=== PATIENT | female | born 1940 | race Caucasian/White ===

== ENCOUNTER 2017-05-02 14:44 | Emergency (ER) | payer MEDICARE | END 2017-05-02 17:58 | disposition left against medical advice (07) | LOC: UCEAST 14:44 | DX: S01.91XA Laceration without foreign body of unspecified part of head, initial encounter (principal); X58.XXXA Exposure to other specified factors, initial encounter; Y93.9 Activity, unspecified; Y92.9 Unspecified place or not applicable; Z53.21 Procedure and treatment not carried out due to patient leaving prior to being seen by health care provider ==

== ENCOUNTER 2017-05-03 16:15 | Emergency (ER) | payer MEDICARE ==
--- NOTE | 2017-05-03 17:37 | UC ---
Head Injury HPI - HPI Summary HPI Summary: 2 DAYS AGO PT TURNED HER HEAD TO LOOK AT SOMETHING, GOT DIZZY AND FELL BACKWARDS. STRUCK HEAD ON A GLASS JAR AND LANDED ON HER [place] FLOOR. DENIES LOC. HAS LACERATIONS TO POSTERIOR SCALP AND UPPER BACK. DENIES CP, SOB, NAUSEA. HAS H/O MENINGIOMA. NEUROLOGIST DR. SIDDIQI. - History Of Current Complaint Stated Complaint: FALL Time Seen by Provider: 05/03/17 16:22 Hx Obtained From: Patient Onset/Duration: Sudden Onset, Lasting Days, Still Present Severity Currently: Moderate Severity Initially: Moderate Pain Intensity: 4 Pain Scale Used: 0-10 Numeric Character: Dull Aggravating Factor(s): Nothing Alleviating Factor(s): Nothing Associated Signs And Symptoms: Negative: LOC (Time In Secs./Mins/Hrs), Confusion , Memory Loss, Neck Pain, Nausea, Vomiting - Allergies/Home Medications Allergies/Adverse Reactions: Allergies Allergy/AdvReac Type Severity Reaction Status Date / Time MS Clonazepam [From Clonopin] Allergy Severe Anaphylatic Verified 05/03/17 16:24 Shock MS Clonidine [Clonidine] Allergy Hallucinati Verified 05/03/17 16:24 ons MS Lisinopril [Lisinopril] Allergy Difficulty Verified 05/03/17 16:24 Breathing ENVIRONMENTAL Allergy STUFFY, Uncoded 05/03/17 16:24 EYES RED, ITCHY PMH/Surg Hx/FS Hx/Imm Hx Endocrine History: Hypothyroidism Cardiovascular History: Hypertension Other Neurological History: MENINGIOMA S/P CRANIOTOMY 2006 Other History Of: Negative For: Anticoagulant Therapy - Surgical History Surgical History: Yes Surgery Procedure, Year, and Place: HYSTERECTOMY- [place] SURGERY- CRANIOTOMY 2005, ANEURYSM COIL PLACED 2004- [facility] KNEE ARTHROSCOPY- [facility] REDUCTION FX NASAL CMCR CATARACT 03/06 [facility] [place] - Family History Known Family History: Positive: Hypertension - Social History Alcohol Use: None Substance Use Type: None Substance Use Comment - Amount & Last Used: narcotics Smoking Status (MU): Never Smoked Tobacco Have You Smoked in the Last Year: No Review of Systems Constitutional: Other - DIZZY Skin: Other - LACERATION ENT: Negative Respiratory: Negative Cardiovascular: Negative Gastrointestinal: Negative Neurological: Headache All Other Systems Reviewed And Are Negative: Yes Physical Exam Triage Information Reviewed: Yes Appearance: Well-Appearing - DISHEVELED, No Pain Distress, Well-Nourished Vital Signs: Initial Vital Signs Temp 96.1 F 05/03/17 16:25 Pulse 88 05/03/17 16:25 Resp 16 05/03/17 16:25 BP 137/75 05/03/17 16:25 Pulse Ox 100 05/03/17 16:25 Vital Signs Reviewed: Yes Eyes: Positive: Conjunctiva Clear ENT: Positive: Hearing grossly normal Neck: Positive: Supple Respiratory Exam: Normal Cardiovascular: Positive: Other: - IRREGULARLY IRREGULAR Abdomen Description: Positive: Soft Musculoskeletal: Positive: No Edema Neurological: Positive: Alert Psychological: Positive: Age Appropriate Behavior Skin: Positive: Other - 1.2 CM LINEAR LACERATION POSTERIOR SCALP. 2CM STELLATE LACERATION UPPER BACK. Negative: rashes Diagnostics - EKG Cardiac Rate: NL - 93BPM Cardiac Rhythm: AFib: New ST Segment: Normal Head Injury Course/Dx - Course Course Of Treatment: PT WITH DIZZINESS, RECENT FALL, HEAD INJURY AND AFIB ON EKG. TO [facility] BY AMBULANCE - Differential Dx/Diagnosis Provider Diagnoses: 1. DIZZINESS/FALL. 2. LACERATIONS - SCALP, UPPER BACK. 3. AFIB - Physician Notification/Consults Discussed Patient Care With: Huey Pagan - TO [facility] BY AMBULANCE Time Discussed With Above Provider: 17:35 Discharge - Discharge Plan Condition: Stable Disposition: [facility] Referrals: Noe Wright MD [Primary Care Provider] -
[2017-05-03 17:49] VITALS: BP 138/76
== END 2017-05-03 18:00 | disposition short-term general hospital (02) ==
LOC: UCEAST 16:15
DX: S01.01XA Laceration without foreign body of scalp, initial encounter (principal); S21.219A Laceration without foreign body of unspecified back wall of thorax without penetration into thoracic cavity, initial encounter; W18.00XA Striking against unspecified object with subsequent fall, initial encounter; Y93.9 Activity, unspecified; Y92.9 Unspecified place or not applicable; Y99.9 Unspecified external cause status; R42 Dizziness and giddiness; R51 Headache; I48.91 Unspecified atrial fibrillation; Z88.8 Allergy status to other drugs, medicaments and biological substances; E03.9 Hypothyroidism, unspecified; I10 Essential (primary) hypertension; Z90.710 Acquired absence of both cervix and uterus
CPT/HCPCS: 93005; 99213; G0463

== ENCOUNTER 2017-05-03 18:31 | Emergency (ER) | payer MEDICARE ==
--- NOTE | 2017-05-03 20:21 | RAD ---
Indication: Fall 2 days ago hitting back of head. History of brain cancer. Frequent falls at home. Comparison: September 08, 2013 CT Technique: Noncontrast CT vertex of skull through foramen magnum. Report: Significant artifact from metallic coils at the level of the [place] degrading image quality. Small foci of encephalomalacia at the frontal poles of the RIGHT greater than LEFT frontal lobes without change. No new region of baeza matter white matter obscuration or mass effect evident. Mild prominence of the cerebral sulci. Negative for ventriculomegaly. Patent basal cisterns. Negative for intra or extra-axial hemorrhage. Unremarkable visualized orbital contents. Negative for suspicious calvarial or skull base lesions. Postsurgical change of frontal to RIGHT frontal craniotomy. Clear visualized paranasal sinuses and RIGHT mastoid air spaces. Partial opacification of the LEFT mastoid air spaces new compared with the prior exam. Negative for scalp hematoma. IMPRESSION: 1. No traumatic brain injury or acute intracranial process evident. 2. Previous craniotomy. Subjacent small foci of encephalomalacia at the RIGHT greater than LEFT frontal lobes without change. 3. Partial LEFT mastoid effusions new compared with the prior exam.
[2017-05-03 20:59] VITALS: BP 130/63
--- NOTE | 2017-05-10 19:52 | ED ---
Grisel Velasco Rebecca, scribed for Guzman Carvalho MD on 05/03/17 at 1843 . Head Injury - HPI Summary HPI Summary: Pt is a 76 y/o F BIBA from [facility] who presents to ED c/o scalp lacerations s/p fall. Pt reports that she fell 2 days ago due to losing her balance, striking her head on a glass jar and landing on hardwood [place]. Denies LOC. Additionally c/o TAVERA with moderate pain ranked 6/10. PMHx brain CA with frequent falls at home. Is not on blood thinners. - History Of Current Complaint Chief Complaint: EDHeadInjury Stated Complaint: GENERAL ILLNESS Hx Obtained From: Patient Mechanism Of Injury: Fall From A Standing Position Onset/Duration: Started Days Ago - 2 days, Still Present Severity Currently: Moderate Pain Intensity: 6 Pain Scale Used: 0-10 Numeric Location of Head Injury: Occipital Aggravating Factor(s): Other: - Nothing Alleviating Factor(s): Other: - Nothing Associated Signs And Symptoms: Headache - Allergies/Home Medications Allergies/Adverse Reactions: Allergies Allergy/AdvReac Type Severity Reaction Status Date / Time MS Clonazepam [From Clonopin] Allergy Severe Anaphylatic Verified 05/03/17 18:39 Shock MS Clonidine [Clonidine] Allergy Hallucinati Verified 05/03/17 18:39 ons MS Lisinopril [Lisinopril] Allergy Difficulty Verified 05/03/17 18:39 Breathing ENVIRONMENTAL Allergy STUFFY, Uncoded 05/03/17 18:39 EYES RED, ITCHY PMH/Surg Hx/FS Hx/Imm Hx Endocrine/Hematology History: Reports: Hx Thyroid Disease Denies: Hx Anticoagulant Therapy, Hx Diabetes Cardiovascular History: Reports: Other Cardiovascular Problems/Disorders - BRAIN SURG FOR MENINGIOMA, ANEURYSM (COILED) Denies: Hx Hypertension, Hx Pacemaker/ICD Respiratory History: Reports: Hx Seasonal Allergies Denies: Hx Asthma, Hx Chronic Obstructive Pulmonary Disease (COPD) GI History: Reports: Hx Gastroesophageal Reflux Disease - TAKES LANSOPRAZOLE Denies: Hx Ulcer History: Denies: Hx Renal Disease Musculoskeletal History: Reports: Hx Back Problems Sensory History: Reports: Hx Contacts or Glasses - GLASSES Denies: Hx Cataracts, Hx Glaucoma, Hx Hearing Aid Opthamlomology History: Reports: Hx Contacts or Glasses - GLASSES Denies: Hx Cataracts, Hx Glaucoma Neurological History: Reports: Hx Headaches, Hx Migraine, Hx Seizures - WELL CONTROLLED, Other Neuro Impairments/Disorders - BRAIN TUMOR, HX OF BRAIN SURGERY Psychiatric History: Reports: Hx Anxiety, Hx Depression Denies: Hx Panic Disorder - Cancer History Cancer Type, Location and Year: 2004- CRANIOTMY Hx Chemotherapy: No Hx Radiation Therapy: No - Surgical History Surgery Procedure, Year, and Place: HYSTERECTOMY- AUBURNBRAIN SURGERY- CRANIOTOMY 2005, ANEURYSM COIL PLACED 2004- [place] [facility] ARTHROS[facility]- [place] , [facility] REDUCTION FX NASAL CMCR CATARACT 03/06 [facility]LASTY [place] Hx Anesthesia Reactions: No Infectious Disease History: No Infectious Disease History: Denies: Hx Hepatitis, Hx Human Immunodeficiency Virus (HIV), Traveled Outside the [place] in Last 30 Days - Family History Known Family History: Positive: Hypertension - Social History Alcohol Use: None Substance Use Type: Reports: Prescribed Substance Use Comment - Amount & Last Used: narcotics Smoking Status (MU): Never Smoked Tobacco Have You Smoked in the Last Year: No Review of Systems Positive: Other - Scalp lacerations Positive: Headache All Other Systems Reviewed And Are Negative: Yes Physical Exam - Summary Physical Exam Summary: Appearance: Well-appearing, Well-nourished Skin: Warm, Dry, No rash Eyes: Normal, PERRL, EOMI, sclera anicteric ENT: Normal Neck: Supple, nontender Respiratory: Clear to auscultation Cardiovascular: S1, S2, no murmur, no rub, no gallop Abdomen: Soft, nontender, no organomegaly Bowel sounds: Present Musculoskeletal: Normal, Strength/ROM Intact, no edema, pulses symmetrical Neurological: Slightly aphasic and has trouble findings words, A&Ox3, cranial nerves II-XII WNL, follows commands, gait not tested, sensation intact to pin and light touch Psychiatric: affect normal, behavior appropriate, dressed appropriately, judgment intact GCS: 14 Triage Information Reviewed: Yes Vital Signs On Initial Exam: Initial Vitals Temp Pulse Resp BP Pulse Ox 97.7 F 76 18 119/63 99 05/03/17 18:33 05/03/17 18:33 05/03/17 18:33 05/03/17 18:33 05/03/17 18:33 Vital Signs Reviewed: Yes - Emiliano Coma Scale Glascow Coma Scale Comments: 14 Diagnostics - Vital Signs Vital Signs Temp Pulse Resp BP Pulse Ox 05/03/17 18:33 97.7 F 76 18 119/63 99 - Laboratory Lab Statement: Any lab studies that have been ordered have been reviewed, and results considered in the medical decision making process. - CT Brain CT CT Interpretation: No Acute Changes - 1. No traumatic brain injury or acute intracranial process evident. 2. Previous craniotomy. Subjacent small foci of encephalomalacia at the RIGHT greater than LEFT frontal lobes without change. 3. Partial LEFT mastoid effusions new compared with the prior exam. Dr. Carvalho reviewed this radiology report. CT Interpretation Completed By: Radiologist Re-Evaluation - Re-Evaluation First Eval Re-Evaluation Time: 20:30 Comment: Discussed CT results and D/C plan with the pt. Head Injury Course/Dx Assessment/Plan: Pt is a 76 y/o F BIBA from [facility] who presents to ED c/o scalp lacerations s/p fall 2 days ago due to losing her balance, striking her head on a glass jar and landing on hardwood [place]. Denies LOC. Additionally c/o TAVERA with moderate pain ranked 6/10. PMHx brain CA with frequent falls at home. Is not on blood thinners. Brain CT reveals no acute findings. Pt will be D/C to home with Dx of head trauma and minor concussion. She understands and agrees. Allergies noted. - Diagnoses Provider Diagnoses: Head trauma, Concussion Discharge - Discharge Plan Condition: Good Disposition: HOME Discharge Disposition Comment: home Patient Education Materials: Concussion (ED) Referrals: Noe Wright MD [Primary Care Provider] - The documentation as recorded by the Grisel friedman Rebecca accurately reflects the service I personally performed and the decisions made by me, Guzman Carvalho MD.
== END 2017-05-03 20:58 | disposition home or self-care (01) ==
LOC: ED 18:31
DX: S09.90XA Unspecified injury of head, initial encounter (principal); S06.0X9A Concussion with loss of consciousness of unspecified duration, initial encounter; R51 Headache; Z86.011 Personal history of benign neoplasm of the brain; W19.XXXA Unspecified fall, initial encounter; Y92.9 Unspecified place or not applicable; S01.01XA Laceration without foreign body of scalp, initial encounter
CPT/HCPCS: 70450; 99283

== ENCOUNTER 2017-05-20 20:47 | Inpatient (IN) | payer MEDICARE ==
[2017-05-20 22:09] LABS: ABS Basophils 0 10^3/ul (0-0.2); ABS Eosinophils 0 10^3/ul (0-0.6); ABS Lymphocytes 1.6 10^3/ul (1.0-4.8); ABS Monocytes 0.5 10^3/ul (0-0.8); ABS Neutrophils 4.8 10^3/ul (1.5-7.7); ABS Nucleated RBC 0 10^3/ul; Eosinophil % 0.6 % (0-6); Hematocrit 37 % (35-47); Lymphocyte % 23.2 % (25-47); Mean Corpuscular HGB Conc 35 g/dl (31-36); Mean Corpuscular Hemoglobin 31 pg (27-31); Mean Corpuscular Volume 90 fL (80-97); Mean Platelet Volume 8 um3 (7.4-10.4); Nucleated Red Blood Cells % 0.1; Platelet Count 261 10^3/ul (150-450); Red Blood Count 4.15 10^6/ul (4.0-5.4); Red Cell Distribution Width 14 % (10.5-15)
[2017-05-20 22:27] LABS: EGFR Non-African American 25.8 (>60)
[2017-05-20] MEDS ORDERED: Potassium Chlor TAB* 20 MEQ TAB.ER PO ONE (22:37)
[2017-05-21] MEDS ORDERED: NS 0.9% w/ 20 Meq KCL 1000 ML* 1,000 ML IV SCH
--- NOTE | 2017-05-21 00:09 | ED ---
Gerson Velasco Angela, scribed for iGlma Douglas MD on 05/20/17 at 2123 . Complex/Multi-Sys Presentation - HPI Summary HPI Summary: This pt is a 76 y/o female presenting to [facility] via EMS for palpitations earlier today. Per EMS, pt called them for palpitations. EMS reports the pt has had palpitations for 3 weeks now. She denies any chest pain. When asked why she called the ambulance, the pt goes into tangents explaining and does not answer the question. Pt lives at home alone. Per pt, she had a brain tumor, and states some of it was resected approximately 7 years ago. HPI is limited due to level 5 caveat - the pt is a poor historian. - History Of Current Complaint Time Seen by Provider: 05/20/17 20:52 Hx Obtained From: Patient Hx From Patient Unobtainable Due To: Other - pt is a poor historian Onset/Duration: Lasting Hours, Still Present Timing: Hours Severity Currently: Moderate Aggravating Factor(s): nothing Alleviating Factor(s): nothing Associated Signs And Symptoms: Positive: Confusion, Palpitations. Negative: Chest Pain - Allergies/Home Medications Allergies/Adverse Reactions: Allergies Allergy/AdvReac Type Severity Reaction Status Date / Time MS Clonazepam [From Clonopin] Allergy Severe Anaphylatic Verified 05/03/17 18:39 Shock MS Clonidine [Clonidine] Allergy Hallucinati Verified 05/03/17 18:39 ons MS Lisinopril [Lisinopril] Allergy Difficulty Verified 05/03/17 18:39 Breathing ENVIRONMENTAL Allergy STUFFY, Uncoded 05/03/17 18:39 EYES RED, ITCHY PMH/Surg Hx/FS Hx/Imm Hx Endocrine/Hematology History: Reports: Hx Thyroid Disease Denies: Hx Anticoagulant Therapy, Hx Diabetes Cardiovascular History: Reports: Other Cardiovascular Problems/Disorders - BRAIN SURG FOR MENINGIOMA, ANEURYSM (COILED) Denies: Hx Hypertension, Hx Pacemaker/ICD Respiratory History: Reports: Hx Seasonal Allergies Denies: Hx Asthma, Hx Chronic Obstructive Pulmonary Disease (COPD) GI History: Reports: Hx Gastroesophageal Reflux Disease - TAKES LANSOPRAZOLE Denies: Hx Ulcer History: Denies: Hx Renal Disease Musculoskeletal History: Reports: Hx Back Problems Sensory History: Reports: Hx Contacts or Glasses - GLASSES Denies: Hx Cataracts, Hx Glaucoma, Hx Hearing Aid Opthamlomology History: Reports: Hx Contacts or Glasses - GLASSES Denies: Hx Cataracts, Hx Glaucoma Neurological History: Reports: Hx Headaches, Hx Migraine, Hx Seizures - WELL CONTROLLED, Other Neuro Impairments/Disorders - BRAIN TUMOR, HX OF BRAIN SURGERY Psychiatric History: Reports: Hx Anxiety, Hx Depression Denies: Hx Panic Disorder - Cancer History Cancer Type, Location and Year: 2004- CRANIOTMY Hx Chemotherapy: No Hx Radiation Therapy: No - Surgical History Surgery Procedure, Year, and Place: HYSTERECTOMY- AUBURNBRAIN SURGERY- CRANIOTOMY 2005, ANEURYSM COIL PLACED 2004- [place] , [facility] REDUCTION FX NASAL CMCR CATARACT 03/06 [facility]LEPH[facility]LASTY [place] Hx Anesthesia Reactions: No Infectious Disease History: Denies: Hx Hepatitis, Hx Human Immunodeficiency Virus (HIV) - Family History Known Family History: Positive: Hypertension - Social History Alcohol Use: None Substance Use Type: Reports: Prescribed Substance Use Comment - Amount & Last Used: narcotics Smoking Status (MU): Never Smoked Tobacco Have You Smoked in the Last Year: No Review of Systems - ROS Summary Review of Systems Summary: ROS is limited due to level 5 caveat - pt is a poor historian. Negative: Fever, Chills Positive: Palpitations. Negative: Chest Pain All Other Systems Reviewed And Are Negative: No Physical Exam - Summary Physical Exam Summary: VITAL SIGNS: Reviewed. GENERAL: Patient is a well-developed and nourished female who is lying comfortable in the stretcher. Patient is not in any acute respiratory distress. HEAD AND FACE: No signs of trauma. No ecchymosis, hematomas or skull depressions. No sinus tenderness. EYES: PERRLA, EOMI x 2, No injected conjunctiva, no nystagmus. EARS: Hearing grossly intact. Ear canals and tympanic membranes are within normal limits. MOUTH: Oropharynx within normal limits. NECK: Supple, trachea is midline, no adenopathy, no JVD, no carotid bruit, no c- spine tenderness, neck with full ROM. CHEST: Symmetric, no tenderness at palpation LUNGS: Clear to auscultation bilaterally. No wheezing or crackles. CVS: Regular rate and rhythm, S1 and S2 present, no murmurs or gallops appreciated. ABDOMEN: Soft, non-tender. No signs of distention. No rebound no guarding, and no masses palpated. Bowel sounds are normal. EXTREMITIES: FROM in all major joints, no edema, no cyanosis or clubbing. NEURO: Alert and oriented x 3. Speech is normal and follows commands. Pt has confusion. SKIN: Dry and warm Triage Information Reviewed: Yes Vital Signs Reviewed: Yes Completion Of Physical Exam Limited Due To: Level 5 - pt is a poor historian - Emiliano Coma Scale Best Eye Response: 4 - Spontaneous Best Motor Response: 6 - Obeys Commands Best Verbal Response: 5 - Oriented Coma Scale Total: 15 Diagnostics - Laboratory Result Diagrams: 05/20/17 22:00 05/20/17 22:00 Lab Statement: Any lab studies that have been ordered have been reviewed, and results considered in the medical decision making process. - Radiology Chest XR Xray Interpretation: No Acute Changes - negative chest XR Radiology Interpretation Completed By: ED Physician - CT Brain CT CT Interpretation: No Acute Changes - IMPRESSION: again noted metallic in the suprasellar region compatible with aneurysm clips and/or coils. Extensive streak artifact limits evaluation. There is no clear evidence of intracranial hemorrhage within the limitations of the study. No midlie shift. There is stable mild cortical atrophy. Ventricular size corresponds to the degree of atrophy. Frontal craniotomy defect is again noted. The calvarium is otherwise intact. Multiple opacified left mastoid air cells are again noted compatible with chronic and/or acute mastoiditis. The visualized paranasal sinuses and right mastoid air cells are clear. Dr. Douglas has reviewed this radiology report. CT Interpretation Completed By: Radiologist - EKG 21:02 Cardiac Rate: NL EKG Rhythm: Sinus Rhythm - at [address] Segment: Non-Specific - ST changes Complex Multi-Symp Course/Dx Course Of Treatment: Pt is a 76 y/o female who presents with palpitations earlier today. History is limited as pt is not a good historian. Labs show potassium 2.4, creatinine of 1.90. Chest XR is negative. Brain CT is negative. I discussed pt care with Dr. Rajput, hospitalist, who has agreed to admit the pt. - Diagnoses Provider Diagnoses: Hypokalemia, Renal insufficiency, Palpitations - Physician Notifications Discussed Care Of Patient With: Siddharth Rajput Time Discussed With Above Provider: 00:00 Instructed by Provider To: Other - I discussed pt care with Dr. Rajput, hospitalist, who has agreed to admit the pt. Discharge - Discharge Plan Condition: Stable Disposition: ADMITTED TO [facility] Referrals: Noe Wright MD [Primary Care Provider] - The documentation as recorded by the Gerson friedman Angela accurately reflects the service I personally performed and the decisions made by me, Gilma Douglas MD.
--- NOTE | 2017-05-21 00:42 | HP ---
H&P (Free Text) History and Physical: PCP: HAROLDO Wright MD Date/Time: 05/21/2017 0040 CC: confusion HPI: Mrs Coreas is a 76YO female [place] [facility] [place] calling complaining of palpitations which she informed them had been present for the last 3 weeks. However, upon my evaluation she is very perseverant regarding the pharmacy information she received on her topiramate which she feels is killing her. During the interview, she becomes uncomfortable with the 3 glove boxes on the ED wall thinking they are "little men". She denies recent medication changes , but is likely not reliable on this. Likewise it is conceivable she could be under/over dosing her routine medications. She has numerous complaints such as anesthesia of the feet and fingers, difficulty initiating gait, and dizziness all of which she attributes to topiramate. She states that in the deterioration topiramate causes "the last symptom you get before you is you go blind" and that she would like to avoid that. She denies fall or recent head trauma. Much of the remainder of this history was obtained from old records. PMedHx meningioma s/p partial resection [place] aneurysm s/p coiling HTN HLD hypothyroidism seizure disorder GERD R sciatica anxiety Ambulatory Orders Topiramate TAB(*) [Topamax 100 mg tab] 100 mg PO BID 04/02/12 Triamterene/HCTZ 37.5-25 MG* [Dyazide CAP*] 1 tab PO QAM 04/03/12 ALPRAZolam TAB* [Xanax TAB*] 1 mg PO Q4HR PRN 07/30/13 Acyclovir* [Zovirax 400 MG TAB*] 400 mg PO TID PRN 07/30/13 Aspirin TAB* [Aspirin 325 MG TAB*] 325 mg PO QPM 07/30/13 Dextroamphetamine/Amphetamine [Amphetamine/Dextroampheta 10 mg-] 10 tab PO QAM 07/30/13 Fluticasone NASAL SPRAY 50MCG* [Flonase NASAL SPRAY 50MCG*] 2 spray BOTH NARES DAILY PRN 07/30/13 Meclizine TAB* [Antivert 12.5 TAB*] 50 mg PO BID 07/30/13 Morphine TAB (NF) 30 mg PO Q4HR 07/30/13 Potassium Chloride [Klor-Con 10] 20 meq PO BID 07/30/13 lamoTRIgine TAB(*) [Lamictal TAB(*)] 250 mg PO BID 07/30/13 Levothyroxine TAB* 75 mcg PO QAM 03/28/14 Cholecalciferol (Vitamin D3) [Vitamin D3] 2,000 unit PO QAM 04/20/14 Lansoprazole 30 mg PO BID 04/20/14 Cyanocobalamin INJ * [Vitamin B12 INJ *] 1,000 mcg IM MONTHLY 06/30/15 hydrOXYzine HCL TAB* [Atarax TAB 50 MG *] 50 mg PO Q6H PRN 06/30/15 Cyclobenzaprine TAB* [Flexeril 10 MG TAB*] 10 mg PO TID 05/21/17 Loratadine/Pseudoephedrine [Claritin-D 24 Hour 10-240 mg] 1 tab PO DAILY Allergies clonazepam Allergy (Verified 05/21/17 02:11) Anaphylatic Shock clonidine Allergy (Verified 05/21/17 02:11) Hallucinations lisinopril Allergy (Verified 05/21/17 02:11) Difficulty Breathing ENVIRONMENTAL Allergy (Uncoded 05/21/17 01:33) STUFFY, EYES RED, ITCHY PSurgHx meningioma partial resection [place] aneurysm coiling partial hysterectomy B blepharoplasty nasal fracture repair OU cataract extractions knee surgery SocHx: no tobacco, former light drinker, no recreational drugs; lives alone; uses cane to ambulate; full FamHx: Mother: CHF; Father: lung CA; Sister: fibromyalgia, DM2; Brother: DM2 ROS: as above, otherwise reviewed and all were negative vitals: Vital Signs Temp 36.8 C 05/21/17 07:35 Pulse 72 05/21/17 07:35 Resp 16 05/21/17 07:35 BP 125/66 05/21/17 07:35 Pulse Ox 100 05/21/17 07:35 Intake & Output 05/20/17 05/20/17 05/21/17 11:59 23:59 11:59 Intake Total 411 Balance 411 Weight 74.843 kg 74.843 kg Intake: IV Fluids 211 NS (0.9%) 211 Oral 200 Constitutional: NAD, normally developed, well-nourished elderly white female HEENM: atraumatic; sclera/conjunctiva: anicteric/clear; hearing: clinically intact; oropharynx: clear, mucosa moist Neck: soft tissue: non-tender, no nuchal rigidity; thyroid: normal Pulmonary: clear to auscultation bilaterally, good aeration, no accessory muscle use CV: RR/RR, normal S1S2, no carotid bruit, no jugular venous distention, 2+ B DP/ PT, no edema Abdominal: soft, non-distended, non-tender, no rebound/guarding/rigidity, normoactive bowel sounds, no hepatosplenomegaly or masses, no costovertebral angle tenderness Musculoskeletal: general: grossly intact, no tenderness w/ palpation Integumental: normal appearance and texture of exposed skin Psychiatric orientation: AA&O to PP, not ST affect: calm mood: cooperative eye contact: fair content: unreliable responses: timely, tangential, perseverant regarding dangers of topiramate insight: poor Testing: Lab Results 05/20/17 05/20/17 05/21/17 Range/Units 22:00 22:00 05:49 WBC 7.0 (3.5-10.8) 10^3/ul RBC 4.15 (4.0-5.4) 10^6/ul Hgb 13.0 (12.0-16.0) g/dl Hct 37 (35-47) % MCV 90 (80-97) fL MCH 31 (27-31) pg MCHC 35 (31-36) g/dl RDW 14 (10.5-15) % Plt Count 261 (150-450) 10^3/ul MPV 8 (7.4-10.4) um3 Neut % (Auto) 69.1 (38-83) % Lymph % (Auto) 23.2 L (25-47) % [place] % (Auto) 6.6 (0-7) % Eos % (Auto) 0.6 (0-6) % Baso % (Auto) 0.5 (0-2) % Absolute Neuts (auto) 4.8 (1.5-7.7) 10^3/ul Absolute Lymphs (auto) 1.6 (1.0-4.8) 10^3/ul Absolute Monos (auto) 0.5 (0-0.8) 10^3/ul Absolute Eos (auto) 0 (0-0.6) 10^3/ul Absolute Basos (auto) 0 (0-0.2) 10^3/ul Absolute Nucleated RBC 0 10^3/ul Nucleated RBC % 0.1 Sodium 132 L 134 (133-145) mmol/L Potassium 2.4 L* 2.4 L* (3.5-5.0) mmol/L Chloride 89 L 95 L (101-111) mmol/L Carbon Dioxide 27 28 (22-32) mmol/L Anion Gap 16 H 11 (2-11) mmol/L BUN 24 24 (6-24) mg/dL Creatinine 1.90 H 1.72 H (0.51-0.95) mg/dL Est GFR ( Amer) 33.2 37.3 (>60) Est GFR (Non-Af Amer) 25.8 29.0 (>60) BUN/Creatinine Ratio 12.6 14.0 (8-20) Glucose 86 98 (70-100) mg/dL Calcium 10.8 H 9.7 (8.6-10.3) mg/dL Total Bilirubin 0.80 (0.2-1.0) mg/dL AST 16 (13-39) U/L ALT 12 (7-52) U/L Alkaline Phosphatase 53 (34-104) U/L Troponin I 0.03 (<0.04) ng/mL Total Protein 7.5 (6.4-8.9) g/dL Albumin 4.4 (3.2-5.2) g/dL Globulin 3.1 (2-4) g/dL Albumin/Globulin Ratio 1.4 (1-3) TSH 0.97 (0.34-5.60) mcIU/mL Salicylates < 2.50 (<30) mg/dL Acetaminophen < 15 mcg/mL Serum Alcohol < 10 (<10) mg/dL ECG, personally reviewed: NSR rate 90, diffuse non-specific ST-T changes, poor R -wave progression CXR, personally reviewed: IMPRESSION: NO ACTIVE CARDIOPULMONARY DISEASE. CT brain WO, personally reviewed: IMPRESSION: 1. NO ACUTE INTRACRANIAL PATHOLOGY. 2. STABLE RIGHT FRONTAL ENCEPHALOMALACIA. 3. STATUS POST ENDOVASCULAR COIL EMBOLIZATION Impression: 76M presenting with acute delirium on suspected chronic undiagnosed dementia, ? palpitations w/ hypoKalemia DIAGNOSIS & PLAN Primary confusion w/ hallucinations : hold all likely culprit medications : suspect acute delirium on previously undiagnosed dementia vs medication over/ under dosing : trend labs & vitals : supportive care hypoKalemia : replace & recheck Secondary meningioma s/p partial resection : stable [place] aneurysm s/p coiling : no acute issues HTN : continue triamterene/HCTZ hypothyroidism : continue levothyroxine seizure disorder : continue lamotrigine GERD : continue lansoprazole R sciatica anxiety : hold alprazolam as above Admission Rational: inpatient for AMS & hallucinations not expected to be adequately resolve w/i 48h to allow for discharge DVTp: SCDs Code Status: full HCP: unable to determine
[2017-05-21] MEDS ORDERED: Ondansetron INJ* 2 MG/ML VIAL IV PRN (02:41)
[2017-05-21] MEDS ORDERED: CMCS: Melatonin (NF) 3 MG TAB PO PRN (02:41)
[2017-05-21] MEDS: NS 0.9% 1000 ML* 1,000 ML IV SCH ×3 (05:46→23:51)
[2017-05-21] MEDS: Acetaminophen TAB* 325 MG PO PRN (05:52)
--- NOTE | 2017-05-21 08:01 | RAD ---
HISTORY: Confusion COMPARISONS: May 03, 2012 TECHNIQUE: Multiple contiguous axial CT scans were obtained of the head without intravenous contrast. FINDINGS: Evaluation limited by metallic streak artifact from previous coil embolization. HEMORRHAGE/INFARCT: There is no hemorrhage or acute infarct. MASSES/SHIFT: There is no mass or shift. EXTRA-AXIAL SPACES: There are no extra-axial fluid collections. SULCI AND VENTRICLES: The sulci and ventricles are normal in size and position for the patient's stated age. CEREBRUM: There is stable right frontal encephalomalacia. BRAINSTEM: There are no focal parenchymal abnormalities. CEREBELLUM: There are no focal parenchymal abnormalities. VESSELS: The patient appears to be status post endovascular coil embolization of a cerebral aneurysm. PARANASAL SINUSES: The paranasal sinuses are clear. There is a small left mastoid effusion. ORBITS: The orbits are unremarkable. BONES AND SOFT TISSUE: There is postsurgical change to the skull. OTHER: None IMPRESSION: 1. NO ACUTE INTRACRANIAL PATHOLOGY. 2. STABLE RIGHT FRONTAL ENCEPHALOMALACIA. 3. STATUS POST ENDOVASCULAR COIL EMBOLIZATION
--- NOTE | 2017-05-21 08:03 | RAD ---
HISTORY: Palpitation COMPARISONS: August 11, 2014 VIEWS: 1: frontal portable view of the chest at 10:54 PM FINDINGS: LINES AND TUBES: None. CARDIOMEDIASTINAL SILHOUETTE: The cardiomediastinal silhouette is normal for portable technique. PLEURA: The costophrenic angles are sharp. No pleural abnormalities are noted. LUNG PARENCHYMA: The lungs are clear. ABDOMEN: The upper abdomen is clear. There is no subphrenic gas. BONES AND SOFT TISSUES: No bone or soft tissue abnormalities are noted. IMPRESSION: NO ACTIVE CARDIOPULMONARY DISEASE.
[2017-05-21] MEDS ORDERED: Potassium Chlor TAB* 20 MEQ TAB.ER PO ONE (09:45)
[2017-05-21] MEDS ORDERED: KCL 20 MEQ/100 ML IVPREMIX* 20 MEQ/100 ML BAG IV SCH (10:00)
[2017-05-21] MEDS: Potassium Chloride IV* 20 MEQ in NS 0.9% 100 ML* 100 ML IVPB SCH ×3 (11:06→15:50)
--- NOTE | 2017-05-21 17:48 | PN ---
Subjective Date of Service: 05/21/17 Interval History: Patient seen, difficult to obtain ROS, difficult to redirect. Wants to talk about other things and has difficulty remaining on point to answer questions. From what I can gather, she is complaining of frequent falls (including fractured nasal bone 2/2 fall), severe gait dysfunction. She also has chronically low potassium which is being repleted. No longer having palpitations. Denies pain. Per RN, bladder scan = >600ml. Objective Active Medications: Acetaminophen (Tylenol Tab*) 650 mg PO Q6H PRN PRN Reason: FEVER/PAIN Last Admin: 05/21/17 05:52 Dose: 650 mg Aspirin (Aspirin Tab*) 325 mg PO QPM [facility] Sodium Chloride (Ns 0.9% 1000 Ml*) 1,000 mls @ 125 mls/hr IV PER RATE [facility] Last Admin: 05/21/17 15:50 Dose: 125 mls/hr Lamotrigine (Lamictal Tab(*)) 250 mg PO BID [facility] Levothyroxine Sodium (Synthroid Tab*) 75 mcg PO 0600 [facility] Melatonin (Melatonin (Nf)) 3 mg PO BEDTIME PRN; Protocol PRN Reason: Sleep Omeprazole (Prilosec Cap*) 20 mg PO BID [facility] Ondansetron HCl (Zofran Inj*) 4 mg IV Q6H PRN PRN Reason: NAUSEA Quetiapine Fumarate (Seroquel Tab*) 25 mg PO BEDTIME [facility] Topiramate (Topamax(*)) 100 mg PO BID [facility] Vital Signs - 8 hr 05/21/17 05/21/17 11:15 16:51 Temperature 97.6 F 98.2 F Pulse Rate 73 83 Respiratory 14 18 Rate Blood Pressure 103/79 120/64 (mmHg) O2 Sat by Pulse 99 100 Oximetry Oxygen Devices in Use Now: None Appearance: Alert, somewhat distressed, appears angry at times Eyes: No Scleral Icterus, PERRLA Ears/Nose/Mouth/Throat: NL Teeth, Lips, Gums Neck: NL Appearance and Movements; NL JVP, Trachea Midline Respiratory: Symmetrical Chest Expansion and Respiratory Effort, Clear to Auscultation Cardiovascular: NL Sounds; No Murmurs; No JVD, RRR, No Edema Extremities: No Edema Skin: No Rash or Ulcers Neurological: NL Sensation, NL Muscle Strength and Tone, - - a&ox2 Nutrition: Taking PO's Result Diagrams: 05/20/17 22:00 05/21/17 05:49 Diagnostic Imaging: Patient Name: IRVIN VARGAS Medical Record#: [id number] Ordering Physician: Gilma Douglas MD Acct.#: [id number] : 1940 Age: 76 Sex: F Location: [address] [place] [address] MEDICAL/TELEMETRY Exam Date: 05/20/172129 ADM Status: ADM IN Order Information: CT BRAIN WO Accession Number: [id number] CPT: 92946 HISTORY: Confusion COMPARISONS: May 03, 2012 TECHNIQUE: Multiple contiguous axial CT scans were obtained of the head without intravenous contrast. FINDINGS: Evaluation limited by metallic streak artifact from previous coil embolization. HEMORRHAGE/INFARCT: There is no hemorrhage or acute infarct. MASSES/SHIFT: There is no mass or shift. EXTRA-AXIAL SPACES: There are no extra-axial fluid collections. SULCI AND VENTRICLES: The sulci and ventricles are normal in size and position for the patient's stated age. CEREBRUM: There is stable right frontal encephalomalacia. BRAINSTEM: There are no focal parenchymal abnormalities. CEREBELLUM: There are no focal parenchymal abnormalities. VESSELS: The patient appears to be status post endovascular coil embolization of a cerebral aneurysm. PARANASAL SINUSES: The paranasal sinuses are clear. There is a small left mastoid effusion. ORBITS: The orbits are unremarkable. BONES AND SOFT TISSUE: There is postsurgical change to the skull. OTHER: None IMPRESSION: 1. NO ACUTE INTRACRANIAL PATHOLOGY. 2. STABLE RIGHT FRONTAL ENCEPHALOMALACIA. 3. STATUS POST ENDOVASCULAR COIL EMBOLIZATION <Electronically signed by Gen Castro MD in OV> 05/21/17757 Dictated By: Gen Castro MD Dictated Date/Time: 05/21/17757 Transcribed Date/Time: 05/21/17755 Copy to: CC:Gilma Douglas MD; Annalise Garcia DO; Siddharth Rajput MD; Noe Wright MD Imaging - [facility] Imaging - [facility] Imaging - [facility] [address] [place] [address] 1 of 2 Assess/Plan/Problems-Billing Assessment: This is a 76 year old female with history of anuerysm with coiling, seizures, resection of meningioma that presented to ER with c/o palpitations and falls, found to have low potassium and poor insight likely r/t underlying behavioral disorder. - Patient Problems (1) Altered mental status Code(s): R41.82 - ALTERED MENTAL STATUS, UNSPECIFIED SNOMED Code(s): 590774889 Comment: - CT negative for acute infarct - Consult by Dr. Harrington, psychiatry, appreciate recomendations re: capacity (2) Hypokalemia Code(s): E87.6 - HYPOKALEMIA SNOMED Code(s): 48948495 Comment: - hold HCTZ/triameterene - Replete k and mag - follow lytes in AM (3) History of resection of meningioma Code(s): Z98.890 - OTHER SPECIFIED POSTPROCEDURAL STATES SNOMED Code(s): 325899395 Comment: - Will obtain MRI and MRA brain (4) Brain aneurysm Comment: - Unable to determine last imaging, will obtain MRI/MRA (5) Hypertension Code(s): I10 - ESSENTIAL (PRIMARY) HYPERTENSION SNOMED Code(s): 88299854 Comment: - BP stable, monitor (6) Retention of urine Code(s): R33.9 - RETENTION OF URINE, UNSPECIFIED SNOMED Code(s): 470583722 Comment: - Straight cath and send for C&S Status and Disposition: Remain inpatient. Counseling and/or Coordination of Care Minutes: coordinated with and staff
[2017-05-21 17:58] LABS: Urine Appearance Clear; Urine Blood Negative (Negative); Urine Color Yellow; Urine Ketones Negative (Negative); Urine Protein Negative (Negative); Urine Specific Gravity 1.013 (1.010-1.030); Urine Urobilinogen Negative (Negative)
[2017-05-21] MEDS: Aspirin TAB* 325 MG PO SCH (18:11)
[2017-05-21] MEDS: Topiramate TAB(*) 100 MG PO SCH (20:06)
[2017-05-21] MEDS: Omeprazole CAP* 20 MG PO SCH (20:06)
[2017-05-21] MEDS: lamoTRIgine TAB(*) 100 MG PO SCH (20:06)
[2017-05-21] MEDS ORDERED: QUEtiapine TAB* 25 MG PO SCH (21:00)
--- NOTE | 2017-05-22 00:21 | CONS ---
CONSULTATION REPORT: DATE OF CONSULTATION: 05/21/17 ATTENDING CLINICIAN: Mariela Ray NP CONSULTING PHYSICIAN: Albaro Harrington MD REASON FOR CONSULT: Confusion and hallucinations. SUBJECTIVE HISTORY: Psychiatry is asked to see this 76-year-old white female with a history of neurological dysfunction, brain surgery and seizure disorder, who is currently hospitalized on the [facility] inpatient service secondary to complaints of palpitations for which she called EMS. Subsequently in the ED, she appeared to be confused, bizarre, stating that the gloveboxes in the ED were concealing "little men." The primary team contacted the patient's outpatient provider, Dr. Noe Wright's office, and they indicated that they have not seen the patient in several months and were concerned because of odd delusional behavior. They had tried to get her initiated into mental health treatment in the community, but the patient had resisted this. Since hospitalization, she has been hyperverbal and describing visual hallucinations. She seemed to have bizarre, uncorrelated complaints such as anesthesia in her feet, fingers, difficulty with her gait and dizziness. The primary team was also concerned about placement issues given the fact that the patient was saying that she had difficulty driving a car and getting herself food to eat. When I meet with her, she is cooperative albeit hyperverbal and somewhat disheveled. She states, "what can I tell you, I am getting older, everything is falling apart." Apparently, she disagrees with having been hospitalized and she was unaware that she would need to be seen by a psychiatrist, although she does give me history. She states that she is closest with neurologist, Dr. Karla Monroy, and most recently saw him 2 months ago in his outpatient neurology clinic. She indicates that she has been on Topamax and Lamictal for years and states that she is compliant with these. When asked about her home safety or her safety in the home setting, she admits to falling frequently and that she has limited home support. She speaks often with her brother who resides in [place], but they do not see each other often because the 3-hour drive is too long. When I asked for her physician Jd's phone number, she is reluctant to give it to me. She also shows paranoia and anger towards Dr. Wright blaming him for canceling several appointments. She openly wonders what his motivations may have been for doing so. The patient is not in any current outpatient mental health treatment, although historically, she used to see psychiatrist, Dr. Ji, for several years. She denies mood instability, suicidal or homicidal ideations, and when offered voluntary psychiatric hospitalization, she denies it stating that she is capable of returning home. When asked about placement in a subacute rehab, she states "I could never do that. My house has a reverse mortgage and I will lose my home if I live anywhere else. The patient is oriented to her place and situation; however, she is disoriented to time. She denies neurovegetative symptoms of depression or anxiety. PSYCHIATRIC HISTORY: The patient states that she saw local psychiatrist, Dr. Ji, for years until his long term 2 to 3 years ago. At that time, he tried to refer her to a private psychiatrist in the community, but she could not afford the palmer payments. [facility] later [facility], but stated that she never went through the intake process. More recently, the outpatient primary care office has been trying to get her to go to [facility]; however, she declines this. She states that Dr. Ji had her on numerous psychiatric medications in the past, but she cannot recall the names of any of them. She has never been psychiatrically hospitalized. She has no history of suicidality, no history of homicidality. When I asked her about abuse or neglect developmentally, she refused to answer that question. She does indicate that she has had multiple concussions from falls in the past. SUBSTANCE ABUSE HISTORY: Negative for alcohol, illicit drugs or tobacco. PAST MEDICAL HISTORY: Significant for meningioma, status post partial resection; [place] of [place] aneurysm, status post coiling; hypokalemia; hypertension; chronic kidney disease; hypothyroidism; seizure disorder; gastroesophageal reflux disorder; sciatica; partial hysterectomy; bilateral blepharoplasty; bilateral cataract removal; history of knee surgery. MEDICATIONS: Her current meds include aspirin 325 mg daily, Lamictal 250 mg b.i.d., Synthroid 75 mcg daily, melatonin 3 mg p.o. q.h.s., omeprazole 20 mg p.o. b.i.d., potassium chloride 20 mEq IV daily, Topamax 100 mg b.i.d. ALLERGIES: She is allergic to CLONAZEPAM, CLONIDINE, and LISINOPRIL. FAMILY HISTORY: Noncontributory. SOCIAL HISTORY: The patient was born in [place], [place], but raised mostly in [place] to an intact family. She is the first out of 3 total children. Her younger sister is and she has a younger brother who resides in [place] with whom she often talks on the phone. She has been twice and twice. She has no children. She has never been in the . Currently, she owns her own home in [place], [place] and receives additional money from a reverse mortgage. She was very close to earning a Ph.D. at [employer] , in molecular biology, but never did complete her thesis because ran out of money for school. 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 She is currently single, self- identifies as Church and often goes to local [employer]. She has no formal legal history. MENTAL STATUS EXAM: The patient is an aging, slightly overweight, white female who is dressed in a patient gown. She makes limited attempts to cover herself, appears to be slightly disheveled, has good eye contact, is hyperverbal with somewhat pressured speech. Mood would appear to be slightly hypomanic with an expansive affect. Thought process is tangential. Thought content does reveal some paranoia, particularly towards her outpatient provider Dr. Wright. She denied suicidal or homicidal ideation. She denies auditory or visual hallucinations, although I was told that she was experiencing visual hallucinations and tactile hallucinations in the emergency room. Insight and judgment appear to be limited given the fact that she cannot identify the risks of going home. Cognitively, she is awake and alert. She is oriented to place and situation, but not oriented to time. Her immediate recall is intact. Attention is intact and delayed recall is intact. DIAGNOSES: [place] I: Delirium secondary to hypokalemia and possible dehydration. 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 [place] II: Deferred. ASSESSMENT: The patient is a 76-year-old white female with a history of significant neurological dysfunction, brain surgery and seizure disorder who arrived via EMS, complaining of heart palpitations, but who was subsequently discovered to be confused, paranoid, and with hallucinations. Currently, she seems to be cognitively and psychiatrically slightly improved, although I do see evidence of pressured speech and paranoia. I have offered the patient antipsychotic medication in the form of quetiapine; however, she is denying it insisting that she speak with neurologist, Dr. Karla Monroy first. I did speak with on-call neurologist Dr. Candie Mendoza who indicates that Dr. Monroy is now retired and unavailable to the patient, although Dr. Mendoza did indicate that she would try to gain further information from clinic notes and would get back in touch with me tomorrow. RECOMMENDATIONS TO PRIMARY TEAM: Psychiatry recommends that the patient receive ongoing treatment for her electrolyte disturbance. She currently lacks capacity to make informed medical decisions based on the fact that she does not understand the risks of going home. Her capacity could of course change and so Psychiatry will be evaluating this on an ongoing basis. Right now it is unclear whether she warrants involuntary psychiatric treatment. I did offer her a voluntary bed on the [facility]; however, she declined this. What I am recommending currently is that we start her on quetiapine 25 mg p.o. q.h.s. and reassess her tomorrow. At that point, I should be getting further collateral information from Neurology in terms of what her baseline might be. Psychiatry will continue to follow. Thank you for the interesting consult. [id number]/ANT #: [id number] ANA M
[2017-05-22] MEDS ORDERED: Haloperidol INJ IV/IM* 5 MG/ML AMP IV ONE ×2 (02:03→23:29)
[2017-05-22] MEDS: Levothyroxine TAB* 75 MCG TAB PO SCH (05:10)
[2017-05-22 06:17] LABS: ABS Basophils 0 10^3/ul (0-0.2); ABS Eosinophils 0.1 10^3/ul (0-0.6); ABS Lymphocytes 2.1 10^3/ul (1.0-4.8); ABS Monocytes 0.4 10^3/ul (0-0.8); ABS Neutrophils 3.7 10^3/ul (1.5-7.7); ABS Nucleated RBC 0 10^3/ul; Eosinophil % 1.4 % (0-6); Hematocrit 36 % (35-47); Hemoglobin 12.3 g/dl (12.0-16.0); Mean Corpuscular HGB Conc 34 g/dl (31-36); Mean Corpuscular Hemoglobin 32 pg (27-31); Mean Corpuscular Volume 93 fL (80-97); Mean Platelet Volume 9 um3 (7.4-10.4); Nucleated Red Blood Cells % 0.1; Platelet Count 228 10^3/ul (150-450); Red Blood Count 3.87 10^6/ul (4.0-5.4); Red Cell Distribution Width 14 % (10.5-15); White Blood Count 6.3 10^3/ul (3.5-10.8)
[2017-05-22 06:32] LABS: EGFR Non-African American 51.2 (>60)
[2017-05-22] MEDS: NS 0.9% 1000 ML* 1,000 ML IV SCH (08:11)
[2017-05-22] MEDS: Acetaminophen TAB* 325 MG PO PRN ×3 (08:18→20:36)
[2017-05-22] MEDS: Omeprazole CAP* 20 MG PO SCH ×2 (08:19→20:36)
[2017-05-22] MEDS: lamoTRIgine TAB(*) 100 MG PO SCH ×2 (08:19→20:36)
[2017-05-22] MEDS: Topiramate TAB(*) 100 MG PO SCH ×2 (08:19→20:36)
[2017-05-22] MEDS ORDERED: Triamterene/HCTZ 37.5-25 MG* CAP PO SCH (09:00)
--- NOTE | 2017-05-22 10:18 | PN ---
Subjective Date of Service: 05/22/17 Interval History: Patient seen and examined. C/O "pain all over". Per staff, needed PRN Haldol last night for agitation. Was not able to have MRI because she cannot be cleared 2/2 mentation/behavioral issues (would need full body xrays first). No further complaints. Objective Active Medications: Acetaminophen (Tylenol Tab*) 650 mg PO Q6H PRN PRN Reason: FEVER/PAIN Last Admin: 05/22/17 08:18 Dose: 650 mg Aspirin (Aspirin Tab*) 325 mg PO QPM [facility] Last Admin: 05/21/17 18:11 Dose: 325 mg Haloperidol (Haldol Tab*) 5 mg PO Q6H PRN PRN Reason: AGITATION Sodium Chloride (Ns 0.9% 1000 Ml*) 1,000 mls @ 125 mls/hr IV PER RATE [facility] Last Admin: 05/22/17 08:11 Dose: 125 mls/hr Lamotrigine (Lamictal Tab(*)) 250 mg PO BID [facility] Last Admin: 05/22/17 08:19 Dose: 250 mg Levothyroxine Sodium (Synthroid Tab*) 75 mcg PO 0600 [facility] Last Admin: 05/22/17 05:10 Dose: 75 mcg Melatonin (Melatonin (Nf)) 3 mg PO BEDTIME PRN; Protocol PRN Reason: Sleep Omeprazole (Prilosec Cap*) 20 mg PO BID [facility] Last Admin: 05/22/17 08:19 Dose: 20 mg Quetiapine Fumarate (Seroquel Tab*) 25 mg PO BEDTIME [facility] Last Admin: 05/21/17 20:06 Dose: 25 mg Topiramate (Topamax(*)) 100 mg PO BID [facility] Last Admin: 05/22/17 08:19 Dose: 100 mg Tramadol HCl (Ultram*) 50 mg PO Q6H PRN PRN Reason: PAIN Vital Signs - 8 hr 05/22/17 05/22/17 05/22/17 06:16 07:32 08:15 Temperature 98.3 F 97.8 F Pulse Rate 66 68 Respiratory 18 15 16 Rate Blood Pressure 122/63 108/48 (mmHg) O2 Sat by Pulse 100 Oximetry Oxygen Devices in Use Now: None Appearance: Alert, anxious and agitate at times Eyes: No Scleral Icterus Ears/Nose/Mouth/Throat: Mucous Membranes Moist Neck: Trachea Midline Respiratory: Symmetrical Chest Expansion and Respiratory Effort, Clear to Auscultation Cardiovascular: NL Sounds; No Murmurs; No JVD, No Edema Extremities: No Edema Neurological: - - alert, oriented X2 Nutrition: Taking PO's Result Diagrams: 05/22/17 05:25 05/22/17 05:25 Diagnostic Imaging: Patient Name: IRVIN VARGAS Medical Record#: [id number] Ordering Physician: Gilma Douglas MD Acct.#: [id number] : 1940 Age: 76 Sex: F Location: [address] [place] [address]/TELEMETRY Exam Date: 05/20/172129 ADM Status: ADM IN Order Information: CT BRAIN WO Accession Number: [id number] CPT: 60160 HISTORY: Confusion COMPARISONS: May 03, 2012 TECHNIQUE: Multiple contiguous axial CT scans were obtained of the head without intravenous contrast. FINDINGS: Evaluation limited by metallic streak artifact from previous coil embolization. HEMORRHAGE/INFARCT: There is no hemorrhage or acute infarct. MASSES/SHIFT: There is no mass or shift. EXTRA-AXIAL SPACES: There are no extra-axial fluid collections. SULCI AND VENTRICLES: The sulci and ventricles are normal in size and position for the patient's stated age. CEREBRUM: There is stable right frontal encephalomalacia. BRAINSTEM: There are no focal parenchymal abnormalities. CEREBELLUM: There are no focal parenchymal abnormalities. VESSELS: The patient appears to be status post endovascular coil embolization of a cerebral aneurysm. PARANASAL SINUSES: The paranasal sinuses are clear. There is a small left mastoid effusion. ORBITS: The orbits are unremarkable. BONES AND SOFT TISSUE: There is postsurgical change to the skull. OTHER: None IMPRESSION: 1. NO ACUTE INTRACRANIAL PATHOLOGY. 2. STABLE RIGHT FRONTAL ENCEPHALOMALACIA. 3. STATUS POST ENDOVASCULAR COIL EMBOLIZATION <Electronically signed by Gen Castro MD in OV> 05/21/17 0758 Dictated By: Gen Castro MD Dictated Date/Time: 05/21/17 0758 Transcribed Date/Time: 05/21/17 3179 Copy to: CC:Gilma Douglas MD; Annalise Garcia DO; Siddharth Rajput MD; Noe Wright MD Imaging - [facility] Imaging - [facility] Imaging - [facility] [address] 10 [facility] [address] [place] [address] 1 of 2 Assess/Plan/Problems-Billing Assessment: This is a 76 year old female with history of anuerysm with coiling, seizures, resection of meningioma that presented to ER with c/o palpitations and falls, found to have low potassium and poor insight likely r/t underlying behavioral disorder. - Patient Problems (1) Altered mental status Code(s): R41.82 - ALTERED MENTAL STATUS, UNSPECIFIED SNOMED Code(s): 096862336 Comment: - CT negative for acute infarct - Consult by Dr. Harrington appreciated, patient does not have capacity at this time - Cannot clear for MRI - Trial seroquel and haldol and monitor for effect (2) Hypokalemia Code(s): E87.6 - HYPOKALEMIA SNOMED Code(s): 45740940 Comment: - hold HCTZ/triameterene - Replete k and mag - follow lytes in AM (3) History of resection of meningioma Code(s): Z98.890 - OTHER SPECIFIED POSTPROCEDURAL STATES SNOMED Code(s): 516538074 Comment: - Cannot clear for MRI/MRA - Checked with PCP, patient has no emergency contact to help with clearance - Will discuss further with neurology (4) Brain aneurysm Comment: - Unable to determine last imaging, but unable to do MRI today (5) Hypertension Code(s): I10 - ESSENTIAL (PRIMARY) HYPERTENSION SNOMED Code(s): 04833124 Comment: - BP stable, monitor (6) Retention of urine Code(s): R33.9 - RETENTION OF URINE, UNSPECIFIED SNOMED Code(s): 572342709 Comment: - Straight cath 05/21, and send for C&S, patient refused straight cath today and has >500ml in her bladder per RN and she's refusing to go on the toilet. Will try again after haldol administration - Follow C&S Status and Disposition: Remain inpatient for further behavioral and medical management. Counseling and/or Coordination of Care Minutes: coordinated with staff
[2017-05-22] MEDS: traMADol TAB* 50 MG PO PRN ×3 (11:03→22:53)
[2017-05-22] MEDS: Haloperidol TAB* 5 MG PO PRN ×2 (11:03→21:10)
[2017-05-22] MEDS ORDERED: Potassium Chlor TAB* 20 MEQ TAB.ER PO ONE (13:44)
--- NOTE | 2017-05-22 14:59 | CONSULT ---
Identification - Patient Identification Reason for Psychiatric Consultation: Incapacitating Symptoms -: Patient is a 76 year old, F admitted on 05/21/17. - MHU Identification Employment Status: Disabled Hx Psychiatric Hospitalization: No History - Objective HPI: Fay is seen for follow up today on . I understand she remains quite demanding and required prn haloperidol over the evening shift due to agitation. On my exam she is not agitated but quite displeased with me. In front of her she has hospital patient advocate Rosibel French's information and is scribbling a letter, voicing multiple complaints about her unjust treatment here in the hospital. "You're part of it" she says as I enter. "You're all trying to keep me here. I keep telling you I have things to do." She reports that tomorrow is the deadline for a discount program for the patient's utilities , available through the [employer]. "This means $1000 for me. Do you understand that that's one-tenth of my yearly budget?" I spoke with Neurologist Candie Mendoza who looked through the now-retired Karla Reyeselroy's clinic notes for Ms. Coreas, leading up to February of 2017. The documents indicate that the patient's baseline appears to be irritable and pressured. Fay denies AH or VH and she denies thoughts of harming herself or others. Interestingly, she did adhere with the Seroquel and prn haldol when offered. She states that her goals for the day are to take a shower and go home. Lab Results: Laboratory Tests 05/21/17 05/21/17 05/21/17 05:49 17:40 17:40 WBC RBC Hgb Hct MCV MCH MCHC RDW Plt Count MPV Neut % (Auto) Lymph % (Auto) [place] % (Auto) Eos % (Auto) Baso % (Auto) Absolute Neuts (auto) Absolute Lymphs (auto) Absolute Monos (auto) Absolute Eos (auto) Absolute Basos (auto) Absolute Nucleated RBC Nucleated RBC % Sodium 134 Potassium 2.4 L* Chloride 95 L Carbon Dioxide 28 Anion Gap 11 BUN 24 Creatinine 1.72 H Est GFR ( Amer) 37.3 Est GFR (Non-Af Amer) 29.0 BUN/Creatinine Ratio 14.0 Glucose 98 Calcium 9.7 Magnesium 2.1 Total Bilirubin AST ALT Alkaline Phosphatase Total Protein Albumin Globulin Albumin/Globulin Ratio Urine Color Yellow Urine Appearance Clear Urine pH 5.0 Ur Specific [place] 1.013 Urine Protein Negative Urine Ketones Negative Urine Blood Negative Urine Nitrate Negative Urine Bilirubin Negative Urine Urobilinogen Negative Ur Leukocyte Esterase Negative Urine Glucose Negative Urine Opiates Screen Presumptive positive A Ur Barbiturates Screen None detected Ur Phencyclidine Scrn None detected Ur Amphetamines Screen None detected U Benzodiazepines Scrn Presumptive positive A Urine Cocaine Screen None detected U Cannabinoids Screen None detected 05/22/17 05/22/17 05/22/17 05:25 05:25 10:57 WBC 6.3 RBC 3.87 L Hgb 12.3 Hct 36 MCV 93 MCH 32 H MCHC 34 RDW 14 Plt Count 228 MPV 9 Neut % (Auto) 59.1 Lymph % (Auto) 33.0 [place] % (Auto) 5.8 Eos % (Auto) 1.4 Baso % (Auto) 0.7 Absolute Neuts (auto) 3.7 Absolute Lymphs (auto) 2.1 Absolute Monos (auto) 0.4 Absolute Eos (auto) 0.1 Absolute Basos (auto) 0 Absolute Nucleated RBC 0 Nucleated RBC % 0.1 Sodium 134 Potassium TNP 3.2 L Chloride 104 Carbon Dioxide 24 Anion Gap 6 BUN 18 Creatinine 1.05 H Est GFR ( Amer) 65.9 Est GFR (Non-Af Amer) 51.2 BUN/Creatinine Ratio 17.1 Glucose 86 Calcium 9.0 Magnesium Total Bilirubin 0.70 AST TNP ALT 10 Alkaline Phosphatase 32 L Total Protein 5.9 L Albumin 3.5 Globulin 2.4 Albumin/Globulin Ratio 1.5 Urine Color Urine Appearance Urine pH Ur Specific [place] Urine Protein Urine Ketones Urine Blood Urine Nitrate Urine Bilirubin Urine Urobilinogen Ur Leukocyte Esterase Urine Glucose Urine Opiates Screen Ur Barbiturates Screen Ur Phencyclidine Scrn Ur Amphetamines Screen U Benzodiazepines Scrn Urine Cocaine Screen U Cannabinoids Screen Exam Appearance: Obese Hygiene: Dirty Grooming: Disheveled Psychomotor Activities: Normal Exhibits Abnormal Movement: No Attitude and Relatedness: Hostile Eye Contact: Fair - Speech Quality: Pressured Latencies: Normal Quantity: Appropriate Patient's Decription of Mood: "Angry" Observed Affect: Tense Affect Consistent with: Dysphoria Patient's Thought Process: Coherent Thought Content: Yes Paranoid Ideation, No Passive Wish, No Suicidal Planning, No Homicidal Ideation Experiencing Hallucinations: No, Sensorium is Clear Type of Hallucinations: Visual: No, Auditory: No, Command: No Level of Consciousness: Alert Orientation: Yes Intact, Yes Orientated to Time, Yes Orientated to Place, Yes Orientated to Person Impulse Control: Tenuous Insight and Judgement: Fair Impression - Impression Clinical Impression: 76 y.o. , white female with an extensive neurological history of meningioma resection, aneurism and seizure disorder presents to the ED voluntarily via EMS after complaints of heart palpitations but presents also with confusion, hallucinations and paranoid ideation. Merits Inpatient Hospitalization: No Problem List - MHU Problems Type of Problem: Attitude and Relatedness Status of Problem: Active Plan - Treatment Plan Treatment Plan: The patient tolerated the first dose of quetiapine 25mg PO qhs. She is no longer hallucinating but remains pressured and paranoid. Collateral information from the outpatient neurology clinic indicates that this is the patient's apparent baseline. Psychiatry recommends continued fluid and potassium repletion. Suggest SW consult to increase outpatient supports such as Adult Protective Services, case management and Visiting Nurse Services. We will increase quetiapine to 50mg PO qhs and re-evaluate tomorrow. Patient will likely be discharged back to home as her capacity is improving and she appears to be taking care of ADLs. Continued Medication Management: Start Medication Medications: Current Medications Acetaminophen (Tylenol Tab*) 650 mg PO Q6H PRN PRN Reason: FEVER/PAIN Last Admin: 05/22/17 08:18 Dose: 650 mg Aspirin (Aspirin Tab*) 325 mg PO QPM [facility] Last Admin: 05/21/17 18:11 Dose: 325 mg Haloperidol (Haldol Tab*) 5 mg PO Q6H PRN PRN Reason: AGITATION Last Admin: 05/22/17 11:03 Dose: 5 mg Sodium Chloride (Ns 0.9% 1000 Ml*) 1,000 mls @ 125 mls/hr IV PER RATE [facility] Last Admin: 05/22/17 08:11 Dose: 125 mls/hr Lamotrigine (Lamictal Tab(*)) 250 mg PO BID [facility] Last Admin: 05/22/17 08:19 Dose: 250 mg Levothyroxine Sodium (Synthroid Tab*) 75 mcg PO 0600 [facility] Last Admin: 05/22/17 05:10 Dose: 75 mcg Melatonin (Melatonin (Nf)) 3 mg PO BEDTIME PRN; Protocol PRN Reason: Sleep Omeprazole (Prilosec Cap*) 20 mg PO BID [facility] Last Admin: 05/22/17 08:19 Dose: 20 mg Quetiapine Fumarate (Seroquel Tab*) 50 mg PO BEDTIME [facility] Topiramate (Topamax(*)) 100 mg PO BID [facility] Last Admin: 05/22/17 08:19 Dose: 100 mg Tramadol HCl (Ultram*) 50 mg PO Q6H PRN PRN Reason: PAIN Last Admin: 05/22/17 11:03 Dose: 50 mg - Discharge Plan Discharge Plan: Outpatient Follow Up
[2017-05-22] MEDS: Aspirin TAB* 325 MG PO SCH (18:40)
[2017-05-22] MEDS ORDERED: Loperamide CAP* 2 MG PO ONE (20:19)
[2017-05-22] MEDS: QUEtiapine TAB* 25 MG PO SCH (20:36)
[2017-05-23] MEDS: Acetaminophen TAB* 325 MG PO PRN (02:30)
[2017-05-23] MEDS: Haloperidol TAB* 5 MG PO PRN ×2 (03:27→10:34)
[2017-05-23] MEDS: Levothyroxine TAB* 75 MCG TAB PO SCH (05:09)
[2017-05-23] MEDS: traMADol TAB* 50 MG PO PRN (05:09)
[2017-05-23] MEDS: lamoTRIgine TAB(*) 100 MG PO SCH ×2 (09:49→21:49)
[2017-05-23] MEDS: Omeprazole CAP* 20 MG PO SCH ×2 (09:49→21:50)
[2017-05-23] MEDS: Topiramate TAB(*) 100 MG PO SCH ×2 (09:50→21:51)
[2017-05-23] MEDS ORDERED: traMADol TAB* 50 MG PO PRN (10:56)
--- NOTE | 2017-05-23 12:23 | CONSULT ---
Identification - Patient Identification Reason for Psychiatric Consultation: Incapacitating Symptoms -: Patient is a 76 year old, F admitted on 05/21/17. - MHU Identification Employment Status: Disabled Hx Psychiatric Hospitalization: No History - Objective HPI: Fay is seen for follow up today on . She is less paranoid and argumentative today, but noticeably somatic and complains bitterly to me that the hospital has discontinued her morphine therapy. I ask about what Fay wishes to do, now that she is nearing the end of her inpatient hospital stay and she states "I want to go home, of course." Speaking with staff on the floor they indicate that the patient appears to have mcfp needs, such as two-person assist to the commode. Fay denies having anyone at home to help her with activities of daily living. I spoke with attending hospitalist Mariela Ray who has similar concerns about the patient's abilities to meet her own needs if allowed to return home. She believes subacute rehab would be indicated. The patient is not able to identify that this treatment was offered and is similarly unable to convey the risks to her should she refuse and go home. "Nothing would happen. I would take care of my cat and things would be the same as they've always been." She continues to deny SI, HI , AH or VH. There is no evidence of hallucinations, and, although loud and demanding, no behaviors consistent with harm to self or others. She is tolerating the initiation of quetiapine 50mg PO qhs well. Lab Results: Laboratory Tests 05/21/17 05/21/17 05/21/17 05:49 17:40 17:40 WBC RBC Hgb Hct MCV MCH MCHC RDW Plt Count MPV Neut % (Auto) Lymph % (Auto) [place] % (Auto) Eos % (Auto) Baso % (Auto) Absolute Neuts (auto) Absolute Lymphs (auto) Absolute Monos (auto) Absolute Eos (auto) Absolute Basos (auto) Absolute Nucleated RBC Nucleated RBC % Sodium 134 Potassium 2.4 L* Chloride 95 L Carbon Dioxide 28 Anion Gap 11 BUN 24 Creatinine 1.72 H Est GFR ( Amer) 37.3 Est GFR (Non-Af Amer) 29.0 BUN/Creatinine Ratio 14.0 Glucose 98 Calcium 9.7 Magnesium 2.1 Total Bilirubin AST ALT Alkaline Phosphatase Total Protein Albumin Globulin Albumin/Globulin Ratio Urine Color Yellow Urine Appearance Clear Urine pH 5.0 Ur Specific [place] 1.013 Urine Protein Negative Urine Ketones Negative Urine Blood Negative Urine Nitrate Negative Urine Bilirubin Negative Urine Urobilinogen Negative Ur Leukocyte Esterase Negative Urine Glucose Negative Urine Opiates Screen Presumptive positive A Ur Barbiturates Screen None detected Ur Phencyclidine Scrn None detected Ur Amphetamines Screen None detected U Benzodiazepines Scrn Presumptive positive A Urine Cocaine Screen None detected U Cannabinoids Screen None detected 05/22/17 05/22/17 05/22/17 05:25 05:25 10:57 WBC 6.3 RBC 3.87 L Hgb 12.3 Hct 36 MCV 93 MCH 32 H MCHC 34 RDW 14 Plt Count 228 MPV 9 Neut % (Auto) 59.1 Lymph % (Auto) 33.0 [place] % (Auto) 5.8 Eos % (Auto) 1.4 Baso % (Auto) 0.7 Absolute Neuts (auto) 3.7 Absolute Lymphs (auto) 2.1 Absolute Monos (auto) 0.4 Absolute Eos (auto) 0.1 Absolute Basos (auto) 0 Absolute Nucleated RBC 0 Nucleated RBC % 0.1 Sodium 134 Potassium TNP 3.2 L Chloride 104 Carbon Dioxide 24 Anion Gap 6 BUN 18 Creatinine 1.05 H Est GFR ( Amer) 65.9 Est GFR (Non-Af Amer) 51.2 BUN/Creatinine Ratio 17.1 Glucose 86 Calcium 9.0 Magnesium Total Bilirubin 0.70 AST TNP ALT 10 Alkaline Phosphatase 32 L Total Protein 5.9 L Albumin 3.5 Globulin 2.4 Albumin/Globulin Ratio 1.5 Urine Color Urine Appearance Urine pH Ur Specific [place] Urine Protein Urine Ketones Urine Blood Urine Nitrate Urine Bilirubin Urine Urobilinogen Ur Leukocyte Esterase Urine Glucose Urine Opiates Screen Ur Barbiturates Screen Ur Phencyclidine Scrn Ur Amphetamines Screen U Benzodiazepines Scrn Urine Cocaine Screen U Cannabinoids Screen Exam Appearance: Obese Hygiene: Dirty Grooming: Disheveled Psychomotor Activities: Normal Exhibits Abnormal Movement: No Attitude and Relatedness: Somatic Eye Contact: Fair - Speech Quality: Unpressured Latencies: Normal Quantity: Appropriate Patient's Decription of Mood: "Terrible" Observed Affect: Constricted Affect Consistent with: Dysphoria Patient's Thought Process: Coherent Thought Content: No Passive Wish, No Suicidal Planning, No Homicidal Ideation, No Paranoid Ideation Experiencing Hallucinations: No, Sensorium is Clear Type of Hallucinations: Visual: No, Auditory: No, Command: No Level of Consciousness: Alert Orientation: Yes Intact, Yes Orientated to Time, Yes Orientated to Place, Yes Orientated to Person Impulse Control: Tenuous Insight and Judgement: Fair Impression - Impression Clinical Impression: 76 y.o. , white female with an extensive neurological history of meningioma resection, aneurism and seizure disorder presents to the ED voluntarily via EMS after complaints of heart palpitations but presents also with confusion, hallucinations and paranoid ideation. Merits Inpatient Hospitalization: No Plan - Treatment Plan Treatment Plan: The patient is tolerating initiation of quetiapine 50mg PO qhs. She is no longer hallucinating, pressured or paranoid and appears mostly somatic today. The primary team has resumed morphine therapy, which she takes on an outpatient basis. As per hospitalist Mariela Ray, transfer to a Subacute Rehab is medically indicated, however, the patient is insisting on going home. Ms. Coreas is not able to describe the treatment being recommended, nor the risks to refusing it. By virtue of this she lacks capacity to make informed medical decisions and cannot refuse placement efforts. Recommend SW involvement for dispositional planning. Collateral information from the outpatient neurology clinic indicates that the patient's baseline is moderately pressured and paranoid. She does not meet criteria for involuntary 9.39 legal status for admission to the [facility], as she is neither homicidal, suicidal nor grossly disorganized. Psychiatry will continue to follow the patient with you pending [facility] placement. Continued Medication Management: Start Medication Medications: Current Medications Acetaminophen (Tylenol Tab*) 650 mg PO Q6H PRN PRN Reason: FEVER/PAIN Last Admin: 05/23/17 02:30 Dose: 650 mg Aspirin (Aspirin Tab*) 325 mg PO QPM [facility] Last Admin: 05/22/17 18:40 Dose: 325 mg Haloperidol (Haldol Tab*) 5 mg PO Q6H PRN PRN Reason: AGITATION Last Admin: 05/23/17 10:34 Dose: 5 mg Lamotrigine (Lamictal Tab(*)) 250 mg PO BID [facility] Last Admin: 05/23/17 09:49 Dose: 250 mg Levothyroxine Sodium (Synthroid Tab*) 75 mcg PO 0600 [facility] Last Admin: 05/23/17 05:09 Dose: 75 mcg Melatonin (Melatonin (Nf)) 3 mg PO BEDTIME PRN; Protocol PRN Reason: Sleep Last Admin: 05/23/17 01:03 Dose: 3 mg Morphine Sulfate (Ms Contin(*)) 15 mg PO BID [facility] Omeprazole (Prilosec Cap*) 20 mg PO BID [facility] Last Admin: 05/23/17 09:49 Dose: 20 mg Quetiapine Fumarate (Seroquel Tab*) 50 mg PO BEDTIME [facility] Last Admin: 05/22/17 20:36 Dose: 50 mg Topiramate (Topamax(*)) 100 mg PO BID [facility] Last Admin: 05/23/17 09:50 Dose: 100 mg - Discharge Plan Discharge Plan: Outpatient Follow Up
--- NOTE | 2017-05-23 13:03 | PN ---
Subjective Date of Service: 05/23/17 Interval History: Patient seen and examined. Seems much more reasonable this afternoon. Still with paranoid statements (questions if anything is being put in her food?) but marked improvement. States pain in abdomen, no headache. Explained this is likely 2/2 to her urinary retention. Summers draining without issue. Discussed morphine with her, will re-order at lower dose, as her mentation is improving, she is agreeable. Denies fever or chills, no headache, no n/v. States she is worried about her cat at home, a neighbor is helping. Discussed urinary retention and falls, patient is agreeable to STR with voiding trial at rehab. Objective Active Medications: Acetaminophen (Tylenol Tab*) 650 mg PO Q6H PRN PRN Reason: FEVER/PAIN Last Admin: 05/23/17 02:30 Dose: 650 mg Aspirin (Aspirin Tab*) 325 mg PO QPM [facility] Last Admin: 05/22/17 18:40 Dose: 325 mg Haloperidol (Haldol Tab*) 5 mg PO Q6H PRN PRN Reason: AGITATION Last Admin: 05/23/17 10:34 Dose: 5 mg Lamotrigine (Lamictal Tab(*)) 250 mg PO BID [facility] Last Admin: 05/23/17 09:49 Dose: 250 mg Levothyroxine Sodium (Synthroid Tab*) 75 mcg PO 0600 [facility] Last Admin: 05/23/17 05:09 Dose: 75 mcg Melatonin (Melatonin (Nf)) 3 mg PO BEDTIME PRN; Protocol PRN Reason: Sleep Last Admin: 05/23/17 01:03 Dose: 3 mg Morphine Sulfate (Ms Contin(*)) 15 mg PO BID [facility] Omeprazole (Prilosec Cap*) 20 mg PO BID [facility] Last Admin: 05/23/17 09:49 Dose: 20 mg Quetiapine Fumarate (Seroquel Tab*) 50 mg PO BEDTIME [facility] Last Admin: 05/22/17 20:36 Dose: 50 mg Topiramate (Topamax(*)) 100 mg PO BID [facility] Last Admin: 05/23/17 09:50 Dose: 100 mg Vital Signs - 8 hr 05/23/17 05/23/17 05/23/17 05:09 07:39 07:42 Temperature 97.3 F Pulse Rate 77 Respiratory 18 15 18 Rate Blood Pressure 128/59 (mmHg) O2 Sat by Pulse 99 Oximetry 05/23/17 05/23/17 08:00 11:20 Temperature 97.6 F Pulse Rate 69 Respiratory 20 16 Rate Blood Pressure 132/67 (mmHg) O2 Sat by Pulse 100 Oximetry Oxygen Devices in Use Now: None Appearance: Alert, NAD Ears/Nose/Mouth/Throat: Mucous Membranes Moist Neck: Trachea Midline Respiratory: Symmetrical Chest Expansion and Respiratory Effort, Clear to Auscultation Cardiovascular: NL Sounds; No Murmurs; No JVD, RRR Abdominal: - - suprapubic tenderness Extremities: No Edema, No Clubbing, Cyanosis Skin: No Rash or Ulcers Neurological: Alert and Oriented x 3, - - some general weakness Nutrition: Taking PO's, - - must be encouraged to eat Result Diagrams: 05/22/17 05:25 05/22/17 10:57 Diagnostic Imaging: Patient Name: IRVIN VARGAS Medical Record#: [id number] Ordering Physician: Gilma Douglas MD Acct.#: [id number] : 1940 Age: 76 Sex: F Location: [address] [place] [address] MEDICAL/TELEMETRY Exam Date: 05/20/172129 ADM Status: ADM IN Order Information: CT BRAIN WO Accession Number: [id number] CPT: 55267 HISTORY: Confusion COMPARISONS: May 03, 2012 TECHNIQUE: Multiple contiguous axial CT scans were obtained of the head without intravenous contrast. FINDINGS: Evaluation limited by metallic streak artifact from previous coil embolization. HEMORRHAGE/INFARCT: There is no hemorrhage or acute infarct. MASSES/SHIFT: There is no mass or shift. EXTRA-AXIAL SPACES: There are no extra-axial fluid collections. SULCI AND VENTRICLES: The sulci and ventricles are normal in size and position for the patient's stated age. CEREBRUM: There is stable right frontal encephalomalacia. BRAINSTEM: There are no focal parenchymal abnormalities. CEREBELLUM: There are no focal parenchymal abnormalities. VESSELS: The patient appears to be status post endovascular coil embolization of a cerebral aneurysm. PARANASAL SINUSES: The paranasal sinuses are clear. There is a small left mastoid effusion. ORBITS: The orbits are unremarkable. BONES AND SOFT TISSUE: There is postsurgical change to the skull. OTHER: None IMPRESSION: 1. NO ACUTE INTRACRANIAL PATHOLOGY. 2. STABLE RIGHT FRONTAL ENCEPHALOMALACIA. 3. STATUS POST ENDOVASCULAR COIL EMBOLIZATION <Electronically signed by Gen Castro MD in [place]> 05/21/17757 Dictated By: Gen Castro MD Dictated Date/Time: 05/21/17757 Transcribed Date/Time: 05/21/17755 Copy to: CC:Gilma Douglas MD; Annalise Garcia DO; Siddharth Rajput MD; Noe Wright MD Imaging - [facility] Imaging - [facility] Imaging - [facility] [address] Assess/Plan/Problems-Billing Assessment: This is a 76 year old female with history of anuerysm with coiling, seizures, resection of meningioma that presented to ER with c/o palpitations and falls, found to have low potassium and poor insight likely r/t underlying behavioral disorder; may be confounded by urinary retention and electrolyte disturbances. - Patient Problems (1) Altered mental status Code(s): R41.82 - ALTERED MENTAL STATUS, UNSPECIFIED SNOMED Code(s): 736627001 Comment: - CT negative for acute infarct - Dr. Harrington following, patient has poor insight into medical condition/risks, please see his note for recommendations - Cannot clear for MRI 2/2 "poor historian" as per MRI - Seems to be improving with Seroquel and haldol (2) Hypokalemia Code(s): E87.6 - HYPOKALEMIA SNOMED Code(s): 38695421 Comment: - continue to hold HCTZ/triameterene - K = 3.2 - Recheck level today and replete as needed (3) Seizure disorder Code(s): G40.909 - EPILEPSY, UNSP, NOT INTRACTABLE, WITHOUT STATUS EPILEPTICUS SNOMED Code(s): 804332096 Comment: - On lamicatal and topiramate - EEG with slow progression in right frontal region (same area of encephalomalacia), but no acute epileptiform changes, please see Dr. Mendoza's note/interpretation (4) History of resection of meningioma Code(s): Z98.890 - OTHER SPECIFIED POSTPROCEDURAL STATES SNOMED Code(s): 473858997 Comment: - Cannot clear for MRI/MRA, however she is clinically improving and CT head is negative for new pathology. Will DC order for MRI/MRA (5) Brain aneurysm Comment: - Unable to determine last imaging, but unable to do MRI today (6) Hypertension Code(s): I10 - ESSENTIAL (PRIMARY) HYPERTENSION SNOMED Code(s): 28223744 Comment: - BP stable, monitor (7) Retention of urine Code(s): R33.9 - RETENTION OF URINE, UNSPECIFIED SNOMED Code(s): 906382093 Comment: - Persistent retention overnight - Summers inserted, PVR was >1300ml - Recommend trial to void in 3 days (8) Chronic pain Code(s): G89.29 - OTHER CHRONIC PAIN SNOMED Code(s): 93636648 Comment: - Restarted morphine at lower dose (15mg BID) PRN, concern for acute withdrawal , as she is stabilized on morphine for some years - Does not currently have a headache which is what she usually takes this for, but is having abdominal pain, likely associated with acute urinary retention. - Discussed at length with patient's PCP and Dr. Harrington Status and Disposition: Clear for DC to subacute rehab when bed available. Counseling and/or Coordination of Care Minutes: coordinated with patient, RN, Dr. Harrington and Dr. Wright
[2017-05-23] MEDS: Morphine TAB Extended Release (*) 15 MG TAB.ER PO SCH ×2 (13:13→21:50)
[2017-05-23] MEDS: Aspirin TAB* 325 MG PO SCH (17:53)
[2017-05-23] MEDS: QUEtiapine TAB* 25 MG PO SCH (21:49)
[2017-05-24] MEDS: Levothyroxine TAB* 75 MCG TAB PO SCH (05:29)
[2017-05-24] MEDS: lamoTRIgine TAB(*) 100 MG PO SCH ×2 (09:11→21:22)
[2017-05-24] MEDS: Morphine TAB Extended Release (*) 15 MG TAB.ER PO SCH ×2 (09:12→21:21)
[2017-05-24] MEDS: Omeprazole CAP* 20 MG PO SCH ×2 (09:12→21:22)
[2017-05-24] MEDS: Topiramate TAB(*) 100 MG PO SCH ×2 (09:13→21:22)
[2017-05-24 09:38] LABS: ABS Basophils 0.1 10^3/ul (0-0.2); ABS Eosinophils 0.2 10^3/ul (0-0.6); ABS Lymphocytes 1.9 10^3/ul (1.0-4.8); ABS Monocytes 0.4 10^3/ul (0-0.8); ABS Neutrophils 4.7 10^3/ul (1.5-7.7); ABS Nucleated RBC 0 10^3/ul; Eosinophil % 2.7 % (0-6); Hematocrit 36 % (35-47); Hemoglobin 12.4 g/dl (12.0-16.0); Lymphocyte % 25.9 % (25-47); Mean Corpuscular HGB Conc 34 g/dl (31-36); Mean Corpuscular Hemoglobin 32 pg (27-31); Mean Corpuscular Volume 93 fL (80-97); Mean Platelet Volume 8 um3 (7.4-10.4); Nucleated Red Blood Cells % 0; Platelet Count 246 10^3/ul (150-450); Red Blood Count 3.92 10^6/ul (4.0-5.4); Red Cell Distribution Width 15 % (10.5-15); White Blood Count 7.2 10^3/ul (3.5-10.8)
[2017-05-24 09:54] LABS: EGFR Non-African American 50.7 (>60)
[2017-05-24] MEDS ORDERED: Magnesium Sulfate IV* 3 GM in NS 0.9% 100 ML* 100 ML IVPB ONE (12:19)
[2017-05-24] MEDS ORDERED: Magnesium Sulfate 2 GM IV IVPB ONE (13:00)
[2017-05-24] MEDS: Potassium Chlor TAB* 20 MEQ TAB.ER PO SCH ×2 (13:02→21:22)
--- NOTE | 2017-05-24 13:03 | PN ---
Subjective Date of Service: 05/24/17 Interval History: Patient reports she is looking forward to being discharge, currently awaiting bed placement and patient agrees to go to subacute rehab prior to returning home. she denies any complaints today, reports she feels better today. She denies any fever/chills. No N/V/D or constipation. Denies TAVERA, vision changes , numbness or tingling Objective Active Medications: Acetaminophen (Tylenol Tab*) 650 mg PO Q6H PRN PRN Reason: FEVER/PAIN Last Admin: 05/23/17 02:30 Dose: 650 mg Aspirin (Aspirin Tab*) 325 mg PO QPM [facility] Last Admin: 05/23/17 17:53 Dose: 325 mg Haloperidol (Haldol Tab*) 5 mg PO Q6H PRN PRN Reason: AGITATION Last Admin: 05/23/17 10:34 Dose: 5 mg Magnesium Sulfate (Magnesium Sulfate 2 Gm Iv*) 2 gm in 50 mls @ 50 mls/hr IVPB ONCE ONE Stop: 05/24/17 13:59 Magnesium Sulfate/Dextrose (Magnesium Sulfate 1 Gm Iv*) 1 gm in 100 mls @ 200 mls/hr IV ONCE ONE Stop: 05/24/17 14:29 Lamotrigine (Lamictal Tab(*)) 250 mg PO BID [facility] Last Admin: 05/24/17 09:11 Dose: 250 mg Levothyroxine Sodium (Synthroid Tab*) 75 mcg PO 0600 [facility] Last Admin: 05/24/17 05:29 Dose: 75 mcg Melatonin (Melatonin (Nf)) 3 mg PO BEDTIME PRN; Protocol PRN Reason: Sleep Last Admin: 05/23/17 01:03 Dose: 3 mg Morphine Sulfate (Ms Contin(*)) 15 mg PO BID [facility] Last Admin: 05/24/17 09:12 Dose: 15 mg Omeprazole (Prilosec Cap*) 20 mg PO BID [facility] Last Admin: 05/24/17 09:12 Dose: 20 mg Potassium Chloride (Klor Con Er Tab*) 20 meq PO TID [facility] Quetiapine Fumarate (Seroquel Tab*) 50 mg PO BEDTIME [facility] Last Admin: 05/23/17 21:49 Dose: 50 mg Topiramate (Topamax(*)) 100 mg PO BID [facility] Last Admin: 05/24/17 09:13 Dose: 100 mg Vital Signs - 8 hr 05/24/17 05/24/17 05/24/17 07:54 08:00 09:12 Temperature 98.4 F Pulse Rate 74 Respiratory 24 24 20 Rate Blood Pressure 108/48 (mmHg) O2 Sat by Pulse 97 Oximetry Oxygen Devices in Use Now: None Appearance: 76 yo female alert and oriented sitting up on the side of the bed in NAD Eyes: No Scleral Icterus, PERRLA Ears/Nose/Mouth/Throat: Mucous Membranes Moist Respiratory: Clear to Auscultation Cardiovascular: NL Sounds; No Murmurs; No JVD, RRR, No Edema Abdominal: NL Sounds; No Tenderness; No Distention Extremities: No Edema, No Clubbing, Cyanosis Skin: No Rash or Ulcers, No Nodules or Sclerosis Neurological: NL Sensation, NL Muscle Strength and Tone, - - alert and oriented Lines/Tubes/Other Access: Clean, Dry and Intact Peripheral IV Nutrition: Taking PO's Result Diagrams: 05/24/17 09:10 05/24/17 09:10 Diagnostic Imaging: Patient Name: IRVIN VARGAS Medical Record#: [id number] Ordering Physician: Gilma Douglas MD Acct.#: [id number] : 1940 Age: 76 Sex: F Location: [address] [place] [address] MEDICAL/TELEMETRY Exam Date: 05/20/172129 ADM Status: ADM IN Order Information: CT BRAIN WO Accession Number: [id number] CPT: 07278 HISTORY: Confusion COMPARISONS: May 03, 2012 TECHNIQUE: Multiple contiguous axial CT scans were obtained of the head without intravenous contrast. FINDINGS: Evaluation limited by metallic streak artifact from previous coil embolization. HEMORRHAGE/INFARCT: There is no hemorrhage or acute infarct. MASSES/SHIFT: There is no mass or shift. EXTRA-AXIAL SPACES: There are no extra-axial fluid collections. SULCI AND VENTRICLES: The sulci and ventricles are normal in size and position for the patient's stated age. CEREBRUM: There is stable right frontal encephalomalacia. BRAINSTEM: There are no focal parenchymal abnormalities. CEREBELLUM: There are no focal parenchymal abnormalities. VESSELS: The patient appears to be status post endovascular coil embolization of a cerebral aneurysm. PARANASAL SINUSES: The paranasal sinuses are clear. There is a small left mastoid effusion. ORBITS: The orbits are unremarkable. BONES AND SOFT TISSUE: There is postsurgical change to the skull. OTHER: None IMPRESSION: 1. NO ACUTE INTRACRANIAL PATHOLOGY. 2. STABLE RIGHT FRONTAL ENCEPHALOMALACIA. 3. STATUS POST ENDOVASCULAR COIL EMBOLIZATION <Electronically signed by Gen Castro MD in [place]> 05/21/17757 Dictated By: Gen Castro MD Dictated Date/Time: 05/21/17757 Transcribed Date/Time: 05/21/17755 Copy to: CC:Gilma Douglas MD; Annalise Garcia DO; Siddharth Rajput MD; Noe Wright MD Imaging - [facility] Imaging - [facility] Imaging - [facility] [address] [place] [address] Assess/Plan/Problems-Billing Assessment: This is a 76 year old female with history of aneurysm with coiling, seizures, resection of meningioma that presented to ER with c/o palpitations and falls, found to have low potassium and poor insight likely r/t underlying behavioral disorder; may be confounded by urinary retention, electrolyte disturbances and dehydration . - Patient Problems (1) Altered mental status Comment: - CT negative for acute infarct. No obvious infection. Possibly electrolyte abnormalities, dehydration. - Check B12 and Vitamin D level - Dr. Harrington following, patient has poor insight into medical condition/risks, please see his note for recommendations - Cannot clear for MRI 2/2 "poor historian" as per MRI. MRI was canceled as she is improving. - Seems to be improving with Seroquel, DC haldol (2) Electrolyte abnormality Comment: - potassium and magnesium replacement - Na+ improved with IVF (3) Acute renal failure Comment: - suspect dehydration. Resolving with IVFs. Also in the setting of electrolyte abnormalities and in the setting of HCTZ. (4) Brain aneurysm Comment: - Unable to determine last imaging (5) Chronic pain Comment: - morphine at lower dose (15mg BID) PRN, concern for acute withdrawal, as she is stabilized on morphine for some years - Does not currently have a headache which is what she usually takes this for, but is having abdominal pain, likely associated with acute urinary retention. - Discussed at length with patient's PCP and Dr. Harrington (6) History of resection of meningioma Comment: - Cannot clear for MRI/MRA, however she is clinically improving and CT head is negative for new pathology. Will DC order for MRI/MRA (7) Hypertension Comment: - BP stable off HCTZ/triameterene, continue to hold (8) Retention of urine Comment: - Persistent retention - u/a negative. - Summers inserted /, PVR was >1300ml - Recommend trial to void in 3 days, if doesnt resolve will require urology eval as outpt (9) Seizure disorder Comment: - No seizure activity - On lamicatal and topiramate - EEG with slow progression in right frontal region (same area of encephalomalacia), but no acute epileptiform changes, please see Dr. Mendoza's note/interpretation Status and Disposition: Clear for DC to subacute rehab when bed available.
[2017-05-24] MEDS ORDERED: Magnesium Sulfate 1 GM IV* 1 GM/100 ML BAG IV ONE (14:00)
--- NOTE | 2017-05-24 14:07 | EEG ---
ELECTROENCEPHALOGRAPHY: DATE OF STUDY: 05/22/17 LOCATION: Patient is an inpatient. ORDERING PROVIDER: Virgie Ray. CLINICAL PROBLEM: This is a 76-year-old woman with a history of right frontal meningoma resection, M CA aneurysm clipping, epilepsy and headaches, who was admitted on 05/21/17 for confusion. She appare ntly had stopped taking all of her medications at home. She has been mildly uncooperative, paranoid, hallucinating and refusing medications while admitted. EEG is requested to evaluate for epileptifor m abnormalities. MEDICATIONS: 1. Melatonin. 2. Haldol. 3. Levothyroxine. 4. Topiramate. 5. Quetiapine. 6. Omeprazole. 7. Lamotrigine. 8. Aspirin 325 mg. 9. Acetaminophen. 10. Potassium. 11. Tramadol. REPORT: The most notable feature of the EEG is the presence of occasional polymorphic slowing in the right frontal region, which is of higher amplitude than the rest of the background. Otherwise, the background showed appropriate organization with clearly defined anterior to posterior voltage and rafita quency gradients. There was a well-defined posterior dominant rhythm of 9 Hz, which was symmetrical and showed normal reactivity. Anteriorly, there was an expected pattern of lower voltage, irregular, mixed faster frequencies. Attenuation of the occipital rhythm accompanied drowsiness, but there were no well- developed sleep s pindles to indicate the transition to stage 2 sleep. Throughout the recording, there were no epileptiform discharges. CLINICAL IMPRESSION: This is an abnormal waking and drowsy EEG due to the presence of occasional kristina ymorphic slowing in the right frontal region. These findings are suggestive of underlying neuronal d ysfunction in this region and consistent with her known history of a meningioma resection. The highe r amplitude activity in this region is secondary to breach effect and expected in the setting of prio r craniotomy. There are no epileptiform abnormalities. [id number]/[facility] #: [id number]
[2017-05-24] MEDS: Aspirin TAB* 325 MG PO SCH (17:23)
[2017-05-24] MEDS: QUEtiapine TAB* 25 MG PO SCH (21:23)
[2017-05-25 05:35] LABS: ABS Basophils 0.1 10^3/ul (0-0.2); ABS Eosinophils 0.1 10^3/ul (0-0.6); ABS Lymphocytes 1.7 10^3/ul (1.0-4.8); ABS Monocytes 0.4 10^3/ul (0-0.8); ABS Neutrophils 3.1 10^3/ul (1.5-7.7); ABS Nucleated RBC 0 10^3/ul; Eosinophil % 2.8 % (0-6); Hematocrit 34 % (35-47); Hemoglobin 11.6 g/dl (12.0-16.0); Lymphocyte % 30.8 % (25-47); Mean Corpuscular HGB Conc 34 g/dl (31-36); Mean Corpuscular Hemoglobin 32 pg (27-31); Mean Corpuscular Volume 94 fL (80-97); Mean Platelet Volume 8 um3 (7.4-10.4); Nucleated Red Blood Cells % 0; Platelet Count 223 10^3/ul (150-450); Red Blood Count 3.64 10^6/ul (4.0-5.4); Red Cell Distribution Width 15 % (10.5-15); White Blood Count 5.4 10^3/ul (3.5-10.8)
[2017-05-25 05:46] LABS: EGFR Non-African American 50.1 (>60)
[2017-05-25] MEDS: Levothyroxine TAB* 75 MCG TAB PO SCH (06:16)
[2017-05-25] MEDS: Topiramate TAB(*) 100 MG PO SCH ×2 (08:49→20:33)
[2017-05-25] MEDS: Morphine TAB Extended Release (*) 15 MG TAB.ER PO SCH ×2 (08:49→20:33)
[2017-05-25] MEDS: lamoTRIgine TAB(*) 100 MG PO SCH ×2 (08:49→20:31)
[2017-05-25] MEDS: Omeprazole CAP* 20 MG PO SCH ×2 (08:49→20:31)
[2017-05-25] MEDS: Potassium Chlor TAB* 20 MEQ TAB.ER PO SCH ×2 (08:49→20:33)
--- NOTE | 2017-05-25 10:26 | PN ---
Subjective Date of Service: 05/25/17 Interval History: Patient offers no complaints today. She reports she saw "one of the [facility]" in the past but "walked out of their office d/t Medicare fraud". She does not remember why she she was seen there and reports she has never had urinary retention in the past. She denies any urinary symptoms. No back/flank pain. No fevers/chills. Reports she "feels great". At this point she agrees to go to subacute rehab. Objective Active Medications: Acetaminophen (Tylenol Tab*) 650 mg PO Q6H PRN PRN Reason: FEVER/PAIN Last Admin: 05/23/17 02:30 Dose: 650 mg Aspirin (Aspirin Tab*) 325 mg PO QPM [facility] Last Admin: 05/24/17 17:23 Dose: 325 mg Lamotrigine (Lamictal Tab(*)) 250 mg PO BID [facility] Last Admin: 05/25/17 08:49 Dose: 250 mg Levothyroxine Sodium (Synthroid Tab*) 75 mcg PO 0600 [facility] Last Admin: 05/25/17 06:16 Dose: 75 mcg Melatonin (Melatonin (Nf)) 3 mg PO BEDTIME PRN; Protocol PRN Reason: Sleep Last Admin: 05/23/17 01:03 Dose: 3 mg Morphine Sulfate (Ms Contin(*)) 15 mg PO BID [facility] Last Admin: 05/25/17 08:49 Dose: 15 mg Omeprazole (Prilosec Cap*) 20 mg PO BID [facility] Last Admin: 05/25/17 08:49 Dose: 20 mg Potassium Chloride (Klor Con Er Tab*) 20 meq PO TID [facility] Last Admin: 05/25/17 08:49 Dose: 20 meq Quetiapine Fumarate (Seroquel Tab*) 50 mg PO BEDTIME [facility] Last Admin: 05/24/17 21:23 Dose: 50 mg Topiramate (Topamax(*)) 100 mg PO BID [facility] Last Admin: 05/25/17 08:49 Dose: 100 mg Vital Signs - 8 hr 05/25/17 05/25/17 05/25/17 07:55 08:00 08:49 Temperature 98.4 F Pulse Rate 76 Respiratory 16 22 22 Rate Blood Pressure 118/51 (mmHg) O2 Sat by Pulse 97 Oximetry Oxygen Devices in Use Now: None Appearance: alert and oriented to self and place but not to date. NAD Eyes: No Scleral Icterus, PERRLA Ears/Nose/Mouth/Throat: NL Teeth, Lips, Gums, Mucous Membranes Moist Neck: NL Appearance and Movements; NL JVP Respiratory: Symmetrical Chest Expansion and Respiratory Effort, Clear to Auscultation Cardiovascular: NL Sounds; No Murmurs; No JVD, RRR, No Edema Abdominal: NL Sounds; No Tenderness; No Distention Extremities: No Edema, No Clubbing, Cyanosis Skin: No Rash or Ulcers, No Nodules or Sclerosis Neurological: NL Sensation, NL Gait, NL Muscle Strength and Tone, - - alert & oriented Lines/Tubes/Other Access: Clean, Dry and Intact Summers - draining clear yellow urine, Clean, Dry and Intact Peripheral IV Nutrition: Taking PO's Result Diagrams: 05/25/17 05:00 05/25/17 05:00 Diagnostic Imaging: Patient Name: IRVIN VARGAS Medical Record#: [id number] Ordering Physician: Gilma Douglas MD Acct.#: [id number] : 1940 Age: 76 Sex: F Location: [address] [place] [address]/TELEMETRY Exam Date: 05/20/172129 ADM Status: ADM IN Order Information: CT BRAIN WO Accession Number: [id number] CPT: 69487 HISTORY: Confusion COMPARISONS: May 03, 2012 TECHNIQUE: Multiple contiguous axial CT scans were obtained of the head without intravenous contrast. FINDINGS: Evaluation limited by metallic streak artifact from previous coil embolization. HEMORRHAGE/INFARCT: There is no hemorrhage or acute infarct. MASSES/SHIFT: There is no mass or shift. EXTRA-AXIAL SPACES: There are no extra-axial fluid collections. SULCI AND VENTRICLES: The sulci and ventricles are normal in size and position for the patient's stated age. CEREBRUM: There is stable right frontal encephalomalacia. BRAINSTEM: There are no focal parenchymal abnormalities. CEREBELLUM: There are no focal parenchymal abnormalities. VESSELS: The patient appears to be status post endovascular coil embolization of a cerebral aneurysm. PARANASAL SINUSES: The paranasal sinuses are clear. There is a small left mastoid effusion. ORBITS: The orbits are unremarkable. BONES AND SOFT TISSUE: There is postsurgical change to the skull. OTHER: None IMPRESSION: 1. NO ACUTE INTRACRANIAL PATHOLOGY. 2. STABLE RIGHT FRONTAL ENCEPHALOMALACIA. 3. STATUS POST ENDOVASCULAR COIL EMBOLIZATION <Electronically signed by Gen Castro MD in [place]> 05/21/17757 Dictated By: Gen Castro MD Dictated Date/Time: 05/21/17757 Transcribed Date/Time: 05/21/17755 Copy to: CC:Gilma Douglas MD; Annalise Garcia DO; Siddharth Rajput MD; Noe Wright MD Imaging - [facility] Imaging - [facility] Imaging - [facility] [address] Assess/Plan/Problems-Billing Assessment: This is a 76 year old female with history of aneurysm with coiling, seizures, resection of meningioma that presented to ER with c/o palpitations and falls, found to have low potassium and poor insight likely r/t underlying behavioral disorder; may be confounded by urinary retention, electrolyte disturbances and dehydration . - Patient Problems (1) Altered mental status Comment: - CT negative for acute infarct. No obvious infection. Possibly electrolyte abnormalities, dehydration. - B12 and Vitamin D level wnls - Dr. Harrington following, patient has poor insight into medical condition/risks, please see his note for recommendations - he states she lacks capacity to make er own medical decisions. - Cannot clear for MRI 2/2 "poor historian" as per MRI. MRI was canceled as she is improving. - Seems to be improving with Seroquel, DC haldol (2) Electrolyte abnormality Comment: - potassium and magnesium abnormalities resolved with repacement. Continue Potassium chloried 20 meq BID - Na+ improved with IVF (3) Acute renal failure Comment: - suspect dehydration. Resolving with IVFs. Also in the setting of electrolyte abnormalities and in the setting of HCTZ. (4) Brain aneurysm Comment: - Unable to determine last imaging (5) Chronic pain Comment: - morphine at lower dose (15mg BID) PRN, concern for acute withdrawal, as she is stabilized on morphine for some years - Does not currently have a headache which is what she usually takes this for. - Prior [employer] MA[employer] discussed at length with patient's PCP and Dr. Harrington (6) History of resection of meningioma Comment: - Cannot clear for MRI/MRA, however she is clinically improving and CT head is negative for new pathology. MRI/MRA DC'd (7) Hypertension Comment: - BP stable off HCTZ/triameterene, continue to hold (8) Retention of urine Comment: - Persistent retention - u/a negative. - Summers inserted /, PVR was >1300ml - Will attempt trial to void today (9) Seizure disorder Comment: - No seizure activity - On lamicatal and topiramate - EEG with slow progression in right frontal region (same area of encephalomalacia), but no acute epileptiform changes, please see Dr. Mendoza's note/interpretation Status and Disposition: Clear for DC to subacute rehab when bed available.
[2017-05-25] MEDS: Aspirin TAB* 325 MG PO SCH (16:55)
[2017-05-25] MEDS: QUEtiapine TAB* 25 MG PO SCH (20:34)
[2017-05-26 06:01] LABS: EGFR Non-African American 47.6 (>60)
[2017-05-26] MEDS: Levothyroxine TAB* 75 MCG TAB PO SCH (06:40)
[2017-05-26] MEDS ORDERED: Levothyroxine TAB* 75 MCG TAB PO SCH (07:30)
[2017-05-26] MEDS: lamoTRIgine TAB(*) 100 MG PO SCH (09:14)
[2017-05-26] MEDS: Morphine TAB Extended Release (*) 15 MG TAB.ER PO SCH (09:15)
[2017-05-26] MEDS: Potassium Chlor TAB* 20 MEQ TAB.ER PO SCH (09:16)
[2017-05-26] MEDS: Omeprazole CAP* 20 MG PO SCH (09:16)
[2017-05-26] MEDS: Topiramate TAB(*) 100 MG PO SCH (09:16)
--- NOTE | 2017-05-26 10:21 | PN ---
Subjective Date of Service: 05/26/17 Interval History: Ms. Coreas reports feeling very well today and is eager for discharge to home as she is concerned about taking care of her cat. She is reported to have walked around the unit independently with physical therapy. She denies chest pain, SOB, nausea, or abdominal pain. She is appropriate in conversation though tangential and verbose. She is safe for discharge now that her mobility has improved and she is agreeable with this plan. Objective Active Medications: Acetaminophen (Tylenol Tab*) 650 mg PO Q6H PRN Aspirin (Aspirin Tab*) 325 mg PO QPM DESEAN Lamotrigine (Lamictal Tab(*)) 250 mg PO BID DESEAN Levothyroxine Sodium (Synthroid Tab*) 75 mcg PO 0730 DESEAN Melatonin (Melatonin (Nf)) 3 mg PO BEDTIME PRN; Protocol Morphine Sulfate (Ms Contin(*)) 15 mg PO BID DESEAN Omeprazole (Prilosec Cap*) 20 mg PO BID DESEAN Potassium Chloride (Klor Con Er Tab*) 20 meq PO BID DESEAN Quetiapine Fumarate (Seroquel Tab*) 50 mg PO BEDTIME DESEAN Topiramate (Topamax(*)) 100 mg PO BID DESEAN Vital Signs - 8 hr Vital Signs: Temp Pulse Resp BP Pulse Ox 97.6 F 73 15 115/53 99 05/26/17 07:54 05/26/17 07:54 05/26/17 09:15 05/26/17 07:54 05/26/17 07:54 Oxygen Devices in Use Now: None Appearance: Female sitting up in chair in NAD Eyes: No Scleral Icterus Ears/Nose/Mouth/Throat: NL Teeth, Lips, Gums Neck: NL Appearance and Movements; NL JVP, Trachea Midline Respiratory: Symmetrical Chest Expansion and Respiratory Effort, Clear to Auscultation Cardiovascular: NL Sounds; No Murmurs; No JVD, No Edema Abdominal: NL Sounds; No Tenderness; No Distention Lymphatic: No Cervical Adenopathy Extremities: No Edema Skin: No Rash or Ulcers Neurological: Alert and Oriented x 3, NL Muscle Strength and Tone Nutrition: Taking PO's Result Diagrams: 05/25/17 05:00 05/26/17 05:11 Diagnostic Imaging: . Assess/Plan/Problems-Billing Assessment: Ms. Coreas is a 76 year old female with history of aneurysm with coiling, seizures, resection of meningioma that presented to ER with c/o palpitations and falls, found to have low potassium and confusion likely r/t underlying behavioral disorder, which may be confounded by urinary retention, electrolyte disturbances and dehydration . - Patient Problems (1) Altered mental status Comment: - Improved mentation but continues to have poor insight into medical condition. - Seems to be improving with Seroquel. - Appreciate neuro consult. CT negative for acute infarct, cannot clear for MRI 2/2 2nd has hx of coiling. No obvious infection. B12 and Vitamin D level wnls. Could be related to electrolyte abnormalities, dehydration. - Dr. Harrington following, he confirms that she lacks capacity to make own medical decisions. (2) Acute renal failure Comment: - Resolved. - Suspect secondary to dehydration. Resolving with IVFs and holding hctz. (3) Chronic pain Comment: - Continue to wean down morphine, concern for development of acute withdrawal, as she is stabilized on morphine for some years. - Prior CHARTER REPRESENTATIVE discussed at length with patient's PCP and Dr. Harrington (4) Electrolyte abnormality Comment: - Resolved. - Continue Potassium chloried 20 meq BID. (5) Hypertension Comment: - BP well controlled off HCTZ/triameterene, continue to hold (6) Retention of urine Comment: - Resolved, valdez d/c'd. (7) Seizure disorder Comment: - No seizure activity - On lamicatal and topiramate - EEG with slow progression in right frontal region (same area of encephalomalacia), but no acute epileptiform changes, please see Dr. Mendoza's note/interpretation (8) Full code status Comment: Status and Disposition: Clear for DC to subacute rehab when bed available.
[2017-05-26 12:33] VITALS: BP 121/60
--- NOTE | 2017-05-26 16:36 | CONSULT ---
Identification - Patient Identification Reason for Psychiatric Consultation: Incapacitating Symptoms -: Patient is a 76 year old, F admitted on 05/21/17. - MHU Identification Employment Status: Disabled Hx Psychiatric Hospitalization: No History - Objective HPI: Fay is seen for follow up today on [address] [place] [address]. She appears to be in good spirits and states that she's tolerating quetiapine well. She remains paranoid towards her primary care provider, Dr. Wright. "We used to be friends but he got strange and hostile over the years." She is open to seeing a different clinician within the [facility] system. Fay continues to deny SI or HI and shows no evidence of agitation or lack of self-care. "I need to go home and take care of my cat. My neighbor's been looking after her and I hope she's not ." I spoke with hospitalist attending Lucy Cannon, who feels the patient does not meet criteria for ZARINA, as she is ambulating well and has no obvious halfway needs. We concurred on the need for case management services in the outpatient setting, although I understand [facility] has signed off in the past when the patient would not allow them to enter her home in [place], [place]. I also spoke with [address] [place] [address] socially responsible investment adviser, Sunshine Murphy, who agreed to look into the possibility of referrals to either [facility] or [facility] for case management services. Fay is agreeable with continuing quetiapine, as well as anticonvulsant meds. Lab Results: Laboratory Tests 05/21/17 05/21/17 05/21/17 05:49 17:40 17:40 WBC RBC Hgb Hct MCV MCH MCHC RDW Plt Count MPV Neut % (Auto) Lymph % (Auto) [place] % (Auto) Eos % (Auto) Baso % (Auto) Absolute Neuts (auto) Absolute Lymphs (auto) Absolute Monos (auto) Absolute Eos (auto) Absolute Basos (auto) Absolute Nucleated RBC Nucleated RBC % Sodium 134 Potassium 2.4 L* Chloride 95 L Carbon Dioxide 28 Anion Gap 11 BUN 24 Creatinine 1.72 H Est GFR ( Amer) 37.3 Est GFR (Non-Af Amer) 29.0 BUN/Creatinine Ratio 14.0 Glucose 98 Calcium 9.7 Magnesium 2.1 Total Bilirubin AST ALT Alkaline Phosphatase Total Protein Albumin Globulin Albumin/Globulin Ratio Vitamin B12 25-OH Vitamin D Total Urine Color Yellow Urine Appearance Clear Urine pH 5.0 Ur Specific Walker 1.013 Urine Protein Negative Urine Ketones Negative Urine Blood Negative Urine Nitrate Negative Urine Bilirubin Negative Urine Urobilinogen Negative Ur Leukocyte Esterase Negative Urine Glucose Negative Urine Opiates Screen Presumptive positive A Ur Barbiturates Screen None detected Ur Phencyclidine Scrn None detected Ur Amphetamines Screen None detected U Benzodiazepines Scrn Presumptive positive A Urine Cocaine Screen None detected U Cannabinoids Screen None detected 05/22/17 05/22/17 05/22/17 05:25 05:25 10:57 WBC 6.3 RBC 3.87 L Hgb 12.3 Hct 36 MCV 93 MCH 32 H MCHC 34 RDW 14 Plt Count 228 MPV 9 Neut % (Auto) 59.1 Lymph % (Auto) 33.0 [place] % (Auto) 5.8 Eos % (Auto) 1.4 Baso % (Auto) 0.7 Absolute Neuts (auto) 3.7 Absolute Lymphs (auto) 2.1 Absolute Monos (auto) 0.4 Absolute Eos (auto) 0.1 Absolute Basos (auto) 0 Absolute Nucleated RBC 0 Nucleated RBC % 0.1 Sodium 134 Potassium TNP 3.2 L Chloride 104 Carbon Dioxide 24 Anion Gap 6 BUN 18 Creatinine 1.05 H Est GFR ( Amer) 65.9 Est GFR (Non-Af Amer) 51.2 BUN/Creatinine Ratio 17.1 Glucose 86 Calcium 9.0 Magnesium Total Bilirubin 0.70 AST TNP ALT 10 Alkaline Phosphatase 32 L Total Protein 5.9 L Albumin 3.5 Globulin 2.4 Albumin/Globulin Ratio 1.5 Vitamin B12 25-OH Vitamin D Total Urine Color Urine Appearance Urine pH Ur Specific Walker Urine Protein Urine Ketones Urine Blood Urine Nitrate Urine Bilirubin Urine Urobilinogen Ur Leukocyte Esterase Urine Glucose Urine Opiates Screen Ur Barbiturates Screen Ur Phencyclidine Scrn Ur Amphetamines Screen U Benzodiazepines Scrn Urine Cocaine Screen U Cannabinoids Screen 05/24/17 05/24/17 05/24/17 09:10 09:10 09:10 WBC 7.2 RBC 3.92 L Hgb 12.4 Hct 36 MCV 93 MCH 32 H MCHC 34 RDW 15 Plt Count 246 MPV 8 Neut % (Auto) 65.1 Lymph % (Auto) 25.9 [place] % (Auto) 5.1 Eos % (Auto) 2.7 Baso % (Auto) 1.2 Absolute Neuts (auto) 4.7 Absolute Lymphs (auto) 1.9 Absolute Monos (auto) 0.4 Absolute Eos (auto) 0.2 Absolute Basos (auto) 0.1 Absolute Nucleated RBC 0 Nucleated RBC % 0 Sodium 135 Potassium 3.1 L Chloride 102 Carbon Dioxide 25 Anion Gap 8 BUN 9 Creatinine 1.06 H Est GFR ( Amer) 65.2 Est GFR (Non-Af Amer) 50.7 BUN/Creatinine Ratio 8.5 Glucose 123 H Calcium 9.8 Magnesium 1.6 L Total Bilirubin AST ALT Alkaline Phosphatase Total Protein Albumin Globulin Albumin/Globulin Ratio Vitamin B12 223 25-OH Vitamin D Total 35.2 Urine Color Urine Appearance Urine pH Ur Specific Walker Urine Protein Urine Ketones Urine Blood Urine Nitrate Urine Bilirubin Urine Urobilinogen Ur Leukocyte Esterase Urine Glucose Urine Opiates Screen Ur Barbiturates Screen Ur Phencyclidine Scrn Ur Amphetamines Screen U Benzodiazepines Scrn Urine Cocaine Screen U Cannabinoids Screen 05/25/17 05/25/17 05/26/17 05:00 05:00 05:11 WBC 5.4 RBC 3.64 L Hgb 11.6 L Hct 34 L MCV 94 MCH 32 H MCHC 34 RDW 15 Plt Count 223 MPV 8 Neut % (Auto) 57.9 Lymph % (Auto) 30.8 [place] % (Auto) 7.6 H Eos % (Auto) 2.8 Baso % (Auto) 0.9 Absolute Neuts (auto) 3.1 Absolute Lymphs (auto) 1.7 Absolute Monos (auto) 0.4 Absolute Eos (auto) 0.1 Absolute Basos (auto) 0.1 Absolute Nucleated RBC 0 Nucleated RBC % 0 Sodium 135 134 Potassium 3.6 3.9 Chloride 103 102 Carbon Dioxide 25 28 Anion Gap 7 4 BUN 13 16 Creatinine 1.07 H 1.12 H Est GFR ( Amer) 64.5 61.2 Est GFR (Non-Af Amer) 50.1 47.6 BUN/Creatinine Ratio 12.1 14.3 Glucose 99 94 Calcium 9.2 9.2 Magnesium 2.1 Total Bilirubin AST ALT Alkaline Phosphatase Total Protein Albumin Globulin Albumin/Globulin Ratio Vitamin B12 25-OH Vitamin D Total Urine Color Urine Appearance Urine pH Ur Specific Walker Urine Protein Urine Ketones Urine Blood Urine Nitrate Urine Bilirubin Urine Urobilinogen Ur Leukocyte Esterase Urine Glucose Urine Opiates Screen Ur Barbiturates Screen Ur Phencyclidine Scrn Ur Amphetamines Screen U Benzodiazepines Scrn Urine Cocaine Screen U Cannabinoids Screen Exam Appearance: Obese Hygiene: Normal Grooming: Fairly Well Kept Psychomotor Activities: Normal Exhibits Abnormal Movement: No Attitude and Relatedness: Cooperative Eye Contact: Fair - Speech Quality: Unpressured Latencies: Normal Quantity: Appropriate Patient's Decription of Mood: "Okay" Observed Affect: Fair Affect Consistent with: Euthymia Patient's Thought Process: Coherent Thought Content: Yes Paranoid Ideation, No Passive Wish, No Suicidal Planning, No Homicidal Ideation Experiencing Hallucinations: No, Sensorium is Clear Type of Hallucinations: Visual: No, Auditory: No, Command: No Level of Consciousness: Alert Orientation: Yes Intact, Yes Orientated to Time, Yes Orientated to Place, Yes Orientated to Person Impulse Control: Tenuous Insight and Judgement: Fair Impression - Impression Clinical Impression: 76 y.o. , white female with an extensive neurological history of meningioma resection, aneurism and seizure disorder presents to the ED voluntarily via EMS after complaints of heart palpitations but presents also with confusion, hallucinations and paranoid ideation. Merits Inpatient Hospitalization: No Plan - Treatment Plan Treatment Plan: The patient is tolerating initiation of quetiapine 50mg PO qhs. She appears improved. Follow up will be in the primary care setting and with Neurology. Continue quetiapine therapy. She continues to decline voluntary transfer to the [facility] and does not meet legal criteria for involuntary care. Psychiatry recommends case management services. If [facility] cannot work with her then [facility] or [facility] are alternatives. Psychiatry is signing off but can reengage if there is a change in her presentation or circumstances. Thank you for the interesting consult. Continued Medication Management: Start Medication Medications: Current Medications Acetaminophen (Tylenol Tab*) 650 mg PO Q6H PRN PRN Reason: FEVER/PAIN Last Admin: 05/23/17 02:30 Dose: 650 mg Aspirin (Aspirin Tab*) 325 mg PO QPM [facility] Last Admin: 05/25/17 16:55 Dose: 325 mg Lamotrigine (Lamictal Tab(*)) 250 mg PO BID [facility] Last Admin: 05/26/17 09:14 Dose: 250 mg Levothyroxine Sodium (Synthroid Tab*) 75 mcg PO 0730 [facility] Last Admin: 05/26/17 08:06 Dose: 75 mcg Melatonin (Melatonin (Nf)) 3 mg PO BEDTIME PRN; Protocol PRN Reason: Sleep Last Admin: 05/23/17 01:03 Dose: 3 mg Morphine Sulfate (Ms Contin(*)) 15 mg PO BID [facility] Omeprazole (Prilosec Cap*) 20 mg PO BID DESEAN Last Admin: 05/26/17 09:16 Dose: 20 mg Potassium Chloride (Klor Con Er Tab*) 20 meq PO BID DESEAN Last Admin: 05/26/17 09:16 Dose: 20 meq Quetiapine Fumarate (Seroquel Tab*) 50 mg PO BEDTIME DESEAN Last Admin: 05/25/17 20:34 Dose: 50 mg Topiramate (Topamax(*)) 100 mg PO BID [facility] Last Admin: 05/26/17 09:16 Dose: 100 mg - Discharge Plan Discharge Plan: Outpatient Follow Up Outpatient Program: Private Clinician(s)
[2017-05-26] MEDS: Aspirin TAB* 325 MG PO SCH (17:28)
[2017-05-26] MEDS ORDERED: Morphine TAB Extended Release (*) 15 MG TAB.ER PO SCH ×2 (21:00)
--- NOTE | 2017-05-27 17:08 | DS ---
CC: Dr. Noe Wright * DISCHARGE SUMMARY: DATE OF ADMISSION: 05/21/17. DATE OF DISCHARGE: 05/26/17. PRIMARY CARE PHYSICIAN: Dr. Noe Wright. ATTENDING PHYSICIAN: Dr. Ken Tolliver * (dictation provided by Lucy Cannon NP) PRIMARY DIAGNOSES: 1. Confusion. 2. Hypokalemia. SECONDARY DIAGNOSES: 1. Meningioma status post partial resection. 2. [place] aneurysm status post coiling. 3. Hypertension. 4. Hyperlipidemia. 5. Hypothyroidism. 6. Seizure disorder. 7. GERD. 8. Right-sided sciatica. 9. Anxiety. MEDICATIONS AT THE TIME OF DISCHARGE: 1. Cyanocobalamin 1000 micrograms IM monthly. 2. Cholecalciferol 2000 units p.o. q.a.m. 3. Lansoprazole 30 mg p.o. b.i.d. 4. Fluticasone nasal spray 2 sprays both nares daily p.r.n. 5. Potassium chloride 20 mEq p.o. b.i.d. 6. Aspirin 325 mg p.o. q.p.m. 7. Loratadine with pseudoephedrine 1 tab p.o. daily. 8. Acyclovir 400 mg p.o. t.i.d. p.r.n. 9. Lamotrigine 250 mg p.o. b.i.d. 10. Topamax 100 mg p.o. b.i.d. 11. Quetiapine 50 mg p.o. at bedtime. 12. Morphine extended release 15 mg p.o. b.i.d., quantity 10. 13. Levothyroxine 75 mcg p.o. daily. HOSPITAL COURSE: Ms. Coreas is a 76-year-old female with a past medical history as outlined above, who presented to the emergency room on 05/21/17 with confusion. Please see the dictated H and P from Dr. Siddharth Rajput for complete details. In brief, at the time of admission, patient was very confused. She was perseverating about her Topamax and concerned that people were trying to kill her. She spoke about there being a little man in the glove box on the wall. She had numerous complaints including anesthesia in her feet and fingers, difficulty initiating gait, and dizziness, all of which she attributed to her topiramate. In the emergency room, her labs were remarkable only for a low potassium at 2.4. Her creatinine was elevated to 1.9, suggestive of some dehydration. Her opiate and benzodiazepine screen was positive, but she is on both of these medications per her record. CT brain showed no acute intracranial pathology. It was unclear what was driving Ms. Coreas's symptoms. We did discuss the case at length with her primary care physician, Dr. Wright, who indicated that she had been having bizarre behavior outpatient for quite some time. She reportedly had been calling the office and fearful that Dr. Wright was trying to kill her. The staff and Dr. Wright were unable to get the patient to come into the office for evaluation. They ultimately called Adult Protective Services to have her evaluated at home and she refused to let them in. Ms. Coreas was seen in consultation by Dr. Harrington from psychiatric services and I refer you to his note for details. He recommended that the patient try Seroquel which she was ultimately agreeable to. At the time of his visits with her, on 05/21/17 through 05/23/17, the patient required 2 assist to get up out of bed and was unable to ambulate safely and independently. He deemed, and we agreed, that she did not have capacity at that time to refuse rehab placement due to her lack of insight into her condition and clear danger with inability to care for herself. In the intervening days, Ms. Coreas has improved dramatically. She is now ambulating with physical therapy independently throughout the hallways. She still continues to have pressured speech and to be tangential in her thinking. She also continues to have some paranoia; however, she is independent with her mobility and shows no acute risks to herself or to anyone else. She has capacity to make decisions as she indicates the desire to return home and continue to live as previous with support. I plan to discuss at length with Ms. Coreas again the importance of following up with, allowing Adult Protective Services and [facility] into the home and to help monitor her safety ongoing. I have spoken at length with Social Work about Ms. Coreas's case, which we are certainly concerned about her ability for ongoing independent living correction and Social Work will be reaching out to Adult Protective Services for further evaluation of her outpatient. DISPOSITION: Home. DIET: Regular. ACTIVITY: As tolerated. FOLLOWUP PLAN: Please follow up with Dr. Wright. The patient will have an appointment made prior to her discharge. She has also been encouraged to follow up with an alternative provider if she has concern about Dr. Wright. TIME SPENT: Approximately 60 minutes was spent in discharge of this patient, more than half that time spent with the patient at bedside reviewing the events leading up to this hospitalization, performing physical examination and reviewing my plan of care. LUCY CANNON NP [id number]/CPS #: [id number] ANA M
== END 2017-05-26 18:10 | disposition home or self-care (01) | DRG 641 ==
LOC: ED 20:47 → MEDTELE 05-21 00:41
PROVIDERS: ADMIT Hospitalist; ATTEND Internal Medicine
PROC: 4A00X4Z Measurement of Central Nervous Electrical Activity, External Approach (ICD-10-PCS; 2017-05-22)
PROC: 0T9B70Z Drainage of Bladder with Drainage Device, Via Natural or Artificial Opening (ICD-10-PCS; principal; 2017-05-23)
DX: E87.6 Hypokalemia (principal); E86.0 Dehydration; N17.9 Acute kidney failure, unspecified; I67.1 Cerebral aneurysm, nonruptured; F05 Delirium due to known physiological condition; G40.909 Epilepsy, unspecified, not intractable, without status epilepticus; E03.9 Hypothyroidism, unspecified; E78.5 Hyperlipidemia, unspecified; I10 Essential (primary) hypertension; K21.9 Gastro-esophageal reflux disease without esophagitis; M54.31 Sciatica, right side; F32.9 Major depressive disorder, single episode, unspecified; G43.909 Migraine, unspecified, not intractable, without status migrainosus; R40.2362 Coma scale, best motor response, obeys commands, at arrival to emergency department; R40.2142 Coma scale, eyes open, spontaneous, at arrival to emergency department; R40.2252 Coma scale, best verbal response, oriented, at arrival to emergency department; R33.9 Retention of urine, unspecified; F22 Delusional disorders; G89.29 Other chronic pain; F41.9 Anxiety disorder, unspecified; R20.0 Anesthesia of skin; F06.30 Mood disorder due to known physiological condition, unspecified; Z79.82 Long term (current) use of aspirin; Z79.891 Long term (current) use of opiate analgesic; Z88.8 Allergy status to other drugs, medicaments and biological substances; Z91.048 Other nonmedicinal substance allergy status; Z90.711 Acquired absence of uterus with remaining cervical stump; Z98.42 Cataract extraction status, left eye; Z98.41 Cataract extraction status, right eye; Z82.49 Family history of ischemic heart disease and other diseases of the circulatory system; Z83.3 Family history of diabetes mellitus; Z80.1 Family history of malignant neoplasm of trachea, bronchus and lung; Z82.69 Family history of other diseases of the musculoskeletal system and connective tissue
CPT/HCPCS: 36415; 70450; 71045; 80048; 80053; 80307; 80320; 80329; 81003; 82306; 82607; 83735; 84443; 84484; 85025; 93005; 95819; 99285; A9270-GY; G0480; J1630; J3475; J3480

== ENCOUNTER 2017-08-16 16:39 | Emergency (ER) | payer MEDICARE ==
[2017-08-16 18:40] VITALS: BP 138/66
[2017-08-16] MEDS ORDERED: Sulfamethox/Trimethoprim DS 800/160* TAB PO ONE ×2 (19:45)
--- NOTE | 2017-08-24 17:39 | UC ---
Ozzie Velasco Julia, scribed for Fabrice Beckford MD on 08/16/17 at 1812 . Complaint Female HPI - HPI Summary HPI Summary: This patient is a 76 year old F [place] [facility] [place] chief complaint of gradually worsening urinary frequency for the past three months more recently worsening with a general malaise, worsened dizziness from baseline, and sensation of warmth . She reports the symptoms originally began with pain and burning with urination, but those symptoms are currently resolved. She states that she has taken between four and five courses of antibiotics including Ciprofloxacin and Bactrim for UTIs. She has seen her PCP for these symptoms and has been referred to a urologist. She reports PMHx of a brain tumor - History Of Current Complaint Stated Complaint: FREQUENT URINATION Time Seen by Provider: 08/16/17 17:58 Hx Obtained From: Patient Onset/Duration: Gradual Onset, Lasting Weeks - months, Still Present Timing: Constant Character: Not Applicable Alleviating Factor(s): Nothing Related Hx: Similar Episode/Dx as: - UTI - Allergies/Home Medications Allergies/Adverse Reactions: Allergies Allergy/AdvReac Type Severity Reaction Status Date / Time clonazepam Allergy Anaphylatic Verified 08/18/17 07:52 Shock clonidine Allergy Hallucinati Verified 08/18/17 07:52 ons lisinopril Allergy Difficulty Verified 08/18/17 07:52 Breathing Sulfa (Sulfonamide Allergy Shortness Verified 08/18/17 07:52 Antibiotics) of Breath ENVIRONMENTAL Allergy STUFFY, Uncoded 08/18/17 07:52 EYES RED, ITCHY Home Medications: Home Medications Morphine Sulfate 15 mg PO Q8H PRN MDD 3 08/16/17 [History Confirmed 08/16/17] PMH/Surg Hx/FS Hx/Imm Hx Neurological History: Other Other Neurological History: brain tumor Other History Of: Negative For: Anticoagulant Therapy - Surgical History Surgical History: Yes Surgery Procedure, Year, and Place: HYSTERECTOMY- AUBURNBRAIN SURGERY- CRANIOTOMY 2005, ANEURYSM COIL PLACED 2004- [place] [facility]ROS[facility]- [place] REDUCTION FX NASAL [facility] CATARACT 03/06 [facility] [place] - Family History Known Family History: Positive: Hypertension - Social History Alcohol Use: None Substance Use Type: Prescribed Substance Use Comment - Amount & Last Used: narcotics Smoking Status (MU): Never Smoked Tobacco Have You Smoked in the Last Year: No - Immunization History Most Recent Influenza Vaccination: unknown Most Recent Pneumonia Vaccination: unknown Review of Systems Constitutional: Fatigue, Other - feeling warm Genitourinary: Negative - no burning, Frequency Neurological: Other - dizziness All Other Systems Reviewed And Are Negative: Yes Physical Exam - Summary Physical Exam Summary: General: well-appearing, no pain distress, slightly unsteady on feet Skin: warm, color reflects adequate perfusion, dry Head: normal Eyes: EOMI, KERWIN ENT: bilateral cerumen of ears Neck: supple, nontender Respiratory: CTA, breath sounds present Cardiovascular: RRR Abdomen: soft, nontender Bowel: present Musculoskeletal: normal, strength/ROM intact Neurological: sensory/motor intact, A&O x3, no focal neurological deficits Psychological: affect/mood appropriate Triage Information Reviewed: Yes Vital Signs: Initial Vital Signs Temp 97.4 F 08/16/17 18:34 Pulse 90 08/16/17 18:34 Resp 16 08/16/17 18:34 BP 138/66 08/16/17 18:34 Pulse Ox 100 08/16/17 18:34 Vital Signs Reviewed: Yes Complaint Female Dx - Differential Dx/Diagnosis Provider Diagnoses: UTI Discharge - Sign-Out/Discharge Documenting (check all that apply): Discharge/Admit/Transfer - Discharge Plan Condition: Stable Disposition: HOME Prescriptions: Sulfamethox/Trimethoprim DS* [Bactrim DS 800/160 TAB*] 1 tab PO BID #18 tab Patient Education Materials: Urinary Tract Infection in Women (ED) Referrals: Noe Wright MD [Primary Care Provider] - Additional Instructions: FOLLOW UP WITH YOUR DOCTOR. GET RECHECKED FOR ANY WORSENING OF YOUR CONDITION OR QUESTIONS OR CONCERNS. - Billing Disposition and Condition Condition: STABLE Disposition: HOME The documentation as recorded by the Ozzie friedman Julia accurately reflects the service I personally performed and the decisions made by me, Fabrice Beckford MD.
== END 2017-08-16 20:45 | disposition home or self-care (01) ==
LOC: UCEAST 16:39
DX: N39.0 Urinary tract infection, site not specified (principal); R53.83 Other fatigue; R42 Dizziness and giddiness; Z88.2 Allergy status to sulfonamides; Z88.8 Allergy status to other drugs, medicaments and biological substances
CPT/HCPCS: 81003; 87077; 87086; 87186; 99213; A9270-GY; G0463

== ENCOUNTER 2017-08-18 07:30 | Emergency (ER) | payer MEDICARE ==
[2017-08-18 07:50] VITALS: BP 133/67
--- NOTE | 2017-08-18 08:56 | UC ---
Basiloi Velasco Gabriel, scribed for Fabrice Beckford MD on 08/18/17 at 0804 . General HPI - HPI Summary HPI Summary: This patient is a 76 year old F [place] [facility] [place] a chief complaint of a negative drug reaction that began last night. Pt was seen here two days ago for a UTI and was given Bactrim. She took her first dose last night at 1999 and began having dizziness, sore throat, and arthralgia. She was given a dose during her visit two days ago and had no reaction but states she developed a reaction to sulfa drugs since. She reports having all the serious side effects , she brought a print out from the pharmacy and listed the side effects she is having. Patient reports SOB, tingling in hands/feet, blurred vision, nausea, and loss of appetite. The patient rates the pain 4/10 in severity. Symptoms alleviated by antihistamines. Patient denies CP, rash, trouble swallowing, ABD pain, v/d, and wheezing. She is very concerned that she was going to pass away during her sleep. She is requesting an antibiotic change but has a large amount of allergies. She doesnt believe cipro will work either. 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 - Allergy/Home Medications Allergies/Adverse Reactions: Allergies Allergy/AdvReac Type Severity Reaction Status Date / Time clonazepam Allergy Anaphylatic Verified 08/18/17 07:52 Shock clonidine Allergy Hallucinati Verified 08/18/17 07:52 ons lisinopril Allergy Difficulty Verified 08/18/17 07:52 Breathing Sulfa (Sulfonamide Allergy Shortness Verified 08/18/17 07:52 Antibiotics) of Breath ENVIRONMENTAL Allergy STUFFY, Uncoded 08/18/17 07:52 EYES RED, ITCHY Home Medications: Home Medications Cyclobenzaprine TAB* [Flexeril 10 MG TAB*] 10 mg PO BID PRN 08/18/17 [History Confirmed 08/18/17] Lansoprazole SOLUTAB* [Prevacid Solutab*] 30 mg PO BID 08/18/17 [History Confirmed 08/18/17] Potassium Chlor TAB* [Klor Con ER TAB*] 20 meq PO BID 08/18/17 [History Confirmed 08/18/17] Triamterene/HCTZ 37.5-25 MG* [Dyazide CAP*] 1 cap PO DAILY 08/18/17 [History Confirmed 08/18/17] PMH/Surg Hx/FS Hx/Imm Hx Neurological History: Other Other Neurological History: brain aneurism Other History Of: Negative For: Anticoagulant Therapy - Surgical History Surgical History: Yes Surgery Procedure, Year, and Place: HYSTERECTOMY- AUBURNBRAIN SURGERY- CRANIOTOMY 2005, ANEURYSM COIL PLACED 2004- BUFFALOLEFT KNEE ARTHROSCOPY- ADRIANA FORBESLOJONATHAN REDUCTION FX NASAL CMCR CATARACT 03/06 [facility]LEPHOPLASTY [place] - Family History Known Family History: Positive: Hypertension Negative: Respiratory Disease, Seizure Disorder - Social History Alcohol Use: None Substance Use Type: None Substance Use Comment - Amount & Last Used: narcotics Smoking Status (MU): Never Smoked Tobacco Have You Smoked in the Last Year: No - Immunization History Most Recent Influenza Vaccination: unknown Most Recent Pneumonia Vaccination: unknown Review of Systems Constitutional: Other - loss of appetite Eyes: Blurred Vision ENT: Sore Throat Respiratory: Shortness Of Breath Gastrointestinal: Nausea Musculoskeletal: Other: - arthralgia Neurological: Paresthesia, Other - dizziness All Other Systems Reviewed And Are Negative: Yes Physical Exam - Summary Physical Exam Summary: General: well-appearing, no pain distress Skin: warm, color reflects adequate perfusion, dry Head: normal Eyes: EOMI, KERWIN ENT: normal Neck: supple, nontender Respiratory: CTA, breath sounds present Cardiovascular: RRR Abdomen: soft, nontender Bowel: present Musculoskeletal: normal, strength/ROM intact Neurological: sensory/motor intact, A&O x3 Psychological: affect/mood appropriate Triage Information Reviewed: Yes Vital Signs: Initial Vital Signs Temp 98.6 F 08/18/17 07:45 Pulse 80 08/18/17 07:45 Resp 16 08/18/17 07:45 BP 133/67 08/18/17 07:45 Pulse Ox 99 08/18/17 07:45 Vital Signs Reviewed: Yes Course/Dx - Course Course Of Treatment: PATIENT WAS ASYMPTOMATIC IN CLINIC. I DISCUSSED THE NEED FOR EVALUATION IN THE EMERGENCY DEPARTMENT FOR DYSPNEA. THE PATIENT REFUSED TO BE SEEN IN THE EMERGENCY DEPARTMENT FOR HER SYMPTOMS. STOP THE BACTRIM, START AUGMENTIN. F/U PMD; RETURN IF WORSE. - Differential Dx - Multi-Symptom Provider Diagnoses: DYSPNEA. DYSURIA Discharge - Sign-Out/Discharge Documenting (check all that apply): Discharge/Admit/Transfer - Discharge Plan Condition: Stable Disposition: HOME Prescriptions: Amoxicillin/Clavulanate TAB* [Augmentin TAB 875*] 875 mg PO BID #20 tab Patient Education Materials: Dysuria (ED), Dyspnea (ED) Referrals: Noe Wright MD [Primary Care Provider] - Additional Instructions: FOLLOW UP WITH YOUR DOCTOR. GET RECHECKED FOR ANY WORSENING OF YOUR CONDITION OR QUESTIONS OR CONCERNS. - Billing Disposition and Condition Condition: STABLE Disposition: HOME The documentation as recorded by the Basilio friedman Gabriel accurately reflects the service I personally performed and the decisions made by me, Fabrice Beckford MD.
--- NOTE | 2017-08-19 18:15 | UC ---
- Progress Note Progress Note: Pt on Augmentin - + sensitive urine no change Ljj 08/19/2017 Discharge - Sign-Out/Discharge Documenting (check all that apply): Post-Discharge Follow Up - Discharge Plan Condition: Stable Disposition: HOME Prescriptions: Amoxicillin/Clavulanate TAB* [Augmentin TAB 875*] 875 mg PO BID #20 tab Patient Education Materials: Dysuria (ED), Dyspnea (ED) Referrals: Noe Wright MD [Primary Care Provider] - Additional Instructions: FOLLOW UP WITH YOUR DOCTOR. GET RECHECKED FOR ANY WORSENING OF YOUR CONDITION OR QUESTIONS OR CONCERNS. - Billing Disposition and Condition Condition: STABLE Disposition: HOME
== END 2017-08-18 08:24 | disposition home or self-care (01) ==
LOC: UCEAST 07:30
DX: R06.00 Dyspnea, unspecified (principal); R30.0 Dysuria; R20.2 Paresthesia of skin; H53.8 Other visual disturbances; R11.0 Nausea; Z88.2 Allergy status to sulfonamides; Z88.8 Allergy status to other drugs, medicaments and biological substances
CPT/HCPCS: 99212; G0463

== ENCOUNTER 2018-03-01 17:56 | Emergency (ER) | payer MEDICARE ==
[2018-03-01 18:12] VITALS: BP 132/77
--- NOTE | 2018-03-01 18:39 | UC ---
Skin Complaint HPI - HPI Summary HPI Summary: 77-year-old woman comes in with a chief complaint of rash. Going on for years. she talks about a rash on her legs and she shows me where some insects or sticking out. Also talks about black insects around her neck that she washes off. Describes the different life stages of the insects as they call around veins and when they meet under the skin it hurts more. Feels well otherwise. 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 Pain Intensity: 0 - Allergy/Home Medications Allergies/Adverse Reactions: Allergies Allergy/AdvReac Type Severity Reaction Status Date / Time cefpodoxime Allergy Severe platelet Verified 03/01/18 18:14 clumping amitriptyline Allergy seizures Verified 03/01/18 18:14 panic clonazepam Allergy Anaphylatic Verified 03/01/18 18:27 Shock clonidine Allergy Hallucinati Verified 03/01/18 18:27 ons lisinopril Allergy Difficulty Verified 03/01/18 18:27 Breathing Sulfa (Sulfonamide Allergy Shortness Verified 03/01/18 18:27 Antibiotics) of Breath ENVIRONMENTAL Allergy STUFFY, Uncoded 03/01/18 18:27 EYES RED, ITCHY Home Medications: Home Medications ALPRAZolam [Alprazolam] 1 mg PO Q4HR PRN 03/01/18 [History Confirmed 03/01/18] Cyanocobalamin TAB* [Vitamin B12 TAB*] 1,000 mcg PO DAILY 03/01/18 [History Confirmed 03/01/18] Topiramate [Topamax] 100 mg PO BID 03/01/18 [History Confirmed 03/01/18] lamoTRIgine TAB(*) [Lamictal TAB(*)] 250 mg PO BID 03/01/18 [History Confirmed 03/01/18] PMH/Surg Hx/FS Hx/Imm Hx Neurological History: Seizures Other History Of: Negative For: Anticoagulant Therapy - Surgical History Surgical History: Yes Surgery Procedure, Year, and Place: HYSTERECTOMY- [place]; BRAIN SURGERY- CRANIOTOMY 2005; ANEURYSM COIL PLACED 2004- [place] LEFT-OK FOR UP TO 3T INFO FAXED IN OTHER FACILITY- [facility] ARTHROSCOPY- [place], [place]; CLOSED REDUCTION FX NASAL [facility] CATARACT 03/06 [facility] [place] - Family History Known Family History: Positive: Hypertension Negative: Respiratory Disease, Seizure Disorder - Social History Alcohol Use: None Substance Use Type: None Substance Use Comment - Amount & Last Used: narcotics Smoking Status (MU): Never Smoked Tobacco Have You Smoked in the Last Year: No - Immunization History Most Recent Influenza Vaccination: unknown Most Recent Pneumonia Vaccination: unknown Review of Systems All Other Systems Reviewed And Are Negative: Yes Constitutional: Positive: Negative Skin: Positive: Rash Eyes: Positive: Negative ENT: Positive: Negative Respiratory: Positive: Negative Cardiovascular: Positive: Negative Gastrointestinal: Positive: Negative Motor: Positive: Negative Neurovascular: Positive: Negative Musculoskeletal: Positive: Negative Neurological: Positive: Negative Psychological: Positive: Negative Is Patient Immunocompromised?: No Physical Exam Triage Information Reviewed: Yes Appearance: Well-Appearing, No Pain Distress, Well-Nourished Vital Signs: Initial Vital Signs Temp 97.0 F 03/01/18 18:05 Pulse 115 03/01/18 18:05 Resp 20 03/01/18 18:05 BP 132/77 03/01/18 18:05 Pulse Ox 96 03/01/18 18:05 Vital Signs Reviewed: Yes Eye Exam: Normal Eyes: Positive: Conjunctiva Clear Neck exam: Normal Neck: Positive: Supple Respiratory: Positive: No respiratory distress Musculoskeletal Exam: Normal Musculoskeletal: Positive: Strength Intact, ROM Intact Neurological Exam: Normal Neurological: Positive: Alert, Muscle Tone Normal Psychological Exam: Normal Psychological: Positive: Age Appropriate Behavior Skin: Positive: Other - Lower legs there is some dried flaking skin. I took a few pieces often showed him to the patient under high magnification. Course/Dx - Course Course Of Treatment: Patient rash on her legs years to be dried skin. Did try some selenium lotion daily. Follow-up with primary care doctor or dermatology. - Diagnoses Provider Diagnosis: Rash Discharge - Sign-Out/Discharge Documenting (check all that apply): Patient Departure All imaging exams completed and their final reports reviewed: No Studies - Discharge Plan Condition: Stable Disposition: HOME Prescriptions: Selenium Sulfide 1 applic TOPICAL DAILY #120 ml Patient Education Materials: Acute Rash (ED) Referrals: Noe Wright MD [Primary Care Provider] - Additional Instructions: FOLLOW UP WITH YOUR DOCTOR IF NOT COMPLETELY IMPROVED. GET RECHECKED FOR ANY WORSENING OF YOUR CONDITION OR QUESTIONS OR CONCERNS. - Billing Disposition and Condition Condition: STABLE Disposition: Home
== END 2018-03-01 18:53 | disposition home or self-care (01) ==
LOC: UCEAST 17:56
DX: R21 Rash and other nonspecific skin eruption (principal); Z88.1 Allergy status to other antibiotic agents; Z88.2 Allergy status to sulfonamides; Z88.8 Allergy status to other drugs, medicaments and biological substances
CPT/HCPCS: 99212; G0463

== ENCOUNTER 2018-05-11 15:33 | Inpatient (IN) | payer MEDICARE ==
[2018-05-11] MEDS ORDERED: NS 0.9% 1000 ML** 1,000 ML IV ONE (16:03)
--- NOTE | 2018-05-11 16:06 | ED ---
Adult Trauma - HPI Summary HPI Summary: Pt is a 77 y/o female who presents to the ED s/p fall. She fell recently, and according to the pt this is due to her brain tumor. Pt was found 3 days ago, and pt is unsure how long she was on the ground for. As per friend who found her , she seemed dehydrated. Pts friend then found a sacral wound 2 days ago. Pt c/ o generalized weakness, TAVERA, and pain with breathing. She rates the pain as a 10/ 10 in severity. She has been bedridden for a while. Pt is not eating well, and is not able to ambulate by herself. PMHx meningioma and shaw aneurysm. 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 Mechanism of Injury: Fall Loss of Consciousness: unsure Onset/Duration: Started Days Ago - Unsure how many, Still Present Current Severity: Severe Pain Intensity: 10 Pain Scale Used: 0-10 Numeric Location: Other - Sacrum Aggravating Factor(s): Deep Breaths Alleviating Factor(s): Nothing Associated Signs & Symptoms: Positive: Numbness/Weakness - Additional Pertinent History Primary Care Physician: [id number] - Allergy/Home Medications Allergies/Adverse Reactions: Allergies Allergy/AdvReac Type Severity Reaction Status Date / Time cefpodoxime Allergy Severe platelet Verified 05/11/18 15:48 clumping amitriptyline Allergy seizures Verified 05/11/18 15:48 panic clonazepam Allergy Anaphylatic Verified 05/11/18 15:48 Shock clonidine Allergy Hallucinati Verified 05/11/18 15:48 ons lisinopril Allergy Difficulty Verified 05/11/18 15:48 Breathing Sulfa (Sulfonamide Allergy Shortness Verified 05/11/18 15:48 Antibiotics) of Breath ENVIRONMENTAL Allergy STUFFY, Uncoded 05/11/18 15:48 EYES RED, ITCHY PMH/Surg Hx/FS Hx/Imm Hx Endocrine/Hematology History: Reports: Hx Thyroid Disease Denies: Hx Anticoagulant Therapy, Hx Diabetes Cardiovascular History: Reports: Other Cardiovascular Problems/Disorders - BRAIN SURG FOR MENINGIOMA, ANEURYSM (COILED) Denies: Hx Hypertension, Hx Pacemaker/ICD Respiratory History: Reports: Hx Seasonal Allergies Denies: Hx Asthma, Hx Chronic Obstructive Pulmonary Disease (COPD) GI History: Reports: Hx Gastroesophageal Reflux Disease - TAKES LANSOPRAZOLE Denies: Hx Ulcer History: Denies: Hx Renal Disease Musculoskeletal History: Reports: Hx Back Problems Sensory History: Reports: Hx Contacts or Glasses Denies: Hx Cataracts, Hx Glaucoma, Hx Hearing Aid Opthamlomology History: Reports: Hx Contacts or Glasses Denies: Hx Cataracts, Hx Glaucoma Neurological History: Reports: Hx Headaches, Hx Migraine, Hx Seizures - WELL CONTROLLED, Other Neuro Impairments/Disorders - BRAIN TUMOR, HX OF BRAIN SURGERY Psychiatric History: Reports: Hx Anxiety, Hx Depression Denies: Hx Panic Disorder - Cancer History Cancer Type, Location and Year: meningioma Hx Chemotherapy: No Hx Radiation Therapy: No - Surgical History Surgery Procedure, Year, and Place: HYSTERECTOMY- [place]; BRAIN SURGERY- CRANIOTOMY 2005; ANEURYSM COIL PLACED 2004- [place] LEFT-OK FOR UP TO 3T INFO FAXED IN OTHER FACILITY- [facility] ARTHROSCOPY- [place], [place]; CLOSED REDUCTION FX NASAL [facility] CATARACT 03/06 [facility] [place] Hx Anesthesia Reactions: No Infectious Disease History: No Infectious Disease History: Denies: Hx Hepatitis, Hx Human Immunodeficiency Virus (HIV), Traveled Outside the [place] in Last 30 Days - Family History Known Family History: Positive: Hypertension Negative: Respiratory Disease, Seizure Disorder - Social History Alcohol Use: None Hx Substance Use: No Substance Use Type: Reports: None Substance Use Comment - Amount & Last Used: narcotics Hx Tobacco Use: No Smoking Status (MU): Never Smoked Tobacco Have You Smoked in the Last Year: No Review of Systems Positive: Other - pain with breathing Positive: Other - sacral wound Positive: Headache, Weakness - generalized All Other Systems Reviewed And Are Negative: Yes Physical Exam - Summary Physical Exam Summary: Appearance: Well appearing, no pain distress Skin: warm, dry, reflects adequate perfusion, unstageable sacral decubitus ulcer 5 cm in diameter, clear yellow drainage from wound with foul odor, no open areas, craniotomy scar on right and central skull Head/face: normal Eyes: EOMI, KERWIN ENT: mucous membranes moist Neck: supple, non-tender Respiratory: CTA, breath sounds present Cardiovascular: RRR, pulses symmetrical Abdomen: non-tender, soft Bowel Sounds: present Musculoskeletal: normal, strength/ROM intact Neuro: sensory motor intact, A&Ox3, no focal neurological deficits, generalized weakness GCS: 14 Triage Information Reviewed: Yes Vital Signs On Initial Exam: Initial Vitals Temp Pulse Resp BP Pulse Ox 97.7 F 97 16 127/84 99 05/11/18 15:44 05/11/18 15:44 05/11/18 15:44 05/11/18 15:44 05/11/18 15:44 Vital Signs Reviewed: Yes Diagnostics - Vital Signs Vital Signs Temp Pulse Resp BP Pulse Ox 05/11/18 15:44 97.7 F 97 16 127/84 99 - Laboratory Result Diagrams: 05/11/18 16:58 05/11/18 16:57 Lab Statement: Any lab studies that have been ordered have been reviewed, and results considered in the medical decision making process. - Radiology CXR Radiology Interpretation Completed By: Radiologist Summary of Radiographic Findings: No evidence for acute intrathroacic disease. ED physician reviewed radiology report. - CT Brain CT CT Interpretation Completed By: Radiologist Summary of CT Findings: No evidence for acute or subacute traumatic brain injury or acute intracranial process. ED physician reviewed radiology report. - EKG 16:15 Cardiac Rate: NL - 76 bpm EKG Rhythm: Sinus Rhythm ST Segment: Non-Specific Summary of EKG Findings: Nl axis, long QT interval Adult Trauma Course/Dx - Course Course Of Treatment: Nurse's notes reviewed. Patient with generalized weakness and fall spending a good amount of time on the floor. Nobody knows exactly how much time this was. She's been home for 2 days after being discovered. She has a large unstageable sacral decubitus wound. There is also questionable urinary tract infection. There is drainage from an unknown site in the wound with followed her. IV Zosyn was given to cover both. Her potassium was low this and her magnesium were replaced. This will likely help her long QT. Discussed with the hospitalist will admit for further. - Diagnoses Differential Diagnosis/HQI/PQRI: Positive: Other - Sepsis, sacral abscess, UTI, rhabdomyolysis Provider Diagnoses: Long QT interval, Generalized weakness, Fall, UTI (urinary tract infection), History of brain cancer, Sacral decubitus ulcer - Physician Notifications Discussed Care Of Patient With: Harry Carbone Time Discussed With Above Provider: 17:45 Instructed by Provider To: Admit As Inpatient Discharge - Sign-Out/Discharge Documenting (check all that apply): Patient Departure - Admit Patient Received Moderate/Deep Sedation with Procedure: No - Discharge Plan Condition: Fair Disposition: ADMITTED TO [facility] Referrals: Noe Wright MD [Medical Doctor] - - Billing Disposition and Condition Condition: FAIR Disposition: Admitted to [facility] - Attestation Statements Document Initiated by Scribe: Yes Documenting Scribe: Deb Choi Provider For Whom Scribe is Documenting (Include Credential): Ravi Burgess MD Scribe Attestation: Deb Velasco, scribed for Ravi Burgess MD on 05/11/18 at 1754. Scribe Documentation Reviewed: Yes Provider Attestation: The documentation as recorded by the Deb friedman accurately reflects the service I personally performed and the decisions made by Ravi fallon MD Status of Scribe Document: Viewed
[2018-05-11 16:34] LABS: Urine Appearance Turbid; Urine Bacteria 1+ (Absent); Urine Bilirubin Negative (Negative); Urine Blood 3+ (Negative); Urine Color Yellow; Urine Glucose Negative (Negative); Urine Ketones Negative (Negative); Urine Nitrite Positive (Negative); Urine Protein Negative (Negative); Urine Red Blood Cell 2+(6-10/hpf) (Absent); Urine Specific Gravity 1.014 (1.010-1.030); Urine Squamous Epithelial Cell Present (Absent); Urine Urobilinogen Negative (Negative); Urine White Blood Cell 3+(>20/hpf) (Absent)
[2018-05-11] MEDS ORDERED: Piperacillin/Tazobac ADVAN(*) 3.375 GM in NS 0.9% 100 ML* 100 ML IVPB ONE (16:53)
[2018-05-11 17:13] LABS: ABS Basophils 0 10^3/ul (0-0.2); ABS Eosinophils 0.1 10^3/ul (0-0.6); ABS Lymphocytes 1.8 10^3/ul (1.0-4.8); ABS Monocytes 0.8 10^3/ul (0-0.8); ABS Neutrophils 7.3 10^3/ul (1.5-7.7); ABS Nucleated RBC 0 10^3/ul; Eosinophil % 1.3 %; Hematocrit 37 % (35-47); Hemoglobin 12.2 g/dl (12.0-16.0); Lymphocyte % 18.4 %; Mean Corpuscular HGB Conc 33 g/dl (31-36); Mean Corpuscular Hemoglobin 32 pg (27-31); Mean Corpuscular Volume 97 fL (80-97); Mean Platelet Volume 9.7 fL (7.4-10.4); Nucleated Red Blood Cells % 0; Platelet Count 202 10^3/ul (150-450); Red Blood Count 3.78 10^6/ul (4.00-5.40); Red Cell Distribution Width 15 % (10.5-15)
[2018-05-11 17:30] LABS: Albumin 3.7 g/dL (3.2-5.2); Albumin/Globulin Ratio 1.3 (1-3); BUN/Creatinine Ratio 28.7 (8-20); Calcium 9.4 mg/dL (8.6-10.3); EGFR African American 64.7 (>60); EGFR Non-African American 53.4 (>60); Globulin 2.9 g/dL (2-4); Magnesium 1.9 mg/dL (1.9-2.7); Total Bilirubin 0.6 mg/dL (0.2-1.0); Total Protein 6.6 g/dL (6.4-8.9)
[2018-05-11 17:31] LABS: Troponin I 0.02 ng/mL (<0.04)
[2018-05-11 17:35] LABS: Potassium 2.7 mmol/L (3.5-5.0)
[2018-05-11] MEDS ORDERED: Potassium Chlor TAB* 20 MEQ TAB.ER PO ONE (17:42)
[2018-05-11] MEDS ORDERED: KCL 20 MEQ/100 ML IVPREMIX* 20 MEQ/100 ML BAG IV ONE (17:42)
[2018-05-11] MEDS ORDERED: Magnesium Sulfate 1 GM IV* 1 GM/100 ML BAG IV ONE (17:42)
[2018-05-11 20:36] LABS: TSH (Thyroid Stimulating Horm) 2.18 mcIU/mL (0.34-5.60)
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
[2018-05-11] MEDS ORDERED: Topiramate TAB(*) 25 MG PO SCH ×2 (21:00)
[2018-05-11] MEDS ORDERED: LAMOTRIGINE 300 MG PO SCH (21:00)
[2018-05-11] MEDS: ALPRAZolam TAB* 0.5 MG PO SCH (23:40)
[2018-05-11] MEDS: Topiramate TAB(*) 25 MG PO SCH (23:41)
[2018-05-11] MEDS: Pantoprazole TAB * 40 MG TAB PO SCH (23:41)
[2018-05-11] MEDS: Amoxicillin/Clavulanate TAB* 875 MG PO SCH (23:42)
[2018-05-11] MEDS: Potassium Chlor TAB* 20 MEQ TAB.ER PO SCH (23:43)
[2018-05-11] MEDS: lamoTRIgine TAB(*) 100 MG PO SCH (23:44)
[2018-05-11] MEDS: KCL 20 MEQ/100 ML IVPREMIX* 20 MEQ/100 ML BAG IV SCH (23:45)
[2018-05-11] MEDS: oxyCODONE TAB* 5 MG TAB PO PRN (23:45)
[2018-05-11] MEDS: Topiramate TAB(*) 100 MG PO SCH (23:45)
[2018-05-11] MEDS: Heparin VIAL(*) 5000 UNITS/ML VIAL (FIVE THOUSAND) SUBCUT SCH (23:45)
[2018-05-12] MEDS: Heparin VIAL(*) 5000 UNITS/ML VIAL (FIVE THOUSAND) SUBCUT SCH ×4 (00:01→20:09)
[2018-05-12] MEDS: KCL 20 MEQ/100 ML IVPREMIX* 20 MEQ/100 ML BAG IV SCH (04:11)
[2018-05-12] MEDS: Levothyroxine TAB* 75 MCG TAB PO SCH (04:12)
[2018-05-12] MEDS: lamoTRIgine TAB(*) 25 MG PO SCH ×2 (07:20→07:32)
[2018-05-12] MEDS: Cyanocobalamin TAB* 500 MCG PO SCH (07:20)
[2018-05-12] MEDS: ALPRAZolam TAB* 0.5 MG PO SCH ×3 (07:20→20:26)
[2018-05-12] MEDS: [UNRECOGNIZED DRUG - OTHER] PO SCH (07:21)
[2018-05-12] MEDS: lamoTRIgine TAB(*) 100 MG PO SCH ×3 (07:21→20:24)
[2018-05-12] MEDS: Potassium Chlor TAB* 20 MEQ TAB.ER PO SCH ×2 (07:21→20:36)
[2018-05-12] MEDS: Pantoprazole TAB * 40 MG TAB PO SCH ×2 (07:21→20:46)
[2018-05-12] MEDS: Topiramate TAB(*) 100 MG PO SCH ×3 (07:21→20:25)
[2018-05-12] MEDS: Amoxicillin/Clavulanate TAB* 875 MG PO SCH ×2 (07:21→20:27)
[2018-05-12] MEDS: oxyCODONE TAB* 5 MG TAB PO PRN ×3 (07:21→20:45)
[2018-05-12] MEDS: HYDROCHLOROTHIAZIDE PO SCH (07:21)
[2018-05-12] MEDS: TRIAMTERENE PO SCH (07:21)
[2018-05-12 08:09] LABS: Hematocrit 33 % (35-47); Hemoglobin 10.9 g/dl (12.0-16.0); Mean Corpuscular HGB Conc 33 g/dl (31-36); Mean Corpuscular Hemoglobin 32 pg (27-31); Mean Corpuscular Volume 97 fL (80-97); Mean Platelet Volume 9.8 fL (7.4-10.4); Platelet Count 199 10^3/ul (150-450); Red Blood Count 3.43 10^6/ul (4.00-5.40); Red Cell Distribution Width 15 % (10.5-15); White Blood Count 10.2 10^3/ul (3.5-10.8)
[2018-05-12 08:20] LABS: BUN/Creatinine Ratio 22.4 (8-20); Calcium 8.7 mg/dL (8.6-10.3); EGFR African American 89.8 (>60); EGFR Non-African American 74.2 (>60); Potassium 3.5 mmol/L (3.5-5.0)
[2018-05-12 08:47] LABS: ABS Basophils 0 10^3/ul (0-0.2); ABS Eosinophils 0.3 10^3/ul (0-0.6); ABS Lymphocytes 2.4 10^3/ul (1.0-4.8); ABS Neutrophils 6.5 10^3/ul (1.5-7.7); ABS Nucleated RBC 0 10^3/ul; Eosinophil % 2.8 %; Lymphocyte % 23.4 %; Nucleated Red Blood Cells % 0
[2018-05-12] MEDS ORDERED: lamoTRIgine TAB(*) 25 MG PO SCH ×2 (09:00)
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
--- NOTE | 2018-05-12 15:02 | CONS ---
CC: [facility]; Dr. Noe Wright * CONSULTATION REPORT: DATE OF CONSULT: 05/12/18 REFERRING PROVIDER: Dr. Noe Wright. REASON FOR CONSULT: Sacral decubitus. HISTORY OF PRESENT ILLNESS: Fay Coreas is a 77-year-old woman who is a very poor historian. She currently lives on her own and she denies having close family and was found on the floor by her neighbor yesterday. There is a concern that she might have been on the floor for several days prior to admission. She was brought to the emergency room by the ambulance after she agreed to come to the emergency room. Per Dr. Wright's notes, she has refused to come to his office and has refused all help at home. She has a wound on her sacrum and she cannot say how long it has been present and surgical consultation was obtained. PAST MEDICAL HISTORY: The patient describes having a seizure disorder. She is a poor historian and I am unable to adequately obtain a better history. SOCIAL HISTORY: She currently lives alone. She states she has no children and no healthcare proxy. She denies use of alcohol or abuse drugs. REVIEW OF SYSTEMS: Otherwise unable to be obtained accurately. PHYSICAL EXAM: Temperature 98.5, pulse 95, blood pressure 120/59. In general, she is a slender, slightly unkempt woman who appears somewhat younger than her stated age. She is eating. It is difficult to speak with her, she rambles with her answers and does not answer questions asked. On placing her in the left lateral decubitus position, there is a 6 cm x 6 cm area of eschar over the lumbosacral spine at the midline. There was some denuded skin surrounding this, but no evidence of erythema or suggestion of cellulitis. There is no crepitance noted. I appreciate no ischial ulcers on either side. At the inferior part of the eschar, it was somewhat spongy, but on palpation there was no evidence of purulence or lifting of the eschar. It is minimally tender. IMPRESSION: Sacral decubitus, unstageable at this point. It is difficult to determine the duration of its presence due to its appearance as well as the patient being a poor historian. PLAN: 1. Psychiatrist to see the patient to assess for ability to make decisions and give consent. 2. At this point, I think debridement needs to be considered and this will be planned for tomorrow morning at the bedside. I want to see what this looks like in 24 hours, as if it is starting to become firmer and the eschar becoming thicker, may well not proceed with any debridement as there is no evidence of sepsis, abscess, or surrounding cellulitis at this point. All of the above was discussed with the patient. We will reevaluate her in the morning and proceed accordingly. [id number]/[facility] #: [id number] ANA M
[2018-05-12] MEDS: Topiramate TAB(*) 25 MG PO SCH (20:25)
[2018-05-12] MEDS: Nitrofurantoin Macrocrystals* 100 MG CAP PO SCH (20:31)
[2018-05-12] MEDS ORDERED: QUEtiapine TAB* 25 MG PO SCH (21:00)
[2018-05-13] MEDS: Heparin VIAL(*) 5000 UNITS/ML VIAL (FIVE THOUSAND) SUBCUT SCH ×3 (04:38→20:41)
[2018-05-13] MEDS: Levothyroxine TAB* 75 MCG TAB PO SCH (05:57)
[2018-05-13] MEDS: oxyCODONE TAB* 5 MG TAB PO PRN ×3 (06:31→20:54)
[2018-05-13 06:48] LABS: Hematocrit 36 % (35-47); Hemoglobin 11.8 g/dl (12.0-16.0); Mean Corpuscular HGB Conc 33 g/dl (31-36); Mean Corpuscular Hemoglobin 32 pg (27-31); Mean Corpuscular Volume 97 fL (80-97); Mean Platelet Volume 9.3 fL (7.4-10.4); Platelet Count 222 10^3/ul (150-450); Red Blood Count 3.66 10^6/ul (4.00-5.40); Red Cell Distribution Width 15 % (10.5-15); White Blood Count 9.3 10^3/ul (3.5-10.8)
[2018-05-13 06:51] LABS: INR 0.86 (0.77-1.02)
[2018-05-13 07:06] LABS: BUN/Creatinine Ratio 14.1 (8-20); Calcium 9.1 mg/dL (8.6-10.3); EGFR African American 87.1 (>60); Potassium 4.1 mmol/L (3.5-5.0)
[2018-05-13 07:31] LABS: ABS Basophils 0.1 10^3/ul (0-0.2); ABS Eosinophils 0.2 10^3/ul (0-0.6); ABS Lymphocytes 2.5 10^3/ul (1.0-4.8); ABS Monocytes 0.8 10^3/ul (0-0.8); ABS Neutrophils 5.6 10^3/ul (1.5-7.7); ABS Nucleated RBC 0 10^3/ul; Eosinophil % 2.5 %; Lymphocyte % 27.5 %; Nucleated Red Blood Cells % 0
[2018-05-13] MEDS ORDERED: Morphine INJ* 2 MG/ML 1 ML SYRINGE (TWO MG - NEW SYRINGE VERSION) IV ONE ×2 (09:16→09:25)
[2018-05-13] MEDS ORDERED: Morphine INJ* 2 MG/ML 1 ML SYRINGE (TWO MG - NEW SYRINGE VERSION) ONE (09:20)
[2018-05-13] MEDS: ALPRAZolam TAB* 0.5 MG PO SCH ×3 (09:57→20:56)
[2018-05-13] MEDS: Amoxicillin/Clavulanate TAB* 875 MG PO SCH ×2 (09:58→20:59)
[2018-05-13] MEDS: Pantoprazole TAB * 40 MG TAB PO SCH ×2 (09:59→20:55)
[2018-05-13] MEDS: Cyanocobalamin TAB* 500 MCG PO SCH (10:00)
[2018-05-13] MEDS: [UNRECOGNIZED DRUG - OTHER] PO SCH (10:02)
[2018-05-13] MEDS: HYDROCHLOROTHIAZIDE PO SCH (10:02)
[2018-05-13] MEDS: TRIAMTERENE PO SCH (10:02)
[2018-05-13] MEDS: lamoTRIgine TAB(*) 100 MG PO SCH ×2 (10:03→20:40)
[2018-05-13] MEDS: Topiramate TAB(*) 100 MG PO SCH ×2 (10:03→20:40)
[2018-05-13] MEDS: lamoTRIgine TAB(*) 25 MG PO SCH (10:03)
[2018-05-13] MEDS: Potassium Chlor TAB* 20 MEQ TAB.ER PO SCH ×2 (10:04→20:59)
[2018-05-13] MEDS: Nitrofurantoin Macrocrystals* 100 MG CAP PO SCH (10:06)
--- NOTE | 2018-05-13 11:45 | PN ---
Subjective Date of Service: 05/13/18 Interval History: Ms. Coreas is feeling poor today. She had a bedside debridement this morning which was uncomfortable for her. She otherwise offers no complaints. She is drowsy on my exam and not as animated as she typically is. Denies CP, SOB, N/V. She is not open to going to an assisted living facility or SNF. She does not want to leave her home. She feels as though she will be able to manage her wound without help at home. Family History: Unchanged from Admission Social History: Unchanged from Admission Past Medical History: Unchanged from Admission Objective Active Medications: Alprazolam (Xanax Tab*) 1 mg PO TID DESEAN Amoxicillin/Clavulanate Potassium (Augmentin Tab*) 875 mg PO BID DESEAN Cyanocobalamin (Vitamin B12 Tab*) 1,000 mcg PO DAILY DESEAN Heparin Sodium (Porcine) (Heparin Vial(*)) 5,000 units SUBCUT Q8HR DESEAN Lamotrigine (Lamictal Tab(*)) 300 mg PO BEDTIME DESEAN Lamotrigine (Lamictal Tab(*)) 200 mg PO QAM DESEAN Lamotrigine (Lamictal Tab(*)) 50 mg PO QAM DESEAN Levothyroxine Sodium (Synthroid Tab*) 75 mcg PO 0600 DESEAN Oxycodone HCl (Roxycodone Tab*) 5 mg PO Q6H PRN PAIN - MODERATE Pantoprazole Sodium (Protonix Tab*) 40 mg PO BID DESEAN Potassium Chloride (Klor Con Er Tab*) 40 meq PO BID DESEAN Quetiapine Fumarate (Seroquel Tab*) 50 mg PO BEDTIME DESEAN Topiramate (Topamax(*)) 100 mg PO QAM DESEAN Topiramate (Topamax(*)) 100 mg PO BEDTIME DESEAN Topiramate (Topamax(*)) 50 mg PO BEDTIME DESEAN Triamterene/HCTZ (Dyazide Cap*) 1 cap PO DAILY [facility] Vital Signs - 8 hr 05/13/18 05/13/18 05/13/18 06:31 07:16 08:00 Temperature 98.8 F Pulse Rate 84 Respiratory 18 16 20 Rate Blood Pressure 119/53 (mmHg) O2 Sat by Pulse 100 Oximetry Oxygen Devices in Use Now: None Appearance: Elderly female laying in bed in NAD Eyes: No Scleral Icterus Ears/Nose/Mouth/Throat: Mucous Membranes Moist Neck: NL Appearance and Movements; NL JVP, Trachea Midline Respiratory: Symmetrical Chest Expansion and Respiratory Effort, Clear to Auscultation Cardiovascular: NL Sounds; No Murmurs; No JVD, RRR Abdominal: NL Sounds; No Tenderness; No Distention Extremities: No Edema Skin: - - Sacral ulcer Neurological: Alert and Oriented x 3 - Drowsy Lines/Tubes/Other Access: Clean, Dry and Intact Peripheral IV Nutrition: Taking PO's Result Diagrams: 05/13/18 06:33 05/13/18 06:33 Assess/Plan/Problems-Billing Assessment: Ms. Coreas is a 77 yo F with PMH of recurrent falls, seizure disorder, hyperaldosteronism, meningioma, HTN, and depression; who was brought to the ED by a neighbor who found her on the floor for an unknown period of time and was found to have a sacral decubitus ulcer. - Patient Problems (1) Decubitus ulcer of sacral region, unstageable Code(s): L89.150 - PRESSURE ULCER OF SACRAL REGION, UNSTAGEABLE Comment: - Appears patient was on floor or in bed for several days w/o moving - Does not appear to be infected, no evidence of sepsis - Appreciate Surgery consult; bedside debridement today - Continue air mattress, frequent turn and position - Will need to establish plan for future wound care (2) UTI (urinary tract infection) Comment: - Urine culture growing >100k colonies of E. coli - Continue Augmentin (3) Delusions of parasitosis Code(s): F22 - DELUSIONAL DISORDERS Comment: - Tangential speech and flight of ideas - Does not have a safe home living situation - Appreciate Psych consult; will reevaluate capacity today - Continue Seroqual (4) Seizure disorder Code(s): G40.909 - EPILEPSY, UNSP, NOT INTRACTABLE, WITHOUT STATUS EPILEPTICUS Comment: - No recent known seizure activity - Continue Lamictal and Topamax (5) Hypertension Code(s): I10 - ESSENTIAL (PRIMARY) HYPERTENSION Comment: - Normotensive, SBP 110-130s - Continue Dyazide (6) Hyperaldosteronism Code(s): E26.9 - HYPERALDOSTERONISM, UNSPECIFIED Comment: - Sodium and potassium have normalized - Continue Dyazide (7) DVT prophylaxis Comment: - Heparin SQ (8) Full code status Code(s): Z78.9 - OTHER SPECIFIED HEALTH STATUS Comment: Status and Disposition: Inpatient. Anticipate d/c home when medically stable. She would benefit from SNF placement, but is not agreeable. Attending: Carley Goode
--- NOTE | 2018-05-13 12:11 | BRIEFOPN ---
Brief Operative Note - Surgery Procedures: Procedures OPERATIVE NOTE Pre-Operative Diagnosis: Sacral decubitus, unstaged Post-Operative Diagnosis: Stage 4 sacral decubitus, 7 cm X 6cm X 3 cm depth Procedure:Debridement of sacral pressure ulcer at bedside Surgeon:MD Kathrine Supervisor Heavy Equipment: None Anesthesia: 4 Mg IV morphine EBL:min IVF:min Urine output:NR Specimen:Gram stain and culture Wound Class:4 Drain: To PACU
--- NOTE | 2018-05-13 12:31 | PN ---
Progress Note - Progress Note Date of Service: 05/13/18 Note: WOUND CONSULT NOTE Date of Service: 05/13/2018 History: Interval History: Ms. Coy is a 77 yo female with PMH significant for migraine TAVERA, hyperaldosteronism, seizure d/o, depression, herpes genitalis, and HTN who presented to the emergency room found lying on the floor at home and brought to the emergency room. She was noted to have a black eschar over the sacrum with some foul odor, but no evidence of sepsis on admission. Denies fever, chills. She reports discomfort to her buttocks. Past Medical/Family/Social History: Family History: Unchanged from Admission Social History: Unchanged from Admission Past Medical History: Unchanged from Admission Objective: Active Medications: Topiramate (Topamax(*)) 100 mg PO QAM DESEAN Oxycodone HCl (Roxycodone Tab*) 5 mg PO Q6H PRN Reason: PAIN - MODERATE Triamterene/HCTZ (Dyazide Cap*) 1 cap PO DAILY DESEAN Alprazolam (Xanax Tab*) 1 mg PO TID DESEAN Amoxicillin/Clavulanate Potassium (Augmentin Tab*) 875 mg PO BID DESEAN Cyanocobalamin (Vitamin B12 Tab*) 1,000 mcg PO DAILY DESEAN Heparin Sodium (Porcine) (Heparin Vial(*)) 5,000 units SUBCUT Q8HR DESEAN Lamotrigine (Lamictal Tab(*)) 300 mg PO BEDTIME DESEAN Lamotrigine (Lamictal Tab(*)) 200 mg PO QAM DESEAN Lamotrigine (Lamictal Tab(*)) 50 mg PO QAM DESEAN Levothyroxine Sodium (Synthroid Tab*) 75 mcg PO 0600 DESEAN Pantoprazole Sodium (Protonix Tab*) 40 mg PO BID DESEAN Potassium Chloride (Klor Con Er Tab*) 40 meq PO BID DESEAN Quetiapine Fumarate (Seroquel Tab*) 50 mg PO BEDTIME DESEAN Topiramate (Topamax(*)) 100 mg PO BEDTIME DESEAN Topiramate (Topamax(*)) 50 mg PO BEDTIME DESEAN Vital Signs: 05/13/18 11:12 Temperature 98.6 F Temperature Oral Source Pulse Rate 87 Respiratory 16 Rate Blood Pressure 142/64 (mmHg) Blood Pressure 85 Mean O2 Sat by Pulse 100 Oximetry Patient on Room Yes Air Exam: General: NAD, laying in bed Neuro: Alert and Oriented Skin: Sacral wound, Unstagable pressure injury - Prior to debridement. 7 cm x 5 cm The surrounding skin with erythema and superficial excoriation. Sacral wound (post debridement), stage 4 pressure injury. 4. 7 cm x 6 cm x 3 cm. There is tunneling at 6 o'clock 5 cm deep and at 12 o'clock 2.5 cm deep. Data: Labs: 05/11/18 05/13/18 05/13/18 16:57 06:33 06:33 WBC 9.3 Hgb 11.8 L Hct 36 Plt Count 222 Sodium 139 Potassium 4.1 Chloride 106 Carbon Dioxide 28 BUN 11 Creatinine 0.78 Glucose 94 Total Protein 6.6 Albumin 3.7 Assessment/Plan: Ms. Coy is a 77 yo female with PMH significant for migraine TAVERA, hyperaldosteronism, seizure d/o, depression, herpes genitalis, and HTN who presented to the emergency room found lying on the floor at home and brought to the emergency room. She was noted to have a black eschar over the sacrum with some foul odor, but no evidence of sepsis on admission. 1. Stage 4 pressure injury to the sacrum. S/P sharp debridement today by Dr. Chisholm. Management per Dr. Chisholm, at this point she has dry packing in place. Management of the wound will be per Dr. Chisholm (or other general surgeon). VTE PPX: SQ heparin Diet: Heart Healthy diet Code Status: Full Code status Disposition: Inpatient. Disposition per primary medicine team Time Spent: Time for this consultation was 60 minutes, and 50 minutes was spent with the patient discussing past medical history, and assessing, measuring and photographing wounds. Attending: Dr. Chayo Angel MD
--- NOTE | 2018-05-13 13:13 | OP ---
CC: [facility]; Dr. Noe Wright OPERATIVE REPORT: DATE OF OPERATION: 05/13/18 DATE OF : 44 SURGEON: Dr. Chisholm. OILFIELD PLANT AND FIELD OPERATOR: None. ANESTHESIA: 4 mg of IV Versed, at the bedside. PRE-OP DIAGNOSIS: Sacral decubiti, unstageable. POST-OP DIAGNOSIS: Sacral decubiti, stage IV. Measurements include 7 x 6 cm in dimension, with 3 cm deep. There was 2.5 cm undermining superiorly and 5 cm undermining at the inferior portion of the u lcer at the 6 o'clock position. OPERATIVE PROCEDURE: Debridement of chronic sacral pressure ulcer. SPECIMENS: Fluid for Gram stain and culture. WOUND CLASSIFICATION: 4. DRAINS: None. BRIEF HISTORY: Ms. Fay Coreas is a 77-year-old woman who was found lying on the floor at home and brought to the emergency room. She was noted to have a black eschar over the sacrum with some f oul odor, but no evidence of sepsis. Surgical consultation was obtained. After seeing the patient in consultation, decision was made to proceed with debridement of what appea rs to be [id number] sacral decubiti with concern of possibility of abscess and/or purulence pre sent. Patient was seen by Psychiatry and felt to have capacity to consent. The procedure was discussed wit h her and the risks, but not limited to bleeding, infection, recurrent, further surgical intervention depending on the clinical course and findings at debridement, chronic wound care, and the risks of a nesthesia and discomfort were all explained. DESCRIPTION OF PROCEDURE: Written informed consent was obtained, the site was marked with indelible ink, and the patient was placed in the right lateral decubitus position. The skin was prepped with B etadine. Time-out verification was completed. Intravenous sedation was administered incrementally. Intravenous morphine was administered. The black eschar was then excised using a 15 blade knife circumferentially to expose underlying purul ence as well as necrotic tissue, which extended down to bone. There was undermining as per above dim ensions and the entire debrided ulcer with the dimensions as described above. The area was debrided to healthy bleeding tissue as well as exposed bone at the midline as best as possible and packed with 4x4 gauze and covered with an ABD pad. Patient tolerated the procedure well. [id number]/[facility] #: [id number]
--- NOTE | 2018-05-13 15:23 | CONSULT ---
Consult Consult: Patient is pending evaluation of her capacity to accept or decline subacute rehabilitation services. This clinician attempted to interview her in the afternoon, however, she remains sedated, recovering from a wound debridement earlier today. Will re-evaluate tomorrow. Primary team aware.
[2018-05-13] MEDS: Topiramate TAB(*) 25 MG PO SCH (20:41)
[2018-05-13] MEDS: QUEtiapine TAB* 25 MG PO SCH (20:58)
[2018-05-14] MEDS: Levothyroxine TAB* 75 MCG TAB PO SCH (05:13)
[2018-05-14] MEDS: Heparin VIAL(*) 5000 UNITS/ML VIAL (FIVE THOUSAND) SUBCUT SCH ×3 (05:13→20:29)
[2018-05-14] MEDS: Acetaminophen TAB* 325 MG PO PRN (07:31)
[2018-05-14] MEDS: Cyanocobalamin TAB* 500 MCG PO SCH (07:32)
[2018-05-14] MEDS: Amoxicillin/Clavulanate TAB* 875 MG PO SCH ×2 (07:32→20:44)
[2018-05-14] MEDS: Potassium Chlor TAB* 20 MEQ TAB.ER PO SCH ×2 (07:32→20:38)
[2018-05-14] MEDS: lamoTRIgine TAB(*) 25 MG PO SCH (07:32)
[2018-05-14] MEDS: ALPRAZolam TAB* 0.5 MG PO SCH ×3 (07:32→20:41)
[2018-05-14] MEDS: [UNRECOGNIZED DRUG - OTHER] PO SCH (07:33)
[2018-05-14] MEDS: TRIAMTERENE PO SCH (07:33)
[2018-05-14] MEDS: HYDROCHLOROTHIAZIDE PO SCH (07:33)
[2018-05-14] MEDS: oxyCODONE TAB* 5 MG TAB PO PRN ×3 (07:34→20:37)
[2018-05-14] MEDS: Pantoprazole TAB * 40 MG TAB PO SCH ×2 (07:34→20:38)
[2018-05-14] MEDS: lamoTRIgine TAB(*) 100 MG PO SCH (07:34)
[2018-05-14] MEDS: Topiramate TAB(*) 100 MG PO SCH ×2 (07:57→20:47)
--- NOTE | 2018-05-14 11:11 | CONSULT ---
Consult Consult: Consult for Medical Decision Making Capacity S: Psychiatry is asked to evaluate capacity in this 77 y.o. single, white female with a history of epilepsy and delusional behavior at baseline, admitted to the Hospitalist service on May 11 due to an unwitnessed fall in her home. The patient was discovered by a concerned neighbor, presumably up to 3 days after having been on the ground and unable to lift herself, and was initially refusing to come to the ED for evaluation. Two days later, friends were able to coax her to the hospital where she presented as dishevelled, hypokalemic, symptomatic from an acute UTI and having a decubitus ulcer that required surgical management by Dr. Chisholm yesterday (05/03). She was evaluated by the crap shooter two days ago and started on nightly quetiapine for somatic hallucinations of parasitic infestation. The primary team feel strongly that [facility] is indicated for reconditioning, with stated risks of refusal including further falls, status epilepticus, infection and . On exam the patient is initially guarded but otherwise calm and cooperative. She talks at great length about problems she perceives in her relationship with her primary care provider, much of which seems vaguely delusional to me. At any rate, she does not show much insight into the issues that brought her to the hospital. "My skin is extremely friable. I wasn't down for that long. It wasn't that I couldn't get up, it was the fact that I was unconscious." She surmises that perhaps she had a seizure prior to this. With respect to her future treatment, she is unaware of what the primary team is recommending, despite the primary team's clear documentation that they are encouraging [facility] placement. "Oh no, I'm not letting anymore social workers run my life." She admits that she has not allowed rifle case repairer through Adult Protective Services enter her home or render services in the community. She does not see any inherent risks of returning to her home without further treatment. O: aging white female with brownish hair; dressed in patient gown which is not covering her right breast; limited grooming; speech has slow rate but fluent; euthymic mood with a full affect; denies SI or HI; demonstrates mild paranoia at medical system and her furniture decals inspector; insight and judgment poor given insistence on going home without rehab; awake and alert; oriented to place time but not fully to situation A/P: Capacity: During our interaction, Ms. Coreas failed to demonstrate a reasonable understanding of her illness and the events leading to hospitalization. She could not articulate what treatment has been recommended by her inpatient providers nor the associated risks of refusing said treatment. In my judgment, she lacks the capacity to make an informed decision about refusing [facility] placement. Capacity is subject to change in these situations and psychiatry will continue to follow and manage her neuroleptic therapy. I have discussed my opinion with the patient and attending hosptialist, Parris Duke.
[2018-05-14] MEDS: Triamterene/HCTZ 37.5-25 MG* CAP PO SCH (11:34)
[2018-05-14 12:13] LABS: Lamotrigine 2.2 mcg/mL (2.5 - 15.0)
--- NOTE | 2018-05-14 12:23 | PN ---
Subjective Date of Service: 05/14/18 Interval History: Ms. Coreas is feeling poor today. She has been trying to sleep and people are frequently waking her up. She reports constant pain and itching to her sacral wound, but is unable to further describe the pain. Offers no other complaints. Denies CP, SOB. Appetite is good. She continues to refuse her antiepileptics as she does not feel as though they are safe and/or effective. She cannot provide any further justification for this. She has a lot of animosity toward Dr. Wright and the care she has received in the past. Concerned that people think she is "crazy." Also adamant that she has had parasites in the past and no one has appropriately diagnosed her. Family History: Unchanged from Admission Social History: Unchanged from Admission Past Medical History: Unchanged from Admission Objective Active Medications: Acetaminophen (Tylenol Tab*) 650 mg PO Q6H PRN PAIN Alprazolam (Xanax Tab*) 1 mg PO TID DESEAN Amoxicillin/Clavulanate Potassium (Augmentin Tab*) 875 mg PO BID DESEAN Cyanocobalamin (Vitamin B12 Tab*) 1,000 mcg PO DAILY DESEAN Heparin Sodium (Porcine) (Heparin Vial(*)) 5,000 units SUBCUT Q8HR DESEAN Lamotrigine (Lamictal Tab(*)) 300 mg PO BEDTIME DESEAN Lamotrigine (Lamictal Tab(*)) 200 mg PO QAM DESEAN Lamotrigine (Lamictal Tab(*)) 50 mg PO QAM DESEAN Levothyroxine Sodium (Synthroid Tab*) 75 mcg PO 0600 DESEAN Oxycodone HCl (Roxycodone Tab*) 5 mg PO Q6H PRN PAIN - MODERATE Pantoprazole Sodium (Protonix Tab*) 40 mg PO BID DESEAN Potassium Chloride (Klor Con Er Tab*) 40 meq PO BID DESEAN Quetiapine Fumarate (Seroquel Tab*) 50 mg PO BEDTIME DESEAN Topiramate (Topamax(*)) 100 mg PO QAM DESEAN Topiramate (Topamax(*)) 100 mg PO BEDTIME DESEAN Topiramate (Topamax(*)) 50 mg PO BEDTIME DESEAN Triamterene/HCTZ (Dyazide Cap*) 1 cap PO DAILY [facility] Vital Signs - 8 hr 05/14/18 05/14/18 05/14/18 07:24 07:32 07:34 Temperature 98.4 F Pulse Rate 95 Respiratory 18 16 16 Rate Blood Pressure 117/58 (mmHg) O2 Sat by Pulse 96 Oximetry Oxygen Devices in Use Now: None Appearance: Elderly female laying in bed in NAD Eyes: No Scleral Icterus Ears/Nose/Mouth/Throat: Mucous Membranes Moist Neck: NL Appearance and Movements; NL JVP, Trachea Midline Respiratory: Symmetrical Chest Expansion and Respiratory Effort, Clear to Auscultation Cardiovascular: NL Sounds; No Murmurs; No JVD, RRR Abdominal: NL Sounds; No Tenderness; No Distention Extremities: No Edema Skin: - - Dressing intact to sacral wound Neurological: Alert and Oriented x 3, - - Flight of ideas; Delusional Lines/Tubes/Other Access: Clean, Dry and Intact Peripheral IV Nutrition: Taking PO's Result Diagrams: 05/13/18 06:33 05/13/18 06:33 Assess/Plan/Problems-Billing Assessment: Ms. Coreas is a 77 yo F with PMH of recurrent falls, seizure disorder, hyperaldosteronism, meningioma, HTN, and depression; who was brought to the ED by a neighbor who found her on the floor for an unknown period of time and was found to have a sacral decubitus ulcer. - Patient Problems (1) Decubitus ulcer of sacral region, unstageable Code(s): L89.150 - PRESSURE ULCER OF SACRAL REGION, UNSTAGEABLE Comment: - Appears patient was on floor or in bed for several days w/o moving - Does not appear to be infected, no evidence of sepsis - Appreciate Surgery consult; bedside debridement today - Continue air mattress, frequent turn and position - Will need SNF placement for continued wound care (2) UTI (urinary tract infection) Comment: - Urine culture growing >100k colonies of E. coli (klebsiella represents colonization) - Continue Augmentin (day 3/7) (3) Delusions of parasitosis Code(s): F22 - DELUSIONAL DISORDERS Comment: - Tangential speech and flight of ideas - Does not have a safe home living situation - Appreciate Psych consult; lacks capacity to make medical decisions - Continue Seroqual (4) Seizure disorder Code(s): G40.909 - EPILEPSY, UNSP, NOT INTRACTABLE, WITHOUT STATUS EPILEPTICUS Comment: - No recent known seizure activity - Has been refusing Lamictal and Topamax as she believes these are not effective medications - Appreciate Neurology consult and suggestions for alternate medications that she may be willing to take (5) Hypertension Code(s): I10 - ESSENTIAL (PRIMARY) HYPERTENSION Comment: - Normotensive, SBP 90-110s - Continue Dyazide (6) Hyperaldosteronism Code(s): E26.9 - HYPERALDOSTERONISM, UNSPECIFIED Comment: - Sodium and potassium have normalized - Continue Dyazide (7) DVT prophylaxis Comment: - Heparin SQ (8) Full code status Code(s): Z78.9 - OTHER SPECIFIED HEALTH STATUS Comment: Status and Disposition: Inpatient. Anticipate d/c to SNF. She lacks capacity to make her own medical decisions. Case management is involved and attempting to determine HCP. Attending: Matt Bah
--- NOTE | 2018-05-14 15:53 | PN ---
Progress Note - Progress Note Date of Service: 05/14/18 Note: POD #1 S/P DEBRIDEMENT OF CHRONIC SACRAL PRESSURE ULCER SACRAL WOUND MEASURES APPROX 7X6CM WITH A DEPTH OF 3CM AND UNDERMINING IN SUPERIOR ASPECT, PURULENCE NOTED ON OLD DRESSINGS;WOUND BED IRRIGATED WITH NS AND THEN SILVER ALGINATE DRESSING APPLIED OVER ENTIRE WOUND,4X4'S AND ABD PAD COMPLETED THE DRESSING. TIME SPENT:15 MIN. SIERRATELESALES CONSULTANT
--- NOTE | 2018-05-14 18:41 | CONS ---
NEUROLOGY CONSULTATION: DATE OF CONSULT: 05/13/18 LOCATION: She is in room 416. REFERRING PROVIDER: Parris Duke NP. CHIEF COMPLAINT: History of epilepsy, refusal to take medication. 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 I reviewed some office records when she was followed by Dr. Monroy for a number of years and was taking topiramate as well as lamotrigine. She had observed convulsions in the emergency room in nearest past and may have had complex partial seizures as well. After Dr. Monroy's care home, Dr. Thomas took over her care. She presented to the emergency room with a large decubitus ulcer and apparently had been on the floor for quite some time. She has a history of delusional disorder and was deemed by Psychiatry to not understand the implications of her decisions and so she has been deemed not to have a capacity to make such decisions. She needs to be transferred to rehab facility for wound care, but has refused to take her anticonvulsants. I spoke with the patient and she has some ideas that lamotrigine is toxic. She has very poor attention and concentration and tends to drift off on other medical issues. She describes her meningioma resection and her recurrent headache disorder. After discussion, she said she agrees to take topiramate. She does not want to take multiple anticonvulsants, particularly seems to think that lamotrigine is harmful. I would recommend that she be put on topiramate 200 mg at bedtime only. Hopefully, she will stick to her current decision and remain on anticonvulsants. I discussed with her that because of her history of meningioma , surgery, and encephalomalacia seen on her neuroimaging, she is at lifelong risk for recurrent convulsions. She seems to understand that aspect at least and hopefully, we will continue to take anticonvulsants. Fay was not examined today and the entire visit was spent in discussion of the risks and benefits of anticonvulsants in her particular situation. [id number]/[facility] #: [id number] ANA M
[2018-05-14] MEDS: QUEtiapine TAB* 25 MG PO SCH (20:43)
[2018-05-15] MEDS: Heparin VIAL(*) 5000 UNITS/ML VIAL (FIVE THOUSAND) SUBCUT SCH ×3 (06:01→21:26)
[2018-05-15] MEDS: Levothyroxine TAB* 75 MCG TAB PO SCH (06:01)
[2018-05-15] MEDS: oxyCODONE TAB* 5 MG TAB PO PRN ×2 (06:07→13:06)
[2018-05-15 06:52] LABS: Topiramate <1.0 mcg/mL
[2018-05-15] MEDS: Triamterene/HCTZ 37.5-25 MG* CAP PO SCH (09:31)
[2018-05-15] MEDS: Cyanocobalamin TAB* 500 MCG PO SCH (09:31)
[2018-05-15] MEDS: ALPRAZolam TAB* 0.5 MG PO SCH ×3 (09:31→21:25)
[2018-05-15] MEDS: Piperacillin/Tazobac ADVAN(*) 3.375 GM in NS 0.9% 100 ML* 100 ML IVPB ONE ×2 (09:31→09:35)
[2018-05-15] MEDS: Pantoprazole TAB * 40 MG TAB PO SCH ×2 (09:32→21:26)
[2018-05-15] MEDS: Potassium Chlor TAB* 20 MEQ TAB.ER PO SCH ×2 (09:32→21:26)
[2018-05-15] MEDS: Amoxicillin/Clavulanate TAB* 875 MG PO SCH (09:36)
[2018-05-15] MEDS ORDERED: Zosyn per Pharmacy* NOTE FOLLOW UP SCH (10:00)
[2018-05-15] MEDS: ZOSYN 3.375 GM Q8H per EXTENDED INFUSION IVPB SCH ×4 (13:07→21:25)
--- NOTE | 2018-05-15 14:46 | CONSULT ---
Identification - Patient Identification Reason for Psychiatric Consultation: Incapacitating Symptoms -: Patient is a 77 year old, F admitted on 05/11/18. - MHU Identification Employment Status: Disabled Hx Psychiatric Hospitalization: No History - Objective HPI: Psychiatry followed up with Ms. Coreas this afternoon. She remains marginally delusional, mostly in reference to her primary care provider, whom she insists promised her that he would organize a meeting with her and her outpatient neurologists, Seth Tamayo and William. She is taking the quetiapine as directed and has not had any behavioral problems. I did reinforce today that my opinion is that she lacks capacity to make informed choices about her hospital aftercare , specifically that she cannot refuse [facility] placement. "I don't care what you say. I'm sick of other people telling me what I need to do with my life." She denies thoughts of harming herself or others. Exam Appearance: Well Developed/Nourished Hygiene: Normal Grooming: Disheveled Psychomotor Activities: Normal Exhibits Abnormal Movement: No Attitude and Relatedness: Dismissive Eye Contact: Fair - Speech Quality: Unpressured Latencies: Normal Quantity: Appropriate Patient's Decription of Mood: "Fine" Observed Affect: Tense Affect Consistent with: Euthymia Patient's Thought Process: Circumstantial Thought Content: Yes Paranoid Ideation, No Passive Wish, No Suicidal Planning, No Homicidal Ideation Experiencing Hallucinations: No, Sensorium is Clear Type of Hallucinations: Visual: No, Auditory: No, Command: No Level of Consciousness: Alert Orientation: Yes Intact, Yes Orientated to Time, Yes Orientated to Place, Yes Orientated to Person Impulse Control: Poor Insight and Judgement: Impaired Impression - Impression Clinical Impression: 77 y.o. single, white female with a history of seizure disorder and delusional behavior admitted to the Hospitalist service due to falls and a resulting decubitus ulcer, evaluated by psychiatry due to delusions and questions of her capacity to make informed decisions. Inpatient DSM-V Dx: F22 Merits Inpatient Hospitalization: No BSU: Problem List - Patient Problems (1) Delusions of parasitosis Current Visit: Yes Status: Acute Priority: Medium Code(s): F22 - DELUSIONAL DISORDERS SNOMED Code(s): 840881805 Comment: - Tangential speech and flight of ideas - Does not have a safe home living situation - Appreciate Psych consult; lacks capacity to make medical decisions - Continue Seroqual Plan - Treatment Plan Treatment Plan: The patient is responding to quetiapine 50mg PO qhs and is no longer having delusions of parasitic infestation. Nonetheless, her insight and judgment remain markedly impaired and she lacks capacity to refuse [facility] placement. Psychiatry is signing off but can be reconsulted in the event of any significant changes in her presentation. Continued Medication Management: Start Medication Medications: Current Medications Acetaminophen (Tylenol Tab*) 650 mg PO Q6H PRN PRN Reason: PAIN Last Admin: 05/14/18 07:31 Dose: 650 mg Alprazolam (Xanax Tab*) 1 mg PO TID [facility] Last Admin: 05/15/18 13:10 Dose: 1 mg Cyanocobalamin (Vitamin B12 Tab*) 1,000 mcg PO DAILY [facility] Last Admin: 05/15/18 09:31 Dose: 1,000 mcg Heparin Sodium (Porcine) (Heparin Vial(*)) 5,000 units SUBCUT Q8HR [facility] Last Admin: 05/15/18 13:11 Dose: 5,000 units Piperacillin Sod/Tazobactam (Sod 3.375 gm/ Sodium Chloride) 100 mls @ 25 mls/ hr IVPB Q8H [facility] Last Admin: 05/15/18 13:07 Dose: 25 mls/hr Levothyroxine Sodium (Synthroid Tab*) 75 mcg PO 0600 [facility] Last Admin: 05/15/18 06:01 Dose: 75 mcg Oxycodone HCl (Roxycodone Tab*) 5 mg PO Q6H PRN PRN Reason: PAIN - MODERATE Last Admin: 05/15/18 13:06 Dose: 5 mg Pantoprazole Sodium (Protonix Tab*) 40 mg PO BID [facility] Last Admin: 05/15/18 09:32 Dose: 40 mg Pharmacy Consult (Zosyn Per Pharmacy*) 1 note FOLLOW UP .ZOSYN PER PHARMACY [facility] Potassium Chloride (Klor Con Er Tab*) 40 meq PO BID [facility] Last Admin: 05/15/18 09:32 Dose: 40 meq Quetiapine Fumarate (Seroquel Tab*) 50 mg PO BEDTIME [facility] Last Admin: 05/14/18 20:43 Dose: 50 mg Sodium Hypochlorite (Dakins Solution Half Stre) 1 applic TOPICAL 0600,1800 [facility] Topiramate (Topamax(*)) 200 mg PO BEDTIME [facility] Last Admin: 05/14/18 20:47 Dose: Not Given Triamterene/HCTZ (Dyazide Cap*) 1 cap PO DAILY [facility] Last Admin: 05/15/18 09:31 Dose: Not Given
--- NOTE | 2018-05-15 15:15 | PN ---
Subjective Date of Service: 05/15/18 Interval History: Ms. Coreas does not want to wake up to talk with me today. She will wake to voice, but falls back asleep. Nursing reports she has been sleeping much of the day. Took alprazolam and oxycodone together this morning. Family History: Unchanged from Admission Social History: Unchanged from Admission Past Medical History: Unchanged from Admission Objective Active Medications: Acetaminophen (Tylenol Tab*) 650 mg PO Q6H PRN PAIN Alprazolam (Xanax Tab*) 1 mg PO TID [facility] Cyanocobalamin (Vitamin B12 Tab*) 1,000 mcg PO DAILY [facility] Heparin Sodium (Porcine) (Heparin Vial(*)) 5,000 units SUBCUT Q8HR [facility] Piperacillin Sod/Tazobactam (Sod 3.375 gm/ Sodium Chloride) 100 mls @ 25 mls/ hr IVPB Q8H [facility] Levothyroxine Sodium (Synthroid Tab*) 75 mcg PO 0600 [facility] Oxycodone HCl (Roxycodone Tab*) 5 mg PO Q6H PRN PAIN - MODERATE Pantoprazole Sodium (Protonix Tab*) 40 mg PO BID [facility] Potassium Chloride (Klor Con Er Tab*) 40 meq PO BID [facility] Quetiapine Fumarate (Seroquel Tab*) 50 mg PO BEDTIME [facility] Sodium Hypochlorite (Dakins Solution Half Stre) 1 applic TOPICAL 0600,1800 [facility] Topiramate (Topamax(*)) 200 mg PO BEDTIME [facility] Triamterene/HCTZ (Dyazide Cap*) 1 cap PO DAILY [facility] Vital Signs - 8 hr 05/15/18 05/15/18 05/15/18 11:05 11:40 13:06 Temperature 97.2 F Pulse Rate 88 Respiratory 16 16 17 Rate Blood Pressure 111/62 (mmHg) O2 Sat by Pulse 99 Oximetry Oxygen Devices in Use Now: None Appearance: Elderly woman laying in bed in NAD Eyes: No Scleral Icterus Ears/Nose/Mouth/Throat: Mucous Membranes Moist Neck: NL Appearance and Movements; NL JVP, Trachea Midline Respiratory: Symmetrical Chest Expansion and Respiratory Effort, Clear to Auscultation Cardiovascular: NL Sounds; No Murmurs; No JVD, RRR Extremities: No Edema Neurological: - - Drowsy Lines/Tubes/Other Access: Clean, Dry and Intact Peripheral IV Nutrition: Taking PO's - Nutrition: Malnutrition Diagnosis/Plan Malnutrition Assessment by Registered Dietitian: Malnutrition Assessment Clinical Characteristics Chronic,Moderate Malnutrition Assessment: - 27% wt loss x past 11 months Criteria - Mild temporal muscle wasting Malnutrition Assessment: Will send Ensure Enlive w/ meals. 350 kcals, 20 Interventions grams protein per serving. Malnutrition Assessment: Goals 1. Adequate PO intake to promote lean body mass repletion, maintain hydration, and prevent additional wt loss 2. Intake will promote wound healing w/o additional pressure related breakdown Result Diagrams: 05/13/18 06:33 05/13/18 06:33 Assess/Plan/Problems-Billing Assessment: Ms. Coreas is a 77 yo F with PMH of recurrent falls, seizure disorder, hyperaldosteronism, meningioma, HTN, and depression; who was brought to the ED by a neighbor who found her on the floor for an unknown period of time and was found to have a sacral decubitus ulcer. - Patient Problems (1) Decubitus ulcer of sacral region, unstageable Code(s): L89.150 - PRESSURE ULCER OF SACRAL REGION, UNSTAGEABLE Comment: - Appears patient was on floor or in bed for several days w/o moving - Appreciate Surgery consult; bedside debridement today - Continue air mattress, frequent turn and position - Will need SNF placement for continued wound care - Start Zosyn d/t wound culture results (2) UTI (urinary tract infection) Comment: - Urine culture growing >100k colonies of E. coli (klebsiella represents colonization) - Stop Augmentin; Zosyn will cover (3) Delusions of parasitosis Code(s): F22 - DELUSIONAL DISORDERS Comment: - Tangential speech and flight of ideas - Does not have a safe home living situation - Appreciate Psych consult; lacks capacity to make medical decisions - Continue Seroqual (4) Seizure disorder Code(s): G40.909 - EPILEPSY, UNSP, NOT INTRACTABLE, WITHOUT STATUS EPILEPTICUS Comment: - No recent known seizure activity - Has been refusing Lamictal and Topamax as she believes these are not effective medications - Appreciate Neurology consult and suggestions for alternate medications that she may be willing to take - Continue Topamax (5) Malnutrition Code(s): E46 - UNSPECIFIED PROTEIN-CALORIE MALNUTRITION Comment: - Moderate, chronic - See assessment and recommendations by Top Stitcher (6) Hypertension Code(s): I10 - ESSENTIAL (PRIMARY) HYPERTENSION Comment: - Normotensive, SBP 110s - Continue Dyazide (7) Hyperaldosteronism Code(s): E26.9 - HYPERALDOSTERONISM, UNSPECIFIED Comment: - Sodium and potassium have normalized - Continue Dyazide (8) DVT prophylaxis Comment: - Heparin SQ (9) Full code status Code(s): Z78.9 - OTHER SPECIFIED HEALTH STATUS Comment: Status and Disposition: Inpatient. Anticipate d/c to SNF. She lacks capacity to make her own medical decisions. Case management is involved and attempting to determine HCP. Attending: Harry Carbone
[2018-05-15] MEDS ORDERED: Magnesium Hydroxide LIQ* 30 ML UDC PO PRN (16:45)
[2018-05-15] MEDS: Acetaminophen TAB* 325 MG PO PRN (17:00)
--- NOTE | 2018-05-15 17:45 | PN ---
Progress Note - Progress Note Date of Service: 05/15/18 SOAP: Subjective: Less lower back pain She is eating well Objective: Temp Pulse Resp BP Pulse Ox 97.2 F 88 17 111/62 99 05/15/18 11:40 05/15/18 11:40 05/15/18 15:00 05/15/18 11:40 05/15/18 11:40 PEX: Sacral decubitus much shoe cleaner, some necrotic fat debrided but edges and base now becoming pink. No odor, slight seropurulent drainage. No surrounding erythema Cultures noted Assessment: Sacral decubitus, s/p debridement Plan: Wound care-packing changes BID Offloading IV abx
[2018-05-15] MEDS: Docusate CAP* 100 MG PO SCH (21:26)
[2018-05-15] MEDS: Topiramate TAB(*) 100 MG PO SCH (21:26)
[2018-05-15] MEDS: QUEtiapine TAB* 25 MG PO SCH (21:26)
[2018-05-15] MEDS: Dakins Solution 0.25% (1/2 STR.)* 473 ML BTL TOPICAL SCH (21:34)
[2018-05-16] MEDS: ZOSYN 3.375 GM Q8H per EXTENDED INFUSION IVPB SCH ×6 (05:18→20:56)
[2018-05-16] MEDS: Heparin VIAL(*) 5000 UNITS/ML VIAL (FIVE THOUSAND) SUBCUT SCH ×3 (05:18→22:05)
[2018-05-16] MEDS: Levothyroxine TAB* 75 MCG TAB PO SCH (05:19)
[2018-05-16] MEDS: Pantoprazole TAB * 40 MG TAB PO SCH ×2 (10:10→20:57)
[2018-05-16] MEDS: Docusate CAP* 100 MG PO SCH ×2 (10:10→20:56)
[2018-05-16] MEDS: Cyanocobalamin TAB* 500 MCG PO SCH (10:10)
[2018-05-16] MEDS: ALPRAZolam TAB* 0.5 MG PO SCH ×3 (10:10→20:56)
[2018-05-16] MEDS: Potassium Chlor TAB* 20 MEQ TAB.ER PO SCH ×3 (10:10→20:57)
[2018-05-16] MEDS: Cetirizine* 10 MG TAB PO SCH (10:11)
[2018-05-16] MEDS: Triamterene/HCTZ 37.5-25 MG* CAP PO SCH (10:11)
[2018-05-16] MEDS: Dakins Solution 0.25% (1/2 STR.)* 473 ML BTL TOPICAL SCH ×2 (10:14→22:05)
--- NOTE | 2018-05-16 10:56 | PN ---
Subjective Date of Service: 05/16/18 Interval History: Ms. Coreas states she does not want to wake up and speak with me today, but she does wake to voice and kept her eyes open during my exam. She will not offer any information, but when asked if anything was bothering her she replied "everything." Nursing reports that she was asking for Flexeril this morning. Family History: Unchanged from Admission Social History: Unchanged from Admission Past Medical History: Unchanged from Admission Objective Active Medications: Acetaminophen (Tylenol Tab*) 650 mg PO Q6H PRN PAIN Alprazolam (Xanax Tab*) 0.5 mg PO TID [facility] Cetirizine HCl (Zyrtec*) 10 mg PO DAILY [facility]; Protocol Cyanocobalamin (Vitamin B12 Tab*) 1,000 mcg PO DAILY [facility] Docusate Sodium (Colace Cap*) 100 mg PO BID [facility] Heparin Sodium (Porcine) (Heparin Vial(*)) 5,000 units SUBCUT Q8HR [facility] Piperacillin Sod/Tazobactam (Sod 3.375 gm/ Sodium Chloride) 100 mls @ 25 mls/ hr IVPB Q8H [facility] Levothyroxine Sodium (Synthroid Tab*) 75 mcg PO 0600 [facility] Magnesium Hydroxide (Milk Of Magnesia Liq*) 30 ml PO Q6H PRN CONSTIPATION Ondansetron HCl (Zofran Inj*) 4 mg IV Q6H PRN NAUSEA Oxycodone HCl (Roxycodone Tab*) 2.5 mg PO Q6H PRN PAIN - MODERATE Pantoprazole Sodium (Protonix Tab*) 40 mg PO BID [facility] Potassium Chloride (Klor Con Er Tab*) 40 meq PO BID [facility] Quetiapine Fumarate (Seroquel Tab*) 50 mg PO BEDTIME [facility] Sodium Hypochlorite (Dakins Solution Half Stre) 1 applic TOPICAL 1000,2200 [facility] Topiramate (Topamax(*)) 200 mg PO BEDTIME [facility] Triamterene/HCTZ (Dyazide Cap*) 1 cap PO DAILY [facility] Vital Signs - 8 hr 05/16/18 05/16/18 05/16/18 03:28 08:06 10:10 Temperature 97.4 F 97.8 F Pulse Rate 87 88 Respiratory 18 18 17 Rate Blood Pressure 113/47 128/60 (mmHg) O2 Sat by Pulse 100 100 Oximetry Oxygen Devices in Use Now: None Appearance: Elderly disheveled female laying in bed in NAD Eyes: No Scleral Icterus Ears/Nose/Mouth/Throat: Mucous Membranes Moist Neck: NL Appearance and Movements; NL JVP, Trachea Midline Respiratory: Symmetrical Chest Expansion and Respiratory Effort, Clear to Auscultation Cardiovascular: NL Sounds; No Murmurs; No JVD, RRR Abdominal: NL Sounds; No Tenderness; No Distention Extremities: No Edema Skin: - - Sacral wound with dressing in place Neurological: Alert and Oriented x 3, - - Drowsy Lines/Tubes/Other Access: Clean, Dry and Intact Peripheral IV Nutrition: Taking PO's - Nutrition: Malnutrition Diagnosis/Plan Malnutrition Assessment by Registered Dietitian: Malnutrition Assessment Clinical Characteristics Chronic,Moderate Malnutrition Assessment: - 27% wt loss x past 11 months Criteria - Mild temporal muscle wasting Malnutrition Assessment: Will send Ensure Enlive w/ meals. 350 kcals, 20 Interventions grams protein per serving. Malnutrition Assessment: Goals 1. Adequate PO intake to promote lean body mass repletion, maintain hydration, and prevent additional wt loss 2. Intake will promote wound healing w/o additional pressure related breakdown Result Diagrams: 05/13/18 06:33 05/13/18 06:33 Assess/Plan/Problems-Billing Assessment: Ms. Coreas is a 77 yo F with PMH of recurrent falls, seizure disorder, hyperaldosteronism, meningioma, HTN, and depression; who was brought to the ED by a neighbor who found her on the floor for an unknown period of time and was found to have a sacral decubitus ulcer. - Patient Problems (1) Decubitus ulcer of sacral region, unstageable Code(s): L89.150 - PRESSURE ULCER OF SACRAL REGION, UNSTAGEABLE Comment: - Appears patient was on floor or in bed for several days w/o moving - Appreciate Surgery consult; bedside debridement earlier this week - Continue air mattress, frequent turn and position - Will need SNF placement for continued wound care; lacks capacity - Continue Zosyn (2) UTI (urinary tract infection) Comment: - Urine culture growing >100k colonies of E. coli; klebsiella representing colonization - Continue Zosyn (3) Delusions of parasitosis Code(s): F22 - DELUSIONAL DISORDERS Comment: - Tangential speech and flight of ideas - Does not have a safe home living situation - Appreciate Psych consult; lacks capacity to make medical decisions - Continue Seroqual (4) Seizure disorder Code(s): G40.909 - EPILEPSY, UNSP, NOT INTRACTABLE, WITHOUT STATUS EPILEPTICUS Comment: - No recent known seizure activity - Has been refusing Lamictal and Topamax as she believes these are not effective medications - Appreciate Neurology consult and suggestions for alternate medications that she may be willing to take - Continue Topamax (5) Malnutrition Code(s): E46 - UNSPECIFIED PROTEIN-CALORIE MALNUTRITION Comment: - Moderate, chronic - See assessment and recommendations by Instructor Hairspring (6) Hypertension Code(s): I10 - ESSENTIAL (PRIMARY) HYPERTENSION Comment: - Normotensive, SBP 100-120s - Continue Dyazide (7) Hyperaldosteronism Code(s): E26.9 - HYPERALDOSTERONISM, UNSPECIFIED Comment: - Sodium and potassium have normalized - Continue Dyazide (8) DVT prophylaxis Comment: - Heparin SQ (9) Full code status Code(s): Z78.9 - OTHER SPECIFIED HEALTH STATUS Comment: Status and Disposition: Inpatient. Anticipate d/c to SNF. She lacks capacity to make her own medical decisions. Case management is involved. Attending: Harry Carbone
[2018-05-16] MEDS: oxyCODONE TAB* 5 MG TAB PO PRN ×2 (11:40→18:16)
[2018-05-16] MEDS: QUEtiapine TAB* 25 MG PO SCH (20:56)
[2018-05-16] MEDS: Topiramate TAB(*) 100 MG PO SCH (21:05)
[2018-05-17] MEDS: oxyCODONE TAB* 5 MG TAB PO PRN ×4 (00:14→22:05)
[2018-05-17] MEDS: Acetaminophen TAB* 325 MG PO PRN ×2 (03:26→20:13)
[2018-05-17] MEDS: Levothyroxine TAB* 75 MCG TAB PO SCH (05:08)
[2018-05-17] MEDS: Heparin VIAL(*) 5000 UNITS/ML VIAL (FIVE THOUSAND) SUBCUT SCH ×3 (05:08→22:12)
[2018-05-17] MEDS: ZOSYN 3.375 GM Q8H per EXTENDED INFUSION IVPB SCH ×6 (05:08→22:08)
[2018-05-17 07:41] LABS: BUN/Creatinine Ratio 18.3 (8-20); EGFR African American 97.1 (>60); EGFR Non-African American 80.3 (>60); Potassium 3.2 mmol/L (3.5-5.0)
[2018-05-17] MEDS: Triamterene/HCTZ 37.5-25 MG* CAP PO SCH (08:43)
[2018-05-17] MEDS: Cetirizine* 10 MG TAB PO SCH (08:43)
[2018-05-17] MEDS: ALPRAZolam TAB* 0.5 MG PO SCH ×3 (08:44→22:58)
[2018-05-17] MEDS: Docusate CAP* 100 MG PO SCH ×2 (08:44→22:05)
[2018-05-17] MEDS: Pantoprazole TAB * 40 MG TAB PO SCH ×2 (08:44→22:07)
[2018-05-17] MEDS: Potassium Chlor TAB* 20 MEQ TAB.ER PO SCH ×2 (08:44→22:10)
[2018-05-17] MEDS: Cyanocobalamin TAB* 500 MCG PO SCH (08:44)
--- NOTE | 2018-05-17 09:38 | PN ---
Subjective Date of Service: 05/17/18 Interval History: HOSPITALIST PROGRESS NOTE Patient seen and examined at bedside. Care reviewed and d/w Sil Trejo RN. She offers no complaints today. Asking for more butter for her toast, very pleasant and in good spirits. Family History: Unchanged from Admission Social History: Unchanged from Admission Past Medical History: Unchanged from Admission Objective Active Medications: Acetaminophen (Tylenol Tab*) 650 mg PO Q6H PRN PRN Reason: PAIN Last Admin: 05/17/18 03:26 Dose: 650 mg Alprazolam (Xanax Tab*) 0.5 mg PO TID [facility] Last Admin: 05/17/18 08:44 Dose: 0.5 mg Cetirizine HCl (Zyrtec*) 10 mg PO DAILY [facility]; Protocol Last Admin: 05/17/18 08:43 Dose: 10 mg Cyanocobalamin (Vitamin B12 Tab*) 1,000 mcg PO DAILY [facility] Last Admin: 05/17/18 08:44 Dose: 1,000 mcg Docusate Sodium (Colace Cap*) 100 mg PO BID [facility] Last Admin: 05/17/18 08:44 Dose: 100 mg Heparin Sodium (Porcine) (Heparin Vial(*)) 5,000 units SUBCUT Q8HR [facility] Last Admin: 05/17/18 05:08 Dose: 5,000 units Piperacillin Sod/Tazobactam (Sod 3.375 gm/ Sodium Chloride) 100 mls @ 25 mls/ hr IVPB Q8H [facility] Last Admin: 05/17/18 05:08 Dose: 25 mls/hr Levothyroxine Sodium (Synthroid Tab*) 75 mcg PO 0600 [facility] Last Admin: 05/17/18 05:08 Dose: 75 mcg Magnesium Hydroxide (Milk Of Magnesia Liq*) 30 ml PO Q6H PRN PRN Reason: CONSTIPATION Last Admin: 05/15/18 18:21 Dose: 30 ml Ondansetron HCl (Zofran Inj*) 4 mg IV Q6H PRN PRN Reason: NAUSEA Oxycodone HCl (Roxycodone Tab*) 2.5 mg PO Q6H PRN PRN Reason: PAIN - MODERATE Last Admin: 05/17/18 09:05 Dose: 2.5 mg Pantoprazole Sodium (Protonix Tab*) 40 mg PO BID [facility] Last Admin: 05/17/18 08:44 Dose: 40 mg Pharmacy Consult (Zosyn Per Pharmacy*) 1 note FOLLOW UP .ZOSYN PER PHARMACY [facility] Potassium Chloride (Klor Con Er Tab*) 40 meq PO BID [facility] Last Admin: 05/17/18 08:44 Dose: 40 meq Quetiapine Fumarate (Seroquel Tab*) 50 mg PO BEDTIME [facility] Last Admin: 05/16/18 20:56 Dose: 50 mg Sodium Hypochlorite (Dakins Solution Half Stre) 1 applic TOPICAL 1000,2200 [facility] Last Admin: 05/16/18 22:05 Dose: 1 applic Topiramate (Topamax(*)) 200 mg PO BEDTIME [facility] Last Admin: 05/16/18 21:05 Dose: 200 mg Triamterene/HCTZ (Dyazide Cap*) 1 cap PO DAILY [facility] Last Admin: 05/17/18 08:43 Dose: 1 cap Vital Signs - 8 hr 05/17/18 05/17/18 05/17/18 03:04 03:31 07:25 Temperature 97.9 F 97.3 F Pulse Rate 92 83 Respiratory 14 19 16 Rate Blood Pressure 123/49 110/46 (mmHg) O2 Sat by Pulse 99 99 Oximetry 05/17/18 05/17/18 05/17/18 08:00 08:44 09:05 Temperature Pulse Rate Respiratory 16 16 18 Rate Blood Pressure (mmHg) O2 Sat by Pulse Oximetry Oxygen Devices in Use Now: None Appearance: Pleasant elderly lady sitting up in bed in [facility], eating breakfast. Eyes: No Scleral Icterus Ears/Nose/Mouth/Throat: Mucous Membranes Moist Neck: Trachea Midline Respiratory: Symmetrical Chest Expansion and Respiratory Effort, Clear to Auscultation Cardiovascular: RRR - Normal S1 and S2 Neurological: Alert and Oriented x 3, NL Muscle Strength and Tone - Nutrition: Malnutrition Diagnosis/Plan Malnutrition Assessment by Registered Dietitian: Malnutrition Assessment Clinical Characteristics Chronic,Moderate Malnutrition Assessment: - 27% wt loss x past 11 months Criteria - Mild temporal muscle wasting Malnutrition Assessment: Will send Ensure Enlive w/ meals. 350 kcals, 20 Interventions grams protein per serving. Malnutrition Assessment: Goals 1. Adequate PO intake to promote lean body mass repletion, maintain hydration, and prevent additional wt loss 2. Intake will promote wound healing w/o additional pressure related breakdown Result Diagrams: 05/13/18 06:33 05/17/18 07:14 Assess/Plan/Problems-Billing Assessment: Ms. Coreas is a 77 yo F with PMH of recurrent falls, seizure disorder, hyperaldosteronism, meningioma, HTN, and depression, who was brought to the ED by a neighbor who found her on the floor for an unknown period of time and was found to have E. coli UTI and sacral decubitus ulcer. - Patient Problems (1) UTI (urinary tract infection) Comment: - Present on admission, not Summers catheter related. - Continue Zosyn #3. (2) Decubitus ulcer of sacral region, unstageable Comment: - Present on admission. - Appears patient was on floor or in bed for several days without moving. - Appreciate Surgery follow up. - Continue air mattress, frequent turn and position. - Wound culture grew mutimicrobial deloris - continue Zosyn for now - will d/w ID. - Will need SNF placement for continued wound care. (3) Delusional disorder Comment: - Appreciate Psych consult; lacks capacity to make medical decisions. - Appears to have had progressive decline as documented in H&P. - Continue Seroquel. (4) Seizure disorder Comment: - Neuro input appreciated - continue Topamax. (5) Moderate protein-calorie malnutrition Comment: - Chronic moderate malnutrition as evidenced by 27% wt loss x past 11 months, mild temporal muscle wasting. - Continue supplements as recommended by dietitian. - Will liberalize diet. (6) Hypertension Comment: - Controlled. - Continue Dyazide (7) Hypokalemia Comment: - Replete. (8) Hypothyroidism Comment: - TSH 2.18 - continue Levothyroxine. (9) DVT prophylaxis Comment: - SQ Heparin. (10) Full code status Status and Disposition: Inpatient. Will need SNF. She lacks capacity to make her own medical decisions. Case management is involved.
[2018-05-17] MEDS: Dakins Solution 0.25% (1/2 STR.)* 473 ML BTL TOPICAL SCH ×2 (15:28→22:13)
[2018-05-17] MEDS: Ondansetron INJ* 2 MG/ML VIAL IV PRN ×2 (15:53→22:32)
[2018-05-17] MEDS: PROCHLORPERAZINE INJ 5 MG/ML 2 ML VIAL IV PRN (20:14)
[2018-05-17] MEDS: QUEtiapine TAB* 25 MG PO SCH (22:06)
[2018-05-17] MEDS: Topiramate TAB(*) 100 MG PO SCH (22:07)
[2018-05-18] MEDS: Acetaminophen TAB* 325 MG PO PRN ×2 (02:27→09:17)
[2018-05-18] MEDS: ALPRAZolam TAB* 0.5 MG PO SCH ×4 (02:27→21:42)
[2018-05-18] MEDS: PROCHLORPERAZINE INJ 5 MG/ML 2 ML VIAL IV PRN ×2 (02:32→21:38)
[2018-05-18] MEDS: Ondansetron INJ* 2 MG/ML VIAL IV PRN ×2 (04:23→09:24)
[2018-05-18] MEDS: ZOSYN 3.375 GM Q8H per EXTENDED INFUSION IVPB SCH ×6 (04:24→21:38)
[2018-05-18] MEDS: oxyCODONE TAB* 5 MG TAB PO PRN ×4 (04:24→23:31)
[2018-05-18] MEDS: Heparin VIAL(*) 5000 UNITS/ML VIAL (FIVE THOUSAND) SUBCUT SCH ×3 (05:52→21:48)
[2018-05-18] MEDS: Levothyroxine TAB* 75 MCG TAB PO SCH (05:52)
[2018-05-18 06:57] LABS: ABS Basophils 0 10^3/ul (0-0.2); ABS Eosinophils 0.1 10^3/ul (0-0.6); ABS Lymphocytes 0.6 10^3/ul (1.0-4.8); ABS Monocytes 0.7 10^3/ul (0-0.8); ABS Neutrophils 10.7 10^3/ul (1.5-7.7); ABS Nucleated RBC 0 10^3/ul; Eosinophil % 0.8 %; Hematocrit 32 % (35-47); Hemoglobin 10.9 g/dl (12.0-16.0); Lymphocyte % 4.7 %; Mean Corpuscular HGB Conc 33 g/dl (31-36); Mean Corpuscular Hemoglobin 32 pg (27-31); Mean Corpuscular Volume 96 fL (80-97); Mean Platelet Volume 7.8 fL (7.4-10.4); Nucleated Red Blood Cells % 0.1; Platelet Count 304 10^3/ul (150-450); Red Blood Count 3.38 10^6/ul (4.00-5.40); Red Cell Distribution Width 15 % (10.5-15); White Blood Count 12.1 10^3/ul (3.5-10.8)
[2018-05-18 07:22] LABS: BUN/Creatinine Ratio 24.3 (8-20); Calcium 8.7 mg/dL (8.6-10.3); EGFR African American 98.7 (>60); EGFR Non-African American 81.6 (>60); Magnesium 1.7 mg/dL (1.9-2.7); Potassium 3.4 mmol/L (3.5-5.0)
[2018-05-18] MEDS: Potassium Chlor TAB* 20 MEQ TAB.ER PO SCH ×2 (09:16→21:47)
[2018-05-18] MEDS: Triamterene/HCTZ 37.5-25 MG* CAP PO SCH (09:16)
[2018-05-18] MEDS: Docusate CAP* 100 MG PO SCH ×2 (09:16→21:42)
[2018-05-18] MEDS: Cetirizine* 10 MG TAB PO SCH (09:17)
[2018-05-18] MEDS: Pantoprazole TAB * 40 MG TAB PO SCH ×2 (09:17→21:44)
[2018-05-18] MEDS: Cyanocobalamin TAB* 500 MCG PO SCH (09:17)
[2018-05-18] MEDS: Dakins Solution 0.25% (1/2 STR.)* 473 ML BTL TOPICAL SCH ×2 (11:04→21:27)
[2018-05-18] MEDS: Meclizine TAB* 12.5 MG PO PRN (12:22)
[2018-05-18] MEDS: Sucralfate TAB* 1 GM PO SCH ×2 (12:22→16:40)
--- NOTE | 2018-05-18 12:25 | CONS ---
CONSULTATION REPORT: DATE OF CONSULT: 05/18/18 REQUESTING PROVIDER: Dr. Deshpande. CONSULTING SERVICE: Infectious Disease. REASON FOR CONSULT: Decubitus ulceration and cellulitis. IMPRESSION: 1. Was down for a prolonged amount of time, now with sacral decubitus ulceration and cellulitis, treated with incision, debridement, and removal of eschar. Wound culture grew providencia, klebsiella, enterococcus. She is improving on Zosyn and after debridement. 2. Seizure disorder. 3. CEFPODOXIME allergy, tolerating Zosyn well. RECOMMENDATIONS: We will continue Zosyn and then can switch her to Augmentin to finish another 2 weeks of oral antibiotics. That would be 500 mg by mouth twice daily. HISTORY OF PRESENT ILLNESS: This is a 77-year-old woman who had been down for a prolonged amount of time, unknown reasons, possibly a seizure, found by her friends and brought directly to the hospital on 05/11/18. She was found to have decubitus ulceration with eschar. Dr. Chisholm took her to the OR on and debrided it. Wound cultures were taken with results as above. Blood cultures on admission were negative. The initial urine culture was taken and the urine sample showed blood, nitrites, squamous cells, leukocyte esterase. The urine culture growing E. coli and klebsiella. She has no dysuria or flank pain. PAST MEDICAL HISTORY: Seizure disorder. ALLERGIES: CEFPODOXIME, AMITRIPTYLINE, CLONAZEPAM, CLONIDINE, LISINOPRIL, SULFA. MEDICATIONS: 1. Tylenol. 2. Xanax. 3. Cetirizine. 4. Vitamin B12. 5. Dakin's solution topical. 6. Docusate. 7. Heparin subcutaneous injection. 8. Levothyroxine. 9. Zofran. 10. Oxycodone. 11. Pantoprazole. 12. Zosyn. 13. Topiramate. 14. Seroquel. 15. Triamterene/hydrochlorothiazide. SOCIAL HISTORY: She lives by herself. There is a cat. She has no travel or sick contacts. She is a nonsmoker. FAMILY HISTORY: No recurrent infections. REVIEW OF SYSTEMS: All negative except as noted above to a 14-point review. PHYSICAL EXAM: Vital Signs: Temperature 37, heart rate 95, respiratory rate 16 , blood pressure 107/47, oxygen saturation 98% on room air. In general, she is awake, not in distress. HEENT: There is no conjunctival hemorrhage. Oropharynx without lesions. Neck is supple without mass. Heart is regular rate and rhythm without murmurs, rubs, or gallops. Lungs are clear to auscultation bilaterally. Abdomen: Soft, nontender, nondistended. There are bowel sounds present. Skin: There is no rash or splinter hemorrhage. Musculoskeletal: There is no spine tenderness to palpation or joint synovitis. There is a sacral decubitus ulceration with surrounding mild erythema, serous drainage. LABORATORY DATA: White blood cell count 12, hemoglobin 10, platelets 304. Creatinine is 0.7. Please see impressions and recommendations outlined above. Thanks for asking me to see Ms. Coreas in consultation. [id number]/CPS #: [id number] ANA M
--- NOTE | 2018-05-18 13:09 | PN ---
Subjective Date of Service: 05/18/18 Interval History: HOSPITALIST PROGRESS NOTE Patient seen and examined at bedside. Care reviewed and d/w Audelia Hood RN. She states her stomach "has been upset" since she had some chicken. C/o nausea and reflux. Family History: Unchanged from Admission Social History: Unchanged from Admission Past Medical History: Unchanged from Admission Objective Active Medications: Acetaminophen (Tylenol Tab*) 650 mg PO Q6H PRN PRN Reason: PAIN Last Admin: 05/18/18 09:17 Dose: 650 mg Alprazolam (Xanax Tab*) 0.5 mg PO TID [facility] Last Admin: 05/18/18 09:16 Dose: Not Given Cetirizine HCl (Zyrtec*) 10 mg PO DAILY [facility]; Protocol Last Admin: 05/18/18 09:17 Dose: 10 mg Cyanocobalamin (Vitamin B12 Tab*) 1,000 mcg PO DAILY [facility] Last Admin: 05/18/18 09:17 Dose: 1,000 mcg Docusate Sodium (Colace Cap*) 100 mg PO BID [facility] Last Admin: 05/18/18 09:16 Dose: 100 mg Heparin Sodium (Porcine) (Heparin Vial(*)) 5,000 units SUBCUT Q8HR [facility] Last Admin: 05/18/18 12:22 Dose: 5,000 units Piperacillin Sod/Tazobactam (Sod 3.375 gm/ Sodium Chloride) 100 mls @ 25 mls/ hr IVPB Q8H [facility] Last Admin: 05/18/18 12:22 Dose: 25 mls/hr Levothyroxine Sodium (Synthroid Tab*) 75 mcg PO 0600 [facility] Last Admin: 05/18/18 05:52 Dose: 75 mcg Magnesium Hydroxide (Milk Of Magnesia Liq*) 30 ml PO Q6H PRN PRN Reason: CONSTIPATION Last Admin: 05/15/18 18:21 Dose: 30 ml Meclizine HCl (Antivert Tab*) 25 mg PO Q8HR PRN PRN Reason: DIZZINESS Last Admin: 05/18/18 12:22 Dose: 25 mg Ondansetron HCl (Zofran Inj*) 4 mg IV Q6H PRN PRN Reason: NAUSEA Last Admin: 05/18/18 09:24 Dose: 4 mg Oxycodone HCl (Roxycodone Tab*) 2.5 mg PO Q6H PRN PRN Reason: PAIN - MODERATE Last Admin: 05/18/18 11:03 Dose: 2.5 mg Pantoprazole Sodium (Protonix Tab*) 40 mg PO BID [facility] Last Admin: 05/18/18 09:17 Dose: 40 mg Pharmacy Consult (Zosyn Per Pharmacy*) 1 note FOLLOW UP .ZOSYN PER PHARMACY [facility] Potassium Chloride (Klor Con Er Tab*) 40 meq PO BID [facility] Last Admin: 05/18/18 09:16 Dose: Not Given Prochlorperazine Edisylate (Compazine Inj*) 5 mg IV Q6H PRN PRN Reason: NAUSEA/VOMITING Last Admin: 05/18/18 02:32 Dose: 5 mg Quetiapine Fumarate (Seroquel Tab*) 50 mg PO BEDTIME [facility] Last Admin: 05/17/18 22:06 Dose: 50 mg Sodium Hypochlorite (Dakins Solution Half Stre) 1 applic TOPICAL 1000,2200 [facility] Last Admin: 05/18/18 11:04 Dose: 1 applic Sucralfate (Carafate*) 1 gm PO AC [facility] Last Admin: 05/18/18 12:22 Dose: 1 gm Topiramate (Topamax(*)) 200 mg PO BEDTIME [facility] Last Admin: 05/17/18 22:07 Dose: 200 mg Triamterene/HCTZ (Dyazide Cap*) 1 cap PO DAILY [facility] Last Admin: 05/18/18 09:16 Dose: 1 cap Vital Signs - 8 hr 05/18/18 05/18/18 05/18/18 07:15 08:08 09:16 Temperature 97.8 F Pulse Rate 95 Respiratory 16 16 18 Rate Blood Pressure 107/47 (mmHg) O2 Sat by Pulse 98 Oximetry 05/18/18 11:03 Temperature Pulse Rate Respiratory 18 Rate Blood Pressure (mmHg) O2 Sat by Pulse Oximetry Oxygen Devices in Use Now: None Appearance: Elderly lady lying in bed in NAD. Eyes: No Scleral Icterus Ears/Nose/Mouth/Throat: Mucous Membranes Moist Neck: Trachea Midline Respiratory: Symmetrical Chest Expansion and Respiratory Effort, Clear to Auscultation Cardiovascular: RRR - Normal S1 and S2 Abdominal: NL Sounds; No Tenderness; No Distention Skin: - - Sacral decubitus base is much dry cleaner presser, still has some yellow slough, no purulence Neurological: Alert and Oriented x 3, NL Muscle Strength and Tone - Nutrition: Malnutrition Diagnosis/Plan Malnutrition Assessment by Registered Dietitian: Malnutrition Assessment Clinical Characteristics Chronic,Moderate Malnutrition Assessment: - 27% wt loss x past 11 months Criteria - Mild temporal muscle wasting Malnutrition Assessment: Will send Ensure Enlive w/ meals. 350 kcals, 20 Interventions grams protein per serving. Malnutrition Assessment: Goals 1. Adequate PO intake to promote lean body mass repletion, maintain hydration, and prevent additional wt loss 2. Intake will promote wound healing w/o additional pressure related breakdown Result Diagrams: 05/18/18 06:51 05/18/18 06:51 Assess/Plan/Problems-Billing Assessment: Ms. Coreas is a 77 yo F with PMH of recurrent falls, seizure disorder, hyperaldosteronism, meningioma, HTN, and depression, who was brought to the ED by a neighbor who found her on the floor for an unknown period of time and was found to have E. coli UTI and sacral decubitus ulcer. - Patient Problems (1) UTI (urinary tract infection) Comment: - Present on admission, not Summers catheter related. - Continue Zosyn #4. (2) Decubitus ulcer of sacral region, unstageable Comment: - Present on admission. - Appears patient was on floor or in bed for several days without moving. - Appreciate Surgery follow up. - Continue air mattress, frequent turn and position. - Wound culture grew mutimicrobial deloris - continue Zosyn for now. - ID input appreciated - plan for 2 more weeks of Augmentin on discharge. - Will need SNF placement for continued wound care. (3) Delusional disorder Comment: - Appreciate Psych consult; lacks capacity to make medical decisions. - Appears to have had progressive decline as documented in H&P. - Continue Seroquel. (4) Seizure disorder Comment: - Neuro input appreciated - continue Topamax. (5) Moderate protein-calorie malnutrition Comment: - Chronic moderate malnutrition as evidenced by 27% wt loss x past 11 months, mild temporal muscle wasting. - Continue supplements as recommended by dietitian. - Liberalize diet. (6) Hypertension Comment: - Controlled. - Continue Dyazide (7) Hypokalemia Comment: - Replete. (8) Hypothyroidism Comment: - TSH 2.18 - continue Levothyroxine. (9) DVT prophylaxis Comment: - SQ Heparin. (10) Full code status Status and Disposition: Inpatient. Will need SNF. She lacks capacity to make her own medical decisions. Case management is involved.
[2018-05-18] MEDS ORDERED: Magnesium Sulfate 2 GM IV* 2 GM/50 ML BAG IVPB ONE (13:11)
--- NOTE | 2018-05-18 14:08 | PN ---
Progress Note - Progress Note Date of Service: 05/18/18 SOAP: Subjective: She says ulcer on back feels much better Objective: Temp Pulse Resp BP Pulse Ox 97.8 F 95 17 107/47 98 05/18/18 08:08 05/18/18 08:08 05/18/18 13:38 05/18/18 08:08 05/18/18 08:08 PEX: Sacral ulcer is clean and without odor. Granulating bed. No purulence noted Assessment: Sacral pressure ulcer s/p debridement Plan: Continue present wound care IV and then oral antibiotics per ID May switch to wound vac as improves. Placement
[2018-05-18] MEDS: Famotidine TAB* 20 MG PO SCH (21:44)
[2018-05-18] MEDS: QUEtiapine TAB* 25 MG PO SCH (21:47)
[2018-05-18] MEDS: Topiramate TAB(*) 100 MG PO SCH (21:47)
[2018-05-19] MEDS: ZOSYN 3.375 GM Q8H per EXTENDED INFUSION IVPB SCH ×4 (05:07→12:58)
[2018-05-19] MEDS: Levothyroxine TAB* 75 MCG TAB PO SCH (05:09)
[2018-05-19] MEDS: oxyCODONE TAB* 5 MG TAB PO PRN ×4 (05:09→23:45)
[2018-05-19] MEDS: Heparin VIAL(*) 5000 UNITS/ML VIAL (FIVE THOUSAND) SUBCUT SCH ×4 (05:10→21:48)
[2018-05-19 07:27] LABS: BUN/Creatinine Ratio 21.1 (8-20); Calcium 8.6 mg/dL (8.6-10.3); EGFR African American 97.1 (>60); EGFR Non-African American 80.3 (>60); Magnesium 2.1 mg/dL (1.9-2.7); Potassium 3.4 mmol/L (3.5-5.0)
[2018-05-19] MEDS: Cyanocobalamin TAB* 500 MCG PO SCH (08:10)
[2018-05-19] MEDS: Acetaminophen TAB* 325 MG PO PRN ×2 (08:10→23:45)
[2018-05-19] MEDS: Pantoprazole TAB * 40 MG TAB PO SCH ×2 (08:11→21:46)
[2018-05-19] MEDS: Sucralfate TAB* 1 GM PO SCH ×3 (08:11→16:08)
[2018-05-19] MEDS: Docusate CAP* 100 MG PO SCH ×2 (08:11→21:38)
[2018-05-19] MEDS: Meclizine TAB* 12.5 MG PO PRN (08:11)
[2018-05-19] MEDS: Famotidine TAB* 20 MG PO SCH (08:11)
[2018-05-19] MEDS: Triamterene/HCTZ 37.5-25 MG* CAP PO SCH (08:11)
[2018-05-19] MEDS: ALPRAZolam TAB* 0.5 MG PO SCH ×3 (08:11→21:38)
[2018-05-19] MEDS: Potassium Chlor TAB* 20 MEQ TAB.ER PO SCH ×2 (08:11→21:42)
[2018-05-19] MEDS: Cetirizine* 10 MG TAB PO SCH (08:11)
[2018-05-19] MEDS: Dakins Solution 0.25% (1/2 STR.)* 473 ML BTL TOPICAL SCH ×2 (11:31→21:43)
--- NOTE | 2018-05-19 12:30 | PN ---
Subjective Date of Service: 05/19/18 Interval History: HOSPITALIST PROGRESS NOTE Patient seen and examined at bedside. Care reviewed and d/w Audelia Hood RN. Her nausea is improved today, but states her appetite is still poor. No vomiting , tolerating diet. Family History: Unchanged from Admission Social History: Unchanged from Admission Past Medical History: Unchanged from Admission Objective Active Medications: Acetaminophen (Tylenol Tab*) 650 mg PO Q6H PRN PRN Reason: PAIN Last Admin: 05/19/18 08:10 Dose: 650 mg Alprazolam (Xanax Tab*) 0.5 mg PO TID [facility] Last Admin: 05/19/18 08:11 Dose: 0.5 mg Cetirizine HCl (Zyrtec*) 10 mg PO DAILY [facility]; Protocol Last Admin: 05/19/18 08:11 Dose: 10 mg Cyanocobalamin (Vitamin B12 Tab*) 1,000 mcg PO DAILY [facility] Last Admin: 05/19/18 08:10 Dose: 1,000 mcg Docusate Sodium (Colace Cap*) 100 mg PO BID [facility] Last Admin: 05/19/18 08:11 Dose: 100 mg Famotidine (Pepcid Tab*) 20 mg PO BID [facility] Last Admin: 05/19/18 08:11 Dose: 20 mg Heparin Sodium (Porcine) (Heparin Vial(*)) 5,000 units SUBCUT Q8HR [facility] Last Admin: 05/19/18 05:15 Dose: 5,000 units Piperacillin Sod/Tazobactam (Sod 3.375 gm/ Sodium Chloride) 100 mls @ 25 mls/ hr IVPB Q8H [facility] Last Admin: 05/19/18 05:07 Dose: 25 mls/hr Levothyroxine Sodium (Synthroid Tab*) 75 mcg PO 0600 [facility] Last Admin: 05/19/18 05:09 Dose: 75 mcg Magnesium Hydroxide (Milk Of Magnesia Liq*) 30 ml PO Q6H PRN PRN Reason: CONSTIPATION Last Admin: 05/15/18 18:21 Dose: 30 ml Meclizine HCl (Antivert Tab*) 25 mg PO Q8HR PRN PRN Reason: DIZZINESS Last Admin: 05/19/18 08:11 Dose: 25 mg Ondansetron HCl (Zofran Inj*) 4 mg IV Q6H PRN PRN Reason: NAUSEA Last Admin: 05/18/18 09:24 Dose: 4 mg Oxycodone HCl (Roxycodone Tab*) 2.5 mg PO Q6H PRN PRN Reason: PAIN - MODERATE Last Admin: 05/19/18 11:30 Dose: 2.5 mg Pantoprazole Sodium (Protonix Tab*) 40 mg PO BID [facility] Last Admin: 05/19/18 08:11 Dose: 40 mg Pharmacy Consult (Zosyn Per Pharmacy*) 1 note FOLLOW UP .ZOSYN PER PHARMACY [facility] Potassium Chloride (Klor Con Er Tab*) 40 meq PO BID [facility] Last Admin: 05/19/18 08:11 Dose: 40 meq Prochlorperazine Edisylate (Compazine Inj*) 5 mg IV Q6H PRN PRN Reason: NAUSEA/VOMITING Last Admin: 05/18/18 21:38 Dose: 5 mg Quetiapine Fumarate (Seroquel Tab*) 50 mg PO BEDTIME [facility] Last Admin: 05/18/18 21:47 Dose: 50 mg Sodium Hypochlorite (Dakins Solution Half Stre) 1 applic TOPICAL 1000,2200 [facility] Last Admin: 05/19/18 11:31 Dose: 1 applic Sucralfate (Carafate*) 1 gm PO AC [facility] Last Admin: 05/19/18 11:30 Dose: 1 gm Topiramate (Topamax(*)) 200 mg PO BEDTIME [facility] Last Admin: 05/18/18 21:47 Dose: 200 mg Triamterene/HCTZ (Dyazide Cap*) 1 cap PO DAILY [facility] Last Admin: 05/19/18 08:11 Dose: 1 cap Vital Signs - 8 hr 05/19/18 05/19/18 05/19/18 05:09 07:09 08:00 Temperature Pulse Rate Respiratory 16 16 16 Rate Blood Pressure (mmHg) O2 Sat by Pulse Oximetry 05/19/18 05/19/18 05/19/18 08:01 08:11 10:10 Temperature 97.0 F Pulse Rate 80 Respiratory 18 16 16 Rate Blood Pressure 100/53 (mmHg) O2 Sat by Pulse 99 Oximetry 05/19/18 11:30 Temperature Pulse Rate Respiratory 16 Rate Blood Pressure (mmHg) O2 Sat by Pulse Oximetry Oxygen Devices in Use Now: None Appearance: Elderly lady lying in bed in [facility]. Eyes: No Scleral Icterus Ears/Nose/Mouth/Throat: Mucous Membranes Moist Neck: Trachea Midline Respiratory: Symmetrical Chest Expansion and Respiratory Effort, Clear to Auscultation Cardiovascular: RRR - Normal S1 and S2 Abdominal: NL Sounds; No Tenderness; No Distention Skin: - - CDI to sacral decubitus Neurological: Alert and Oriented x 3, NL Muscle Strength and Tone - Nutrition: Malnutrition Diagnosis/Plan Malnutrition Assessment by Registered Dietitian: Malnutrition Assessment Clinical Characteristics Chronic,Moderate Malnutrition Assessment: - 27% wt loss x past 11 months Criteria - Mild temporal muscle wasting Malnutrition Assessment: Will send Ensure Enlive w/ meals. 350 kcals, 20 Interventions grams protein per serving. Malnutrition Assessment: Goals 1. Adequate PO intake to promote lean body mass repletion, maintain hydration, and prevent additional wt loss 2. Intake will promote wound healing w/o additional pressure related breakdown Result Diagrams: 05/18/18 06:51 05/19/18 06:36 Assess/Plan/Problems-Billing Assessment: Ms. Coreas is a 77 yo F with PMH of recurrent falls, seizure disorder, hyperaldosteronism, meningioma, HTN, and depression, who was brought to the ED by a neighbor who found her on the floor for an unknown period of time and was found to have E. coli UTI and sacral decubitus ulcer. - Patient Problems (1) UTI (urinary tract infection) Comment: - Present on admission, not Summers catheter related. - Continue Zosyn #5. (2) Decubitus ulcer of sacral region, unstageable Comment: - Present on admission. - Appears patient was on floor or in bed for several days without moving. - Appreciate Surgery follow up. - Continue air mattress, frequent turn and position. - Wound culture grew mutimicrobial deloris - continue Zosyn for now. - ID input appreciated - plan for 2 more weeks of Augmentin on discharge. - Will need SNF placement for continued wound care. (3) Delusional disorder Comment: - Appreciate Psych consult; lacks capacity to make medical decisions. - Appears to have had progressive decline as documented in H&P. - Continue Seroquel. (4) Acid reflux Comment: - Suspect her symptoms, including nausea and sour taste in her mouth, are secondary to reflux - continue PPI and Carafate. (5) Seizure disorder Comment: - Neuro input appreciated - continue Topamax. (6) Moderate protein-calorie malnutrition Comment: - Chronic moderate malnutrition as evidenced by 27% wt loss x past 11 months, mild temporal muscle wasting. - Continue supplements as recommended by dietitian. - Liberalize diet. (7) Hypertension Comment: - Controlled. - Continue Dyazide (8) Hypokalemia Comment: - Replete. (9) Hypothyroidism Comment: - TSH 2.18 - continue Levothyroxine. (10) DVT prophylaxis Comment: - SQ Heparin. (11) Full code status Status and Disposition: Inpatient. She lacks capacity to make her own medical decisions. Plan for SNF placement - awaiting bed availability.
[2018-05-19] MEDS: QUEtiapine TAB* 25 MG PO SCH (21:39)
[2018-05-19] MEDS: Topiramate TAB(*) 100 MG PO SCH ×2 (21:41→23:22)
[2018-05-19] MEDS ORDERED: hydrOXYzine HCL TAB* 50 MG ONE (22:52)
[2018-05-19] MEDS: Amoxicillin/Clavulanate TAB* 500 MG PO SCH (23:00)
[2018-05-19] MEDS: PROCHLORPERAZINE INJ 5 MG/ML 2 ML VIAL IV PRN (23:04)
[2018-05-19] MEDS: hydrOXYzine HCL TAB* 50 MG PO PRN (23:04)
[2018-05-20] MEDS: hydrOXYzine HCL TAB* 50 MG PO PRN (05:52)
[2018-05-20] MEDS: Levothyroxine TAB* 75 MCG TAB PO SCH (05:52)
[2018-05-20] MEDS: oxyCODONE TAB* 5 MG TAB PO PRN ×3 (05:52→22:37)
[2018-05-20] MEDS: Heparin VIAL(*) 5000 UNITS/ML VIAL (FIVE THOUSAND) SUBCUT SCH ×3 (05:53→20:36)
[2018-05-20] MEDS: Docusate CAP* 100 MG PO SCH ×2 (07:55→20:35)
[2018-05-20] MEDS: Potassium Chlor TAB* 20 MEQ TAB.ER PO SCH ×2 (07:55→20:36)
[2018-05-20] MEDS: Cetirizine* 10 MG TAB PO SCH (07:55)
[2018-05-20] MEDS: Triamterene/HCTZ 37.5-25 MG* CAP PO SCH (07:55)
[2018-05-20] MEDS: Cyanocobalamin TAB* 500 MCG PO SCH (07:55)
[2018-05-20] MEDS: Sucralfate TAB* 1 GM PO SCH ×3 (07:55→16:41)
[2018-05-20] MEDS: Amoxicillin/Clavulanate TAB* 500 MG PO SCH ×2 (07:55→20:35)
[2018-05-20] MEDS: Pantoprazole TAB * 40 MG TAB PO SCH ×2 (07:55→20:35)
[2018-05-20] MEDS: ALPRAZolam TAB* 0.5 MG PO SCH ×3 (07:56→20:35)
[2018-05-20] MEDS: Dakins Solution 0.25% (1/2 STR.)* 473 ML BTL TOPICAL SCH ×2 (11:31→20:36)
--- NOTE | 2018-05-20 11:43 | PN ---
Subjective Date of Service: 05/20/18 Interval History: Ms. Coy is a 77 yo female with PMH significant for migraine TAVERA, hyperaldosteronism, seizure d/o, depression, herpes genitalis, and HTN who presented to the emergency room after being found lying on the floor at home and brought to the emergency room. She was noted to have a black eschar over the sacrum with some foul odor, but no evidence of sepsis on admission. She underwent a bedside sharp debridement of the sacral wound on 05/13/[address] Chisholm. This revealed a stage 4 pressure injury. The wound has been being packed with gauze soaked in 0.25% Dankins solution. The patient is noted to spend a lot of time in bed, but is getting up to the bedside commode. Denies fever, chills. She reports discomfort to her buttocks. Family History: Unchanged from Admission Social History: Unchanged from Admission Past Medical History: Unchanged from Admission Objective Active Medications: Acetaminophen (Tylenol Tab*) 650 mg PO Q6H PRN Reason: PAIN Alprazolam (Xanax Tab*) 0.5 mg PO TID [facility] Amoxicillin/Clavulanate Potassium (Augmentin Tab*) 500 mg PO BID [facility] Cetirizine HCl (Zyrtec*) 10 mg PO DAILY [facility]; Protocol Cyanocobalamin (Vitamin B12 Tab*) 1,000 mcg PO DAILY [facility] Docusate Sodium (Colace Cap*) 100 mg PO BID [facility] Heparin Sodium (Porcine) (Heparin Vial(*)) 5,000 units SUBCUT Q8HR [facility] Hydroxyzine HCl (Atarax Tab*) 50 mg PO Q4H PRN Reason: ANXIETY Levothyroxine Sodium (Synthroid Tab*) 75 mcg PO 0600 [facility] Magnesium Hydroxide (Milk Of Magnesia Liq*) 30 ml PO Q6H PRN Reason: CONSTIPATION Meclizine HCl (Antivert Tab*) 25 mg PO Q8HR PRN Reason: DIZZINESS Ondansetron HCl (Zofran Inj*) 4 mg IV Q6H PRN Reason: NAUSEA Oxycodone HCl (Roxycodone Tab*) 2.5 mg PO Q6H PRN Reason: PAIN - MODERATE Pantoprazole Sodium (Protonix Tab*) 40 mg PO BID [facility] Pharmacy Consult (Zosyn Per Pharmacy*) 1 note FOLLOW UP .ZOSYN PER PHARMACY [facility] Potassium Chloride (Klor Con Er Tab*) 40 meq PO BID [facility] Prochlorperazine Edisylate (Compazine Inj*) 5 mg IV Q6H PRN Reason: NAUSEA/ VOMITING Quetiapine Fumarate (Seroquel Tab*) 50 mg PO BEDTIME [facility] Sodium Hypochlorite (Dakins Solution Half Stre) 1 applic TOPICAL 1000,2200 [facility] Sucralfate (Carafate*) 1 gm PO AC [facility] Topiramate (Topamax(*)) 200 mg PO BEDTIME [facility] Triamterene/HCTZ (Dyazide Cap*) 1 cap PO DAILY [facility] Vital Signs - 8 hr 05/20/18 05/20/18 05/20/18 05:52 07:52 07:56 Respiratory 16 15 15 Rate Oxygen Devices in Use Now: None Appearance: NAD, laying in bed Ears/Nose/Mouth/Throat: Mucous Membranes Moist Skin: - - See skin documentation below Neurological: Alert and Oriented x 3 Nutrition: Taking PO's - Nutrition: Malnutrition Diagnosis/Plan Malnutrition Assessment by Registered Dietitian: Malnutrition Assessment Clinical Characteristics Chronic,Moderate Malnutrition Assessment: - 27% wt loss x past 11 months Criteria - Mild temporal muscle wasting Malnutrition Assessment: Will send Ensure Enlive w/ meals. 350 kcals, 20 Interventions grams protein per serving. Malnutrition Assessment: Goals 1. Adequate PO intake to promote lean body mass repletion, maintain hydration, and prevent additional wt loss 2. Intake will promote wound healing w/o additional pressure related breakdown Result Diagrams: 05/21/18 07:38 05/21/18 07:38 Microbiology and Other Data: Microbiology 05/11/18 16:17 Urine Culture - Preliminary Urine Escherichia Coli Klebsiella Pneumoniae Diagnostic Imaging: CXR: normal CT brain: normal Skin Deviation Note - Skin Deviation Findings Sacral wound - Total area of wound, including the areas or erythema surrounding the wound is 8.5 cm x 8.5 cm. The open area is 6.5 cm x 5 cm x 2.6 cm. There is tunneling noted between 12 and 1 o'clock measuring 0.7 cm. There is tunneling noted at 6 o'clock measuring 3.5 cm There is undermining noted around 4-5 o' clock that is 2.5 cm. The skin surrounding the wound has erythema. There is yellow slough in the wound bed and some pink tissue. Noted area under the measuring tape in the picture is secondary to tape irritation. Wound Problem/Plan Assessment: Ms. Coreas is a 77 yo F with PMH of recurrent falls, seizure disorder, hyperaldosteronism, meningioma, HTN, and depression, who was brought to the ED by a neighbor who found her on the floor for an unknown period of time and was found to have E. coli UTI and sacral decubitus ulcer. Is Patient a Wound Clinic Patient: No - Patient Problems (1) Pressure injury, stage 4 Code(s): L89.94 - PRESSURE ULCER OF UNSPECIFIED SITE, STAGE 4 SNOMED Code(s): 408521994 Comment: - Sacrum - S/P bedside sharp debridment on 05/13/[address] Chisholm - Currently being treated with Dakin's 0.25% packing and dry dressing - Disscussed the plan of treatment with Dr. Chisholm and he plans to palce a wound vac later today - Management per Dr. Chisholm (or general surgery team) (2) Moderate protein-calorie malnutrition Code(s): E44.0 - MODERATE PROTEIN-CALORIE MALNUTRITION SNOMED Code(s): 096436350 Comment: Chronic moderate protien malnutrition as evidenced by 27% wt loss x past 11 months, mild temporal muscle wasting. Encourage better oral intake. She states she got food poisioning earlier this hospitalization so she is turned off from food, but we discussed the need for good nutrition to heal the wound. (3) DVT prophylaxis Code(s): GRI6245 - SNOMED Code(s): 397905889 Comment: SQ Heparin. (4) Full code status Code(s): Z78.9 - OTHER SPECIFIED HEALTH STATUS SNOMED Code(s): 937714011 Status and Disposition: Inpatient. Disposition per Primary Medicine Team. Points of Discussion: Time for this consultation was 30 minutes, and 20 minutes was spent with the patient discussing the events of the past week, and assessing, measuring and photographing wounds, changing the dressing, and later applying a wound vac. Attending: Chayo Angel
--- NOTE | 2018-05-20 12:09 | PN ---
Subjective Date of Service: 05/20/18 Interval History: Pt is feeling ok. She states she is having a hard time getting comfortable in bed. She has mild discomfort in the sacrum. No other complaints. She did not eat breakfast because she said it was not appealing to her. She is not wanting to go to rehab but at this time is accepting. Family History: Unchanged from Admission Social History: Unchanged from Admission Past Medical History: Unchanged from Admission Objective Active Medications: Acetaminophen (Tylenol Tab*) 650 mg PO Q6H PRN PRN Reason: PAIN Last Admin: 05/19/18 23:45 Dose: 650 mg Alprazolam (Xanax Tab*) 0.5 mg PO TID [facility] Last Admin: 05/20/18 07:56 Dose: 0.5 mg Amoxicillin/Clavulanate Potassium (Augmentin Tab*) 500 mg PO BID [facility] Last Admin: 05/20/18 07:55 Dose: 500 mg Cetirizine HCl (Zyrtec*) 10 mg PO DAILY [facility]; Protocol Last Admin: 05/20/18 07:55 Dose: 10 mg Cyanocobalamin (Vitamin B12 Tab*) 1,000 mcg PO DAILY [facility] Last Admin: 05/20/18 07:55 Dose: 1,000 mcg Docusate Sodium (Colace Cap*) 100 mg PO BID [facility] Last Admin: 05/20/18 07:55 Dose: 100 mg Heparin Sodium (Porcine) (Heparin Vial(*)) 5,000 units SUBCUT Q8HR [facility] Last Admin: 05/20/18 05:53 Dose: 5,000 units Hydroxyzine HCl (Atarax Tab*) 50 mg PO Q4H PRN PRN Reason: ANXIETY Last Admin: 05/20/18 05:52 Dose: 50 mg Levothyroxine Sodium (Synthroid Tab*) 75 mcg PO 0600 [facility] Last Admin: 05/20/18 05:52 Dose: 75 mcg Magnesium Hydroxide (Milk Of Magnesia Liq*) 30 ml PO Q6H PRN PRN Reason: CONSTIPATION Last Admin: 05/15/18 18:21 Dose: 30 ml Meclizine HCl (Antivert Tab*) 25 mg PO Q8HR PRN PRN Reason: DIZZINESS Last Admin: 05/19/18 08:11 Dose: 25 mg Ondansetron HCl (Zofran Inj*) 4 mg IV Q6H PRN PRN Reason: NAUSEA Last Admin: 05/18/18 09:24 Dose: 4 mg Oxycodone HCl (Roxycodone Tab*) 2.5 mg PO Q6H PRN PRN Reason: PAIN - MODERATE Last Admin: 05/20/18 05:52 Dose: 2.5 mg Pantoprazole Sodium (Protonix Tab*) 40 mg PO BID [facility] Last Admin: 05/20/18 07:55 Dose: 40 mg Pharmacy Consult (Zosyn Per Pharmacy*) 1 note FOLLOW UP .ZOSYN PER PHARMACY [facility] Potassium Chloride (Klor Con Er Tab*) 40 meq PO BID [facility] Last Admin: 05/20/18 07:55 Dose: 40 meq Prochlorperazine Edisylate (Compazine Inj*) 5 mg IV Q6H PRN PRN Reason: NAUSEA/VOMITING Last Admin: 05/19/18 23:04 Dose: 5 mg Quetiapine Fumarate (Seroquel Tab*) 50 mg PO BEDTIME [facility] Last Admin: 05/19/18 21:39 Dose: 50 mg Sodium Hypochlorite (Dakins Solution Half Stre) 1 applic TOPICAL 1000,2200 [facility] Last Admin: 05/20/18 11:31 Dose: 1 applic Sucralfate (Carafate*) 1 gm PO AC [facility] Last Admin: 05/20/18 07:55 Dose: 1 gm Topiramate (Topamax(*)) 200 mg PO BEDTIME [facility] Last Admin: 05/19/18 23:22 Dose: Not Given Triamterene/HCTZ (Dyazide Cap*) 1 cap PO DAILY [facility] Last Admin: 05/20/18 07:55 Dose: 1 cap Vital Signs - 8 hr 05/20/18 05/20/18 05/20/18 05:52 07:52 07:56 Respiratory 16 15 15 Rate Oxygen Devices in Use Now: None Appearance: Elderly female sitting up in bed, NAD Eyes: No Scleral Icterus Ears/Nose/Mouth/Throat: Mucous Membranes Moist Respiratory: Symmetrical Chest Expansion and Respiratory Effort, Clear to Auscultation Cardiovascular: NL Sounds; No Murmurs; No JVD, RRR, No Edema Abdominal: NL Sounds; No Tenderness; No Distention Extremities: No Clubbing, Cyanosis Skin: No Nodules or Sclerosis, - - large stage IV pressure ulcer overlying the sacrum, slough noted on the wound base Neurological: - - alert, oriented to situation and place (hospital) - Nutrition: Malnutrition Diagnosis/Plan Malnutrition Assessment by Registered Dietitian: Malnutrition Assessment Clinical Characteristics Chronic,Moderate Malnutrition Assessment: - 27% wt loss x past 11 months Criteria - Mild temporal muscle wasting Malnutrition Assessment: Will send Ensure Enlive w/ meals. 350 kcals, 20 Interventions grams protein per serving. Malnutrition Assessment: Goals 1. Adequate PO intake to promote lean body mass repletion, maintain hydration, and prevent additional wt loss 2. Intake will promote wound healing w/o additional pressure related breakdown Result Diagrams: 05/18/18 06:51 05/19/18 06:36 Additional Lab and Data: Laboratory Tests Laboratory Tests 05/11/18 16:57 Sodium 139 Potassium 2.7 L* Chloride 104 Carbon Dioxide 26 BUN 29 H Creatinine 1.01 H Glucose 106 H 05/11/18 05/11/18 05/11/18 16:17 16:57 17:27 Lactic Acid 1.2 Magnesium 1.9 Total Bilirubin 0.60 AST 19 ALT 29 Total Creatine Kinase 60 Troponin I 0.02 Albumin 3.7 TSH 2.18 Urine Color Yellow Urine Blood 3+ A Ur Leukocyte Esterase 3+ A Urine WBC (Auto) 3+(>20/hpf) A Urine RBC (Auto) 2+(6-10/hpf) A Ur Squamous Epith Cells Present A Urine Bacteria 1+ A Microbiology and Other Data: Microbiology 05/11/18 16:17 Urine Culture - Preliminary Urine Escherichia Coli Klebsiella Pneumoniae Diagnostic Imaging: CXR: normal CT brain: normal EKG Data: NSR, nl axis, diffuse T-wave flattening precordial Assess/Plan/Problems-Billing Ms. Coreas is a 77 yo F with PMHx of recurrent falls, seizure disorder, hyperaldosteronism, meningioma, HTN, and depression, who was brought to the ED by a neighbor who found her on the floor for an unknown period of time and was found to have E. coli UTI and sacral decubitus ulcer. - Patient Problems (1) Stage IV pressure ulcer of sacral region Current Visit: Yes Status: Acute Code(s): L89.154 - PRESSURE ULCER OF SACRAL REGION, STAGE 4 SNOMED Code(s): 820136284 Comment: Pt with a stage IV pressure ulcer. Based on the picture taken this AM there is slough on the wound base but otherwise tissue appears healthy. Plan for wound vac today but if pt going to rehab maybe hold off on vac (will discuss with surgery). (2) UTI (urinary tract infection) Current Visit: Yes Status: Acute Comment: Today is D#6 of zosyn, after tomorrow, will change to augmentin for another 2 weeks per ID to cover for the pressure ulcer. (3) Delusional disorder Current Visit: Yes Status: Acute Code(s): F22 - DELUSIONAL DISORDERS SNOMED Code(s): 14341732 Comment: Pt was appropriate today in conversation, there were periods of confusion but no obvious delusions at this time. She feels sleepy and I wonder if it may be from the seroquel. Will continue the current dose of seroquel for now but if it starts impacting her periods of wakefulness will cut back the dose. (4) Moderate protein-calorie malnutrition Current Visit: Yes Status: Acute Code(s): E44.0 - MODERATE PROTEIN-CALORIE MALNUTRITION SNOMED Code(s): 229558080 Comment: Chronic moderate protien malnutrition as evidenced by 27% wt loss x past 11 months, mild temporal muscle wasting. Encourage better oral intake. She states she got food poisioning earlier this hospitalization so she is turned off from food, but we discussed the need for good nutrition to heal the wound. (5) Hypertension Current Visit: Yes Status: Acute Code(s): I10 - ESSENTIAL (PRIMARY) HYPERTENSION SNOMED Code(s): 42916923 Comment: BP is under good control. Continue dyazide. (6) Hypothyroidism Current Visit: Yes Status: Acute Code(s): E03.9 - HYPOTHYROIDISM, UNSPECIFIED SNOMED Code(s): 97815199 Comment: TSH in good range, continue current dose of synthroid. (7) Hyperaldosteronism Current Visit: Yes Status: Acute Code(s): E26.9 - HYPERALDOSTERONISM, UNSPECIFIED SNOMED Code(s): 62725115 Comment: K slightly low yesterday. Continue potassium supplementation. (8) Seizure disorder Current Visit: Yes Status: Acute Code(s): G40.909 - EPILEPSY, UNSP, NOT INTRACTABLE, WITHOUT STATUS EPILEPTICUS SNOMED Code(s): 932032290 Comment: Continue topamax at beditme. (9) DVT prophylaxis Current Visit: Yes Status: Acute Code(s): RBN1177 - SNOMED Code(s): 868816045 Comment: SQ Heparin. (10) Full code status Current Visit: Yes Status: Acute Code(s): Z78.9 - OTHER SPECIFIED HEALTH STATUS SNOMED Code(s): 579903250 Comment: Status and Disposition: Patient has been determined to lack capacity to make her own medical decisions. Plan for SNF placement - awaiting bed availability.
[2018-05-20] MEDS: Topiramate TAB(*) 100 MG PO SCH (20:36)
[2018-05-20] MEDS: QUEtiapine TAB* 25 MG PO SCH (20:36)
[2018-05-21] MEDS: Acetaminophen TAB* 325 MG PO PRN (00:52)
[2018-05-21] MEDS: hydrOXYzine HCL TAB* 50 MG PO PRN ×4 (00:53→21:25)
[2018-05-21] MEDS: Levothyroxine TAB* 75 MCG TAB PO SCH (05:02)
[2018-05-21] MEDS: Heparin VIAL(*) 5000 UNITS/ML VIAL (FIVE THOUSAND) SUBCUT SCH ×3 (05:02→21:32)
[2018-05-21] MEDS: oxyCODONE TAB* 5 MG TAB PO PRN ×3 (05:02→21:24)
[2018-05-21 08:17] LABS: Hematocrit 33 % (35-47); Hemoglobin 11.1 g/dl (12.0-16.0); Mean Corpuscular HGB Conc 33 g/dl (31-36); Mean Corpuscular Hemoglobin 32 pg (27-31); Mean Corpuscular Volume 97 fL (80-97); Mean Platelet Volume 8.2 fL (7.4-10.4); Platelet Count 332 10^3/ul (150-450); Red Blood Count 3.44 10^6/ul (4.00-5.40); Red Cell Distribution Width 15 % (10.5-15); White Blood Count 9.5 10^3/ul (3.5-10.8)
[2018-05-21] MEDS: Dakins Solution 0.25% (1/2 STR.)* 473 ML BTL TOPICAL SCH ×2 (08:19→21:12)
[2018-05-21 08:22] LABS: Calcium 9.2 mg/dL (8.6-10.3); EGFR African American 109.5 (>60); EGFR Non-African American 90.5 (>60); Potassium 3.8 mmol/L (3.5-5.0)
[2018-05-21] MEDS: ALPRAZolam TAB* 0.5 MG PO SCH ×2 (09:32→14:58)
[2018-05-21] MEDS: Amoxicillin/Clavulanate TAB* 500 MG PO SCH ×2 (09:32→23:42)
[2018-05-21] MEDS: Docusate CAP* 100 MG PO SCH ×2 (09:32→21:27)
[2018-05-21] MEDS: Triamterene/HCTZ 37.5-25 MG* CAP PO SCH (09:32)
[2018-05-21] MEDS: Cetirizine* 10 MG TAB PO SCH (09:32)
[2018-05-21] MEDS: Pantoprazole TAB * 40 MG TAB PO SCH ×2 (09:36→21:28)
[2018-05-21] MEDS: Potassium Chlor TAB* 20 MEQ TAB.ER PO SCH ×2 (09:46→23:42)
[2018-05-21] MEDS: Cyanocobalamin TAB* 500 MCG PO SCH (09:57)
[2018-05-21] MEDS: Sucralfate TAB* 1 GM PO SCH ×3 (09:58→17:43)
--- NOTE | 2018-05-21 18:13 | PN ---
Subjective Date of Service: 05/21/18 Interval History: Pt is feeling wiped out. 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 She c/o moderate pain in her bottom and is uncomfortable in the bed. Family History: Unchanged from Admission Social History: Unchanged from Admission Past Medical History: Unchanged from Admission Objective Active Medications: Acetaminophen (Tylenol Tab*) 650 mg PO Q6H PRN PRN Reason: PAIN Last Admin: 05/21/18 00:52 Dose: 650 mg Alprazolam (Xanax Tab*) 0.5 mg PO TID [facility] Last Admin: 05/21/18 14:58 Dose: Not Given Amoxicillin/Clavulanate Potassium (Augmentin Tab*) 500 mg PO BID [facility] Last Admin: 05/21/18 09:32 Dose: 500 mg Cetirizine HCl (Zyrtec*) 10 mg PO DAILY [facility]; Protocol Last Admin: 05/21/18 09:32 Dose: 10 mg Cyanocobalamin (Vitamin B12 Tab*) 1,000 mcg PO DAILY [facility] Last Admin: 05/21/18 09:57 Dose: 1,000 mcg Docusate Sodium (Colace Cap*) 100 mg PO BID [facility] Last Admin: 05/21/18 09:32 Dose: 100 mg Heparin Sodium (Porcine) (Heparin Vial(*)) 5,000 units SUBCUT Q8HR [facility] Last Admin: 05/21/18 14:58 Dose: Not Given Hydroxyzine HCl (Atarax Tab*) 50 mg PO Q4H PRN PRN Reason: ANXIETY Last Admin: 05/21/18 12:44 Dose: 50 mg Levothyroxine Sodium (Synthroid Tab*) 75 mcg PO 0600 [facility] Last Admin: 05/21/18 05:02 Dose: 75 mcg Magnesium Hydroxide (Milk Of Magnesia Liq*) 30 ml PO Q6H PRN PRN Reason: CONSTIPATION Last Admin: 05/15/18 18:21 Dose: 30 ml Meclizine HCl (Antivert Tab*) 25 mg PO Q8HR PRN PRN Reason: DIZZINESS Last Admin: 05/19/18 08:11 Dose: 25 mg Ondansetron HCl (Zofran Inj*) 4 mg IV Q6H PRN PRN Reason: NAUSEA Last Admin: 05/18/18 09:24 Dose: 4 mg Oxycodone HCl (Roxycodone Tab*) 2.5 mg PO Q6H PRN PRN Reason: PAIN - MODERATE Last Admin: 05/21/18 12:34 Dose: 2.5 mg Pantoprazole Sodium (Protonix Tab*) 40 mg PO BID [facility] Last Admin: 05/21/18 09:36 Dose: 40 mg Pharmacy Consult (Zosyn Per Pharmacy*) 1 note FOLLOW UP .ZOSYN PER PHARMACY [facility] Potassium Chloride (Klor Con Er Tab*) 40 meq PO BID [facility] Last Admin: 05/21/18 09:46 Dose: 40 meq Prochlorperazine Edisylate (Compazine Inj*) 5 mg IV Q6H PRN PRN Reason: NAUSEA/VOMITING Last Admin: 05/19/18 23:04 Dose: 5 mg Quetiapine Fumarate (Seroquel Tab*) 50 mg PO BEDTIME [facility] Last Admin: 05/20/18 20:36 Dose: 50 mg Sodium Hypochlorite (Dakins Solution Half Stre) 1 applic TOPICAL 1000,2200 [facility] Last Admin: 05/21/18 08:19 Dose: Not Given Sucralfate (Carafate*) 1 gm PO AC [facility] Last Admin: 05/21/18 17:43 Dose: Not Given Topiramate (Topamax(*)) 200 mg PO BEDTIME [facility] Last Admin: 05/20/18 20:36 Dose: 200 mg Triamterene/HCTZ (Dyazide Cap*) 1 cap PO DAILY [facility] Last Admin: 05/21/18 09:32 Dose: 1 cap Vital Signs - 8 hr 05/21/18 05/21/18 05/21/18 11:37 11:58 12:34 Temperature 98.1 F Pulse Rate 83 Respiratory 16 16 16 Rate Blood Pressure 97/47 (mmHg) O2 Sat by Pulse 100 Oximetry 05/21/18 05/21/18 05/21/18 13:02 14:57 16:13 Temperature 98.8 F Pulse Rate 87 Respiratory 16 18 20 Rate Blood Pressure 106/53 (mmHg) O2 Sat by Pulse 100 Oximetry Oxygen Devices in Use Now: None Appearance: Elderly female lying in bed, NAD Eyes: No Scleral Icterus Ears/Nose/Mouth/Throat: Mucous Membranes Moist Respiratory: Symmetrical Chest Expansion and Respiratory Effort, Clear to Auscultation - anteriorly Cardiovascular: NL Sounds; No Murmurs; No JVD, RRR, No Edema Abdominal: NL Sounds; No Tenderness; No Distention Extremities: No Clubbing, Cyanosis Skin: No Nodules or Sclerosis, - - sacral pressure ulcer now with wound vac in place Neurological: Alert and Oriented x 3 - Nutrition: Malnutrition Diagnosis/Plan Malnutrition Assessment by Registered Dietitian: Malnutrition Assessment Clinical Characteristics Chronic,Moderate Malnutrition Assessment: - 27% wt loss x past 11 months Criteria - Mild temporal muscle wasting Malnutrition Assessment: Will send Ensure Enlive w/ meals. 350 kcals, 20 Interventions grams protein per serving. Malnutrition Assessment: Goals 1. Adequate PO intake to promote lean body mass repletion, maintain hydration, and prevent additional wt loss 2. Intake will promote wound healing w/o additional pressure related breakdown Result Diagrams: 05/21/18 07:38 05/21/18 07:38 Additional Lab and Data: Laboratory Tests Laboratory Tests 05/11/18 16:57 Sodium 139 Potassium 2.7 L* Chloride 104 Carbon Dioxide 26 BUN 29 H Creatinine 1.01 H Glucose 106 H 05/11/18 05/11/18 05/11/18 16:17 16:57 17:27 Lactic Acid 1.2 Magnesium 1.9 Total Bilirubin 0.60 AST 19 ALT 29 Total Creatine Kinase 60 Troponin I 0.02 Albumin 3.7 TSH 2.18 Urine Color Yellow Urine Blood 3+ A Ur Leukocyte Esterase 3+ A Urine WBC (Auto) 3+(>20/hpf) A Urine RBC (Auto) 2+(6-10/hpf) A Ur Squamous Epith Cells Present A Urine Bacteria 1+ A Microbiology and Other Data: Microbiology 05/11/18 16:17 Urine Culture - Preliminary Urine Escherichia Coli Klebsiella Pneumoniae Diagnostic Imaging: CXR: normal CT brain: normal EKG Data: NSR, nl axis, diffuse T-wave flattening precordial Assess/Plan/Problems-Billing Assessment: Ms. Coreas is a 77 yo F with PMH of recurrent falls, seizure disorder, hyperaldosteronism, meningioma, HTN, and depression, who was brought to the ED by a neighbor who found her on the floor for an unknown period of time and was found to have E. coli UTI and sacral decubitus ulcer. - Patient Problems (1) Stage IV pressure ulcer of sacral region Current Visit: Yes Status: Acute Code(s): L89.154 - PRESSURE ULCER OF SACRAL REGION, STAGE 4 SNOMED Code(s): 968653943 Comment: Pt with a stage IV pressure ulcer. Wound vac placed and will plan on d/c to [facility] rehab tomorrow with wound vac. I have encouraged the patient to improve her oral intake to help heal the wound. (2) UTI (urinary tract infection) Current Visit: Yes Status: Acute Comment: Correction: pt was changed to zosyn on 05/19/18. Will continue x 12 more days. (3) Delusional disorder Current Visit: Yes Status: Acute Code(s): F22 - DELUSIONAL DISORDERS SNOMED Code(s): 11602037 Comment: Pt was appropriate today in conversation. Will decrease seroquel to 25mg qHS as pt seems sleepy which is likely from this medication. (4) Moderate protein-calorie malnutrition Current Visit: Yes Status: Acute Code(s): E44.0 - MODERATE PROTEIN-CALORIE MALNUTRITION SNOMED Code(s): 163685420 Comment: Chronic moderate protien malnutrition as evidenced by 27% wt loss x past 11 months, mild temporal muscle wasting. Encourage better oral intake. Pt states she is drinking ensure. (5) Hypertension Current Visit: Yes Status: Acute Code(s): I10 - ESSENTIAL (PRIMARY) HYPERTENSION SNOMED Code(s): 90786101 Comment: BP is under good control. Continue dyazide. (6) Hypothyroidism Current Visit: Yes Status: Acute Code(s): E03.9 - HYPOTHYROIDISM, UNSPECIFIED SNOMED Code(s): 51012668 Comment: TSH in good range, continue current dose of synthroid. (7) Hyperaldosteronism Current Visit: Yes Status: Acute Code(s): E26.9 - HYPERALDOSTERONISM, UNSPECIFIED SNOMED Code(s): 03792682 Comment: Continue potassium supplementation. (8) Seizure disorder Current Visit: Yes Status: Acute Code(s): G40.909 - EPILEPSY, UNSP, NOT INTRACTABLE, WITHOUT STATUS EPILEPTICUS SNOMED Code(s): 620724138 Comment: Continue topamax at beditme. (9) DVT prophylaxis Current Visit: Yes Status: Acute Code(s): EIR3182 - SNOMED Code(s): 199765401 Comment: SQ Heparin. (10) Full code status Current Visit: Yes Status: Acute Code(s): Z78.9 - OTHER SPECIFIED HEALTH STATUS SNOMED Code(s): 407376495 Comment: Status and Disposition: .
[2018-05-21] MEDS ORDERED: QUEtiapine TAB* 25 MG PO SCH (21:00)
--- NOTE | 2018-05-21 23:28 | DS ---
CC: Dr. Wright * DISCHARGE SUMMARY: DATE OF ADMISSION: 05/11/18 DATE OF DISCHARGE: 05/22/18 (this is being dictated in advance). PRIMARY CARE PROVIDER: Dr. Wright. PRINCIPAL DIAGNOSES: 1. Escherichia coli urinary tract infection. 2. Stage 4 sacral decubitus ulcer. 3. Delusional disorder. 4. Hyperaldosteronism. 5. Seizure disorder. 6. Depression. 7. Hypertension. 8. History of meningioma - resected. 9. Cerebral artery aneurysm - coiled. DISCHARGE MEDICATIONS: 1. Tylenol 650 mg p.o. q.6 hours p.r.n. pain. 2. Xanax 0.5 mg p.o. t.i.d. 3. Cetirizine 10 mg p.o. daily. 4. Vitamin B12 1000 mcg p.o. daily. 5. Colace 100 mg p.o. b.i.d. 6. Hydroxyzine 50 mg p.o. q.4 hours p.r.n. anxiety. 7. Levothyroxine 75 mg p.o. daily. 8. MOM 30 mL p.o. q.6 hours p.r.n. constipation. 9. Oxycodone 2.5 mg p.o. q.6 hours p.r.n. pain. 10. Protonix 40 mg p.o. b.i.d. 11. Potassium chloride 40 mEq p.o. b.i.d. 12. Seroquel 25 mg p.o. q.h.s. 13. Carafate 1 g p.o. a.c. 14. Topamax 200 mg p.o. q.h.s. 15. Dyazide 37.5/25 one cap p.o. daily. HOSPITAL COURSE: Ms. Coreas is a 77-year-old female who was brought to the hospital for evaluation of falls and being on the floor for several days. She was reportedly found on the floor 2 to 3 days prior to admission by her neighbor. The neighbor went to help her up; however, the patient reportedly refused and spent 3 days on the floor. She again was seen now on the day of admission by the neighbor and finally agreed to come to the emergency room. The patient had refused to present to the PCP office and refused all help at home per Dr. Wright, who admitted to the patient and is also the patient's PCP. Adult practice services, meals on wheels, and the sand bobber had been to her house due to concerns about her safety. The patient was found to have a large sacral decubitus ulcer; however, she was unable to state how long it had been there. It is reported that the patient had become increasingly delusional over the course of the recent months. The patient was admitted for evaluation of the decubitus ulcer. Also, it was felt that she was unsafe at home. The patient was ultimately found to have an E. coli urinary tract infection, which has been treated initially with Zosyn and subsequently changed to Augmentin. In terms of the decubitus ulcer, the patient has been seen by General Surgery. A wound VAC has ultimately been placed and it is unclear how long that wound had been there. Augmentin will continue for another 11 days due to concerns that the decubitus was infected initially. The patient was also seen in consultation by Psychiatry. She was deemed to not have capacity to refuse discharge to subacute rehab. The patient has been offered a bed at [facility] for 05/22/18. The patient has been started on Seroquel by Psychiatry for her delusions. The patient has improved over the course of her hospitalization. I have decreased the dose from 50 mg at bedtime to 25 mg at bedtime as the patient is seeming somewhat sedate during the day, which could be due to the Seroquel that she has been receiving at bedtime. The patient will be discharged with the wound VAC in place. This should be changed Mondays, Wednesdays, and Fridays. Wound followup will be important. This can be done at the retirement or at a wound center. FOLLOWUP CONCERNS: The patient is being discharged to [facility] on 05/22/18. ACTIVITY LEVEL: As tolerated. DIET: Regular. CONDITION ON DISCHARGE: Stable. TIME SPENT: Forty minutes were spent in discharging this patient. [id number] #: [id number] ANA M
[2018-05-21] MEDS: Topiramate TAB(*) 100 MG PO SCH (23:42)
[2018-05-22] MEDS: ALPRAZolam TAB* 0.5 MG PO SCH ×3 (00:44→15:25)
[2018-05-22] MEDS: hydrOXYzine HCL TAB* 50 MG PO PRN ×3 (02:08→13:08)
[2018-05-22] MEDS: Heparin VIAL(*) 5000 UNITS/ML VIAL (FIVE THOUSAND) SUBCUT SCH ×2 (05:58→13:08)
[2018-05-22] MEDS: Levothyroxine TAB* 75 MCG TAB PO SCH (05:58)
[2018-05-22] MEDS: oxyCODONE TAB* 5 MG TAB PO PRN ×2 (07:35→13:07)
[2018-05-22] MEDS: Docusate CAP* 100 MG PO SCH (10:20)
[2018-05-22] MEDS: Triamterene/HCTZ 37.5-25 MG* CAP PO SCH (10:21)
[2018-05-22] MEDS: Sucralfate TAB* 1 GM PO SCH ×2 (10:54→12:49)
[2018-05-22] MEDS: Potassium Chlor TAB* 20 MEQ TAB.ER PO SCH (12:47)
[2018-05-22] MEDS: Amoxicillin/Clavulanate TAB* 500 MG PO SCH (12:48)
[2018-05-22] MEDS: Dakins Solution 0.25% (1/2 STR.)* 473 ML BTL TOPICAL SCH (12:50)
[2018-05-22] MEDS: Cyanocobalamin TAB* 500 MCG PO SCH (12:51)
[2018-05-22] MEDS: Cetirizine* 10 MG TAB PO SCH (12:51)
[2018-05-22] MEDS: Pantoprazole TAB * 40 MG TAB PO SCH (12:51)
[2018-05-22 13:34] VITALS: BP 108/52
== END 2018-05-22 15:45 | DRG 571 ==
LOC: ED 15:33 → MED 19:42
PROVIDERS: ADMIT Internal Medicine; ATTEND Student in an Organized Health Care Education/Training Program
PROC: 0JB70ZZ Excision of Back Subcutaneous Tissue and Fascia, Open Approach (ICD-10-PCS; principal; 2018-05-13)
DX: L89.154 Pressure ulcer of sacral region, stage 4 (principal); N39.0 Urinary tract infection, site not specified; E44.0 Moderate protein-calorie malnutrition; L03.90 Cellulitis, unspecified; F22 Delusional disorders; G40.909 Epilepsy, unspecified, not intractable, without status epilepticus; E26.9 Hyperaldosteronism, unspecified; F32.9 Major depressive disorder, single episode, unspecified; I10 Essential (primary) hypertension; E87.6 Hypokalemia; A60.00 Herpesviral infection of urogenital system, unspecified; E03.9 Hypothyroidism, unspecified; K21.9 Gastro-esophageal reflux disease without esophagitis; G43.909 Migraine, unspecified, not intractable, without status migrainosus; B96.20 Unspecified Escherichia coli [E. coli] as the cause of diseases classified elsewhere; Z68.20 Body mass index [BMI] 20.0-20.9, adult; Z80.1 Family history of malignant neoplasm of trachea, bronchus and lung; Z83.3 Family history of diabetes mellitus; Z84.89 Family history of other specified conditions; Z87.891 Personal history of nicotine dependence; Z91.81 History of falling
CPT/HCPCS: 36415; 70450; 71045; 80048; 80053; 80175; 80201; 81003; 81015; 82550; 83605; 83735; 84132; 84443; 84484; 85025; 85027; 85610; 87040; 87070; 87077; 87086; 87186; 87205; 87640; 87641; 93005; 99283; A9270-GY; J0780; J1644; J2270; J2405; J2543; J3475; J3480

== ENCOUNTER 2018-10-07 13:23 | Emergency (ER) | payer MEDICARE ==
--- OUTSIDE RECORDS SUMMARY | 2018-10-07 13:31 | XMS REPORT | Continuity of Care Document ---
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 Sitting 122 mmHg BP Diastolic Sitting 78 mmHg Body Temperature 97.8 F O2 % BldC Oximetry 98 % 01/24/2015 2:19pm Heart Rate 89 /min BP Systolic Sitting 112 mmHg BP Diastolic Sitting 68 mmHg Body Temperature 98.5 F O2 % BldC Oximetry 98 % 01/24/2015 1:05pm Height 66 inches 5'6" Weight 216.00 lb Pain Level 5 BMI (Body Mass Index) 34.9 kg/m2 01/13/2015 9:34am Weight 216.00 lb Heart Rate 91 /min BP Systolic Sitting 124 mmHg BP Diastolic Sitting 70 mmHg Respiratory Rate 16 /min Body Temperature 96.0 F Pain Level 7 O2 % BldC Oximetry 99 % 01/10/2015 10:21am Height 66 inches 5'6" Weight 200.00 lb Heart Rate 93 /min BP Systolic 126 mmHg BP Diastolic 70 mmHg Body Temperature 98.3 F O2 % BldC Oximetry 98 % BMI (Body Mass Index) 32.3 kg/m2 12/29/2014 3:38pm Height 66 inches 5'6" Weight 200.00 lb Heart Rate 97 /min BP Systolic 137 mmHg BP Diastolic 78 mmHg Body Temperature 97.9 F BMI (Body Mass Index) 32.3 kg/m2 11/24/2014 2:42pm Height 66 inches 5'6" Weight 200.00 lb Heart Rate 86 /min BP Systolic 113 mmHg BP Diastolic 79 mmHg BMI (Body Mass Index) 32.3 kg/m2 11/21/2014 2:33pm Weight 200.12 lb Heart Rate 87 /min BP Systolic Sitting 134 mmHg BP Diastolic Sitting 79 mmHg Body Temperature 98.5 F O2 % BldC Oximetry 96 % 11/01/2014 12:20pm Heart Rate 90 /min BP Systolic Sitting 128 mmHg BP Diastolic Sitting 72 mmHg Body Temperature 97.8 F O2 % BldC Oximetry 96 % 09/20/2014 11:32am Weight 203.50 lb Heart Rate 69 /min BP Systolic Sitting 140 mmHg BP Diastolic Sitting 82 mmHg Pain Level 7 Shoulders and arms and back. O2 % BldC Oximetry 98 % 09/06/2014 12:07pm Heart Rate 81 /min BP Systolic Sitting 140 mmHg BP Diastolic Sitting 70 mmHg Body Temperature 98.0 F O2 % BldC Oximetry 98 % 08/30/2014 2:57pm Heart Rate 77 /min BP Systolic Sitting 131 mmHg BP Diastolic Sitting 75 mmHg Pain Level 9 08/11/2014 2:08pm Heart Rate 81 /min BP Systolic Sitting 136 mmHg BP Diastolic Sitting 71 mmHg Body Temperature 98.0 F O2 % BldC Oximetry 97 % 07/27/2014 1:49pm Weight 207.00 lb Heart Rate 98 /min BP Systolic Sitting 126 mmHg BP Diastolic Sitting 70 mmHg Body Temperature 97.5 F O2 % BldC Oximetry 98 % 06/06/2014 1:41pm Height 65 inches 5'5" Weight 189.00 lb Heart Rate 88 /min BP Systolic Sitting 120 mmHg BP Diastolic Sitting 72 mmHg Respiratory Rate 16 /min BMI (Body Mass Index) 31.4 kg/m2 04/15/2014 10:18am Weight 207.00 lb Heart Rate 78 /min BP Systolic Sitting 121 mmHg BP Diastolic Sitting 72 mmHg Body Temperature 98.0 F O2 % BldC Oximetry 98 % 03/15/2014 11:27am Height 66 inches 5'6" Weight 203.00 lb Heart Rate 84 /min BP Systolic Sitting 130 mmHg BP Diastolic Sitting 74 mmHg BMI (Body Mass Index) 32.8 kg/m2 02/22/2014 2:24pm Heart Rate 80 /min BP Systolic Sitting 128 mmHg BP Diastolic Sitting 84 mmHg Body Temperature 98.0 F 01/20/2014 11:34am Weight 192.00 lb Heart Rate 76 /min BP Systolic Sitting 125 mmHg BP Diastolic Sitting 67 mmHg Body Temperature 97.7 F 12/09/2013 12:03pm Height 66 inches 5'6" Weight 195.00 lb Heart Rate 76 /min BP Systolic Sitting 136 mmHg BP Diastolic Sitting 74 mmHg BMI (Body Mass Index) 31.5 kg/m2 11/02/2013 12:42pm Height 66 inches 5'6" Weight 191.00 lb Heart Rate 88 /min BP Systolic Sitting 122 mmHg BP Diastolic Sitting 80 mmHg BMI (Body Mass Index) 30.8 kg/m2 08/11/2012 10:19am Heart Rate 78 /min BP Systolic Sitting 126 mmHg BP Diastolic Sitting 84 mmHg Respiratory Rate 18 /min 08/28/2009 11:26am Weight 217.25 lb Heart Rate 76 /min BP Systolic 132 mmHg BP Diastolic 68 mmHg Respiratory Rate 12 /min 06/28/2009 8:41am Heart Rate 80 /min BP Systolic 130 mmHg BP Diastolic 80 mmHg Respiratory Rate 16 /min Body Temperature 98.0 F 06/12/2009 12:31pm Heart Rate 80 /min BP Systolic Sitting 120 mmHg BP Diastolic Sitting 66 mmHg 06/01/2009 10:19am Weight 212.12 lb Heart Rate 100 /min BP Systolic Sitting 136 mmHg BP Diastolic Sitting 86 mmHg Respiratory Rate 16 /min 04/05/2009 10:05am Height 66 inches 5'6" Weight 212.00 lb Heart Rate 88 /min BP Systolic Sitting 124 mmHg BP Diastolic Sitting 84 mmHg BMI (Body Mass Index) 34.2 kg/m2 10/21/2008 11:29am Height 66 inches 5'6" Weight 205.75 lb Heart Rate 78 /min BP Systolic Sitting 142 mmHg BP Diastolic Sitting 80 mmHg Body Temperature 98.3 F BMI (Body Mass Index) 33.2 kg/m2 05/19/2008 11:13am Height 66 inches 5'6" Weight 208.00 lb Heart Rate 76 /min BP Systolic Sitting 142 mmHg BP Diastolic Sitting 82 mmHg Body Temperature 97.5 F BMI (Body Mass Index) 33.6 kg/m2 03/15/2008 10:22am Height 66 inches 5'6" Weight 214.00 lb Heart Rate 80 /min BP Systolic Sitting 128 mmHg BP Diastolic Sitting 80 mmHg BMI (Body Mass Index) 34.5 kg/m2 11/09/2007 3:18pm Height 66 inches 5'6" Weight 211.00 lb Heart Rate 76 /min BP Systolic Sitting 138 mmHg BP Diastolic Sitting 80 mmHg BMI (Body Mass Index) 34.1 kg/m2 08/25/2007 10:39am Height 66 inches 5'6" Weight 211.00 lb Heart Rate 96 /min BP Systolic Sitting 140 mmHg BP Diastolic Sitting 78 mmHg Body Temperature 99.1 F BMI (Body Mass Index) 34.1 kg/m2 05/28/2007 10:53am Height 66 inches 5'6" Weight 196.00 lb Heart Rate 70 /min BP Systolic Sitting 120 mmHg BP Diastolic Sitting 72 mmHg BMI (Body Mass Index) 31.6 kg/m2 03/03/2007 11:15am Height 66 inches 5'6" Weight 196.00 lb Heart Rate 80 /min BP Systolic Sitting 132 mmHg BP Diastolic Sitting 80 mmHg BMI (Body Mass Index) 31.6 kg/m2 Results Test Date Facility Test Result H/L Range Note Laboratory test 05/11/2018 [facility] Lactic Acid 1.2 mmol/L N 0.5-2.0 1 finding [address] [place] [address] [phone] Urinalysis Profile 05/11/2018 [facility] Urine Color Yellow [address] [place] [address] [phone] Urine Appearance Turbid Urine Specific [place] 1.014 N 1.010-1.030 Urine pH 5.0 N 5-9 Urine Urobilinogen Negative Negative Urine Ketones Negative Negative Urine Protein Negative Negative Urine Leukocytes 3+ Abnormal Negative Urine Blood 3+ Abnormal Negative Urine Nitrite Positive Abnormal Negative Urine Bilirubin Negative Negative Urine Glucose Negative Negative Urine White Blood Cell 3+(>20/hpf) Abnormal Absent Urine Red Blood Cell 2+(6-10/hpf) Abnormal Absent Urine Bacteria 1+ Abnormal Absent Urine Squamous Epithelial Cell Present Abnormal Absent CBC Auto Diff 05/11/2018 [facility] White Blood 10.0 10^3/uL N 3.5-10.[address] [place] [address] [phone] Red Blood Count 3.78 10^6/uL Low 4.00-5.40 Hemoglobin 12.2 g/dL N 12.0-16.0 Hematocrit 37 % N 35-47 Mean Corpuscular Volume 97 fL N 80-97 Mean Corpuscular Hemoglobin 32 pg High 27-31 Mean Corpuscular HGB Conc 33 g/dL N 31-36 Red Cell Distribution Width 15 % N 10.5-15 Platelet Count 202 10^3/uL N 150-450 Mean Platelet Volume 9.7 fL N 7.4-10.4 Abs Neutrophils 7.3 10^3/uL N 1.5-7.7 Abs Lymphocytes 1.8 10^3/uL N 1.0-4.8 Abs Monocytes 0.8 10^3/uL N 0-0.8 Abs Eosinophils 0.1 10^3/uL N 0-0.6 Abs Basophils 0 10^3/uL N 0-0.2 Abs Nucleated RBC 0 10^3/uL Granulocyte % 72.5 % Lymphocyte % 18.4 % Monocyte % 7.6 % Eosinophil % 1.3 % Basophil % 0.2 % Nucleated Red Blood Cells % 0 Comp Metabolic Panel 05/11/2018 [facility] Sodium 139 mmol/L N 135-[address] [place] [address] [phone] Chloride 104 mmol/L N 101-111 Co2 Carbon Dioxide 26 mmol/L N 22-32 Glucose 106 mg/dL High 70-100 Blood Urea Nitrogen 29 mg/dL High 6-24 Creatinine 1.01 mg/dL High 0.51-0.95 BUN/Creatinine Ratio 28.7 High 8-20 Calcium 9.4 mg/dL N 8.6-10.3 Total Protein 6.6 g/dL N 6.4-8.9 Albumin 3.7 g/dL N 3.2-5.2 Globulin 2.9 g/dL N 2-4 Albumin/Globulin Ratio 1.3 N 1-3 Total Bilirubin 0.60 mg/dL N 0.2-1.0 Alkaline Phosphatase 70 U/L N 34-104 Alt 29 U/L N 7-52 Ast 19 U/L N 13-39 Egfr Non- 53.4 >60 Egfr 64.7 >60 2 Potassium 2.7 mmol/L Low 3.5-5.0 3 Anion Gap 9 mmol/L N 2-11 Laboratory test 05/11/2018 [facility] Magnesium 1.9 mg/dL N 1.9-2.[address] [place] [address] [phone] Creatine Kinase(CK) 60 U/L N 10-223 Troponin-I (TnI) 0.02 ng/mL <0.04 4 TSH (Thyroid Stim Horm) 2.18 mcIU/mL N 0.34-5.60 Urine Culture And 05/11/2018 [facility] Urine Culture SEE RESULT [address] [place] [address] [phone] Urinalysis Profile 12/31/2017 [facility] Urine Color Yellow [address] [place] [address] [phone] Urine Appearance Turbid Urine Specific [employer] [place] 1.015 N 1.010-1.030 Urine pH 7.0 N 5-9 Urine Urobilinogen Negative Negative Urine Ketones Negative Negative Urine Protein Negative Negative Urine Leukocytes 3+ Abnormal Negative Urine Blood Negative Negative Urine Nitrite Negative Negative Urine Bilirubin Negative Negative Urine Glucose Negative Negative Urine White Blood Cell 3+(>20/hpf) Abnormal Absent Urine Red Blood Cell Trace(0-2/hpf) Absent Urine Bacteria Absent Absent Urine Squamous Epithelial Cell Present Abnormal Absent Urine Transitional Epithelial Present Abnormal Absent Urine Triple Phosphate Cryst Present Abnormal Absent Urine Culture And 12/31/2017 [facility] Urine Culture SEE RESULT [address] [place] [address] [phone] Comp Metabolic 12/31/2017 [facility] Sodium 137 mmol/L N 135- [address] [place] [address] [phone] Potassium 4.0 mmol/L N 3.5-5.0 Chloride 102 mmol/L N 101-111 Co2 Carbon Dioxide 29 mmol/L N 22-32 Anion Gap 6 mmol/L N 2-11 Glucose 85 mg/dL N 70-100 Blood Urea Nitrogen 20 mg/dL N 6-24 Creatinine 1.00 mg/dL High 0.51-0.95 BUN/Creatinine Ratio 20.0 N 8-20 Calcium 9.9 mg/dL N 8.6-10.3 Total Protein 7.0 g/dL N 6.4-8.9 Albumin 4.5 g/dL N 3.2-5.2 Globulin 2.5 g/dL N 2-4 Albumin/Globulin Ratio 1.8 N 1-3 Total Bilirubin 0.30 mg/dL N 0.2-1.0 Alkaline Phosphatase 60 U/L N 34-104 Alt 11 U/L N 7-52 Ast 11 U/L Low 13-39 Egfr Non- 54.1 >60 Egfr 65.4 >60 7 Laboratory test 12/31/2017 [facility] Topamax 9.2 g/mL [address] (Topiramate) [place] [address] [phone] Lamotrigine (Lamictal) 5.6 g/mL 2.5 - 15.0 9 BUN/Creat/GFR 12/09/2017 [facility] Poc Blood Urea 14 mg/dL N 8-[address] [place] [address] [phone] Poc Creatinine 0.9 mg/dL N 0.6-1.3 10 Poc BUN/Creatinine Ratio 15.6 N 8-20 Egfr Non- 61.0 >60 Egfr 73.9 >60 11 Comp Metabolic Panel 09/25/2017 [facility] Sodium 139 mmol/L N 135-[address] [place] [address] [phone] Potassium 3.5 mmol/L N 3.5-5.0 Chloride 103 mmol/L N 101-111 Co2 Carbon Dioxide 27 mmol/L N 22-32 Anion Gap 9 mmol/L N 2-11 Glucose 84 mg/dL N 70-100 Blood Urea Nitrogen 13 mg/dL N 6-24 Creatinine 0.90 mg/dL N 0.51-0.95 BUN/Creatinine Ratio 14.4 N 8-20 Calcium 9.6 mg/dL N 8.6-10.3 Total Protein 6.8 g/dL N 6.4-8.9 Albumin 4.3 g/dL N 3.2-5.2 Globulin 2.5 g/dL N 2-4 Albumin/Globulin Ratio 1.7 N 1-3 Total Bilirubin 0.50 mg/dL N 0.2-1.0 Alkaline Phosphatase 68 U/L N 34-104 Alt 28 U/L N 7-52 Ast 18 U/L N 13-39 Egfr Non- 61.2 >60 Egfr 74.1 >60 12 CBC Auto Diff 09/25/2017 [facility] White Blood 7.0 10^3/uL N 3.5-10.[address] [place] [address] [phone] Red Blood Count 3.70 10^6/uL Low 4.00-5.40 Hemoglobin 12.1 g/dL N 12.0-16.0 Hematocrit 36 % N 35-47 Mean Corpuscular Volume 96 fL N 80-97 Mean Corpuscular Hemoglobin 33 pg High 27-31 Mean Corpuscular HGB Conc 34 g/dL N 31-36 Red Cell Distribution Width 13 % N 10.5-15 Platelet Count 304 10^3/uL N 150-450 Mean Platelet Volume 7.4 um3 N 7.4-10.4 Abs Neutrophils 4.2 10^3/uL N 1.5-7.7 Abs Lymphocytes 2.2 10^3/uL N 1.0-4.8 Abs Monocytes 0.4 10^3/uL N 0-0.8 Abs Eosinophils 0.3 10^3/uL N 0-0.6 Abs Basophils 0.1 10^3/uL N 0-0.2 Abs Nucleated RBC 0 10^3/uL Granulocyte % 59.4 % N 38-83 Lymphocyte % 30.9 % N 25-47 Monocyte % 5.3 % N 0-7 Eosinophil % 3.6 % N 0-6 Basophil % 0.8 % N 0-2 Nucleated Red Blood Cells % 0 Laboratory test 09/25/2017 [facility] TSH 0.79 N 0.34-5.[address] (Thyroid mcIU/[place] [address] Stim Horm) [phone] Urine Culture And 08/16/2017 [facility] Urine SEE RESULT 13 , Sensitivities [address] Culture BELOW [address] [place] [address] [phone] Poc Urinalysis 08/16/2017 [facility] Poc Negative Negative [address] Glucose, [place] [address] Urine [phone] Poc Bilirubin, Urine Negative Negative Poc Ketone, Urine Negative Negative Poc Specific [employer] [place], Urine 1.015 N 1.010-1.030 Poc Blood, Urine Negative Negative Poc pH, Urine 6.5 N 5-9 Poc Protein, Urine Negative Negative Poc Urobilinogen, Urine 0.2 Negative Poc Nitrite, Urine Negative Negative Poc Leukocytes, Urine 3+ Abnormal Negative Poc Color, Urine Yellow Poc Clarity, Urine Clear 15 Urine Culture And 07/22/2017 [facility] Urine Culture SEE RESULT [address] [place] [address] [phone] Ua Routine 07/22/2017 [facility] Ua Specific 1.015 [place] Ua PH 6 Ua Color yellow Ua Appera cloudy Ua WBC ++ Ua Protein trace Ua Glucose normal Ua Ketones neg Ua Bilirubin neg Ua Urobilinogen normal Ua Nitrite neg Ua Occult Blood 50 CBC Auto Diff 05/20/2017 [facility] White Blood 7.0 10^3/uL N 3.5-10.[address] [place] [address] [phone] Red Blood Count 4.15 10^6/uL N 4.0-5.4 Hemoglobin 13.0 g/dL N 12.0-16.0 Hematocrit 37 % N 35-47 Mean Corpuscular Volume 90 fL N 80-97 Mean Corpuscular Hemoglobin 31 pg N 27-31 Mean Corpuscular HGB Conc 35 g/dL N 31-36 Red Cell Distribution Width 14 % N 10.5-15 Platelet Count 261 10^3/uL N 150-450 Mean Platelet Volume 8 um3 N 7.4-10.4 Abs Neutrophils 4.8 10^3/uL N 1.5-7.7 Abs Lymphocytes 1.6 10^3/uL N 1.0-4.8 Abs Monocytes 0.5 10^3/uL N 0-0.8 Abs Eosinophils 0 10^3/uL N 0-0.6 Abs Basophils 0 10^3/uL N 0-0.2 Abs Nucleated RBC 0 10^3/uL Granulocyte % 69.1 % N 38-83 Lymphocyte % 23.2 % Low 25-47 Monocyte % 6.6 % N 0-7 Eosinophil % 0.6 % N 0-6 Basophil % 0.5 % N 0-2 Nucleated Red Blood Cells % 0.1 Comp Metabolic Panel 05/20/2017 [facility] Sodium 132 mmol/L Low 133-[address] [place] [address] [phone] Chloride 89 mmol/L Low 101-111 Co2 Carbon Dioxide 27 mmol/L N 22-32 Glucose 86 mg/dL N 70-100 Blood Urea Nitrogen 24 mg/dL N 6-24 Creatinine 1.90 mg/dL High 0.51-0.95 BUN/Creatinine Ratio 12.6 N 8-20 Calcium 10.8 mg/dL High 8.6-10.3 Total Protein 7.5 g/dL N 6.4-8.9 Albumin 4.4 g/dL N 3.2-5.2 Globulin 3.1 g/dL N 2-4 Albumin/Globulin Ratio 1.4 N 1-3 Total Bilirubin 0.80 mg/dL N 0.2-1.0 Alkaline Phosphatase 53 U/L N 34-104 Alt 12 U/L N 7-52 Ast 16 U/L N 13-39 Egfr Non- 25.8 >60 Egfr 33.2 >60 17 Potassium 2.4 mmol/L Low 3.5-5.0 18 Anion Gap 16 mmol/L High 2-11 Laboratory test 05/20/2017 [facility] Troponin-I (TnI) 0.03 ng/ mL <0.[address] [place] [address] [phone] Acetaminophen < 15 g/mL 19 Alcohol < 10 mg/dL N <10 Salicylate < 2.50 mg/dL <30 TSH (Thyroid Stim Horm) 0.97 mcIU/mL N 0.34-5.60 Drug Abuse 11/13/2016 [facility] Urine Amphetamine Presumptive Posi N 20 [address] <SEE NOTE> ng/[place] [address] [phone] Urine Barbiturates Negative ng/mL N 21 Urine Benzodiazepines Presumptive Posi <SEE NOTE> ng/mL N 22 Urine Cocaine Negative ng/mL N 23 Urine Phencyclidine Presumptive Posi <SEE NOTE> ng/mL N Cutoff: 25 24 Urine Tetrahydrocannabinol Negative ng/mL N Cutoff: 50 25 Creatinine, Urine 141.1 mg/dL N Specific [employer] [place] 1.017 N pH 5.4 N Oxidants Negative N 26 Adulterants Comment Normal N Codeine, Ur Not Detected ng/mL N Cutoff: 25 27 Xblccaf-9-lcqx-glucuronide, Ur Not Detected ng/mL N 28 Morphine, Ur Present ng/mL N Cutoff: 25 29 Fpcyzttf-9-nzpu-glucuronide, U Present ng/mL N 30 6-monoacetylmorphine, Ur Not Detected ng/mL N Cutoff: 25 31 Hydrocodone, Ur Not Detected ng/mL N Cutoff: 25 32 Norhydrocodone, Ur Not Detected ng/mL N Cutoff: 25 33 Dihydrocodeine, Ur Not Detected ng/mL N Cutoff: 25 34 Hydromorphone, Ur Not Detected ng/mL N Cutoff: 25 35 [id number] Present ng/mL N 36 Oxycodone, Ur Not Detected ng/mL N Cutoff: 25 37 Noroxycodone, Ur Not Detected ng/mL N Cutoff: 25 38 Oxymorphone, Ur Not Detected ng/mL N Cutoff: 25 39 Rmlfyulkudu-4-juli-glucuronide Not Detected ng/mL N 40 Noroxymorphone, Ur Not Detected ng/mL N Cutoff: 25 41 Fentanyl, Ur Not Detected ng/mL N Cutoff: 2 42 Norfentanyl, Ur Not Detected ng/mL N Cutoff: 2 43 Meperidine, Ur Not Detected ng/mL N Cutoff: 25 44 Normeperidine, Ur Not Detected ng/mL N Cutoff: 25 45 Naloxone, Ur Not Detected ng/mL N Cutoff: 25 46 Obfwpcvl-6-tket-glucuronide, U Not Detected ng/mL N 47 Methadone, Ur Not Detected ng/mL N Cutoff: 25 48 Eddp, Ur Not Detected ng/mL N Cutoff: 25 49 Propoxyphene, Ur Not Detected ng/mL N Cutoff: 25 50 Norpropoxyphene, Ur Not Detected ng/mL N Cutoff: 25 51 Tramadol, Ur Not Detected ng/mL N Cutoff: 25 52 O-desmethyltramadol, Ur Not Detected ng/mL N Cutoff: 25 53 Tapentadol, Ur Not Detected ng/mL N Cutoff: 25 54 N-desmethyltapentadol, Ur Not Detected ng/mL N Cutoff: 50 55 Axhczbeuud-arlk-rxlejveejcu, U Not Detected ng/mL N 56 Buprenorphine, Ur Not Detected ng/mL N Cutoff: 5 57 Norbuprenorphine, Ur Not Detected ng/mL N Cutoff: 5 58 Norbuprenorphine glucuronide Not Detected ng/mL N Cutoff: 20 59 Opioid Interpretation See Comment N 60 Urine 11/13/2016 [facility] Urine 8161 N Cutoff: [address] Amphetamine by ng/[place] [address] GC/MS [phone] Urine Methamphetamine by GC/MS Negative ng/mL N Cutoff: 25 Phentermine-by GC/MS Negative ng/mL N Cutoff: 25 Pseudoephedrine/Ephedr GC/MS Present ng/mL N Cutoff: 25 Mda(Ecstacy metabolite) GC/MS Negative ng/mL N Cutoff: 25 Mdma(Ecstacy)-by GC/MS Negative ng/mL N Cutoff: 25 Urine Amphetamines Interp Positive. N 61 Benzodiazepine 11/13/2016 [facility] Urine Negative N 62 Confirm Urine [address] Lorazepam ng/[place] [address] GC/MS [phone] Urine Nordiazepam GC/MS Negative ng/mL N 63 Urine Oxazepam GC/MS Negative ng/mL N 64 Urine Temazepam GC/MS Negative ng/mL N 65 Ur Oh Ethyl Flurazepam GC/MS Negative ng/mL N 66 Ur 7 [place] Clonazepam GC/MS Negative ng/mL N 67 Ur 7 NH Flunitrazepam GC/MS Negative ng/mL N Cutoff: 50 Ur Alpha Oh Alprazolam GC/MS 290 ng/mL N 68 Ur Alpha Oh Triazolam GC/MS Negative ng/mL N 69 Ur Benzodiazepine Interp Positive. N 70 Urine PCP QL 11/13/2016 [facility] Ur PCP Negative N Cutoff: [address] Confirm ng/[place] [address] [phone] Ur PCP Interpretation Negative. N 71 Urine Culture And 10/15/2016 [facility] Urine Culture SEE RESULT [address] [place] [address] [phone] Basic Metabolic 06/13/2016 [facility] Sodium 135 mmol/L N 133- [address] [place] [address] [phone] Potassium 4.2 mmol/L N 3.5-5.0 Chloride 100 mmol/L Low 101-111 Co2 Carbon Dioxide 24 mmol/L N 22-32 Anion Gap 11 mmol/L N 2-11 Glucose 102 mg/dL High 70-100 Blood Urea Nitrogen 12 mg/dL N 6-24 Creatinine 0.96 mg/dL High 0.51-0.95 BUN/Creatinine Ratio 12.5 N 8-20 Calcium 10.2 mg/dL N 8.6-10.3 Egfr Non- 57.0 N >60 Egfr 73.3 N >60 73 CBC Auto Diff 06/13/2016 [facility] White Blood 10.3 10^3/uL N 3.5-10.[address] [place] [address] [phone] Red Blood Count 4.10 10^6/uL N 4.0-5.4 Hemoglobin 13.0 g/dL N 12.0-16.0 Hematocrit 39 % N 35-47 Mean Corpuscular Volume 95 fL N 80-97 Mean Corpuscular Hemoglobin 32 pg High 27-31 Mean Corpuscular HGB Conc 34 g/dL N 31-36 Red Cell Distribution Width 14 % N 10.5-15 Platelet Count 299 10^3/uL N 150-450 Mean Platelet Volume 8 um3 N 7.4-10.4 Abs Neutrophils 7.3 10^3/uL N 1.5-7.7 Abs Lymphocytes 2.1 10^3/uL N 1.0-4.8 Abs Monocytes 0.6 10^3/uL N 0-0.8 Abs Eosinophils 0.2 10^3/uL N 0-0.6 Abs Basophils 0.1 10^3/uL N 0-0.2 Abs Nucleated RBC 0.01 10^3/uL N Granulocyte % 70.8 % N 38-83 Lymphocyte % 20.4 % Low 25-47 Monocyte % 6.0 % N 1-9 Eosinophil % 2.1 % N 0-6 Basophil % 0.7 % N 0-2 Nucleated Red Blood Cells % 0 N Laboratory test 06/13/2016 [facility] Vitamin B12 206 pg/mL N 180-914 74 finding [address] [place] [address] [phone] Laboratory test 04/18/2016 [facility] TSH (Thyroid 1.56 N 0.34 -5.60 finding 101 [facility] Stim Horm) mcIU/[place] [address] [phone] Free T4 (Free Thyroxine) 0.87 ng/dL N 0.61-1.12 Basic Metabolic Panel 04/18/2016 [facility] Sodium 136 mmol/L N 133-145 [address] [place] [address] [phone] Potassium 3.4 mmol/L Low 3.5-5.0 Chloride 100 mmol/L Low 101-111 Co2 Carbon Dioxide 26 mmol/L N 22-32 Anion Gap 10 mmol/L N 2-11 Glucose 96 mg/dL N 70-100 Blood Urea Nitrogen 19 mg/dL N 6-24 Creatinine 1.21 mg/dL High 0.51-0.95 BUN/Creatinine Ratio 15.7 N 8-20 Calcium 10.1 mg/dL N 8.6-10.3 Egfr Non- 43.6 N >60 Egfr 56.1 N >60 75 Laboratory test 04/18/2016 [facility] Magnesium 2.2 mg/dL N 1.9-2.7 finding [address] [place] [address] [phone] Aldosterone 53 ng/dL Abnormal <=21 76 Renin 9.1 ng/mL/h N 77 Rheumatoid Factor <15 IU/mL N <15 78 Erythrocyte Sed Rate 41 mm/Hr High 0-40 C Reactive Protein 3.38 mg/L N < 5.00 79 Anti Nuclear Antibody 0.5 U N 80 Lamotrigine (Lamictal) 9.9 g/mL N 2.5 - 15.0 81 Laboratory test 04/17/2016 [facility] Lamotrigine 11.2 g/mL N 2.5 - 82 finding 101 [facility] (Lamictal) 15.0 [place] [address] [phone] Laboratory test 11/24/2014 Magnesium 2.0 mg/dL N 1.9-2.7 finding Basic Metabolic 11/24/2014 Sodium 137 mmol/L N 133-145 Panel Potassium 3.6 mmol/L N 3.5-5.0 Chloride 101 mmol/L N 101-111 Co2 Carbon Dioxide 28 mmol/L N 22-32 Anion Gap 8 mmol/L N 2-11 Glucose 100 mg/dL N 70-100 Blood Urea Nitrogen 11 mg/dL N 6-24 Creatinine 0.80 mg/dL N 0.51-0.95 BUN/Creatinine Ratio 13.8 N 8-20 Calcium 10.0 mg/dL N 8.6-10.3 Egfr Non- 70.7 N >60 Egfr 90.9 N >60 83 Laboratory test 11/24/2014 Vitamin D Total 40.2 ng/mL N 30-50 finding 25(Oh) Laboratory test 11/03/2014 [facility] TSH (Thyroid 1.73 ?IU/mL N 0.34-5.[address] Stim Horm) [place] [address] [phone] Free T4 (Free Thyroxine) 0.93 ng/mL N 0.61-1.12 T3 Free 2.20 pg/mL Low 2.5-3.9 T3 Total 1.44 ng/mL N 0.87-1.78 Vitamin B12 240 pg/mL N 180-914 84 Basic Metabolic Panel 11/03/2014 [facility] Sodium 137 mmol/L N 133-[address] [place] [address] [phone] Potassium 3.5 mmol/L N 3.5-5.0 Chloride 97 mmol/L Low 101-111 Co2 Carbon Dioxide 31 mmol/L N 22-32 Anion Gap 9 mmol/L N 2-11 Glucose 102 mg/dL High 70-100 Blood Urea Nitrogen 11 mg/dL N 6-24 Creatinine 0.84 mg/dL N 0.51-0.95 BUN/Creatinine Ratio 13.1 N 8-20 Calcium 9.8 mg/dL N 8.6-10.3 Egfr Non- 66.8 N >60 Egfr 86.0 N >60 85 Laboratory test 09/06/2014 [facility] TSH (Thyroid 0.59 ?IU/mL N 0.34-5.[address] Stim Horm) [place] [address] [phone] Vitamin D Total 25(Oh) 33.2 ng/mL N 30-50 Laboratory test 09/06/2014 [facility] Erythrocyte Sed 36 mm/Hr N 0-[address] [place] [address] [phone] C Reactive Protein 4.68 mg/L N < 5.00 86 Comp Metabolic Panel 09/06/2014 [facility] Sodium 140 mmol/L N 133-[address] [place] [address] [phone] Potassium 3.6 mmol/L N 3.5-5.0 Chloride 106 mmol/L N 101-111 Co2 Carbon Dioxide 26 mmol/L N 22-32 Anion Gap 8 mmol/L N 2-11 Glucose 95 mg/dL N 70-100 Blood Urea Nitrogen 12 mg/dL N 6-24 Creatinine 0.80 mg/dL N 0.51-0.95 BUN/Creatinine Ratio 15.0 N 8-20 Calcium 9.5 mg/dL N 8.6-10.3 Total Protein 7.0 g/dL N 6.4-8.9 Albumin 4.3 g/dL N 3.2-5.2 Globulin 2.7 g/dL N 2-4 Albumin/Globulin Ratio 1.6 N 1-3 Total Bilirubin 0.50 mg/dL N 0.2-1.0 Alkaline Phosphatase 58 U/L N 34-104 Alt 16 U/L N 7-52 Ast 17 U/L N 13-39 Egfr Non- 70.7 N >60 Egfr 90.9 N >60 87 CBC Auto Diff 09/06/2014 [facility] White Blood 9.7 10^3/uL N 4.8-10.[address] [place] [address] [phone] Red Blood Count 4.17 10^6/uL N 4.0-5.4 Hemoglobin 12.8 g/dL N 12.0-16.0 Hematocrit 39 % N 35-47 Mean Corpuscular Volume 94 fL N 80-97 Mean Corpuscular Hemoglobin 31 pg N 27-31 Mean Corpuscular HGB Conc 33 g/dL N 31-36 Red Cell Distribution Width 14 % N 10.5-15 Platelet Count 341 10^3/uL N 150-450 Mean Platelet Volume 8 um3 N 7.4-10.4 Abs Neutrophils 7.1 10^3/uL N 1.5-7.7 Abs Lymphocytes 1.7 10^3/uL N 1.0-4.8 Abs Monocytes 0.6 10^3/uL N 0-0.8 Abs Eosinophils 0.1 10^3/uL N 0-0.6 Abs Basophils 0.1 10^3/uL N 0-0.2 Abs Nucleated RBC 0.01 10^3/uL N Granulocyte % 73.6 % N 38-83 Lymphocyte % 17.8 % Low 25-47 Monocyte % 6.6 % N 1-9 Eosinophil % 1.3 % N 0-6 Basophil % 0.7 % N 0-2 Nucleated Red Blood Cells % 0.1 N Laboratory test 09/06/2014 [facility] Rheumatoid <15 IU/mL N < 15 88 finding 101 [facility] [place] [address] [phone] Laboratory test 05/12/2014 [facility] Lyme Disease Negative N Negative 89 finding 101 [facility] [place] [address] [phone] Laboratory test 05/12/2014 [facility] Free T4 0.98 ng/mL N 0.61-1.12 finding 101 [place] [address] [phone] Total T3 1.67 ng/mL N 0.87-1.78 Free T3 2.80 pg/mL N 2.5-3.9 TSH (Thyroid Stimulating Horm) 1.23 IU/mL N 0.34-5.60 Vitamin B12 147 pg/mL Low 180-914 90 Lipid Profile 05/12/2014 [facility] Triglycerides 91 mg/dL N 91 (Trig/Chol/HDL) [address] [place] [address] [phone] Cholesterol 282 mg/dL N 92 HDL Cholesterol 102.3 mg/dL N 93 LDL Cholesterol 162 mg/dL N 94 Laboratory test 05/12/2014 [facility] Homocysteine 14 mcmol/L Abnormal 95 finding 101 [place] [address] [phone] Methylmalonic Acid 1.53 nmol/mL Abnormal <=0.40 96 Laboratory test 02/23/2014 [facility] Magnesium 2.2 mg/dL N 1.9-2.7 finding 101 [place] [address] [phone] Renin 5.4 ng/mL/h N 97 Aldolase 4.3 U/L N <7.7 98 CBC Auto Diff 02/23/2014 White Blood Count 6.5 10^3/uL N 4.8-10.8 Red Blood Count 4.37 10^6/uL N 4.0-5.4 Hemoglobin 13.7 g/dL N 12.0-16.0 Hematocrit 41 % N 35-47 Mean Corpuscular Volume 93 fL N 80-97 Mean Corpuscular Hemoglobin 31 pg N 27-31 Mean Corpuscular HGB Conc 34 g/dL N 31-36 Red Cell Distribution Width 14 % N 10.5-15 Platelet Count 285 10^3/uL N 150-450 Mean Platelet Volume 7 um3 Low 7.4-10.4 Abs Neutrophils 3.7 10^3/uL N 1.5-7.7 Abs Lymphocytes 2.1 10^3/uL N 1.0-4.8 Abs Monocytes 0.5 10^3/uL N 0-0.8 Abs Eosinophils 0.2 10^3/uL N 0-0.6 Abs Basophils 0.1 10^3/uL N 0-0.2 Abs Nucleated RBC 0 10^3/uL N Granulocyte % 55.9 % N 38-83 Lymphocyte % 32.8 % N 25-47 Monocyte % 7.6 % N 1-9 Eosinophil % 2.8 % N 0-6 Basophil % 0.9 % N 0-2 Nucleated Red Blood Cells % 0 N Comp Metabolic Panel 02/23/2014 Sodium 135 mmol/L N 133-145 Potassium 3.9 mmol/L N 3.5-5.0 Chloride 99 mmol/L Low 101-111 Co2 Carbon Dioxide 30 mmol/L N 22-32 Anion Gap 6 mmol/L N 2-11 Glucose 98 mg/dL N 70-100 Blood Urea Nitrogen 9 mg/dL N 6-24 Creatinine 0.69 mg/dL N 0.51-0.95 BUN/Creatinine Ratio 13.0 N 8-20 Calcium 9.7 mg/dL N 8.6-10.3 Total Protein 7.5 g/dL N 6.4-8.9 Albumin 4.5 g/dL N 3.2-5.2 Globulin 3.0 g/dL N 2-4 Albumin/Globulin Ratio 1.5 N 1-3 Total Bilirubin 0.30 mg/dL N 0.2-1.0 Alkaline Phosphatase 72 U/L N 34-104 Alt 14 U/L N 7-52 Ast 13 U/L N 13-39 Egfr Non- 83.9 N >60 Egfr 107.9 N >60 99 Laboratory test 02/23/2014 TSH (Thyroid 6.88 IU/mL High 0.34-5.60 finding Stimulating Horm) Vitamin D, 25 Hydroxy 02/23/2014 25-Hydroxy Vitamin D2 <4.0 ng/mL N 25-Hydroxy Vitamin D3 3.4 ng/mL N 25-Hydroxy Vitamin D Total <6.0 ng/mL Abnormal 100 Laboratory test 02/23/2014 Jolene (Anti-Nuclear Negative N Negative finding AB) Screen Ua Routine 02/22/2014 [employer] [facility] Ua Specific [place] 1.015 Ua PH 7 Ua Color yellow Ua Appera clear Ua WBC neg Ua Protein neg Ua Glucose neg Ua Ketones neg Ua Bilirubin neg Ua Urobilinogen neg Ua Nitrite neg Ua Occult Blood neg Laboratory test 01/15/2014 [facility] Lyme Disease Negative N Negative 101 finding [address] [facility] [place] [address] [phone] Creatinine 08/14/2012 [facility] Creatinine 0.70 mg/dL 0.50- 1.40 [address] [place] [address] [phone] Egfr Non- 83.0 >60 Egfr 106.7 >60 102 Laboratory test 08/28/2009 [facility] TSH 2.45 MIU/ML 0.34- 5.60 finding 101 [place] [address] [phone] Thyroxine Free 0.77 NG/ML 0.61-1.24 103 Basic Metabolic Panel 08/28/2009 [facility] Sodium 139 mmol/L 135-145 [address] [place] [address] [phone] Potassium 3.8 mmol/L 3.5-5.0 Chloride 104 mmol/L 101-111 Co2 (Carbon Dioxide) 28.0 mmol/L 22-32 Anion Gap 7.0 mmol/L 2-11 104 Glucose 99 mg/dL 70-100 105 BUN 9 mg/dL 6-24 Creatinine 0.90 mg/dL 0.50-1.40 One Over Creatinine 1.10 BUN/Creatinine Ratio 10.0 8-20 Calcium 9.0 mg/dL 8.1-9.9 106 eGFR Non- 66.6 > 60 eGFR 80.6 > 60 107 Laboratory test 08/28/2009 [facility] Magnesium 2.5 mg/dL 1.7 -2.[address] [place] [address] [phone] Uric Acid 3.8 mg/dL 2.6-7.2 CBC With Manual 08/28/2009 [facility] White Blood 7.1 CUMM 4.8-10.[address] [place] [address] [phone] Red Cell Count 4.05 CUMM Low 4.2-5.4 Hemoglobin 13.3 g/dL 12.0-16.0 Hematocrit 39 % 35-47 Mean Corpuscular Volume 97 um3 79-97 Mean Corpuscular Hemoglob 33 pg High 27-31 Mean Corpuscular HGB Cone 34 g/dL 32-36 Redcell Distribution WDTH 14 % 10.5-15 Platelet Count 299 CUMM 150-450 Mean Platelet Volume 7.5 um3 7.4-10.4 Polysegmented Neutrophil 65 % 38-83 Band Neutrophil 3 % 0-8 Lymphocyte 18 % Low 25-47 Monocyte 4 % 0-13 Eosinophil 10 % High 0-6 Absolute Neutrophil Count 4.8 RBC Morphology NORMAL [facility] Basic Metabolic 08/22/2009 [facility] Sodium 136 mmol/L 135-145 Panel [address] [place] [address] [phone] Potassium 2.8 mmol/L Low 3.5-5.0 Chloride 95 mmol/L Low 101-111 Co2 (Carbon Dioxide) 30.0 mmol/L 22-32 Anion Gap 11.0 mmol/L 2-11 108 Glucose 110 mg/dL High 70-100 109 BUN 9 mg/dL 6-24 Creatinine 0.80 mg/dL 0.50-1.40 One Over Creatinine 1.20 BUN/Creatinine Ratio 11.3 8-20 Calcium 9.1 mg/dL 8.1-9.9 110 eGFR Non- 76.3 > 60 eGFR 92.3 > 60 111 [facility] Basic Metabolic 08/02/2009 [facility] Sodium 139 mmol/L 135-[address] [place] [address] [phone] Potassium 3.0 mmol/L Low 3.5-5.0 Chloride 97 mmol/L Low 101-111 Co2 (Carbon Dioxide) 33.0 mmol/L High 22-32 Anion Gap 9.0 mmol/L 2-11 112 Glucose 100 mg/dL 70-100 113 BUN 10 mg/dL 6-24 Creatinine 0.80 mg/dL 0.50-1.40 One Over Creatinine 1.20 BUN/Creatinine Ratio 12.5 8-20 Calcium 9.6 mg/dL 8.1-9.9 114 eGFR Non- 76.3 > 60 eGFR 92.3 > 60 115 Laboratory test 06/01/2009 [facility] Magnesium 2.3 mg/dL 1.7 -2.6 finding 101 [place] [address] [phone] Basic Metabolic 06/01/2009 [facility] Sodium 145 mmol/L 135- 145 Panel 101 [place] [address] [phone] Potassium 3.8 mmol/L 3.5-5.0 Chloride 112 mmol/L High 101-584 Co2 (Carbon Dioxide) 26.0 mmol/L 22-32 Anion Gap 7.0 mmol/L 2-11 116 Glucose 99 mg/dL 70-100 117 BUN 6 mg/dL 6-24 Creatinine 0.80 mg/dL 0.50-1.40 One Over Creatinine 1.20 BUN/Creatinine Ratio 7.5 Low 8-20 Calcium 9.6 mg/dL 8.1-9.9 118 eGFR Non- 76.3 > 60 eGFR 92.3 > 60 119 Basic Metabolic Panel 04/01/2009 [facility] Sodium 138 mmol/L 135-145 [address] [place] [address] [phone] Potassium 3.0 mmol/L Low 3.5-5.0 Chloride 93 mmol/L Low 101-111 Co2 (Carbon Dioxide) 34.0 mmol/L High 22-32 Anion Gap 11.0 mmol/L 2-11 120 Glucose 96 mg/dL 70-100 121 BUN 7 mg/dL 6-24 Creatinine 0.80 mg/dL 0.50-1.40 One Over Creatinine 1.20 BUN/Creatinine Ratio 8.8 8-20 Calcium 9.9 mg/dL 8.1-9.9 122 eGFR Non- 76.3 > 60 eGFR 92.3 > 60 123 Laboratory test 04/01/2009 [facility] Lyme Disease Negative Negative 124 finding 101 [facility] [place] [address] [phone] Comp Metabolic 03/04/2009 [facility] Sodium 134 mmol/L Low 135 -145 125 Panel 101 [place] [address] [phone] Potassium 6.4 mmol/L High 3.5-5.0 Chloride 96 mmol/L Low 101-111 Co2 (Carbon Dioxide) 29.0 mmol/L 22-32 Anion Gap 9.0 mmol/L 2-11 126 Glucose 66 mg/dL Low 70-100 127 BUN 11 mg/dL 6-24 Creatinine 0.80 mg/dL 0.50-1.40 One Over Creatinine 1.20 BUN/Creatinine Ratio 13.8 8-20 Calcium 9.4 mg/dL 8.1-9.9 128 Total Protein 6.6 GM/DL 6.2-8.1 Albumin 4.2 GM/DL 3.2-5.2 Globulin 2.4 GM/DL 2-4 Albumin/Globulin Ratio 1.8 1-3 Bilirubin Total 0.7 mg/dL 0.4-1.5 129 Alkaline Phosphatase 72 U/L 30-110 Alt (SGPT) 57 U/L High 14-54 Ast (Sgot) 45 U/L High 12-42 eGFR Non- 76.3 > 60 eGFR 92.3 > 60 130 Laboratory test 03/04/2009 [facility] Magnesium 2.6 mg/dL 1.7 -2.6 finding 101 [place] [address] [phone] CBC With Manual 03/04/2009 [facility] White Blood 6.5 CUMM 4.8-10.8 Diff 101 [place] [address] [phone] Red Cell Count 4.22 CUMM 4.2-5.4 Hemoglobin 13.4 g/dL 12.0-16.0 Hematocrit 41 % 35-47 Mean Corpuscular Volume 97 um3 79-97 Mean Corpuscular Hemoglob 32 pg High 27-31 Mean Corpuscular HGB Cone 33 g/dL 32-36 Redcell Distribution WDTH 13 % 10.5-15 Platelet Count 299 CUMM 150-450 Mean Platelet Volume 7.8 um3 7.4-10.4 Polysegmented Neutrophil 49 % 38-83 Lymphocyte 42 % 25-47 Monocyte 3 % 0-13 Eosenophil 4 % 0-6 Basophil 1 % 0-2 Atypical Lymph 1 % 0-6 Absolute Neutrophil Count 3.1 RBC Morphology NORMAL Laboratory test 03/04/2009 [facility] Lyme Disease Negative Negative 131 finding [address] [place] [address] [phone] Ast GN20 05/19/2008 [facility] Ampicillin >=32 R [address] [place] [address] [phone] Amikacin <=2 S Ciprofloxacin <=0.25 S Cefazolin <=4 S Nitrofurantoin <=16 S Gentamicin <=1 S Imipenem <=1 S Levofloxacin <=0.25 S Meropenem <=0.25 S Trimeth-Sulfa <=20 S Ceftazidime <=1 S Tigecycline <=0.5 S Piperacillin/Tazobactam <=4 S Laboratory test 05/19/2008 [facility] Urine Culture ESCHERICHIA COLI finding [address] [place] [address] [phone] Urine Culture & 12/08/2007 [facility] Urine Culture NG [address] [place] [address] [phone] Urinalysis 12/08/2007 [facility] Ua Color WESTLEY W/Microscopic [address] [place] [address] [phone] Appearance-Urine HAZY Specific [employer]-Ur 1.013 1.010-1.030 Esterase-Urine 2+ Abnormal Negative Nitrite NEGATIVE Negative Mbicwxyshvyy-Sd-XIE NEGATIVE Negative Protein-Urine NEGATIVE Negative PH-Urine 6.0 5-9 Blood-Urine TRACE Abnormal Negative Ketones-Urine 1+ Abnormal Negative Bilirubin-Ur NEGATIVE Negative Glucose-Urine NEGATIVE Negative WBC-Urine TNTC Abnormal 0-5 RBC-Urine 0-2 0-2 Epith Cells-Ur FEW Bacteria-Urine TRACE Crystals-Urine MANY 133 Urinalysis 12/08/2007 [facility] Ua Color WESTLEY [address] [place] [address] [phone] Appearance-Urine HAZY Specific [employer]-Ur 1.013 1.010-1.030 Esterase-Urine 2+ Abnormal Negative Nitrite NEGATIVE Negative Phvxyuzlkske-Rt-LWY NEGATIVE Negative Protein-Urine NEGATIVE Negative PH-Urine 6.0 5-9 Blood-Urine TRACE Abnormal Negative Ketones-Urine 1+ Abnormal Negative Bilirubin-Ur NEGATIVE Negative Glucose-Urine NEGATIVE Negative Urinalysis W/Microscopic Stat 11/09/2007 [facility] Ua Color YELLOW [address] [place], [place] [id number] [phone] Appearance-Urine CLEAR Specific [employer]-Ur 1.011 1.010-1.030 Esterase-Urine NEGATIVE Negative Nitrite NEGATIVE Negative Fmdrjjykbuzc-Wn-AWL NEGATIVE Negative Protein-Urine NEGATIVE Negative PH-Urine 6.5 5-9 Blood-Urine NEGATIVE Negative Ketones-Urine NEGATIVE Negative Bilirubin-Ur NEGATIVE Negative Glucose-Urine NEGATIVE Negative RBC-Urine NONE SEEN 0-2 Epith Cells-Ur RARE Crystals-Urine (SEE NOTE) 134 Urine Culture & 11/09/2007 [facility] Urine Culture SN1 [address] [place] [address] [phone] Laboratory test 08/25/2007 [facility] Urine Culture NG [address] [address] [phone] Laboratory test 08/25/2007 [facility] Erythrocyte Sed 25 MM/HR 0-[address] [place] [address] [phone] Rheumatoid Factor < 20.0 IU/mL Less Than 20 CBC With Manual 08/25/2007 [facility] White Blood 6.0 CUMM 4.8-10.[address] [place] [address] [phone] Red Cell Count 3.92 CUMM Low 4.2-5.4 Hemoglobin 12.7 g/dL 12.0-16.0 Hematocrit 37 % 35-47 Mean Corpuscular Volume 94 um3 79-97 Mean Corpuscular Hemoglob 32 pg High 27-31 Mean Corpuscular HGB Cone 34 g/dL 32-36 Redcell Distribution WDTH 14 % 10.5-15 Platelet Count 326 CUMM 150-450 Mean Platelet Volume 7.5 um3 7.4-10.4 Polysegmented Neutrophil 74 % 38-83 Band Neutrophil 3 % 0-8 Lymphocyte 16 % 5-47 Monocyte 4 % 0-13 Eosenophil 2 % 0-6 Basophil 1 % 0-2 Absolute Neutrophil Count 4.6 Anisocytosis SLIGHT Laboratory test 08/25/2007 [facility] C Reactive 1.8 mg/dL High Less Than finding [address] Protein 0.5 [place] [address] [phone] Basic Metabolic 08/25/2007 [facility] Sodium 139 mmol/L 135- [address] [place] [address] [phone] Potassium 3.7 mmol/L 3.5-5.0 Chloride 111 mmol/L 101-111 Co2 (Carbon Dioxide) 25.0 mmol/L 22-32 Anion Gap 3.0 mmol/L 2-11 137 Glucose 100 mg/dL 70-105 BUN 17 mg/dL 6-24 Creatinine 0.9 mg/dL 0.5-1.4 One Over Creatinine 1.11 BUN/Creatinine Ratio 18.9 8-20 Calcium 9.0 mg/dL 8.7-10.2 Liver Function 08/25/2007 [facility] Total Protein 7.3 GM/DL 6.2-8.[address] [place] [address] [phone] Albumin 4.4 GM/DL 3.2-5.2 Globulin 2.9 GM/DL 2-4 Albumin/Globulin Ratio 1.5 1-3 Bilirubin Total 0.3 mg/dL Low 0.4-1.5 Bilirubin Direct < 0.1 mg/dL Low 0.1-0.5 Alkaline Phosphatase 81 U/L 30-110 Alt (SGPT) 45 U/L 14-54 Ast (Sgot) 29 U/L 12-42 Basic Metabolic Panel 08/21/2007 [facility] Sodium 140 mmol/L 135-[address] [place] [address] [phone] Potassium 4.0 mmol/L 3.5-5.0 Chloride 109 mmol/L 101-111 Co2 (Carbon Dioxide) 26.0 mmol/L 22-32 Anion Gap 5.0 mmol/L 2-11 138 Glucose 85 mg/dL 70-105 BUN 12 mg/dL 6-24 Creatinine 0.8 mg/dL 0.5-1.4 One Over Creatinine 1.25 BUN/Creatinine Ratio 15.0 8-20 Calcium 8.4 mg/dL Low 8.7-10.2 Laboratory test 08/21/2007 [facility] Magnesium 2.5 mg/dL 1.7 -2.[address] [place] [address] [phone] Basic Metabolic 03/03/2007 [facility] One Over 1.[address] [place] [address] [phone] Anion Gap 9.0 mmol/L 2-11 139 BUN 13 mg/dL 6-24 Calcium 10.0 mg/dL 8.7-10.2 Chloride 101 mmol/L 101-111 Co2 (Carbon Dioxide) 29.0 mmol/L 22-32 Glucose 89 mg/dL 70-105 Potassium 3.3 mmol/L Low 3.5-5.0 Sodium 139 mmol/L 135-145 BUN/Creatinine Ratio 13.0 8-20 Creatinine 1.0 mg/dL 0.5-1.4 CBC With 02/11/2007 [facility] White Blood 10.1 CUMM 4.8- 10.8 Electronic Diff [address] [place] [address] [phone] Abs Basophils 0 0-0.2 Abs Eosinophils 0.1 0-0.6 Absolute Neutrophil Count 7.8 High 1.5-7.7 Abs Lymphs 1.4 1.0-4.8 Abs Mononuclear 0.8 0-0.8 Basophil % 0.3 % 0-2 Hematocrit 39 % 35-47 140 Hemoglobin 12.9 g/dL 12.0-16.0 Eosinophil % 0.6 % 0-6 Gran % 77.2 % 38-83 Lymph % 13.9 % Low 20-45 Mean Corpuscular HGB Cone 34 g/dL 32-36 Mean Corpuscular Hemoglob 32 pg High 27-31 Mean Corpuscular Volume 96 um3 79-97 Mean Platelet Volume 7.3 um3 Low 7.4-10.4 Mononuclear % 8.0 % 1-9 Platelet Count 508 CUMM High 150-450 Red Cell Count 4.03 CUMM Low 4.2-5.4 Redcell Distribution WDTH 13 % 10.5-15 P33S 02/11/2007 [facility] One Over Creatinine 0.[address] [place] [address] [phone] Anion Gap 14.0 mmol/L High 2-11 141 Albumin/Globulin Ratio 1.5 1-3 Albumin 4.9 GM/DL 3.2-5.2 Alkaline Phosphatase 91 U/L 30-110 Alt (SGPT) 56 U/L High 14-54 Ast (Sgot) 40 U/L 12-42 BUN 18 mg/dL 6-24 Calcium 9.9 mg/dL 8.7-10.2 Chloride 98 mmol/L Low 101-111 Co2 (Carbon Dioxide) 26.0 mmol/L 22-32 Globulin 3.2 GM/DL 2-4 Glucose 119 mg/dL High 70-105 Potassium 2.5 mmol/L Low 3.5-5.0 Sodium 138 mmol/L 135-145 Bilirubin Total 0.9 mg/dL 0.4-1.5 Total Protein 8.1 GM/DL 6.2-8.1 BUN/Creatinine Ratio 13.8 8-20 Creatinine 1.3 mg/dL 0.5-1.4 Basic Metabolic 02/09/2007 [facility] One Over Creatinine 0.[address] [place] [address] [phone] Anion Gap 13.0 mmol/L High 2-11 142 BUN 16 mg/dL 6-24 Calcium 9.7 mg/dL 8.7-10.2 Chloride 100 mmol/L Low 101-398 Co2 (Carbon Dioxide) 25.0 mmol/L 22-32 Glucose 139 mg/dL High 70-105 Potassium 3.2 mmol/L Low 3.5-5.0 Sodium 138 mmol/L 135-145 BUN/Creatinine Ratio 11.4 8-20 Creatinine 1.4 mg/dL 0.5-1.4 CBC With Manual Diff 02/09/2007 [facility] RBC Morphology NORMAL Stat [address] [place] [address] [phone] White Blood Count 9.8 CUMM 4.8-10.8 Absolute Neutrophil Count 7.5 Band Neutrophil 4 % 0-8 Hematocrit 38 % 35-47 Hemoglobin 12.8 g/dL 12.0-16.0 Lymphocyte 15 % 5-47 Mean Corpuscular HGB Cone 34 g/dL 32-36 Mean Corpuscular Hemoglob 33 pg High 27-31 Mean Corpuscular Volume 97 um3 79-97 Monocyte 8 % 0-13 Mean Platelet Volume 7.0 um3 Low 7.4-10.4 Platelet Count 455 CUMM High 150-450 Polysegmented Neutrophil 73 % 38-83 Red Cell Count 3.94 CUMM Low 4.2-5.4 Redcell Distribution WDTH 14 % 10.5-15 Protime 01/31/2007 [facility] Inr 1.[address] [place] [address] [phone] Protime 12.1 10.9-13.1 CBC With 01/31/2007 [facility] White Blood 9.9 CUMM 4.8-10.8 Electronic Diff [address] [place] [address] [phone] Abs Basophils 0 0-0.2 Abs Eosinophils 0 0-0.6 Absolute Neutrophil Count 8.3 High 1.5-7.7 Abs Lymphs 1.0 1.0-4.8 Abs Mononuclear 0.5 0-0.8 Basophil % 0.3 % 0-2 Hematocrit 35 % 35-47 144 Hemoglobin 11.9 g/dL Low 12.0-16.0 Eosinophil % 0 % 0-6 Gran % 83.9 % High 38-83 Lymph % 10.3 % Low 20-45 Mean Corpuscular HGB Cone 35 g/dL 32-36 Mean Corpuscular Hemoglob 33 pg High 27-31 Mean Corpuscular Volume 97 um3 79-97 Mean Platelet Volume 7.3 um3 Low 7.4-10.4 Mononuclear % 5.5 % 1-9 Platelet Count 374 CUMM 150-450 Red Cell Count 3.58 CUMM Low 4.2-5.4 Redcell Distribution WDTH 14 % 10.5-15 Laboratory test 01/31/2007 [facility] PTT (Aptt) 20.2 Low 20.4 -29.5 [address] [place] [address] [phone] P33S 01/31/2007 [facility] One Over 1.[address] [place] [address] [phone] Anion Gap 11.0 mmol/L 2-11 146 Albumin/Globulin Ratio 1.5 1-3 Albumin 4.4 GM/DL 3.2-5.2 Alkaline Phosphatase 63 U/L 30-110 Alt (SGPT) 56 U/L High 14-54 Ast (Sgot) 57 U/L High 12-42 BUN 16 mg/dL 6-24 Calcium 9.6 mg/dL 8.7-10.2 Chloride 105 mmol/L 101-111 Co2 (Carbon Dioxide) 24.0 mmol/L 22-32 Globulin 2.9 GM/DL 2-4 Glucose 117 mg/dL High 70-105 Potassium 3.3 mmol/L Low 3.5-5.0 Sodium 140 mmol/L 135-145 Bilirubin Total 1.0 mg/dL 0.4-1.5 Total Protein 7.3 GM/DL 6.2-8.1 BUN/Creatinine Ratio 16.0 8-20 Creatinine 1.0 mg/dL 0.5-1.4 1 [facility] Severe Sepsis and Septic Shock Management Bundle Measure requires all lactic acids initially measuring >2.0 mmol/L be repeated. 2 Because ethnic data is not always readily available, this report includes an eGFR for both -Americans and non- Americans. The National Kidney Disease Education Program (NKDEP) does not endorse the use of the MDRD equation for patients that are not between the ages of 18 and 70, are , have extremes of body size, muscle mass, or nutritional status, or are non- or non-. According to the National Kidney Foundation, irrespective of diagnosis, the stage of the disease is based on the level of kidney function: Stage Description GFR(mL/min/1.73 m(2)) 1 Kidney damage with normal or decreased GFR 90 2 Kidney damage with mild decrease in GFR 60-89 3 Moderate decrease in GFR 30-59 4 Severe decrease in GFR 15-29 5 Kidney failure <15 (or dialysis) 3 Critical Result K:2.7 Called to [id number] at: 17:32:22 by:[id number] Read back by:[email or web address] 4 Troponin-I testing on Plasma Separator Tubes (PST) has a known false positive rate of 0.20-0.40%. All positive troponins reflex immediate secondary confirmatory testing. 5 SEE RESULT BELOW Name: FAY COREAS : [address]: Carley Goode MD Acct: [id number] Unit: [id number] AGE: 77 Location: [place] [address] Re05/11/18 SEX: F Status: ADM IN SPEC: [id number] AUDREY: 05/11/[address]: Ravi Burgess MD REQ: [id number] RECD: 05/11/18 STATUS: NIKI GROSS DR: Noe Wright MD _ SOURCE: URINE SPDESC: ORDERED: Urine Culture Procedure Result Reported Site Urine Culture Final 05/13/18- 924 ML Organism 1 ESCHERICHIA COLI [place] Count >100,000 (Many) CFU/ML Organism 2 KLEBSIELLA PNEUMONIAE [place] Count 50-75,000 (Many) CFU/ML 1. ESCHERICHIA COLI M.I.C. RX --------- ------ Ampicillin 16 I Cefazolin <=4 S Cefepime <=1 S Ceftriaxone <=1 S Ciprofloxacin <=0.25 S Gentamicin <=1 S Levofloxacin <=0.12 S Meropenem <=0.25 S Nitrofurantoin 64 I Tetracycline 2 S Pipercillin/Tazobactam <=4 S Trimethoprim/Sulfamethoxazole <=20 S Amoxicillin/Clavulanic Acid 8 S Aztreonam <=1 S 2. KLEBSIELLA PNEUMONIAE M.I.C. RX --------- ------ Ampicillin >=32 R Cefazolin <=4 S Cefepime <=1 S Ceftriaxone <=1 S CONTINUED ON NEXT PAGE DEPARTMENT OF PATHOLOGY, [address] [place] [address] Samuel Mares M.D. Director FABIVA # [id number] Patient: FAY COREAS [id number] (Continued) Specimen: [id number] Collected: 05/11/18 Received: 05/11/18 (Continued) Procedure Result Reported Site Urine Culture Final (continued) 05/13/18924 2. KLEBSIELLA PNEUMONIAE (continued) M.I.C. RX --------- ------ Ciprofloxacin <=0.25 S Gentamicin <=1 S Levofloxacin 0.5 S Meropenem <=0.25 S Nitrofurantoin 128 R Tetracycline 8 I Pipercillin/Tazobactam 8 S Trimethoprim/Sulfamethoxazole <=20 S Amoxicillin/Clavulanic Acid 4 S Aztreonam <=1 S Contact the Microbiology Department for any additional antibiotic reporting. * [facility] - Main Lab . END OF REPORT DEPARTMENT OF PATHOLOGY, [address] [place] [address] Samuel Mares M.D. Director [facility] # [id number] 6 SEE RESULT BELOW Name: FAY COREAS : [address]: Rios Thomas MD Acct: [id number] Unit: [id number] AGE: 77 Location: [facility] Re12/31/17 SEX: F Status: REG REF SPEC: [id number] AUDREY: 12/31/[address]: Noe Wright MD REQ: [id number] RECD: 12/31/17 STATUS: COMP _ SOURCE: URINE SPDESC: ORDERED: Urine Culture Urine Source: Clean Catch Procedure Result Reported Site Urine Culture Final 01/01/18- 1618 ML No growth of clinically significant organisms * - [facility] . END OF REPORT DEPARTMENT OF PATHOLOGY, [address] [place] [address] Samuel Mares M.D. Director [facility] # [id number] 7 Because ethnic data is not always readily available, this report includes an eGFR for both -Americans and non- Americans. The National Kidney Disease Education Program (NKDEP) does not endorse the use of the MDRD equation for patients that are not between the ages of 18 and 70, are , have extremes of body size, muscle mass, or nutritional status, or are non- or non-. According to the National Kidney Foundation, irrespective of diagnosis, the stage of the disease is based on the level of kidney function: Stage Description GFR(mL/min/1.73 m(2)) 1 Kidney damage with normal or decreased GFR 90 2 Kidney damage with mild decrease in GFR 60-89 3 Moderate decrease in GFR 30-59 4 Severe decrease in GFR 15-29 5 Kidney failure <15 (or dialysis) 8 REFERENCE VALUE Reference values depend on clinical use: Anticonvulsant: 5.0-20.0 mcg/mL Psychiatric: 2.0-8.0 mcg/mL ADDITIONAL INFORMATION This test was developed and its performance characteristics determined by [facility] in a manner consistent with CLIA requirements. This test has not been cleared or approved by the U.S. Food and Drug Administration. Test Performed by: [facility] [address] [place] [address] 9 ADDITIONAL INFORMATION This test was developed and its performance characteristics determined by [facility] in a manner consistent with CLIA requirements. This test has not been cleared or approved by the U.S. Food and Drug Administration. Test Performed by: [facility] - [address] [address] 10 Casting Operator: [id number] 11 Because ethnic data is not always readily available, this report includes an eGFR for both -Americans and non- Americans. The National Kidney Disease Education Program (NKDEP) does not endorse the use of the MDRD equation for patients that are not between the ages of 18 and 70, are , have extremes of body size, muscle mass, or nutritional status, or are non- or non-. According to the National Kidney Foundation, irrespective of diagnosis, the stage of the disease is based on the level of kidney function: Stage Description GFR(mL/min/1.73 m(2)) 1 Kidney damage with normal or decreased GFR 90 2 Kidney damage with mild decrease in GFR 60-89 3 Moderate decrease in GFR 30-59 4 Severe decrease in GFR 15-29 5 Kidney failure <15 (or dialysis) 12 Because ethnic data is not always readily available, this report includes an eGFR for both -Americans and non- Americans. The National Kidney Disease Education Program (NKDEP) does not endorse the use of the MDRD equation for patients that are not between the ages of 18 and 70, are , have extremes of body size, muscle mass, or nutritional status, or are non- or non-. According to the National Kidney Foundation, irrespective of diagnosis, the stage of the disease is based on the level of kidney function: Stage Description GFR(mL/min/1.73 m(2)) 1 Kidney damage with normal or decreased GFR 90 2 Kidney damage with mild decrease in GFR 60-89 3 Moderate decrease in GFR 30-59 4 Severe decrease in GFR 15-29 5 Kidney failure <15 (or dialysis) 13 [id number] SEE RESULT BELOW Name: FAY COREAS Leticia : [address]: Fabrice Beckford MD Acct: [id number] Unit: [id number] AGE: 76 Location: [facility] Re08/16/17 SEX: F Status: DEP ER SPEC: [id number] AUDREY: 08/16/17-[address] [facility] [address]: Marcos Knight MD REQ: [id number] RECD: 08/17/17 STATUS: NIKI GROSS DR: Noe Beckford MD _ SOURCE: URINE SPDESC: ORDERED: Urine Culture COMMENTS: [id number] Procedure Result Reported Site Urine Culture Final 08/19/17- 0814 ML Organism 1 KLEBSIELLA PNEUMONIAE Beckemeyer Count 50-75,000 (Many) CFU/ML 1. KLEBSIELLA PNEUMONIAE M.I.C. RX --------- ------ Ampicillin >=32 R Cefazolin <=4 S Cefepime <=1 S Ceftriaxone <=1 S Ciprofloxacin <=0.25 S Gentamicin <=1 S Levofloxacin 0.5 S Meropenem <=0.25 S Nitrofurantoin 64 I Tetracycline 4 S Pipercillin/Tazobactam 16 S Trimethoprim/Sulfamethoxazole <=20 S Amoxicillin/Clavulanic Acid 8 S Aztreonam <=1 S Contact the Microbiology Department for any additional antibiotic reporting. * ML - Main Lab . END OF REPORT DEPARTMENT OF PATHOLOGY, [address] [place] [address] Samuel Mares M.D. Director [facility] # [id number] Casting Operator: [id number] SEE RESULT BELOW Name: FAY COREAS : [address]: Gaetano Wright MD Acct: [id number] Unit: [id number] AGE: 76 Location: [facility] Re07/22/17 SEX: F Status: REG REF SPEC: [id number] AUDREY: 07/22/17-[address] [facility] [address]: Noe Wright MD REQ: [id number] RECD: 07/22/17 STATUS: COMP _ SOURCE: URINE SPDESC: ORDERED: Urine Culture COMMENTS: [id number] Procedure Result Reported Site Urine Culture Final 07/24/17- 0812 ML Organism 1 KLEBSIELLA PNEUMONIAE [place]eyer Count >100,000 (Many) CFU/ML 1. KLEBSIELLA PNEUMONIAE M.I.C. RX --------- ------ Ampicillin >=32 R Cefazolin <=4 S Cefepime <=1 S Ceftriaxone <=1 S Ciprofloxacin <=0.25 S Gentamicin <=1 S Levofloxacin 0.5 S Meropenem <=0.25 S Nitrofurantoin 128 R Tetracycline 4 S Pipercillin/Tazobactam 16 S Trimethoprim/Sulfamethoxazole <=20 S Amoxicillin/Clavulanic Acid 4 S Aztreonam <=1 S Contact the Microbiology Department for any additional antibiotic reporting. * ML - Main Lab . END OF REPORT DEPARTMENT OF PATHOLOGY, [address] [place] [address] Samuel Mares M.D. Director [facility] # [id number] 17 Because ethnic data is not always readily available, this report includes an eGFR for both -Americans and non- Americans. The National Kidney Disease Education Program (NKDEP) does not endorse the use of the MDRD equation for patients that are not between the ages of 18 and 70, are , have extremes of body size, muscle mass, or nutritional status, or are non- or non-. According to the National Kidney Foundation, irrespective of diagnosis, the stage of the disease is based on the level of kidney function: Stage Description GFR(mL/min/1.73 m(2)) 1 Kidney damage with normal or decreased GFR 90 2 Kidney damage with mild decrease in GFR 60-89 3 Moderate decrease in GFR 30-59 4 Severe decrease in GFR 15-29 5 Kidney failure <15 (or dialysis) 18 Critical Result K:2.4 Called to [id number] at: 22:29:49 by:[id number] Read back by:[id number] 19 Therapeutic concentration: <50 ug/mL Toxic concentration: >120 ug/mL 20 Presumptive Positive Drug confirmation to follow. Presumptive Positive means that the screening method is positive, but the test needs to be run by a confirmatory method before being finalized. REFERENCE VALUE Cutoff: 500 21 REFERENCE VALUE Cutoff: 200 22 Presumptive Positive Drug confirmation to follow. Presumptive Positive means that the screening method is positive, but the test needs to be run by a confirmatory method before being finalized. REFERENCE VALUE Cutoff: 100 23 REFERENCE VALUE Cutoff: 150 24 Presumptive Positive Drug confirmation to follow. Presumptive Positive means that the screening method is positive, but the test needs to be run by a confirmatory method before being finalized. 25 ADDITIONAL INFORMATION This report is intended for use in clinical monitoring or management of patients. It is not intended for use in employment-related testing. 26 REFERENCE VALUE Cutoff: 200 mg/L 27 Tylenol 3 28 Metabolite of codeine REFERENCE VALUE Cutoff: 100 29 Sylvie Villarreal, Contin; Also a minor metabolite (10%) of codeine and can be seen in low concentrations (<2,000 ng/mL) with poppy seed ingestion. 30 Metabolite of morphine REFERENCE VALUE Cutoff: 100 31 Metabolite of heroin 32 Lortab, [place], Vicodin; Also a very minor metabolite of codeine and impurity (<1%) of oxycodone. 33 Metabolite of hydrocodone 34 Metabolite of hydrocodone 35 Dilaudid, Exalgo; Also a metabolite of hydrocodone and a minor (<5%) metabolite of morphine. 36 Metabolite of hydromorphone REFERENCE VALUE Cutoff: 100 37 Endocet, Percocet, Oxycontin 38 Metabolite of oxycodone 39 Numorphan, Opana; Also a metabolite of oxycodone. 40 Metabolite of oxymorphone REFERENCE VALUE Cutoff: 100 41 Metabolite of oxymorphone 42 Actiq, Duragesic, [place] 43 Metabolite of fentanyl 44 Demerol 45 Metabolite of meperidine 46 Narcan 47 Metabolite of naloxone REFERENCE VALUE Cutoff: 100 48 Dolophine 49 Metabolite of methadone 50 Darvon, Darvocet 51 Metabolite of propoxyphene 52 Tradol, Ultram, Ultracet 53 Metabolite of tramadol 54 Nucynta 55 Metabolite of tapentadol 56 Metabolite of tapentadol REFERENCE VALUE Cutoff: 100 57 Buprenex, Suboxone 58 Metabolite of buprenorphine 59 Metabolite of buprenorphine 60 Test detected the presence of both morphine and its metabolites (xigxwbvp-4-cgui-glucuronide and zmkjcxadqmthw-7-ccyt-glucuronide). Suspect use of morphine or morphine and hydromorphone within the past three days. Alternatively, these results could also be suggestive of heroin use. Low levels of morphine can also be seen following poppy seed ingestion. ADDITIONAL INFORMATION This test was developed and its performance characteristics determined by [facility] in a manner consistent with CLIA requirements. This test has not been cleared or approved by the U.S. Food and Drug Administration. Test Performed by: [facility] [place] [address] [place] [id number] ADDITIONAL INFORMATION This report is intended for use in clinical monitoring and management of patients. It is not intended for use in employment-related testing. This test was developed and its performance characteristics determined by [facility] in a manner consistent with CLIA requirements. This test has not been cleared or approved by the U.S. Food and Drug Administration. Test Performed by: [facility] - [address] [address] 62 REFERENCE VALUE Cutoff: 100 63 REFERENCE VALUE Cutoff: 100 64 REFERENCE VALUE Cutoff: 100 65 REFERENCE VALUE Cutoff: 100 66 REFERENCE VALUE Cutoff: 100 67 REFERENCE VALUE Cutoff: 100 68 REFERENCE VALUE Cutoff: 100 69 REFERENCE VALUE Cutoff: 100 70 ADDITIONAL INFORMATION This report is intended for use in clinical monitoring and management of patients. It is not intended for use in employment-related testing. This test was developed and its performance characteristics determined by [facility] in a manner consistent with CLIA requirements. This test has not been cleared or approved by the U.S. Food and Drug Administration. Test Performed by: [facility] - [address] [address] 71 ADDITIONAL INFORMATION This report is intended for use in clinical monitoring and management of patients. It is not intended for use in employment-related testing. This test was developed and its performance characteristics determined by [facility] in a manner consistent with CLIA requirements. This test has not been cleared or approved by the U.S. Food and Drug Administration. Test Performed by: [facility] - [address] [address] 72 SEE RESULT BELOW Name: FAY COREAS : [address]: Giovanny Copeland NP Acct: [id number] Unit: [id number] AGE: 75 Location: [facility] Re10/15/16 SEX: F Status: REG REF SPEC: [id number] AUDREY: 10/15/[address]: Giovanny Copeland NP REQ: [id number] RECD: 10/15/16 STATUS: COMP _ SOURCE: URINE SPDESC: ORDERED: Urine Culture COMMENTS: [id number] Urine Source: Random Procedure Result Reported Site Urine Culture Final 10/17/16- 0847 ML Organism 1 KLEBSIELLA PNEUMONIAE Beck[place]eyer Count >100,000 (Many) CFU/ML 1. KLEBSIELLA PNEUMONIAE M.I.C. RX --------- ------ Ampicillin >=32 R Cefazolin <=4 S Cefepime <=1 S Ceftriaxone <=1 S Ciprofloxacin <=0.25 S Gentamicin <=1 S Levofloxacin 0.5 S Meropenem <=0.25 S Nitrofurantoin 64 I Tetracycline 4 S Pipercillin/Tazobactam 8 S Trimethoprim/Sulfamethoxazole <=20 S Amoxicillin/Clavulanic Acid <=2 S Aztreonam <=1 S CONTINUED ON NEXT PAGE * ML=Testing performed at Main Lab DEPARTMENT OF PATHOLOGY, [address] [place] [address] Samuel Mares M.D. Director [facility] # [id number] Patient: FAY COREAS [id number] (Continued) Specimen: [id number] Collected: 10/15/16 Received: 10/15/16 (Continued) Procedure Result Reported Site Urine Culture Final (continued) Contact the Microbiology Department for any additional antibiotic reporting. * ML - MAIN LAB (PSC1) . END OF REPORT * ML=Testing performed at Main Lab DEPARTMENT OF PATHOLOGY, [address] [place] [address] Samuel Mares M.D. Director [facility] # [id number] 73 Because ethnic data is not always readily available, this report includes an eGFR for both -Americans and non- Americans. The National Kidney Disease Education Program (NKDEP) does not endorse the use of the MDRD equation for patients that are not between the ages of 18 and 70, are , have extremes of body size, muscle mass, or nutritional status, or are non- or non-. According to the National Kidney Foundation, irrespective of diagnosis, the stage of the disease is based on the level of kidney function: Stage Description GFR(mL/min/1.73 m(2)) 1 Kidney damage with normal or decreased GFR 90 2 Kidney damage with mild decrease in GFR 60-89 3 Moderate decrease in GFR 30-59 4 Severe decrease in GFR 15-29 5 Kidney failure <15 (or dialysis) 74 Normal Range 180 to 914 Indeterminate Range 145 to 180 Deficient Range <145 75 Because ethnic data is not always readily available, this report includes an eGFR for both -Americans and non- Americans. The National Kidney Disease Education Program (NKDEP) does not endorse the use of the MDRD equation for patients that are not between the ages of 18 and 70, are , have extremes of body size, muscle mass, or nutritional status, or are non- or non-. According to the National Kidney Foundation, irrespective of diagnosis, the stage of the disease is based on the level of kidney function: Stage Description GFR(mL/min/1.73 m(2)) 1 Kidney damage with normal or decreased GFR 90 2 Kidney damage with mild decrease in GFR 60-89 3 Moderate decrease in GFR 30-59 4 Severe decrease in GFR 15-29 5 Kidney failure <15 (or dialysis) 76 ADDITIONAL INFORMATION Reference range for patients 11 years and older is based on upright A.M. collection from subjects without sodium restrictions. This test was developed and its performance characteristics determined by [facility] in a manner consistent with CLIA requirements. This test has not been cleared or approved by the U.S. Food and Drug Administration. Test Performed by: [facility] [address] X Ray Developer: Fabrice Farfan II, M.D., Ph.D. 77 REFERENCE VALUE (Peripheral vein specimen) Na-deplete, upright: Mean: 5.9 Range: 2.9-10.8 Na-replete, upright: Mean: 1.0 Range: < or=0.6-3.0 ADDITIONAL INFORMATION Testing performed by Liquid Chromatography-Tandem Mass Spectrometry (LC-MS/MS). This test was developed and its performance characteristics determined by [facility] in a manner consistent with CLIA requirements. This test has not been cleared or approved by the U.S. Food and Drug Administration. Test Performed by: [facility] [address] X Ray Developer: Fabrice Farfan II, M.D., Ph.D. 78 Test Performed by: [facility] [address] X Ray Developer: Fabrice Farfan II, M.D., Ph.D. 79 Acute inflammation: >10.00 80 REFERENCE VALUE <=1.0 (Negative) Test Performed by: [facility] [address] X Ray Developer: Fabrice Farfan II, M.D., Ph.D. 81 ADDITIONAL INFORMATION This test was developed and its performance characteristics determined by [facility] in a manner consistent with CLIA requirements. This test has not been cleared or approved by the U.S. Food and Drug Administration. Test Performed by: [facility] [address] X Ray Developer: Fabrice Farfan II, M.D., Ph.D. 82 ADDITIONAL INFORMATION This test was developed and its performance characteristics determined by [facility] in a manner consistent with CLIA requirements. This test has not been cleared or approved by the U.S. Food and Drug Administration. Test Performed by: [facility] [address] X Ray Developer: Fabrice Farfan II, M.D., Ph.D. 83 Because ethnic data is not always readily available, this report includes an eGFR for both -Americans and non- Americans. The National Kidney Disease Education Program (NKDEP) does not endorse the use of the MDRD equation for patients that are not between the ages of 18 and 70, are , have extremes of body size, muscle mass, or nutritional status, or are non- or non-. According to the National Kidney Foundation, irrespective of diagnosis, the stage of the disease is based on the level of kidney function: Stage Description GFR(mL/min/1.73 m(2)) 1 Kidney damage with normal or decreased GFR 90 2 Kidney damage with mild decrease in GFR 60-89 3 Moderate decrease in GFR 30-59 4 Severe decrease in GFR 15-29 5 Kidney failure <15 (or dialysis) 84 Normal Range 180 to 914 Indeterminate Range 145 to 180 Deficient Range <145 85 Because ethnic data is not always readily available, this report includes an eGFR for both -Americans and non- Americans. The National Kidney Disease Education Program (NKDEP) does not endorse the use of the MDRD equation for patients that are not between the ages of 18 and 70, are , have extremes of body size, muscle mass, or nutritional status, or are non- or non-. According to the National Kidney Foundation, irrespective of diagnosis, the stage of the disease is based on the level of kidney function: Stage Description GFR(mL/min/1.73 m(2)) 1 Kidney damage with normal or decreased GFR 90 2 Kidney damage with mild decrease in GFR 60-89 3 Moderate decrease in GFR 30-59 4 Severe decrease in GFR 15-29 5 Kidney failure <15 (or dialysis) 86 Acute inflammation: >10.00 87 Because ethnic data is not always readily available, this report includes an eGFR for both -Americans and non- Americans. The National Kidney Disease Education Program (NKDEP) does not endorse the use of the MDRD equation for patients that are not between the ages of 18 and 70, are , have extremes of body size, muscle mass, or nutritional status, or are non- or non-. According to the National Kidney Foundation, irrespective of diagnosis, the stage of the disease is based on the level of kidney function: Stage Description GFR(mL/min/1.73 m(2)) 1 Kidney damage with normal or decreased GFR 90 2 Kidney damage with mild decrease in GFR 60-89 3 Moderate decrease in GFR 30-59 4 Severe decrease in GFR 15-29 5 Kidney failure <15 (or dialysis) 88 Test Performed by: [address] [place] [address] X Ray Developer: Fabrice Farfan II, M.D., Ph.D. 89 Serologic response to B. burgdorferi infection is not detected, but cannot rule out early infection during which low or undetectable antibody levels to B. burgdorferi may be present. If clinically indicated, a new serum specimen should be submitted in 7-14 days. Test Performed by: [facility] - [address] [address] X Ray Developer: Fabrice Farfan II, M.D., Ph.D. 90 Normal Range 180 to 914 Indeterminate Range 145 to 180 Deficient Range <145 91 Desirable <150 Borderline high 150-199 High 200-499 Very High >500 92 Desirable <200 Borderline high 200-239 High >239 93 Low <40 Desirable: 40-60 High: >60 94 Desirable <100 Near Optimal 100-129 Borderline high 130-159 High 160-189 Very High >189 95 The homocysteine concentration is elevated in this sample. Increased homocysteine has been associated with an increased risk of cardiovascular disease, cerebrovascular disease, peripheral arterial disease and thrombosis. Vitamin deficiencies (B6, B12 and folic acid) may also cause an increased homocysteine concentration. Inborn errors of methionine metabolism are a potential, but less likely, possibility for hyperhomocysteinemia. Consider plasma or serum methylmalonic acid analysis to rule out vitamin B12 deficiency. REFERENCE VALUE <=13 (Fasting) Test Performed by: [address] [address] X Ray Developer: Fabrice Farfan II, M.D., Ph.D. 96 In this sample, the concentration of methylmalonic acid (MMA) was elevated. This finding is likely related to vitamin B12 deficiency. Test Performed by: [facility] - [address] [address] X Ray Developer: Fabrice Farfan II, M.D., Ph.D. 97 REFERENCE VALUE (Peripheral vein specimen) Na-deplete, upright: Mean: 5.9 Range: 2.9-10.8 Na-replete, upright: Mean: 1.0 Range: <=0.6-3.0 Test Performed by: [place] [address] X Ray Developer: Mitch Fuentes M.D. 98 Test Performed by: [place] [address] X Ray Developer: Mitch Fuentes M.D. 99 Because ethnic data is not always readily available, this report includes an eGFR for both -Americans and non- Americans. The National Kidney Disease Education Program (NKDEP) does not endorse the use of the MDRD equation for patients that are not between the ages of 18 and 70, are , have extremes of body size, muscle mass, or nutritional status, or are non- or non-. According to the National Kidney Foundation, irrespective of diagnosis, the stage of the disease is based on the level of kidney function: Stage Description GFR(mL/min/1.73 m(2)) 1 Kidney damage with normal or decreased GFR 90 2 Kidney damage with mild decrease in GFR 60-89 3 Moderate decrease in GFR 30-59 4 Severe decrease in GFR 15-29 5 Kidney failure <15 (or dialysis) 100 Interpretation: <10 ng/mL (severe deficiency) REFERENCE VALUE 25-HYDROXY D TOTAL (D2+D3) Optimum levels in the healthy population are 20-50, patients with bone disease may benefit from higher levels within this range. Test Performed by: [place] [address] X Ray Developer: Mitch Fuentes M.D. 101 Serologic response to B. burgdorferi infection is not detected, but cannot rule out early infection during which low or undetectable antibody levels to B. burgdorferi may be present. If clinically indicated, a new serum specimen should be submitted in 7-14 days. Test Performed by: [address] [place] [address] X Ray Developer: Mitch Fuentes M.D. 102 Because ethnic data is not always readily available, this report includes an eGFR for both -Americans and non- Americans. The National Kidney Disease Education Program (NKDEP) does not endorse the use of the MDRD equation for patients that are not between the ages of 18 and 70, are , have extremes of body size, muscle mass, or nutritional status, or are non- or non-. According to the National Kidney Foundation, irrespective of diagnosis, the stage of the disease is based on the level of kidney function: Stage Description GFR(mL/min/1.73 m(2)) 1 Kidney damage with normal or decreased GFR 90 2 Kidney damage with mild decrease in GFR 60-89 3 Moderate decrease in GFR 30-59 4 Severe decrease in GFR 15-29 5 Kidney failure <15 (or dialysis) 103 PLEASE NOTE NEW REFERENCE RANGES. 104 Anion gap measurement may be of limited value in the presence of any alkalosis, especially in a combined acid base disorder. . 105 Note change in reference range as of 11/12/07. The change was based on recommendations from the [employer]. 106 Please note change in reference range effective 07 . 107 Because ethnic data is not always readily available, this report includes an eGFR for both -Americans and non- Americans. The National Kidney Disease Education Program (NKDEP) does not endorse the use of the MDRD equation for patients that are not between the ages of 18 and 70, are , have extremes of body size, muscle mass, or nutritional status, or are non- or non-. According to the National Kidney Foundation, irrespective of diagnosis, the stage of the disease is based on the level of kidney function: Stage Description GFR(mL/min/1.73 m(2)) 1 Kidney damage with normal or decreased GFR 90 2 Kidney damage with mild decrease in GFR 60-89 3 Moderate decrease in GFR 30-59 4 Severe decrease in GFR 15-29 5 Kidney failure <15 (or dialysis) 108 Anion gap measurement may be of limited value in the presence of any alkalosis, especially in a combined acid base disorder. . 109 Note change in reference range as of 11/12/07. The change was based on recommendations from the [employer]. 110 Please note change in reference range effective 07 . 111 Because ethnic data is not always readily available, this report includes an eGFR for both -Americans and non- Americans. The National Kidney Disease Education Program (NKDEP) does not endorse the use of the MDRD equation for patients that are not between the ages of 18 and 70, are , have extremes of body size, muscle mass, or nutritional status, or are non- or non-. According to the National Kidney Foundation, irrespective of diagnosis, the stage of the disease is based on the level of kidney function: Stage Description GFR(mL/min/1.73 m(2)) 1 Kidney damage with normal or decreased GFR 90 2 Kidney damage with mild decrease in GFR 60-89 3 Moderate decrease in GFR 30-59 4 Severe decrease in GFR 15-29 5 Kidney failure <15 (or dialysis) 112 Anion gap measurement may be of limited value in the presence of any alkalosis, especially in a combined acid base disorder. . 113 Note change in reference range as of 11/12/07. The change was based on recommendations from the [employer]. 114 Please note change in reference range effective 07 . 115 Because ethnic data is not always readily available, this report includes an eGFR for both -Americans and non- Americans. The National Kidney Disease Education Program (NKDEP) does not endorse the use of the MDRD equation for patients that are not between the ages of 18 and 70, are , have extremes of body size, muscle mass, or nutritional status, or are non- or non-. According to the National Kidney Foundation, irrespective of diagnosis, the stage of the disease is based on the level of kidney function: Stage Description GFR(mL/min/1.73 m(2)) 1 Kidney damage with normal or decreased GFR 90 2 Kidney damage with mild decrease in GFR 60-89 3 Moderate decrease in GFR 30-59 4 Severe decrease in GFR 15-29 5 Kidney failure <15 (or dialysis) 116 Anion gap measurement may be of limited value in the presence of any alkalosis, especially in a combined acid base disorder. . 117 Note change in reference range as of 11/12/07. The change was based on recommendations from the [place] [employer]. 118 Please note change in reference range effective 07 . 119 Because ethnic data is not always readily available, this report includes an eGFR for both -Americans and non- Americans. The National Kidney Disease Education Program (NKDEP) does not endorse the use of the MDRD equation for patients that are not between the ages of 18 and 70, are , have extremes of body size, muscle mass, or nutritional status, or are non- or non-. According to the National Kidney Foundation, irrespective of diagnosis, the stage of the disease is based on the level of kidney function: Stage Description GFR(mL/min/1.73 m(2)) 1 Kidney damage with normal or decreased GFR 90 2 Kidney damage with mild decrease in GFR 60-89 3 Moderate decrease in GFR 30-59 4 Severe decrease in GFR 15-29 5 Kidney failure <15 (or dialysis) 120 Anion gap measurement may be of limited value in the presence of any alkalosis, especially in a combined acid base disorder. . 121 Note change in reference range as of 11/12/07. The change was based on recommendations from the [place] [employer]. 122 Please note change in reference range effective 07 . 123 Because ethnic data is not always readily available, this report includes an eGFR for both -Americans and non- Americans. The National Kidney Disease Education Program (NKDEP) does not endorse the use of the MDRD equation for patients that are not between the ages of 18 and 70, are , have extremes of body size, muscle mass, or nutritional status, or are non- or non-. According to the National Kidney Foundation, irrespective of diagnosis, the stage of the disease is based on the level of kidney function: Stage Description GFR(mL/min/1.73 m(2)) 1 Kidney damage with normal or decreased GFR 90 2 Kidney damage with mild decrease in GFR 60-89 3 Moderate decrease in GFR 30-59 4 Severe decrease in GFR 15-29 5 Kidney failure <15 (or dialysis) 124 Test Performed by: [facility] [address] [place] [id number] X Ray Developer: Jorgito Amezquita III, M.D. 125 PATIENT MAY HAVE RESULTS PER DOCTOR'S AUTHORIZATION. Questions regarding this report should be directed to your doctor. 126 Anion gap measurement may be of limited value in the presence of any alkalosis, especially in a combined acid base disorder. . 127 Note change in reference range as of 11/12/07. The change was based on recommendations from the [place] [employer]. 128 Please note change in reference range effective 07 . 129 A metabolite of Naproxen, O-desmethylnaproxen, has been shown to interfere with the Jendrassik-Reagan method for measuring total bilirubin. Samples from patients who have taken Naproxen have shown spurious elevation in total bilirubin levels. 130 Because ethnic data is not always readily available, this report includes an eGFR for both -Americans and non- Americans. The National Kidney Disease Education Program (NKDEP) does not endorse the use of the MDRD equation for patients that are not between the ages of 18 and 70, are , have extremes of body size, muscle mass, or nutritional status, or are non- or non-. According to the National Kidney Foundation, irrespective of diagnosis, the stage of the disease is based on the level of kidney function: Stage Description GFR(mL/min/1.73 m(2)) 1 Kidney damage with normal or decreased GFR 90 2 Kidney damage with mild decrease in GFR 60-89 3 Moderate decrease in GFR 30-59 4 Severe decrease in GFR 15-29 5 Kidney failure <15 (or dialysis) 131 Test Performed by: [facility] [address] [place] [address] X Ray Developer: Jorgito Amezquita III, M.D. 132 FINAL: NO GROWTH DAY 2 (<1,000 CFU/mL) 133 CALCIUM OXALATE 134 FEW CALCIUM OXALATE 135 SCANT NORMAL URETHRAL OR PERINEAL LILIANA 136 FINAL: NO GROWTH DAY 2 (<1,000 CFU/mL) 137 Anion gap measurement may be of limited value in the presence of any alkalosis, especially in a combined acid base disorder. . 138 Anion gap measurement may be of limited value in the presence of any alkalosis, especially in a combined acid base disorder. . 139 Anion gap measurement may be of limited value in the presence of any alkalosis, especially in a combined acid base disorder. . 140 Lymphopenia % 141 Anion gap measurement may be of limited value in the presence of any alkalosis, especially in a combined acid base disorder. . 142 Anion gap measurement may be of limited value in the presence of any alkalosis, especially in a combined acid base disorder. . 143 MADALYN VALUE=2.00 ( OF 01/07/06) Recommended INR for Patients on Oral Anticoagulants Prophylaxis 2.0 - 3.0 Treatment of thrombosis 2.0 - 3.0 Prevention of embolism 2.0 - 3.0 Prevention of embolism from prosthetic heart valves 2.5 - 3.5 144 Neutrophilia % Lymphopenia % 145 PLEASE NOTE NEW REFERENCE RANGE EFFECTIVE 04 146 Anion gap measurement may be of limited value in the presence of any alkalosis, especially in a combined acid base disorder. . Procedures Date Code Description Status 07/15/2018 57129 Chemical Cautery Granulation Tissue Completed 05/13/2018 73199 Debridement Muscle/Fascia,Epidermis/Dermis/Tissue,Addtl Completed 20 SQ CM 05/13/2018 05649 Debridement Skin, Subcutaneous Tissue & Muscle Completed 12/09/2017 55050 EEG Recording Awake & Drowsy Completed 05/22/2017 89086 EEG Recording Awake & Drowsy Completed 01/02/2016 19024 Admin Of Inj Completed 01/24/2015 21632 Admin Of Inj Completed 08/25/2014 97078 Admin Of Inj Completed 08/08/2014 22345 Admin Of Inj Completed 12/04/2012 [id number] Mammogram Completed 02/13/2010 93798 Stress ECHO Interpretation/Report Hospital Completed 02/13/2010 08851 Treadmill Interp/Report Only Completed 02/13/2010 70310 Stress Test Supervsn W/Out I/R Completed 10/15/2007 [id number] Mammogram Completed Encounters Type Date Location Provider Dx Diagnosis Office Visit 08/24/2018 Marlene Arevalo MD G89.4 Chronic pain 11:40a Medicine - C[facility] syndrome L29.9 Pruritus, unspecified R51 Headache N39.41 Urge incontinence Office Visit 08/05/2018 Wound Care Demond S. L89.154 Pressure ulcer of 11:00a Center AT [facility] MD Kathrine sacral region, stage 4 Office Visit 08/04/2018 Marlene Arevalo MD I10 Essential 2:00p Medicine - (primary) C[facility] hypertension M54.5 Low back pain G40.909 Epilepsy, unsp, not intractable, without status epilepticus L89.150 Pressure ulcer of sacral region, unstageable Office Visit 07/31/2018 10:40a [facility] Internal Giovanny Copeland L89.154 Pressure ulcer Medicine - Ccmob [employer] PROJECT MANAGER of sacral region, stage 4 I10 Essential (primary) hypertension M54.5 Low back pain R51 Headache Office Visit 05/21/2018 8:23a [facility] Annalise L89.154 Pressure ulcer Assoc,junior Garcia D.O. of [facility], stage 4 N39.0 Urinary tract infection, site not specified B96.20 Unsp Escherichia coli as the cause of diseases classd elswhr E26.9 Hyperaldosteronism, unspecified G40.909 Epilepsy, unsp, not intractable, without status epilepticus I10 Essential (primary) hypertension R29.6 Repeated falls F22 Delusional disorders Office Visit 05/20/2018 9:00a Wound Care Padmini Odom L89.94 Pressure ulcer of Center AT [facility], [employer] PROJECT MANAGER unspecified site, stage 4 E44.0 Moderate protein-calorie malnutrition Z78.9 Other specified health status Office Visit 05/20/2018 8:22a [facility] Annalise L89.154 Pressure ulcer Assoc,junior Garcia D.O. of [facility], stage 4 E44.0 Moderate protein-calorie malnutrition I10 Essential (primary) hypertension E26.9 Hyperaldosteronism, unspecified N39.0 Urinary tract infection, site not specified B96.20 Unsp Escherichia coli as the cause of diseases classd elswhr G40.909 Epilepsy, unsp, not intractable, without status epilepticus F22 Delusional disorders Office Visit 05/19/2018 [facility] Gisselle L89.150 Pressure ulcer of 8:22a Assjunior alonso M.D. sacral region, Hospitalists unstageable N39.0 Urinary tract infection, site not specified B96.20 Unsp Escherichia coli as the cause of diseases classd elswhr G40.909 Epilepsy, unsp, not intractable, without status epilepticus E44.0 Moderate protein-calorie malnutrition I10 Essential (primary) hypertension Office Visit 05/18/2018 [facility] Sean Gomez L89.159 Pressure ulcer of 12:27p For Isaura Carlos M.D. sacral region, Diseases unspecified stage L03.312 Cellulitis of back [any part except buttock] G40.909 Epilepsy, unsp, not intractable, without status epilepticus Office Visit 05/18/2018 [facility] L89.150 Pressure ulcer of 8:21a junior Ramírez M.D. sacral region, Hospitalists unstageable N39.0 Urinary tract infection, site not specified G40.909 Epilepsy, unsp, not intractable, without status epilepticus E46 Unspecified protein-calorie malnutrition I10 Essential (primary) hypertension F22 Delusional disorders Office Visit 05/18/2018 Surgical Demond Duncan L89.94 Pressure ulcer 7:00a [facility] MD of unspecified site, stage 4 [facility] L89.150 Pressure ulcer 8:21a junior Ramírez M.D. of [facility] Hospitalists region, unstageable N39.0 Urinary tract infection, site not specified G40.909 Epilepsy, unsp, not intractable, without status epilepticus E46 Unspecified protein-calorie malnutrition I10 Essential (primary) hypertension B96.20 Unsp Escherichia coli as the cause of diseases classd elswhr F22 Delusional disorders E03.9 Hypothyroidism, unspecified Office Visit 05/16/2018 [facility] Parris Srikanth, L89.150 Pressure ulcer of 8:20a junior Ramírez NP sacral region, Hospitalists unstageable N39.0 Urinary tract infection, site not specified G40.909 Epilepsy, unsp, not intractable, without status epilepticus E46 Unspecified protein-calorie malnutrition I10 Essential (primary) hypertension E26.9 Hyperaldosteronism, unspecified F22 Delusional disorders Office Visit 05/15/2018 [facility] Parris Srikanth, L89.150 Pressure ulcer of 8:20a junior Ramírez NP sacral region, Hospitalists unstageable N39.0 Urinary tract infection, site not specified G40.909 Epilepsy, unsp, not intractable, without status epilepticus E46 Unspecified protein-calorie malnutrition I10 Essential (primary) hypertension E26.9 Hyperaldosteronism, unspecified F22 Delusional disorders Office Visit 05/15/2018 Surgical Demond Duncan L89.159 Pressure ulcer 7:00a [facility] MD of [facility] region, unspecified stage Office Visit 05/14/2018 [facility] Parris Srikanth, L89.159 Pressure ulcer 8:19a Assoc,pc [employer] PROJECT MANAGER of [facility] Hospitalists [facility], unspecified stage N39.0 Urinary tract infection, site not specified G40.909 Epilepsy, unsp, not intractable, without status epilepticus I10 Essential (primary) hypertension E26.9 Hyperaldosteronism, unspecified F22 Delusional disorders Office 05/14/2018 Neurohospitalist Marcos Duncan G40.909 Epilepsy, unsp, Visit 7:00a [facility] Kaiser Campos not intractable, without status epilepticus Z91.14 Patient's other noncompliance with medication regimen Office Visit 05/13/2018 [facility] Parris Severinox, L89.159 Pressure ulcer of 8:19a Assoc,pc [employer] PROJECT MANAGER [facility], Hospitalists unspecified stage N39.0 Urinary tract infection, site not specified G40.909 Epilepsy, unsp, not intractable, without status epilepticus I10 Essential (primary) hypertension E26.9 Hyperaldosteronism, unspecified F22 Delusional disorders Office Visit 05/13/2018 [facility] L89.154 Pressure ulcer 8:15a AT [facility] [place] Acuna of sacral region, stage 4 Office Visit 05/12/2018 [facility] Parris Duke [employer] PROJECT MANAGER L89.159 Pressure ulcer 8:18a Assoc,pc of [facility] Hospitalists region, unspecified stage N39.0 Urinary tract infection, site not specified G40.909 Epilepsy, unsp, not intractable, without status epilepticus I10 Essential (primary) hypertension E26.9 Hyperaldosteronism, unspecified F22 Delusional disorders Office Visit 05/12/2018 Surgical Demond Duncan L89.159 Pressure ulcer 7:00a [facility] MD of sacral region, unspecified stage Office Visit 05/11/2018 [facility] Noe Gomez L89.159 Pressure ulcer 8:18a Assoc,junior Wright M.D.,FACP of [facility] Hospitalists region, unspecified stage G40.909 Epilepsy, unsp, not intractable, without status epilepticus E26.9 Hyperaldosteronism, unspecified N39.0 Urinary tract infection, site not specified F22 Delusional disorders R29.6 Repeated falls Office 10/30/2017 Neurohospitalist Rios G40.909 Epilepsy, unsp, Visit 10:30a Keeley Thomas MD not intractable, without status epilepticus D49.6 Neoplasm of unspecified behavior of brain R51 Headache Z86.011 Personal history of benign neoplasm of the brain R40.0 Somnolence Office Visit 10/08/2017 4:00p [facility] Internal Noe Gomez G40.909 Epilepsy , unsp, John Wright M.D.,FACP not intractable, [address] without status epilepticus N39.0 Urinary tract infection, site not specified E03.9 Hypothyroidism, unspecified Office Visit 07/22/2017 11:40a [facility] Internal Noe Gomez N30.00 Acute cystitis John Wright M.D.,FACP without C[facility] hematuria E87.6 Hypokalemia R41.0 Disorientation, unspecified M54.5 Low back pain Office Visit 06/18/2017 2:40p [facility] Internal Giovanny Copeland, M54.5 Low back pain Medicine - Ccmob [employer] PROJECT MANAGER Office Visit 05/26/2017 11:52a [facility] Lucy Cannon, R41.0 Disorientation, Assoc,pc N.P. unspecified Hospitalists R44.3 Hallucinations, unspecified E87.6 Hypokalemia G40.909 Epilepsy, unsp, not intractable, without status epilepticus Office Visit 05/25/2017 [facility] R41.0 Disorientation, 11:49a Assoc,junior Chirinos, [employer] PROJECT MANAGER unspecified Hospitalists R44.3 Hallucinations, unspecified E87.6 Hypokalemia G40.909 Epilepsy, unsp, not intractable, without status epilepticus Office Visit 05/24/2017 [facility] R41.0 Disorientation, 11:42a Assoc,junior Chirinos, [employer] PROJECT MANAGER unspecified Hospitalists R44.3 Hallucinations, unspecified E87.6 Hypokalemia Office Visit 05/23/2017 [facility] R41.0 Disorientation, 11:41a Assoc,[facility] unspecified Hospitalists [place] Ray R44.3 Hallucinations, unspecified E87.6 Hypokalemia G40.909 Epilepsy, unsp, not intractable, without status epilepticus Office Visit 05/22/2017 [facility] R41.0 Disorientation, 11:40a Assoc,[facility] unspecified Hospitalists [place] Ray R44.3 Hallucinations, unspecified E87.6 Hypokalemia G40.909 Epilepsy, unsp, not intractable, without status epilepticus Office Visit 05/21/2017 [facility] R41.0 Disorientation, 11:39a Assoc,[facility] unspecified Hospitalists [place] Ray R44.3 Hallucinations, unspecified E87.6 Hypokalemia G40.909 Epilepsy, unsp, not intractable, without status epilepticus Office 05/20/2017 [facility] Siddharth Rajput R41.0 Disorientation, Visit 11:38a Assoc, [facility] unspecified Hospitalists R44.3 Hallucinations, unspecified E87.6 Hypokalemia G40.909 Epilepsy, unsp, not intractable, without status epilepticus Office Visit 03/11/2017 10:30a [facility] Internal Noe Gomez F22 Delusional [facility],FACP disorders L30.9 Dermatitis, unspecified D51.9 Vitamin B12 deficiency anemia, unspecified Office Visit 02/20/2017 Lang Amezcua G40.909 Epilepsy, unsp, 1:45p Neurologic [facility] not intractable, Services Of [facility] without status epilepticus R51 Headache Office Visit 12/03/2016 10:20a [facility] Internal Giovanny Copeland M89.8x8 Other specified [facility] [employer] MANAGER disorders of bone, other site M54.5 Low back pain Office Visit 11/13/2016 10:40a [facility] Internal Giovanny Copeland, R21 Rash and other [facility] [employer] MANAGER nonspecific skin eruption Office Visit 10/14/2016 1:20p [facility] Internal Giovanny Copeland, R32 Unspecified urinary [facility] [employer] MANAGER incontinence R05 Cough Office Visit 10/04/2016 [facility] Internal Violeta R05 Cough 4:40p Medicine - Deisy James M.D. Office Visit 08/15/2016 Lang Amezcua G40.909 Epilepsy, unsp, 1:45p Neurologic [facility] not intractable, Services Of [facility] without status epilepticus R51 Headache Office Visit 07/02/2016 1:10p [facility] Dermatology Jean-Paul Abreuzer, L82.1 Other seborrheic MD keratosis I83.12 Varicose veins of left lower extremity with inflammation B35.3 Tinea pedis Z71.1 Person w feared hlth complaint in whom no diagnosis is made Office Visit 06/14/2016 4:00p [facility] Internal Giovanny Copeland J01.90 Acute sinusitis, [facility] [employer] PRO[employer] MANAGER unspecified Office Visit 06/13/2016 12:30p [facility] Internal Noe Gomez G40.909 Epilepsy , unsp, Medicine - Suite [place], not intractable, R M.DRamón,FACP without status epilepticus E26.9 Hyperaldosteronism, unspecified Office Visit 05/03/2016 [place]/Lang Amezcua G47.00 Insomnia, 3:00p [facility] unspecified [facility] G40.909 Epilepsy, unsp, not intractable, without status epilepticus R51 Headache Office Visit 05/02/2016 4:20p [facility] Internal Giovanny Copeland J01.90 Acute sinusitis, [facility] [employer] PROJECT MANAGER unspecified Office Visit 04/23/2016 4:00p [facility] Internal Noe Gomez E26.9 Hyperaldosteronism [facility] [place], , unspecified M.D.,FACP S06.0x9A Concussion w loss of consciousness of unsp duration, init G40.89 Other seizures Office Visit 03/29/2016 1:40p [facility] Internal Giovanny Copeland, S05.92xA Unspecified injury Medicine - [employer] PRO[employer] MANAGER of left eye and Ccmob orbit, initial encounter Office Visit 03/19/2016 2:40p [facility] Internal Noe Gomez E26.9 Hyperaldosteronism Medicine - [place], , unspecified [facility] M.DRamón,FACP 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 H61.23 Impacted cerumen, bilateral R27.0 Ataxia, unspecified Z23 Encounter for immunization Office Visit 01/02/2016 2:20p [facility] Internal Noe Gomez I15.2 Hypertension John Wright M.D.,FACP secondary to Ccmob endocrine disorders H61.23 Impacted cerumen, bilateral E03.9 Hypothyroidism, unspecified Z12.31 Encntr screen mammogram for malignant neoplasm of breast 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 Office Visit 05/23/2015 4:20p [facility] Internal Noe Gomez I73.9 Peripheral John Wright M.D.,FACP vascular disease, Ccmob unspecified H60.8x1 Other otitis externa, right ear M48.06 Spinal stenosis, lumbar region 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 Office Visit 05/05/2015 1:40p [facility] Internal Giovanny Copeland J06.9 Acute upper Medicine - Ccmob [employer] MANAGER respiratory infection, unspecified Office Visit 04/13/2015 11:45a Lang Amezcua G40.909 Epilepsy , unsp, Services Of [facility] not [facility] without status epilepticus R51 Headache Office Visit 04/03/2015 11:30a Jake/[facility] [place], R51 Headache Neurologic Serv Of Marlene Saab G40.909 Epilepsy, unsp, not intractable, without status epilepticus Office Visit 03/01/2015 12:10p [facility] Internal Noe Gomez D51.1 Vit B12 defic Medicine - Becca Wright M.D.,FACP anemia d/t slctv R vit B12 malabsorp w protein T63.461D Toxic effect of venom of wasps, accidental, subs E03.9 Hypothyroidism, unspecified S06.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, sequela Office Visit 01/24/2015 2:20p [facility] Internal Giovanny Copeland T63.461D Toxic effect of Medicine - [employer] PROJECT MANAGER venom of wasps, Ccmob accidental, subs D51.1 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 Office Visit 01/24/2015 1:15p Orthopedic Bernardo Sarmiento, M25.512 Pain in left Services Of Emy Saab shoulder M25.511 Pain in right shoulder Office Visit 01/13/2015 10:00a [facility] Internal Giovanny Copeland T63.461D Toxic effect of Medicine - [employer] PROJECT MANAGER venom of wasps, Ccmob accidental, subs L03.115 Cellulitis of right lower limb Office Visit 01/10/2015 10:10a [facility] Internal Noe Gomez J32.9 Chronic sinusitis, John Wright M.D.,FACP unspecified Ccmob F32.9 Major depressive disorder, single episode, unspecified T63.464A Toxic effect of venom of wasps, undetermined, init encntr D51.1 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 Office Visit 12/29/2014 3:40p [facility] Internal Giovanny Copeland, J01.90 Acute sinusitis, Medicine - Ccmob [employer] PROJECT MANAGER unspecified Office Visit 11/24/2014 2:00p Orthopedic Bernardo Sarmiento, 729.1 Myalgia & Myositis Services Of [facility] C.M.ARamón 719.42 Pain Joint Upper Arm Office Visit 11/21/2014 2:30p [facility] Internal Noe Gomez 726.19 Shoulder John Wright M.D.,FACP Disorders Other Suite [address] Spec 244.8 Hypothyroidism Other Spec 345.90 Epilepsy Unspec W/O Intractable 281.1 Vitamin B12 Deficiency Anemia Other 530.81 Esophageal Reflux 268.9 Vitamin D Deficiency Unspec Office Visit 09/20/2014 11:10a [facility] Internal Noe Gomez 719.42 Pain Joint Upper Medicine - [facility] [facility] Arm Office Visit 09/06/2014 11:30a [facility] Internal Noe Gomez 725 Polymyalgia Medicine [facility] Rheumatica Office Visit 08/30/2014 3:00p [facility] Internal Giovanny Copeland NP 719.42 Pain Joint [facility] Visit 08/11/2014 2:00p [facility] Internal Giovanny Copeland NP 466.0 Bronchitis Acute Medicine - [facility] Office Visit 07/27/2014 2:00p [facility] Internal Giovanny Copeland NP 466.0 Bronchitis Acute Medicine - [facility] Office Visit 06/06/2014 1:30p Jake/Lang Amezcua 345.90 Epilepsy Unspec Neurologic Serv Case Monroy. W/O Intractable Of [facility] 780.4 Dizziness & Giddiness 799.59 Other Signs And Symptoms Involving Cognition Office Visit 04/15/2014 10:00a [facility] Internal Rios Cazares, V72.84 Examination Medicine - [facility] [employer]GER Preoperative Unspec 709.8 Skin Disorders Other Spec 244.8 Hypothyroidism Other Spec 784.0 Headache 311 Depressive Disorder Not Elsewhere Spec 780.4 Dizziness & Giddiness 709.9 Skin & Subcutaneous Tissue Disorders Unspec 366.9 Cataract Unspec Office Visit 03/15/2014 11:10a [facility] Internal Noe Gomez V70.0 Examination John Wright M.D.,[facility] General Medical [facility] Routine AT Health Care Facility V72.81 Examination Preoperative Cardiovascular 268.9 Vitamin D Deficiency Unspec 244.8 Hypothyroidism Other Spec 840.4 Sprains & Strains Rotator Cuff (Capsule) 088.81 Lyme Disease V76.51 Special Screening For Malignant Neoplasms Colon V76.19 Screening Breast Exam Malignant Neoplasms Other V03.82 Streptococcus Pneumoniae Vaccination Spec Other Office Visit 02/22/2014 2:00p [facility] Internal Efrain Whitman, 780.79 Malaise And Medicine - [facility] [employer] MANAGER Fatigue Other 719.49 Pain Joint Multiple Sites 784.0 Headache 787.02 Nausea Alone Office Visit 01/20/2014 11:30a [facility] Internal Rios Cazares NP 311 Depressive Disorder Medicine - [facility] Not Elsewhere Spec 719.49 Pain Joint Multiple Sites Office Visit 12/09/2013 11:30a Lang Neurologic Karla Amezcua 339.89 Other Headache Services Of Marlene Monroy M.D. Syndromes 345.90 Epilepsy Unspec W/O Intractable 780.4 Dizziness & Giddiness Office Visit 11/02/2013 12:30p [employer] Internal Noe Gomez 339.89 Other Headache Medicine - [facility] Wright,FACP Syndromes [facility] 345.90 Epilepsy Unspec W/O Intractable 311 Depressive Disorder Not Elsewhere Spec 255.10 Hyperaldosteronism, Unspecified Office Visit 08/11/2012 11:00a Lang Amezcua 345.90 Epilepsy Unspec Neurologic Kaiser Monroy W/O Intractable Services Of Agriculture Instructor 799.59 Other Signs And Symptoms Involving Cognition 780.4 Dizziness & Giddiness Office Visit 05/14/2012 10:15a Lnag Amezcua 780.4 Dizziness & Services Of Marlene Monroy M.D. Giddiness 784.0 Headache 780.39 Convulsions Other Office Visit 03/12/2012 11:15a Lang Amezcua 780.39 Convulsions Other Neurologic [facility] Services Of Agriculture Instructor 799.59 Other Signs And Symptoms Involving Cognition Office Visit 08/28/2009 11:00a DO Not Use Agriculture Instructor Noe Gomez 276.8 Hypopotassemia AT Oral Wright M.D.,FACP 311 Depressive Disorder Not Elsewhere Spec 780.79 Malaise And Fatigue Other Office Visit 08/02/2009 2:00p DO Not Use Agriculture Instructor Nurse Visit 276.8 Hypopotassemia AT [facility] Office Visit 06/28/2009 8:45a DO Not Use Agriculture Instructor Murli 338.19 Other Acute Pain AT Orla Elise M.D. Office Visit 06/12/2009 11:40a DO Not Use Agriculture Instructor Noe Gomez 331.89 Cerebral Ataxia AT Buster Vásquez M.D.,FACP 405.19 Hypertension Secondary Other Benign 784.0 Headache Office Visit 06/01/2009 10:20a DO Not Use Agriculture Instructor Noe Gomez 920 Contusion Face AT Oral Wright M.D.,FACP Scalp & Neck Except Eyes 276.8 Hypopotassemia 405.19 Hypertension Secondary Other Benign 473.9 Sinusitis Chronic Unspec 813.22 FX Ulna Shaft (Alone) Closed V04.81 Need For Prophylactic Vaccination & Inoculation/Influenza Office Visit 04/05/2009 10:00a DO Not Use Agriculture Instructor Noe D. 276.8 Hypopotassemia AT Oral Wright M.D.,FACP 405.19 Hypertension Secondary Other Benign 388.30 Tinnitus Unspecified 698.9 Pruritic Disorder Unspec V04.81 Need For Prophylactic Vaccination & Inoculation/Influenza Office Visit 10/21/2008 11:20a DO Not Use Agriculture Instructor Noe DRamón 473.9 Sinusitis AT Oral Wright M.D.,FACP Chronic Unspec 405.19 Hypertension Secondary Other Benign 311 Depressive Disorder Not Elsewhere Spec Office Visit 05/19/2008 11:30a DO Not Use Agriculture Instructor Winsome Cedeño PA 599.0 UTI Urinary AT [facility] Tract Infection Site Not Spec V04.81 Need For Prophylactic Vaccination & Inoculation/Influenza Office Visit 03/15/2008 10:00a DO Not Use Agriculture Instructor Winsome Cedeño PA 276.8 Hypopotassemia AT [facility] 405.19 Hypertension Secondary Other Benign Office Visit 11/09/2007 3:20p DO Not Use Agriculture Instructor Noe DRamnó 276.8 Hypopotassemia AT Oral Wright M.D.,FACP 255.10 Hyperaldosteronism, Unspecified 599.0 UTI Urinary Tract Infection Site Not Spec 788.21 Retention Urine Incomplete Bladder Emptying 530.81 Esophageal Reflux Office Visit 08/25/2007 10:40a DO Not Use Agriculture Instructor Noe Gomez 725 Polymyalgia AT Oral Wright M.D.,FACP Rheumatica 276.8 Hypopotassemia 599.0 UTI Urinary Tract Infection Site Not Spec 611.79 Breast Signs & Symptoms Other V76.19 Screening Breast Exam Malignant Neoplasms Other Office Visit 05/28/2007 11:00a DO Not Use Agriculture Instructor Noe D. 405.19 Hypertension AT Oral Wright M.D.,FACP Secondary Other Benign 276.8 Hypopotassemia 311 Depressive Disorder Not Elsewhere Spec V76.10 Screening For Malignant Neoplasm Breast 784.0 Headache Office Visit 03/03/2007 11:20a DO Not Use Agriculture Instructor Noe Patricia 276.8 Hypopotassemia AT [facility], M.D.,FACP 345.90 Epilepsy Unspec W/O Intractable 405.19 Hypertension Secondary Other Benign 255.10 Hyperaldosteronism, Unspecified 311 Depressive Disorder Not Elsewhere Spec 346.10 Migraine Common W/O Intractable W/O Status Migrainosus 810.03 FX Clavicle Acromial End Closed V04.81 Need For Prophylactic Vaccination & Inoculation/Influenza Plan of Treatment Future Appointment(s):11/03/2018 11:20 am - Maggie Arevalo MD at [facility]/12/2018 12:00 pm - Rios Thomas MD at [place] [facility] Of [facility]10/05/2018 - Maggie Arevalo, MDR51 HeadacheComments:I still don't feel it is safe to prescribe more than 30 mg of morphine a day for you. Please keep the appointment with Dr. Thomas.G89.4 Chronic pain syndromeReferral: Serge Thomas MD, Physical Medicine/[id number] Essential (primary) hypertensionComments:Your high blood pressure is in excellent control on your current management.
[2018-10-07 14:11] VITALS: BP 148/79
[2018-10-07] MEDS ORDERED: GuaiFENesin DM* 5 ML UDC PO ONE (15:25)
[2018-10-07] MEDS ORDERED: guaiFENesin ER TAB 600 MG PO ONE (15:58)
[2018-10-07] MEDS ORDERED: Benzonatate CAP* 100 MG PO ONE (16:08)
--- NOTE | 2018-10-07 16:19 | UC ---
Respiratory Complaint HPI - HPI Summary HPI Summary: 77-year-old female with a history of meningioma status post resection and seizures who presents with cough congestion and upper respiratory symptoms for one day. Patient states that her throat began to itch and now is painful, no difficulty in swallowing or trouble breathing. Has a nonproductive cough and she is concerned she has pneumonia. No fevers or chills. Also reports rhinorrhea and congestion secondary to environmental allergies. She also reports that she has had several seizures in the past week which is common for her did not hit head. Patient is followed by an outside neurologist and neurosurgeon or her meningioma. Patient has an appointment with her neurologist on Friday. Patient has her medications at home. 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 Pain Intensity: 6 - Allergies/Home Medications Allergies/Adverse Reactions: Allergies Allergy/AdvReac Type Severity Reaction Status Date / Time cefpodoxime Allergy Severe platelet Verified 10/07/18 14:12 clumping amitriptyline Allergy seizures Verified 10/07/18 14:12 panic clonazepam Allergy Anaphylatic Verified 10/07/18 14:12 Shock clonidine Allergy Hallucinati Verified 10/07/18 14:12 ons lisinopril Allergy Difficulty Verified 10/07/18 14:12 Breathing Sulfa (Sulfonamide Allergy Shortness Verified 10/07/18 14:12 Antibiotics) of Breath ENVIRONMENTAL Allergy STUFFY, Uncoded 10/07/18 14:12 EYES RED, ITCHY PMH/Surg Hx/FS Hx/Imm Hx Endocrine History: Thyroid Disease Neurological History: Seizures, Other - meningioma Psychological History: Anxiety Other History Of: Negative For: Anticoagulant Therapy - Surgical History Surgical History: Yes Surgery Procedure, Year, and Place: HYSTERECTOMY- [place]; BRAIN SURGERY- CRANIOTOMY 2005; ANEURYSM COIL PLACED 2004- LIZEMORES LEFT-OK FOR UP TO 3T INFO FAXED IN OTHER FACILITY- KNEE ARTHROSCOPY[place]; CLOSED REDUCTION FX NASAL [facility] CATARACT 03/06 [facility] BILAT BLEPHOPLASTY [place] - Family History Known Family History: Positive: Hypertension Negative: Respiratory Disease, Seizure Disorder - Social History Occupation: Retired Alcohol Use: None Substance Use Type: None Substance Use Comment - Amount & Last Used: narcotics Smoking Status (MU): Never Smoked Tobacco Have You Smoked in the Last Year: No - Immunization History Most Recent Influenza Vaccination: unknown Most Recent Pneumonia Vaccination: unknown Review of Systems All Other Systems Reviewed And Are Negative: Yes Constitutional: Positive: Fatigue. Negative: Fever Skin: Positive: Negative Eyes: Positive: Negative ENT: Positive: Sore Throat, Nasal Discharge, Sinus Congestion Respiratory: Positive: Cough. Negative: Shortness Of Breath Cardiovascular: Negative: Palpitations, Chest Pain Gastrointestinal: Positive: Negative, Nausea. Negative: Abdominal Pain, Vomiting, Diarrhea Genitourinary: Positive: Negative Musculoskeletal: Positive: Negative Neurological: Positive: Other - seizures Psychological: Positive: Negative Physical Exam - Summary Physical Exam Summary: Constitutional: Well-developed, elderly female, Alert. (-) Distressed Skin: Warm, Dry HENT: Normocephalic; Atraumatic. No tonsillar erythema or exudates, +rhinorrhea Eyes: Conjunctiva normal Neck: Musculoskeletal ROM normal neck. (-) JVD, (-) Stridor Cardio: Rhythm regular, rate normal, Heart sounds normal; Intact distal pulses; Radial pulses are 2+ and symmetric. (-) Murmur Pulmonary/Chest wall: Effort normal. (-) Respiratory distress, (-) Wheezes, (-) Rales Abd: Soft, (-) tenderness, (-) Distension, (-) Guarding, (-) Rebound Musculoskeletal: (-) Edema Lymph: (-) Cervical adenopathy Neuro: Alert, Oriented x3 Psych: Mood and affect Normal Vital Signs: Initial Vital Signs Temp 98.6 F 10/07/18 14:00 Pulse 78 10/07/18 14:00 Resp 18 10/07/18 14:00 BP 148/79 10/07/18 14:00 Pulse Ox 98 10/07/18 14:00 Diagnostics - Radiology No standard instances Radiology Interpretation Completed By: Radiologist - Patient Name: IRVIN VARGAS Medical Record#: [id number] Ordering Physician: Hollie De Jesus MD Acct.#: [id number] : 1940 Age: 77 Sex: F Location: [facility] Exam Date: 10/07/18 1524 ADM Status: REG ER Order Information: CHEST PA & LAT 2 VWS Accession Number: [id number] CPT: 90435 INDICATION: Cough. COMPARISON: Comparison is made with a prior study from May 11, 2018. TECHNIQUE: Dual-energy PA and lateral views of the chest were obtained. FINDINGS: The heart is within normal limits in size. Mediastinal and hilar contours appear within normal limits. The lungs are hyperinflated and clear. No pleural effusion is seen. IMPRESSION: FINDINGS SUGGESTIVE OF COPD, NO EVIDENCE FOR ACUTE DISEASE. <Electronically signed by Marek Pro MD in OV> 10/07/18 160 Dictated By: Marek Pro MD Dictated Date/Time: 10/07/18 160 Transcribed Date/Time: 10/07/181606 Copy to: CC:Hollie De Jesus MD; Maggie Arevalo MD Imaging - [facility] Imaging - [facility] [address] [address] ph ([phone]) ph ([phone]) ph ([phone]) This report is only to be considered final once signed by the Provider(s) as displayed in the "<Electronically Signed by >" field (s). Absence of a signature indicates the report is in a draft status and still needs to be finalized. In the event this document was created by someone other than the signing Provider, the individual initiating the document will be listed in the "Entered by:" or "Dictated by:" sandra. 1 of 1 - EKG Cardiac Rate: NL - 93 Cardiac Rhythm: Sinus: Normal ST Segment: Normal Summary of EKG Findings: NSR no ischemic changes, poor baseline 2/2 patient movement Respiratory Course/Dx - Course Course Of Treatment: 77-year-old female with a past medical history of meningioma status post resection and seizures who presents with cough, congestion and upper respiratory complaints Patient is well-appearing lungs are clear to auscultation bilaterally Patient is concerned she has pneumonia and requesting chest x-ray therefore will check x-ray however low suspicion for pneumonia. Patient also requesting laboratory. CBC and CMP We'll try Gregoria Ernst for cough patient requesting codeine cough syrup and we do not have, therefore will not give her codeine cough syrup but will send home with cough medicine EKG is sinus of no ischemic changes patient denies chest pain or shortness of breath Patient had reported having seizures this week patient is compliant with medication however has had medication changes and has a neurologist appointment this Friday to discuss medications. Patient does not drive Patient had initially refused EKG but agreeable to afterwards. - Differential Dx/Diagnosis Provider Diagnosis: Upper respiratory infection, viral, Congestion of upper airway Discharge - Sign-Out/Discharge Documenting (check all that apply): Patient Departure All imaging exams completed and their final reports reviewed: Yes - Discharge Plan Condition: Stable Disposition: HOME Prescriptions: GuaiFENesin DM* [Robitussin DM*] 5 ml PO Q6H PRN #120 ml PRN Reason: Cough Patient Education Materials: Cold Symptoms (ED) Referrals: Maggie Arevalo MD [Primary Care Provider] - 2 Days (call and let them know you were seen here and how you are doing ) Additional Instructions: You were seen in the ER for a cough and cold like symptoms, your chest x-ray did not show any evidence of pneumonia. We sent lab work out that will take 3 days to results and you should expect a call if her labs are abnormal. Please follow up with her primary care doctor and return for worsening symptoms, fevers , difficulty breathing, chest pain or if you are concerned. Please follow-up with your neurologist regarding your seizure medications and if adjustments are needed. - Billing Disposition and Condition Condition: STABLE Disposition: Home
[2018-10-07 19:34] LABS: ABS Eosinophils 0.1 10^3/ul (0-0.6); ABS Lymphocytes 1.1 10^3/ul (1.0-4.8); ABS Monocytes 0.5 10^3/ul (0-0.8); ABS Neutrophils 7.1 10^3/ul (1.5-7.7); Eosinophil % 1.1 %; Hematocrit 39 % (35-47); Hemoglobin 12.8 g/dL (12.0-16.0); Lymphocyte % 12.4 %; Mean Corpuscular HGB Conc 33 g/dL (31-36); Mean Corpuscular Hemoglobin 28 pg (27-31); Mean Corpuscular Volume 84 fL (80-97); Mean Platelet Volume 8.3 fL (7.4-10.4); Platelet Count 290 10^3/uL (150-450); Red Blood Count 4.63 10^6 /uL (3.70-4.87); Red Cell Distribution Width 19 % (10-15); White Blood Count 8.8 10^3/uL (3.5-10.8)
[2018-10-07 19:46] LABS: Albumin 4.7 g/dL (3.2-5.2); Calcium 10.1 mg/dL (8.6-10.3); Total Bilirubin 0.4 mg/dL (0.2-1.0)
[2018-10-07 19:52] LABS: Albumin/Globulin Ratio 1.6 (1-3); BUN/Creatinine Ratio 17.8 (8-20); EGFR Non-African American 77.7 (>60); Globulin 2.9 g/dL (2-4); Total Protein 7.6 g/dL (6.4-8.9)
--- NOTE | 2018-10-08 12:16 | UC ---
- Progress Note Progress Note: CBC, cmp wnl no change ehlderj Course/Dx - Diagnoses Provider Diagnoses: Upper respiratory infection, viral, Congestion of upper airway Discharge - Sign-Out/Discharge Documenting (check all that apply): Post-Discharge Follow Up All imaging exams completed and their final reports reviewed: Yes - Discharge Plan Condition: Stable Disposition: HOME Prescriptions: GuaiFENesin DM* [Robitussin DM*] 5 ml PO Q6H PRN #120 ml PRN Reason: Cough Patient Education Materials: Cold Symptoms (ED) Referrals: Maggie Arevalo MD [Primary Care Provider] - 2 Days (call and let them know you were seen here and how you are doing ) Additional Instructions: You were seen in the ER for a cough and cold like symptoms, your chest x-ray did not show any evidence of pneumonia. We sent lab work out that will take 3 days to results and you should expect a call if her labs are abnormal. Please follow up with her primary care doctor and return for worsening symptoms, fevers , difficulty breathing, chest pain or if you are concerned. Please follow-up with your neurologist regarding your seizure medications and if adjustments are needed. - Billing Disposition and Condition Condition: STABLE Disposition: Home
--- NOTE | 2018-10-08 21:30 | UC ---
- Progress Note Progress Note: Patient stated that the Robitussin-DM prescription was not sent to the pharmacy therefore I'm going to send her prescription for benzonatate 100 mg by mouth 3 times a day as needed. Course/Dx - Diagnoses Provider Diagnoses: Upper respiratory infection, viral, Congestion of upper airway Discharge - Sign-Out/Discharge Documenting (check all that apply): Post-Discharge Follow Up All imaging exams completed and their final reports reviewed: Yes - Discharge Plan Condition: Stable Disposition: HOME Prescriptions: Benzonatate CAP* [Tessalon 100 MG CAP*] 100 mg PO TID PRN #21 cap PRN Reason: Cough GuaiFENesin DM* [Robitussin DM*] 5 ml PO Q6H PRN #120 ml PRN Reason: Cough Patient Education Materials: Cold Symptoms (ED) Referrals: Maggie Arevalo MD [Primary Care Provider] - 2 Days (call and let them know you were seen here and how you are doing ) Additional Instructions: You were seen in the ER for a cough and cold like symptoms, your chest x-ray did not show any evidence of pneumonia. We sent lab work out that will take 3 days to results and you should expect a call if her labs are abnormal. Please follow up with her primary care doctor and return for worsening symptoms, fevers , difficulty breathing, chest pain or if you are concerned. Please follow-up with your neurologist regarding your seizure medications and if adjustments are needed. - Billing Disposition and Condition Condition: STABLE Disposition: Home - Attestation Statements Provider Attestation: I am administratively signing this document, Hollie De Jesus MD
== END 2018-10-07 16:24 | disposition home or self-care (01) ==
LOC: UCEAST 13:23
DX: J06.9 Acute upper respiratory infection, unspecified (principal); E07.9 Disorder of thyroid, unspecified; G40.802 Other epilepsy, not intractable, without status epilepticus; F41.9 Anxiety disorder, unspecified; Z88.2 Allergy status to sulfonamides
CPT/HCPCS: 36415; 71046; 80053; 85025; 93005; 99212; A9270-GY; G0463

== ENCOUNTER 2021-01-09 14:06 | Inpatient (IN) ==
[2021-01-09 15:41] LABS: ABS Eosinophils 0.1 10^3/ul (0-0.6); ABS Lymphocytes 1.1 10^3/ul (1.0-4.8); ABS Monocytes 0.7 10^3/ul (0-0.8); ABS Neutrophils 10.9 10^3/ul (1.5-7.7); Hematocrit 39 % (35-47); Hemoglobin 13.2 g/dL (12.0-16.0); Lymphocyte % 8.8 %; Mean Corpuscular HGB Conc 34 g/dL (31-36); Mean Corpuscular Hemoglobin 31 pg (27-31); Mean Corpuscular Volume 92 fL (80-97); Mean Platelet Volume 7.8 fL (7.4-10.4); Platelet Count 320 10^3/uL (150-450); Red Blood Count 4.23 10^6 /uL (3.70-4.87); Red Cell Distribution Width 13 % (10-15); White Blood Count 12.8 10^3/uL (3.5-10.8)
[2021-01-09 16:04] LABS: ALT 19 U/L (7-52); AST 25 U/L (13-39); Albumin 4.5 g/dL (3.2-5.2); Albumin/Globulin Ratio 1.3 (1-3); Alkaline Phosphatase 76 U/L (35-149); Anion Gap 11 mmol/L (2-11); Blood Urea Nitrogen 22 mg/dL (6-24); CO2 Carbon Dioxide 30 mmol/L (22-32); Calcium 10.2 mg/dL (8.6-10.3); Chloride 97 mmol/L (101-111); Globulin 3.4 g/dL (2-4); Glucose 96 mg/dL (70-100); Magnesium 2.2 mg/dL (1.9-2.7); Potassium 3.1 mmol/L (3.5-5.0); Sodium 138 mmol/L (135-145); Total Protein 7.9 g/dL (6.4-8.9)
[2021-01-09 16:06] LABS: Troponin I 0.04 ng/mL (<0.03)
[2021-01-09 16:35] LABS: TSH Ultra Thyroid Stim Horm 1.04 mcIU/mL (0.34-5.60)
[2021-01-09 17:44] LABS: Rapid COVID-19 Molecular Undetected (Undetected)
[2021-01-09] MEDS: Potassium Chlor 20 meq TAB.ER PO ONE ×2 (18:08→18:13)
[2021-01-09] MEDS ORDERED: Potassium Chloride LIQUID 20 MEQ/15 ML LIQUID PO ONE (19:57)
[2021-01-09 21:43] LABS: C Reactive Protein 11.41 mg/L (<8.01)
[2021-01-10 00:15] LABS: Troponin I 0.03 ng/mL (<0.03)
[2021-01-10] MEDS: Enoxaparin 40 MG/0.4 ML SYR SUBCUT SCH (02:52)
[2021-01-10 07:17] LABS: Blood Urea Nitrogen 20 mg/dL (6-24); CO2 Carbon Dioxide 25 mmol/L (22-32); Calcium 9.1 mg/dL (8.6-10.3); Chloride 102 mmol/L (101-111); Glucose 95 mg/dL (70-100); Sodium 135 mmol/L (135-145)
[2021-01-10 07:59] LABS: Anion Gap 8 mmol/L (2-11)
[2021-01-10] MEDS ORDERED: Morphine 2 MG/ML SYRINGE IV ONE (08:50)
[2021-01-10] MEDS ORDERED: Pneumococcal Vac 23-Polyvalent IM ONE (09:00)
[2021-01-10 10:52] LABS: ABS Basophils 0.1 10^3/ul (0-0.2); ABS Eosinophils 0.2 10^3/ul (0-0.6); ABS Lymphocytes 1.8 10^3/ul (1.0-4.8); ABS Monocytes 0.6 10^3/ul (0-0.8); ABS Neutrophils 5.6 10^3/ul (1.5-7.7); Eosinophil % 2.8 %; Hematocrit 34 % (35-47); Hemoglobin 11.7 g/dL (12.0-16.0); Lymphocyte % 21.4 %; Mean Corpuscular HGB Conc 35 g/dL (31-36); Mean Corpuscular Hemoglobin 32 pg (27-31); Mean Corpuscular Volume 92 fL (80-97); Mean Platelet Volume 7.7 fL (7.4-10.4); Platelet Count 275 10^3/uL (150-450); Red Blood Count 3.72 10^6 /uL (3.70-4.87); Red Cell Distribution Width 13 % (10-15); White Blood Count 8.3 10^3/uL (3.5-10.8)
[2021-01-10] MEDS: Morphine ORAL.SOLN 10 mg 2 mg/ml UDC 5 ml (10 mg) PO PRN (14:56)
[2021-01-10 16:10] LABS: Vitamin B12 632 pg/mL (180-914)
[2021-01-11] MEDS: Morphine ORAL.SOLN 10 mg 2 mg/ml UDC 5 ml (10 mg) PO PRN ×3 (00:06→21:55)
[2021-01-11 06:49] LABS: ABS Basophils 0.1 10^3/ul (0-0.2); ABS Eosinophils 0.4 10^3/ul (0-0.6); ABS Lymphocytes 2.4 10^3/ul (1.0-4.8); ABS Monocytes 0.6 10^3/ul (0-0.8); Eosinophil % 4.3 %; Hematocrit 36 % (35-47); Hemoglobin 12.4 g/dL (12.0-16.0); Lymphocyte % 28.3 %; Mean Corpuscular HGB Conc 35 g/dL (31-36); Mean Corpuscular Hemoglobin 32 pg (27-31); Mean Corpuscular Volume 93 fL (80-97); Mean Platelet Volume 7.8 fL (7.4-10.4); Platelet Count 274 10^3/uL (150-450); Red Blood Count 3.83 10^6 /uL (3.70-4.87); Red Cell Distribution Width 13 % (10-15); White Blood Count 8.6 10^3/uL (3.5-10.8)
[2021-01-11 07:05] LABS: Calcium 9.5 mg/dL (8.6-10.3); Potassium 3.7 mmol/L (3.5-5.0)
[2021-01-11] MEDS: Enoxaparin 40 MG/0.4 ML SYR SUBCUT SCH (09:35)
[2021-01-11] MEDS ORDERED: Morphine ER 15 mg TAB ** extended release PO PRN (17:35)
[2021-01-12 07:03] LABS: ABS Eosinophils 0.3 10^3/ul (0-0.6); ABS Lymphocytes 1.9 10^3/ul (1.0-4.8); ABS Monocytes 0.6 10^3/ul (0-0.8); ABS Neutrophils 8.3 10^3/ul (1.5-7.7); Eosinophil % 3.1 %; Hematocrit 36 % (35-47); Hemoglobin 12.1 g/dL (12.0-16.0); Lymphocyte % 16.6 %; Mean Corpuscular HGB Conc 34 g/dL (31-36); Mean Corpuscular Hemoglobin 32 pg (27-31); Mean Corpuscular Volume 94 fL (80-97); Mean Platelet Volume 7.6 fL (7.4-10.4); Platelet Count 274 10^3/uL (150-450); Red Blood Count 3.79 10^6 /uL (3.70-4.87); Red Cell Distribution Width 13 % (10-15); White Blood Count 11.2 10^3/uL (3.5-10.8)
[2021-01-12 07:35] LABS: Calcium 9.2 mg/dL (8.6-10.3); Potassium 3.8 mmol/L (3.5-5.0)
[2021-01-12] MEDS: Enoxaparin 40 MG/0.4 ML SYR SUBCUT SCH (09:28)
[2021-01-12] MEDS: Morphine ORAL.SOLN 10 mg 2 mg/ml UDC 5 ml (10 mg) PO PRN ×2 (09:29→22:55)
[2021-01-13 10:12] LABS: ABS Eosinophils 0.2 10^3/ul (0-0.6); ABS Lymphocytes 1.3 10^3/ul (1.0-4.8); ABS Monocytes 0.4 10^3/ul (0-0.8); ABS Neutrophils 5.8 10^3/ul (1.5-7.7); Eosinophil % 3.1 %; Hematocrit 34 % (35-47); Hemoglobin 11.7 g/dL (12.0-16.0); Mean Corpuscular HGB Conc 34 g/dL (31-36); Mean Corpuscular Hemoglobin 32 pg (27-31); Mean Corpuscular Volume 94 fL (80-97); Mean Platelet Volume 7.6 fL (7.4-10.4); Platelet Count 266 10^3/uL (150-450); Red Blood Count 3.66 10^6 /uL (3.70-4.87); Red Cell Distribution Width 13 % (10-15); White Blood Count 7.8 10^3/uL (3.5-10.8)
[2021-01-13 10:29] LABS: Anion Gap 5 mmol/L (2-11); Blood Urea Nitrogen 14 mg/dL (6-24); CO2 Carbon Dioxide 27 mmol/L (22-32); Calcium 9.1 mg/dL (8.6-10.3); Chloride 102 mmol/L (101-111); Glucose 142 mg/dL (70-100); Potassium 3.5 mmol/L (3.5-5.0); Sodium 134 mmol/L (135-145)
[2021-01-13] MEDS: Morphine ORAL.SOLN 10 mg 2 mg/ml UDC 5 ml (10 mg) PO PRN ×2 (11:22→22:00)
[2021-01-13] MEDS: Enoxaparin 40 MG/0.4 ML SYR SUBCUT SCH (11:26)
[2021-01-14] MEDS: Morphine ORAL.SOLN 10 mg 2 mg/ml UDC 5 ml (10 mg) PO PRN ×2 (07:57→21:24)
[2021-01-14] MEDS: Enoxaparin 40 MG/0.4 ML SYR SUBCUT SCH (08:38)
[2021-01-15] MEDS: Morphine ORAL.SOLN 10 mg 2 mg/ml UDC 5 ml (10 mg) PO PRN ×2 (09:40→21:39)
[2021-01-15] MEDS: Enoxaparin 40 MG/0.4 ML SYR SUBCUT SCH (09:43)
[2021-01-15] MEDS ORDERED: Cyanocobalamin INJ 1,000 MCG/ML VIAL 1 ML VIAL IM ONE (17:55)
[2021-01-15 22:31] LABS: Folate > 20.00 ng/mL (5.90-24.80)
[2021-01-16] MEDS: Enoxaparin 40 MG/0.4 ML SYR SUBCUT SCH (09:31)
[2021-01-16 16:30] LABS: Lamotrigine 1.1 mcg/mL (2.5 - 15.0)
[2021-01-16] MEDS: Morphine ORAL.SOLN 10 mg 2 mg/ml UDC 5 ml (10 mg) PO PRN (17:23)
[2021-01-17] MEDS: Morphine ORAL.SOLN 10 mg 2 mg/ml UDC 5 ml (10 mg) PO PRN (05:22)
[2021-01-17 07:27] LABS: Topiramate <1.0 mcg/mL
[2021-01-17] MEDS: Enoxaparin 40 MG/0.4 ML SYR SUBCUT SCH (08:18)
[2021-01-17] MEDS ORDERED: Cyanocobalamin INJ 1,000 MCG/ML VIAL 1 ML VIAL IM ONE (08:53)
[2021-01-17 10:32] VITALS: BP 135/61
[2021-01-17 13:40] LABS: Intrinsic Factor Blocking AB Negative (Negative)
[2021-01-17 20:53] LABS: Tissue Transglutaminase IgA Ab <1.2 U/mL
[2021-01-17 21:20] LABS: Immunoglobulin A 134 mg/dL (61 - 356)
[2021-01-19 12:27] LABS: Methylmalonic Acid 0.25 nmol/mL (<=0.40)
== END 2021-01-17 13:00 | DRG 74 ==
LOC: ED 14:06 → MEDTELE 20:47 → SUATTDRO 20:47 → MEDTELE 21:30 → PMRU 01-17 13:19 → MEDTELE 01-17 13:26
PROVIDERS: ADMIT Internal Medicine; ATTEND Internal Medicine

== ENCOUNTER 2021-01-17 08:16 | Inpatient (IN) ==
[2021-01-17] MEDS ORDERED: Senna TAB 8.6 mg TAB PO PRN (15:52)
[2021-01-17] MEDS ORDERED: Magnesium Hydroxide LIQ 30 ML UDC PO PRN (15:52)
[2021-01-17] MEDS: Morphine ORAL.SOLN 10 mg 2 mg/ml UDC 5 ml (10 mg) PO PRN (19:49)
[2021-01-18] MEDS: Enoxaparin 40 MG/0.4 ML SYR SUBCUT SCH (10:07)
[2021-01-18] MEDS: Morphine ORAL.SOLN 10 mg 2 mg/ml UDC 5 ml (10 mg) PO PRN (21:03)
[2021-01-18] MEDS ORDERED: Morphine ORAL.SOLN 10 mg 2 mg/ml UDC 5 ml (10 mg) PO ONE (22:10)
[2021-01-19 06:11] LABS: ABS Eosinophils 0.3 10^3/ul (0-0.6); ABS Lymphocytes 1.5 10^3/ul (1.0-4.8); ABS Monocytes 0.7 10^3/ul (0-0.8); ABS Neutrophils 4.9 10^3/ul (1.5-7.7); Hematocrit 35 % (35-47); Hemoglobin 11.5 g/dL (12.0-16.0); Lymphocyte % 20.4 %; Mean Corpuscular HGB Conc 33 g/dL (31-36); Mean Corpuscular Hemoglobin 31 pg (27-31); Mean Corpuscular Volume 93 fL (80-97); Mean Platelet Volume 7.2 fL (7.4-10.4); Platelet Count 291 10^3/uL (150-450); Red Blood Count 3.73 10^6 /uL (3.70-4.87); Red Cell Distribution Width 13 % (10-15); White Blood Count 7.5 10^3/uL (3.5-10.8)
[2021-01-19 06:34] LABS: Albumin 3.7 g/dL (3.2-5.2); Albumin/Globulin Ratio 1.2 (1-3); Calcium 9.3 mg/dL (8.6-10.3); Total Bilirubin 0.4 mg/dL (0.2-1.0); Total Protein 6.7 g/dL (6.4-8.9)
[2021-01-19] MEDS: Morphine ORAL.SOLN 10 mg 2 mg/ml UDC 5 ml (10 mg) PO PRN ×2 (08:57→16:59)
[2021-01-19] MEDS: Enoxaparin 40 MG/0.4 ML SYR SUBCUT SCH (09:00)
[2021-01-20] MEDS ORDERED: Morphine ORAL.SOLN 10 mg 2 mg/ml UDC 5 ml (10 mg) PO ONE (01:00)
[2021-01-20] MEDS: Enoxaparin 40 MG/0.4 ML SYR SUBCUT SCH (09:19)
[2021-01-20] MEDS: Morphine ORAL.SOLN 10 mg 2 mg/ml UDC 5 ml (10 mg) PO PRN ×2 (10:17→22:59)
[2021-01-20 11:29] LABS: Urine Appearance Turbid; Urine Bilirubin Negative (Negative); Urine Blood 2+ (Negative); Urine Color Yellow; Urine Glucose Negative (Negative); Urine Ketones Negative (Negative); Urine Nitrite Positive (Negative); Urine Protein 1+(30 mg/dL) (Negative); Urine Specific Gravity 1.005 (1.002-1.030); Urine Urobilinogen Negative (Negative)
[2021-01-20 11:57] LABS: Urine Bacteria 3+ (Absent); Urine Red Blood Cell 2+(6-10/hpf) (Absent); Urine Squamous Epithelial Cell Present (Absent); Urine White Blood Cell 3+(>20/hpf) (Absent); Urine Yeast Present (Absent)
[2021-01-20] MEDS: Amoxicillin/Clavul 500/125 TAB (Augmentin 500 mg tab) PO SCH ×2 (14:02→22:41)
[2021-01-21] MEDS: Amoxicillin/Clavul 500/125 TAB (Augmentin 500 mg tab) PO SCH ×2 (09:41→21:10)
[2021-01-21] MEDS: Enoxaparin 40 MG/0.4 ML SYR SUBCUT SCH (09:47)
[2021-01-21] MEDS: Morphine ORAL.SOLN 10 mg 2 mg/ml UDC 5 ml (10 mg) PO PRN (22:08)
[2021-01-22] MEDS: Morphine ORAL.SOLN 10 mg 2 mg/ml UDC 5 ml (10 mg) PO PRN ×2 (08:45→22:01)
[2021-01-22] MEDS: Amoxicillin/Clavul 500/125 TAB (Augmentin 500 mg tab) PO SCH ×2 (08:46→21:24)
[2021-01-22] MEDS: Enoxaparin 40 MG/0.4 ML SYR SUBCUT SCH (08:47)
[2021-01-22] MEDS: Nystatin TOP POWDER 15 GM BTL TOPICAL SCH (21:25)
[2021-01-23] MEDS: Amoxicillin/Clavul 500/125 TAB (Augmentin 500 mg tab) PO SCH ×2 (08:52→19:49)
[2021-01-23] MEDS: Enoxaparin 40 MG/0.4 ML SYR SUBCUT SCH (08:53)
[2021-01-23] MEDS: Morphine ORAL.SOLN 10 mg 2 mg/ml UDC 5 ml (10 mg) PO PRN ×2 (09:06→22:45)
[2021-01-23] MEDS: Nystatin TOP POWDER 15 GM BTL TOPICAL SCH ×2 (10:32→19:51)
[2021-01-24] MEDS: Morphine ORAL.SOLN 10 mg 2 mg/ml UDC 5 ml (10 mg) PO PRN ×3 (08:18→23:48)
[2021-01-24] MEDS: Amoxicillin/Clavul 500/125 TAB (Augmentin 500 mg tab) PO SCH ×2 (08:22→20:46)
[2021-01-24] MEDS: Nystatin TOP POWDER 15 GM BTL TOPICAL SCH ×2 (08:28→20:47)
[2021-01-24] MEDS: Enoxaparin 40 MG/0.4 ML SYR SUBCUT SCH (08:32)
[2021-01-25] MEDS: Amoxicillin/Clavul 500/125 TAB (Augmentin 500 mg tab) PO SCH (08:28)
[2021-01-25] MEDS: Enoxaparin 40 MG/0.4 ML SYR SUBCUT SCH (08:34)
[2021-01-25] MEDS: Nystatin TOP POWDER 15 GM BTL TOPICAL SCH (08:36)
[2021-01-25] MEDS: Morphine ORAL.SOLN 10 mg 2 mg/ml UDC 5 ml (10 mg) PO PRN (12:21)
[2021-01-25 15:45] VITALS: BP 154/69
== END 2021-01-25 16:00 | disposition home health service (06) | DRG 74 ==
LOC: PMRU 13:28
PROVIDERS: ADMIT Physical Medicine & Rehabilitation; ATTEND Physical Medicine & Rehabilitation

== ENCOUNTER 2021-03-14 13:07 | Inpatient (IN) ==
[2021-03-14] MEDS ORDERED: Ketamine HCL 50 mg/ml 10 ml VIAL (500 MG) IV ONE (13:55)
[2021-03-14] MEDS ORDERED: Lactated Ringers 1000 ml BAG 1,000 ML IV SCH (14:00)
[2021-03-14 16:43] LABS: ABS Eosinophils 0.2 10^3/ul (0-0.6); ABS Lymphocytes 1.4 10^3/ul (1.0-4.8); ABS Monocytes 0.5 10^3/ul (0-0.8); ABS Neutrophils 4.6 10^3/ul (1.5-7.7); Eosinophil % 3.5 %; Hematocrit 35 % (35-47); Hemoglobin 12.1 g/dL (12.0-16.0); Lymphocyte % 20.9 %; Mean Corpuscular HGB Conc 34 g/dL (31-36); Mean Corpuscular Hemoglobin 31 pg (27-31); Mean Corpuscular Volume 91 fL (80-97); Mean Platelet Volume 8.3 fL (7.4-10.4); Nucleated Red Blood Cells % 0.1; Platelet Count Platelets clumped. 10^3/uL (150-450); Red Blood Count 3.86 10^6 /uL (3.70-4.87); Red Cell Distribution Width 15 % (10-15); White Blood Count 6.8 10^3/uL (3.5-10.8)
[2021-03-14 16:52] LABS: Troponin I 0.01 ng/mL (<0.03)
[2021-03-14 16:58] LABS: ALT 24 U/L (7-52); Albumin 4.3 g/dL (3.2-5.2); Albumin/Globulin Ratio 1.4 (1-3); Alkaline Phosphatase 63 U/L (35-149); Blood Urea Nitrogen 10 mg/dL (6-24); CO2 Carbon Dioxide 30 mmol/L (22-32); Calcium 9.5 mg/dL (8.6-10.3); Chloride 99 mmol/L (101-111); Globulin 3.1 g/dL (2-4); Glucose 97 mg/dL (70-100); Sodium 133 mmol/L (135-145); Total Protein 7.4 g/dL (6.4-8.9); eGFR CKD-EPI 89.4 (>60)
[2021-03-14] MEDS ORDERED: Al Hydrox/Mg Hydrox/Simet LIQ 30 ML UDC PO PRN (17:04)
[2021-03-14] MEDS ORDERED: Bismuth Subsalicylate (BTL) 525 MG/30 ML (BULK BTL) PO PRN (17:06)
[2021-03-14] MEDS ORDERED: Fluticasone NASAL SPRAY 50MCG 16 gm SPRAY BTL INTRANASAL PRN (17:06)
[2021-03-14 17:37] LABS: Anion Gap 4 mmol/L (2-11)
[2021-03-14 18:03] LABS: Potassium Redraw 3.8 mmol/L (3.5-5.0)
[2021-03-14 19:34] LABS: Activated Partial Thrombo Time 30.1 seconds (26.0-38.0); INR 1.12 (0.86-1.15)
[2021-03-14] MEDS: Enoxaparin 40 MG/0.4 ML SYR SUBCUT SCH (23:17)
[2021-03-15] MEDS ORDERED: Morphine 2 MG/ML SYRINGE IV ONE (08:23)
[2021-03-15] MEDS ORDERED: Morphine 2 MG/ML SYRINGE ONE (08:32)
[2021-03-15 11:02] LABS: Hematocrit 32 % (35-47); Hemoglobin 10.9 g/dL (12.0-16.0); Mean Corpuscular HGB Conc 34 g/dL (31-36); Mean Corpuscular Hemoglobin 30 pg (27-31); Mean Corpuscular Volume 90 fL (80-97); Mean Platelet Volume 7.7 fL (7.4-10.4); Platelet Count 216 10^3/uL (150-450); Red Blood Count 3.58 10^6 /uL (3.70-4.87); Red Cell Distribution Width 15 % (10-15); White Blood Count 6.5 10^3/uL (3.5-10.8)
[2021-03-15] MEDS ORDERED: fentaNYL 100 mcg/2 ml 50 MCG/ML VIAL IV SLOW PU PRN (11:04)
[2021-03-15] MEDS ORDERED: Clindamycin 900 MG/D5W BAG 900 MG/50 ML BAG IVPB ONE ×2 (13:09→15:00)
[2021-03-15] MEDS ORDERED: Bupivacaine 0.5% SDV PF 30ML VIAL ONE (13:26)
[2021-03-15] MEDS ORDERED: ROPIVACAINE 5 MG/ML 30 ML BTL (0.5%) ONE (13:42)
[2021-03-15] MEDS ORDERED: Dexamethasone IV 4 MG/ML VIAL 1 ml VIAL ONE ×2 (13:43→14:13)
[2021-03-15] MEDS ORDERED: Ondansetron 4 mg VIAL 2 MG/ML 2 ml VIAL ONE ×2 (14:04→14:13)
[2021-03-15] MEDS ORDERED: fentaNYL 100 mcg/2 ml 50 MCG/ML VIAL ONE ×2 (14:04→14:13)
[2021-03-15] MEDS ORDERED: Propofol 10 MG/ML 20 ML BTL ONE ×2 (14:13→15:40)
[2021-03-15] MEDS ORDERED: Lidocaine 2% PF 5 ML VIAL ONE (14:13)
[2021-03-15] MEDS: Cholecalciferol (VIT D3) 1,000 unit TAB PO SCH (14:17)
[2021-03-15] MEDS ORDERED: Acetaminophen IV 1 GM/100ML 100 ML IV ONE (15:41)
[2021-03-15] MEDS ORDERED: Ondansetron 4 mg VIAL 2 MG/ML 2 ml VIAL IV PRN (15:41)
[2021-03-15] MEDS ORDERED: fentaNYL 100 mcg/2 ml 50 MCG/ML VIAL IV PRN (15:41)
[2021-03-15] MEDS ORDERED: DiMENhydriNATE IV 50 mg/ml 1 ml VIAL IV PUSH PRN (15:41)
[2021-03-15] MEDS ORDERED: HYDROmorphone 1 MG/1 ML SYRINGE IV PRN (15:41)
[2021-03-15] MEDS ORDERED: Naloxone 0.4 mg VIAL 0.4 mg/ml 1 ml VIAL IV PRN (15:41)
[2021-03-15] MEDS: Enoxaparin 40 MG/0.4 ML SYR SUBCUT SCH (18:36)
[2021-03-15] MEDS: Clindamycin 600 MG/D5W BAG IV SCH (22:22)
[2021-03-16] MEDS: Clindamycin 600 MG/D5W BAG IV SCH ×2 (05:16→12:26)
[2021-03-16] MEDS: Cholecalciferol (VIT D3) 1,000 unit TAB PO SCH (10:22)
[2021-03-16] MEDS: Enoxaparin 40 MG/0.4 ML SYR SUBCUT SCH (10:23)
[2021-03-16] MEDS: CMCS: LoraTADine 10 mg TAB (NF) PO SCH ×2 (12:19→22:34)
[2021-03-16] MEDS: Morphine ORAL.SOLN 10 mg 2 mg/ml UDC 5 ml (10 mg) PO PRN (13:39)
[2021-03-17 04:40] LABS: ABS Basophils 0.1 10^3/ul (0-0.2); ABS Eosinophils 0.1 10^3/ul (0-0.6); ABS Lymphocytes 2.1 10^3/ul (1.0-4.8); ABS Monocytes 0.6 10^3/ul (0-0.8); ABS Neutrophils 4.8 10^3/ul (1.5-7.7); Eosinophil % 1.7 %; Hematocrit 32 % (35-47); Hemoglobin 10.7 g/dL (12.0-16.0); Lymphocyte % 27.2 %; Mean Corpuscular HGB Conc 34 g/dL (31-36); Mean Corpuscular Hemoglobin 31 pg (27-31); Mean Corpuscular Volume 91 fL (80-97); Mean Platelet Volume 7.9 fL (7.4-10.4); Platelet Count 246 10^3/uL (150-450); Red Blood Count 3.51 10^6 /uL (3.70-4.87); Red Cell Distribution Width 15 % (10-15); White Blood Count 7.7 10^3/uL (3.5-10.8)
[2021-03-17 04:59] LABS: Calcium 9.2 mg/dL (8.6-10.3); Potassium 3.4 mmol/L (3.5-5.0); eGFR CKD-EPI 88.8 (>60)
[2021-03-17] MEDS: Morphine ORAL.SOLN 10 mg 2 mg/ml UDC 5 ml (10 mg) PO PRN (05:41)
[2021-03-17] MEDS: Cholecalciferol (VIT D3) 1,000 unit TAB PO SCH (09:01)
[2021-03-17] MEDS: CMCS: LoraTADine 10 mg TAB (NF) PO SCH ×2 (09:02→20:50)
[2021-03-17] MEDS: Enoxaparin 40 MG/0.4 ML SYR SUBCUT SCH (09:11)
[2021-03-18 06:20] LABS: ABS Eosinophils 0.3 10^3/ul (0-0.6); ABS Lymphocytes 1.7 10^3/ul (1.0-4.8); ABS Monocytes 0.4 10^3/ul (0-0.8); ABS Neutrophils 3.3 10^3/ul (1.5-7.7); Eosinophil % 4.7 %; Hematocrit 35 % (35-47); Hemoglobin 11.7 g/dL (12.0-16.0); Lymphocyte % 29.6 %; Mean Corpuscular HGB Conc 34 g/dL (31-36); Mean Corpuscular Hemoglobin 31 pg (27-31); Mean Corpuscular Volume 91 fL (80-97); Mean Platelet Volume 7.7 fL (7.4-10.4); Platelet Count 287 10^3/uL (150-450); Red Blood Count 3.82 10^6 /uL (3.70-4.87); Red Cell Distribution Width 14 % (10-15); White Blood Count 5.7 10^3/uL (3.5-10.8)
[2021-03-18 06:34] LABS: Calcium 9.5 mg/dL (8.6-10.3); Potassium 3.5 mmol/L (3.5-5.0); eGFR CKD-EPI 89.7 (>60)
[2021-03-18] MEDS: CMCS: LoraTADine 10 mg TAB (NF) PO SCH ×2 (08:22→20:10)
[2021-03-18] MEDS: Cholecalciferol (VIT D3) 1,000 unit TAB PO SCH (10:18)
[2021-03-18] MEDS: Enoxaparin 40 MG/0.4 ML SYR SUBCUT SCH (10:24)
[2021-03-18] MEDS: Morphine ORAL.SOLN 10 mg 2 mg/ml UDC 5 ml (10 mg) PO PRN (20:07)
[2021-03-19] MEDS: Morphine ORAL.SOLN 10 mg 2 mg/ml UDC 5 ml (10 mg) PO PRN (06:30)
[2021-03-19] MEDS: Cholecalciferol (VIT D3) 1,000 unit TAB PO SCH (09:56)
[2021-03-19] MEDS: Enoxaparin 40 MG/0.4 ML SYR SUBCUT SCH (11:10)
[2021-03-19] MEDS: CMCS: LoraTADine 10 mg TAB (NF) PO SCH ×2 (11:10→23:31)
[2021-03-20] MEDS: Morphine ORAL.SOLN 10 mg 2 mg/ml UDC 5 ml (10 mg) PO PRN ×2 (03:50→15:36)
[2021-03-20] MEDS: Cholecalciferol (VIT D3) 1,000 unit TAB PO SCH (11:29)
[2021-03-20] MEDS: CMCS: LoraTADine 10 mg TAB (NF) PO SCH ×2 (11:30→22:53)
[2021-03-20] MEDS: Enoxaparin 40 MG/0.4 ML SYR SUBCUT SCH ×2 (11:31→12:05)
[2021-03-20] MEDS ORDERED: COVID-19 VACCINE, MRNA(PFIZER)/PF 30 MCG/0.3 ML IM ONE (16:00)
[2021-03-21] MEDS: Morphine ORAL.SOLN 10 mg 2 mg/ml UDC 5 ml (10 mg) PO PRN (08:42)
[2021-03-21] MEDS: CMCS: LoraTADine 10 mg TAB (NF) PO SCH ×2 (09:53→21:39)
[2021-03-21] MEDS: Enoxaparin 40 MG/0.4 ML SYR SUBCUT SCH (09:54)
[2021-03-21] MEDS: Cholecalciferol (VIT D3) 1,000 unit TAB PO SCH (09:54)
[2021-03-22] MEDS ORDERED: Polyethylene Glycol 3350 17 GM PACKET PO PRN (07:40)
[2021-03-22] MEDS: CMCS: LoraTADine 10 mg TAB (NF) PO SCH (09:04)
[2021-03-22] MEDS: Cholecalciferol (VIT D3) 1,000 unit TAB PO SCH (09:36)
[2021-03-22] MEDS: Enoxaparin 40 MG/0.4 ML SYR SUBCUT SCH (09:36)
[2021-03-22 15:40] VITALS: BP 131/68
== END 2021-03-22 15:20 | disposition short-term general hospital (02) | DRG 494 ==
LOC: ED 13:07 → EDHOLD 13:07 → SSU 13:50 → SUATTDRO 17:24 → SSU 17:27 → SUATTDRO 03-15 09:00
PROVIDERS: ADMIT Internal Medicine; ATTEND Hospitalist

== ENCOUNTER 2021-03-22 15:25 | Inpatient (IN) ==
[2021-03-22] MEDS ORDERED: Fluticasone NASAL SPRAY 50MCG 16 gm SPRAY BTL INTRANASAL PRN (18:26)
[2021-03-22] MEDS ORDERED: Polyethylene Glycol 3350 17 GM PACKET PO PRN (18:27)
[2021-03-22] MEDS ORDERED: Bismuth Subsalicylate 524 MG/30 ML BTL PO PRN (18:29)
[2021-03-22] MEDS ORDERED: Al Hydrox/Mg Hydrox/Simet LIQ 30 ML UDC PO PRN (18:34)
[2021-03-23] MEDS: Enoxaparin 40 MG/0.4 ML SYR SUBCUT SCH (09:39)
[2021-03-23] MEDS: Cholecalciferol (VIT D3) 1,000 unit TAB PO SCH (09:46)
[2021-03-24] MEDS: Cholecalciferol (VIT D3) 1,000 unit TAB PO SCH (07:52)
[2021-03-24] MEDS: Enoxaparin 40 MG/0.4 ML SYR SUBCUT SCH (07:53)
[2021-03-25] MEDS: Enoxaparin 40 MG/0.4 ML SYR SUBCUT SCH (09:23)
[2021-03-25] MEDS: Cholecalciferol (VIT D3) 1,000 unit TAB PO SCH (09:25)
[2021-03-26] MEDS: Cholecalciferol (VIT D3) 1,000 unit TAB PO SCH (09:21)
[2021-03-26] MEDS: Enoxaparin 40 MG/0.4 ML SYR SUBCUT SCH (09:23)
[2021-03-27] MEDS: Cholecalciferol (VIT D3) 1,000 unit TAB PO SCH (08:24)
[2021-03-27] MEDS: Enoxaparin 40 MG/0.4 ML SYR SUBCUT SCH (08:25)
[2021-03-28] MEDS: Enoxaparin 40 MG/0.4 ML SYR SUBCUT SCH (09:51)
[2021-03-28] MEDS: Cholecalciferol (VIT D3) 1,000 unit TAB PO SCH (09:52)
[2021-03-29] MEDS: Enoxaparin 40 MG/0.4 ML SYR SUBCUT SCH (07:35)
[2021-03-29] MEDS: Cholecalciferol (VIT D3) 1,000 unit TAB PO SCH (07:35)
[2021-03-29] MEDS ORDERED: oxyCODONE 5 mg/5 ml ORAL.SOLN UDC PO PRN (18:52)
[2021-03-30] MEDS: Enoxaparin 40 MG/0.4 ML SYR SUBCUT SCH (09:19)
[2021-03-30] MEDS: Cholecalciferol (VIT D3) 1,000 unit TAB PO SCH (09:21)
[2021-03-31] MEDS: Cholecalciferol (VIT D3) 1,000 unit TAB PO SCH (08:51)
[2021-03-31] MEDS: Enoxaparin 40 MG/0.4 ML SYR SUBCUT SCH (08:52)
[2021-04-01] MEDS: Cholecalciferol (VIT D3) 1,000 unit TAB PO SCH (10:12)
[2021-04-01] MEDS: Enoxaparin 40 MG/0.4 ML SYR SUBCUT SCH (10:17)
[2021-04-02 08:01] VITALS: BP 168/88
[2021-04-02] MEDS: Cholecalciferol (VIT D3) 1,000 unit TAB PO SCH (09:48)
[2021-04-02] MEDS: Enoxaparin 40 MG/0.4 ML SYR SUBCUT SCH (09:48)
== END 2021-04-02 11:50 | DRG 561 ==
LOC: SSU 15:25 → SUATTDRO 15:25
PROVIDERS: ADMIT Hospitalist; ATTEND Hospitalist

== ENCOUNTER 2021-07-23 18:04 | Inpatient (IN) ==
[2021-07-23] MEDS ORDERED: LoraTADine 10 mg TAB (NF) PO ONE (20:19)
[2021-07-23 20:42] LABS: ABS Lymphocytes 1.5 10^3/ul (1.0-4.8); ABS Monocytes 0.7 10^3/ul (0-0.8); ABS Neutrophils 9.9 10^3/ul (1.5-7.7); Eosinophil % 0.4 %; Hematocrit 39 % (35-47); Hemoglobin 12.8 g/dL (12.0-16.0); Lymphocyte % 12.1 %; Mean Corpuscular HGB Conc 33 g/dL (31-36); Mean Corpuscular Hemoglobin 29 pg (27-31); Mean Corpuscular Volume 88 fL (80-97); Mean Platelet Volume 7.8 fL (7.4-10.4); Platelet Count 379 10^3/uL (150-450); Red Blood Count 4.44 10^6 /uL (3.70-4.87); Red Cell Distribution Width 15 % (10-15); White Blood Count 12.1 10^3/uL (3.5-10.8)
[2021-07-23 20:54] LABS: INR 1.16 (0.86-1.15)
[2021-07-23 21:20] LABS: Albumin 4.6 g/dL (3.2-5.2); Albumin/Globulin Ratio 1.3 (1-3); Calcium 10.2 mg/dL (8.6-10.3); Globulin 3.5 g/dL (2-4); Potassium 3.2 mmol/L (3.5-5.0); Total Bilirubin 0.8 mg/dL (0.2-1.0); Total Protein 8.1 g/dL (6.4-8.9); eGFR CKD-EPI 89.4 (>60)
[2021-07-23 21:21] LABS: Magnesium 1.9 mg/dL (1.9-2.7)
[2021-07-23 21:32] LABS: TSH Ultra Thyroid Stim Horm 0.21 mcIU/mL (0.34-5.60)
[2021-07-23 22:27] LABS: High Sensitivity Troponin 1 Hr 13 pg/mL (<15)
[2021-07-24] MEDS ORDERED: Potassium Chlor 20 meq TAB.ER PO ONE (01:48)
[2021-07-24 02:23] LABS: Urine Appearance Turbid; Urine Bilirubin Negative (Negative); Urine Blood Negative (Negative); Urine Color Yellow; Urine Glucose Negative (Negative); Urine Ketones Trace (Negative); Urine Nitrite Negative (Negative); Urine Protein 2+(100 mg/dL) (Negative); Urine Specific Gravity 1.013 (1.002-1.030); Urine Urobilinogen Negative (Negative)
[2021-07-24 02:29] LABS: Urine Bacteria 3+ (Absent); Urine Red Blood Cell 3+(>10/hpf) (Absent); Urine White Blood Cell 3+(>20/hpf) (Absent)
[2021-07-24] MEDS ORDERED: cefTRIAXone 1 gm/50 mL D5W 1 GM/50 ML BAG IV ONE (03:10)
[2021-07-24] MEDS ORDERED: Polyethylene Glycol 3350 17 GM PACKET PO PRN (05:15)
[2021-07-24] MEDS ORDERED: Fluticasone NASAL SPRAY 50MCG 16 gm SPRAY BTL INTRANASAL PRN (05:21)
[2021-07-24 06:09] LABS: Free T4 0.94 ng/dL (0.61-1.12)
[2021-07-24] MEDS: Enoxaparin 40 MG/0.4 ML SYR SUBCUT SCH (06:42)
[2021-07-24] MEDS: Fluticasone NASAL SPRAY 50MCG 16 gm SPRAY BTL INTRANASAL SCH (09:12)
[2021-07-24] MEDS: Cholecalciferol (VIT D3) 1,000 unit TAB PO SCH (09:13)
[2021-07-25 06:11] LABS: ABS Basophils 0.1 10^3/ul (0-0.2); ABS Eosinophils 0.3 10^3/ul (0-0.6); ABS Lymphocytes 1.9 10^3/ul (1.0-4.8); ABS Monocytes 1.1 10^3/ul (0-0.8); ABS Neutrophils 6.8 10^3/ul (1.5-7.7); Eosinophil % 2.5 %; Hematocrit 35 % (35-47); Hemoglobin 11.5 g/dL (12.0-16.0); Lymphocyte % 18.9 %; Mean Corpuscular HGB Conc 33 g/dL (31-36); Mean Corpuscular Hemoglobin 29 pg (27-31); Mean Corpuscular Volume 87 fL (80-97); Mean Platelet Volume 7.7 fL (7.4-10.4); Nucleated Red Blood Cells % 0.1; Platelet Count 300 10^3/uL (150-450); Red Cell Distribution Width 14 % (10-15); White Blood Count 10.1 10^3/uL (3.5-10.8)
[2021-07-25] MEDS: Enoxaparin 40 MG/0.4 ML SYR SUBCUT SCH (06:17)
[2021-07-25 06:56] LABS: Anion Gap 9 mmol/L (2-11); Blood Urea Nitrogen 19 mg/dL (6-24); CO2 Carbon Dioxide 21 mmol/L (22-32); Calcium 9.4 mg/dL (8.6-10.3); Chloride 103 mmol/L (101-111); Glucose 103 mg/dL (70-100); Potassium 3.5 mmol/L (3.5-5.0); Sodium 133 mmol/L (135-145); eGFR CKD-EPI 71.1 (>60)
[2021-07-25] MEDS: cefTRIAXone 1 gm/50 mL D5W 1 GM/50 ML BAG IV SCH (09:24)
[2021-07-25] MEDS: Fluticasone NASAL SPRAY 50MCG 16 gm SPRAY BTL INTRANASAL SCH (09:24)
[2021-07-25] MEDS: Cholecalciferol (VIT D3) 1,000 unit TAB PO SCH (11:08)
[2021-07-25 15:04] LABS: Folate > 20.00 ng/mL (5.90-24.80)
[2021-07-25 15:05] LABS: Vitamin B12 694 pg/mL (180-914)
[2021-07-25 15:08] LABS: Vitamin D Total 25(OH) 30.8 ng/mL (20-50)
[2021-07-26 06:49] LABS: ABS Eosinophils 0.4 10^3/ul (0-0.6); ABS Lymphocytes 2.2 10^3/ul (1.0-4.8); ABS Monocytes 0.6 10^3/ul (0-0.8); ABS Neutrophils 4.4 10^3/ul (1.5-7.7); Eosinophil % 5.3 %; Hematocrit 36 % (35-47); Lymphocyte % 28.6 %; Mean Corpuscular HGB Conc 33 g/dL (31-36); Mean Corpuscular Hemoglobin 30 pg (27-31); Mean Corpuscular Volume 89 fL (80-97); Mean Platelet Volume 7.9 fL (7.4-10.4); Platelet Count 274 10^3/uL (150-450); Red Blood Count 4.08 10^6 /uL (3.70-4.87); Red Cell Distribution Width 15 % (10-15); White Blood Count 7.7 10^3/uL (3.5-10.8)
[2021-07-26 07:31] LABS: Calcium 9.3 mg/dL (8.6-10.3); Potassium 3.1 mmol/L (3.5-5.0); eGFR CKD-EPI 84.1 (>60)
[2021-07-26] MEDS: Enoxaparin 40 MG/0.4 ML SYR SUBCUT SCH (07:34)
[2021-07-26] MEDS ORDERED: Potassium Chloride LIQUID 20 MEQ/15 ML LIQUID PO ONE (07:58)
[2021-07-26 08:14] LABS: Magnesium 1.9 mg/dL (1.9-2.7)
[2021-07-26] MEDS: Cholecalciferol (VIT D3) 1,000 unit TAB PO SCH (09:57)
[2021-07-26] MEDS: Fluticasone NASAL SPRAY 50MCG 16 gm SPRAY BTL INTRANASAL SCH (09:59)
[2021-07-26] MEDS: cefTRIAXone 1 gm/50 mL D5W 1 GM/50 ML BAG IV SCH (11:11)
[2021-07-27 05:17] LABS: Hematocrit 34 % (35-47); Hemoglobin 11.1 g/dL (12.0-16.0); Mean Corpuscular HGB Conc 33 g/dL (31-36); Mean Corpuscular Hemoglobin 29 pg (27-31); Mean Corpuscular Volume 89 fL (80-97); Mean Platelet Volume 7.8 fL (7.4-10.4); Platelet Count 280 10^3/uL (150-450); Red Blood Count 3.79 10^6 /uL (3.70-4.87); Red Cell Distribution Width 15 % (10-15); White Blood Count 7.9 10^3/uL (3.5-10.8)
[2021-07-27 05:45] LABS: Calcium 9.3 mg/dL (8.6-10.3); Potassium 3.8 mmol/L (3.5-5.0); eGFR CKD-EPI 80.2 (>60)
[2021-07-27] MEDS: Enoxaparin 40 MG/0.4 ML SYR SUBCUT SCH (05:47)
[2021-07-27] MEDS: Cholecalciferol (VIT D3) 1,000 unit TAB PO SCH (09:18)
[2021-07-27] MEDS: cefTRIAXone 1 gm/50 mL D5W 1 GM/50 ML BAG IV SCH (09:19)
[2021-07-27] MEDS: Fluticasone NASAL SPRAY 50MCG 16 gm SPRAY BTL INTRANASAL SCH (09:21)
[2021-07-28] MEDS: Enoxaparin 40 MG/0.4 ML SYR SUBCUT SCH (06:53)
[2021-07-28] MEDS: Cholecalciferol (VIT D3) 1,000 unit TAB PO SCH (07:45)
[2021-07-28] MEDS: Fluticasone NASAL SPRAY 50MCG 16 gm SPRAY BTL INTRANASAL SCH (07:46)
[2021-07-29] MEDS: Enoxaparin 40 MG/0.4 ML SYR SUBCUT SCH (06:32)
[2021-07-29] MEDS: Cholecalciferol (VIT D3) 1,000 unit TAB PO SCH (10:00)
[2021-07-29] MEDS: Fluticasone NASAL SPRAY 50MCG 16 gm SPRAY BTL INTRANASAL SCH (10:03)
[2021-07-30] MEDS: Enoxaparin 40 MG/0.4 ML SYR SUBCUT SCH (06:20)
[2021-07-30] MEDS: Cholecalciferol (VIT D3) 1,000 unit TAB PO SCH (09:27)
[2021-07-30] MEDS: Fluticasone NASAL SPRAY 50MCG 16 gm SPRAY BTL INTRANASAL SCH (09:35)
[2021-07-31] MEDS: Enoxaparin 40 MG/0.4 ML SYR SUBCUT SCH (05:44)
[2021-07-31] MEDS: Cholecalciferol (VIT D3) 1,000 unit TAB PO SCH (08:53)
[2021-07-31] MEDS: Fluticasone NASAL SPRAY 50MCG 16 gm SPRAY BTL INTRANASAL SCH (12:03)
[2021-08-01] MEDS: Enoxaparin 40 MG/0.4 ML SYR SUBCUT SCH (05:59)
[2021-08-01] MEDS: Cholecalciferol (VIT D3) 1,000 unit TAB PO SCH (09:02)
[2021-08-01 12:23] LABS: Hematocrit 32 % (35-47); Hemoglobin 10.7 g/dL (12.0-16.0); Mean Corpuscular HGB Conc 33 g/dL (31-36); Mean Corpuscular Hemoglobin 29 pg (27-31); Mean Corpuscular Volume 88 fL (80-97); Mean Platelet Volume 8.1 fL (7.4-10.4); Platelet Count 246 10^3/uL (150-450); Red Blood Count 3.65 10^6 /uL (3.70-4.87); Red Cell Distribution Width 15 % (10-15); White Blood Count 7.9 10^3/uL (3.5-10.8)
[2021-08-01] MEDS: Fluticasone NASAL SPRAY 50MCG 16 gm SPRAY BTL INTRANASAL SCH (12:24)
[2021-08-02] MEDS: Enoxaparin 40 MG/0.4 ML SYR SUBCUT SCH (05:48)
[2021-08-02] MEDS: Cholecalciferol (VIT D3) 1,000 unit TAB PO SCH (09:36)
[2021-08-02] MEDS: Fluticasone NASAL SPRAY 50MCG 16 gm SPRAY BTL INTRANASAL SCH (09:36)
[2021-08-03] MEDS: Enoxaparin 40 MG/0.4 ML SYR SUBCUT SCH (06:05)
[2021-08-03] MEDS: Cholecalciferol (VIT D3) 1,000 unit TAB PO SCH (08:04)
[2021-08-03] MEDS: Fluticasone NASAL SPRAY 50MCG 16 gm SPRAY BTL INTRANASAL SCH (08:18)
[2021-08-03] MEDS: HYDROcodone/ACETAMIN 5/325 mg TAB PO PRN (20:03)
[2021-08-04] MEDS: HYDROcodone/ACETAMIN 5/325 mg TAB PO PRN ×4 (02:50→22:21)
[2021-08-04] MEDS: Enoxaparin 40 MG/0.4 ML SYR SUBCUT SCH (05:23)
[2021-08-04] MEDS: Cholecalciferol (VIT D3) 1,000 unit TAB PO SCH (10:03)
[2021-08-04] MEDS: Fluticasone NASAL SPRAY 50MCG 16 gm SPRAY BTL INTRANASAL SCH (11:12)
[2021-08-05] MEDS: Enoxaparin 40 MG/0.4 ML SYR SUBCUT SCH (05:23)
[2021-08-05] MEDS: HYDROcodone/ACETAMIN 5/325 mg TAB PO PRN ×3 (08:58→23:36)
[2021-08-05] MEDS: Fluticasone NASAL SPRAY 50MCG 16 gm SPRAY BTL INTRANASAL SCH (11:08)
[2021-08-05] MEDS: Cholecalciferol (VIT D3) 1,000 unit TAB PO SCH (11:09)
[2021-08-06] MEDS: Enoxaparin 40 MG/0.4 ML SYR SUBCUT SCH (04:46)
[2021-08-06] MEDS: HYDROcodone/ACETAMIN 5/325 mg TAB PO PRN ×3 (08:10→22:02)
[2021-08-06] MEDS: Cholecalciferol (VIT D3) 1,000 unit TAB PO SCH (09:09)
[2021-08-06] MEDS: Fluticasone NASAL SPRAY 50MCG 16 gm SPRAY BTL INTRANASAL SCH (09:10)
[2021-08-07] MEDS: HYDROcodone/ACETAMIN 5/325 mg TAB PO PRN ×3 (04:23→17:58)
[2021-08-07] MEDS: Enoxaparin 40 MG/0.4 ML SYR SUBCUT SCH (04:29)
[2021-08-07 07:16] LABS: ABS Basophils 0.1 10^3/ul (0-0.2); ABS Eosinophils 0.4 10^3/ul (0-0.6); ABS Lymphocytes 1.8 10^3/ul (1.0-4.8); ABS Monocytes 0.5 10^3/ul (0-0.8); ABS Neutrophils 3.1 10^3/ul (1.5-7.7); Eosinophil % 6.9 %; Hematocrit 32 % (35-47); Hemoglobin 10.3 g/dL (12.0-16.0); Lymphocyte % 30.5 %; Mean Corpuscular HGB Conc 33 g/dL (31-36); Mean Corpuscular Hemoglobin 29 pg (27-31); Mean Corpuscular Volume 89 fL (80-97); Mean Platelet Volume 7.9 fL (7.4-10.4); Platelet Count 279 10^3/uL (150-450); Red Blood Count 3.54 10^6 /uL (3.70-4.87); Red Cell Distribution Width 15 % (10-15); White Blood Count 5.8 10^3/uL (3.5-10.8)
[2021-08-07 07:46] LABS: Calcium 9.2 mg/dL (8.6-10.3); Magnesium 1.9 mg/dL (1.9-2.7); Potassium 3.9 mmol/L (3.5-5.0); eGFR CKD-EPI 90.1 (>60)
[2021-08-07] MEDS: Fluticasone NASAL SPRAY 50MCG 16 gm SPRAY BTL INTRANASAL SCH (09:01)
[2021-08-07] MEDS: Cholecalciferol (VIT D3) 1,000 unit TAB PO SCH (09:01)
[2021-08-08] MEDS: HYDROcodone/ACETAMIN 5/325 mg TAB PO PRN ×2 (00:06→06:07)
[2021-08-08] MEDS: Enoxaparin 40 MG/0.4 ML SYR SUBCUT SCH (06:10)
[2021-08-08] MEDS: Cholecalciferol (VIT D3) 1,000 unit TAB PO SCH (09:04)
[2021-08-08] MEDS: Fluticasone NASAL SPRAY 50MCG 16 gm SPRAY BTL INTRANASAL SCH (09:06)
[2021-08-08] MEDS: oxyCODONE/Acetamin 5/325 mg TAB PO PRN ×2 (12:40→19:16)
[2021-08-09] MEDS: oxyCODONE/Acetamin 5/325 mg TAB PO PRN (05:05)
[2021-08-09] MEDS: Enoxaparin 40 MG/0.4 ML SYR SUBCUT SCH (06:17)
[2021-08-09] MEDS: Fluticasone NASAL SPRAY 50MCG 16 gm SPRAY BTL INTRANASAL SCH (09:06)
[2021-08-09] MEDS: Cholecalciferol (VIT D3) 1,000 unit TAB PO SCH (09:08)
[2021-08-09] MEDS: Morphine ER 15 mg TAB ** extended release PO SCH ×2 (09:09→20:48)
[2021-08-10] MEDS: Enoxaparin 40 MG/0.4 ML SYR SUBCUT SCH (05:39)
[2021-08-10 08:02] VITALS: BP 142/56
[2021-08-10] MEDS: Cholecalciferol (VIT D3) 1,000 unit TAB PO SCH (09:14)
[2021-08-10] MEDS: Morphine ER 15 mg TAB ** extended release PO SCH (09:14)
[2021-08-10] MEDS: Fluticasone NASAL SPRAY 50MCG 16 gm SPRAY BTL INTRANASAL SCH (09:48)
== END 2021-08-10 16:05 | disposition home health service (06) | DRG 690 ==
LOC: ED 18:04 → SUATTDRO 07-24 05:09 → EDHOLD 07-24 05:09 → MEDTELE 07-24 16:04 → MED 08-01 22:30
PROVIDERS: ADMIT Hospitalist; ATTEND Internal Medicine

== ENCOUNTER 2021-08-31 21:57 | Observation (INO) ==
[2021-09-01] MEDS ORDERED: NS 0.9% 1000 ml BAG 1,000 ML IV ONE ×2 (00:18→04:07)
[2021-09-01 01:44] LABS: ABS Eosinophils 0.2 10^3/ul (0-0.6); ABS Lymphocytes 1.7 10^3/ul (1.0-4.8); ABS Monocytes 0.6 10^3/ul (0-0.8); ABS Neutrophils 4.7 10^3/ul (1.5-7.7); Eosinophil % 2.3 %; Hematocrit 37 % (35-47); Hemoglobin 12.1 g/dL (12.0-16.0); Mean Corpuscular HGB Conc 33 g/dL (31-36); Mean Corpuscular Hemoglobin 29 pg (27-31); Mean Corpuscular Volume 87 fL (80-97); Mean Platelet Volume 8.9 fL (7.4-10.4); Platelet Count 232 10^3/uL (150-450); Red Blood Count 4.23 10^6 /uL (3.70-4.87); Red Cell Distribution Width 16 % (10-15); White Blood Count 7.1 10^3/uL (3.5-10.8)
[2021-09-01 02:24] LABS: Albumin 4.4 g/dL (3.2-5.2); Calcium 9.7 mg/dL (8.6-10.3); Magnesium 1.9 mg/dL (1.9-2.7); Potassium 3.2 mmol/L (3.5-5.0); Total Bilirubin 0.7 mg/dL (0.2-1.0)
[2021-09-01 02:30] LABS: Albumin/Globulin Ratio 1.5 (1-3); C Reactive Protein 2.63 mg/L (<8.01); Globulin 2.9 g/dL (2-4); Total Protein 7.3 g/dL (6.4-8.9); eGFR CKD-EPI 84.1 (>60)
[2021-09-01 02:59] LABS: TSH Ultra Thyroid Stim Horm 0.49 mcIU/mL (0.34-5.60)
[2021-09-01] MEDS ORDERED: Potassium Chlor 20 meq TAB.ER PO ONE (04:07)
[2021-09-01 04:29] LABS: High Sensitivity Troponin 1 Hr 9 pg/mL (<15)
[2021-09-01 05:49] LABS: Urine Appearance Cloudy; Urine Bilirubin Negative (Negative); Urine Blood Negative (Negative); Urine Color Yellow; Urine Glucose Negative (Negative); Urine Ketones Trace (Negative); Urine Nitrite Negative (Negative); Urine Protein Negative (Negative); Urine Specific Gravity 1.008 (1.002-1.030); Urine Urobilinogen Negative (Negative)
[2021-09-01 06:21] LABS: Urine Bacteria 2+ (Absent); Urine Red Blood Cell 1+(3-5/hpf) (Absent); Urine Squamous Epithelial Cell Present (Absent); Urine White Blood Cell 3+(>20/hpf) (Absent)
[2021-09-01] MEDS ORDERED: Al Hydrox/Mg Hydrox/Simet LIQ 30 ML UDC PO PRN (09:58)
[2021-09-01] MEDS ORDERED: Magnesium Hydroxide LIQ 30 ML UDC PO PRN (09:58)
[2021-09-01] MEDS: Enoxaparin 40 MG/0.4 ML SYR SUBCUT SCH (13:18)
[2021-09-01] MEDS: Nystatin TOP POWDER 15 GM BTL TOPICAL SCH ×2 (18:09→20:14)
[2021-09-02 09:12] LABS: ABS Eosinophils 0.2 10^3/ul (0-0.6); ABS Lymphocytes 1.6 10^3/ul (1.0-4.8); ABS Monocytes 0.5 10^3/ul (0-0.8); ABS Neutrophils 4.3 10^3/ul (1.5-7.7); Eosinophil % 3.5 %; Hematocrit 37 % (35-47); Hemoglobin 12.1 g/dL (12.0-16.0); Lymphocyte % 23.7 %; Mean Corpuscular HGB Conc 33 g/dL (31-36); Mean Corpuscular Hemoglobin 29 pg (27-31); Mean Corpuscular Volume 88 fL (80-97); Mean Platelet Volume 8.4 fL (7.4-10.4); Platelet Count 229 10^3/uL (150-450); Red Blood Count 4.23 10^6 /uL (3.70-4.87); Red Cell Distribution Width 15 % (10-15); White Blood Count 6.6 10^3/uL (3.5-10.8)
[2021-09-02 09:50] LABS: Calcium 9.6 mg/dL (8.6-10.3); Potassium 3.6 mmol/L (3.5-5.0)
[2021-09-02] MEDS: Enoxaparin 40 MG/0.4 ML SYR SUBCUT SCH (09:55)
[2021-09-02] MEDS: Nystatin TOP POWDER 15 GM BTL TOPICAL SCH ×3 (09:55→21:55)
[2021-09-03] MEDS: Enoxaparin 40 MG/0.4 ML SYR SUBCUT SCH (08:51)
[2021-09-03] MEDS: Nystatin TOP POWDER 15 GM BTL TOPICAL SCH ×3 (10:29→21:01)
[2021-09-04] MEDS ORDERED: Lidocaine PATCH 5% PATCH TRANSDERM ONE (03:11)
[2021-09-04] MEDS: Nystatin TOP POWDER 15 GM BTL TOPICAL SCH ×3 (09:36→22:11)
[2021-09-04] MEDS: Enoxaparin 40 MG/0.4 ML SYR SUBCUT SCH (09:54)
[2021-09-04] MEDS ORDERED: PAIN RELIEVING RUB (MENTHOL/SALICYLATE) 1 APPLIC TUBE TOPICAL PRN (12:54)
[2021-09-04] MEDS ORDERED: Morphine ER 15 mg TAB ** extended release PO PRN (16:57)
[2021-09-05] MEDS: Nystatin TOP POWDER 15 GM BTL TOPICAL SCH ×2 (09:55→14:45)
[2021-09-05] MEDS: Enoxaparin 40 MG/0.4 ML SYR SUBCUT SCH (10:41)
[2021-09-05 14:57] VITALS: BP 129/70
== END 2021-09-05 15:10 | disposition swing bed (61) ==
LOC: EDHOLD 21:57 → ED 21:57 → SUATTDRO 09-01 09:58 → MED 09-01 12:54
PROVIDERS: ADMIT Pediatrics; ATTEND Hospitalist

== ENCOUNTER 2021-09-05 15:11 | Inpatient (IN) ==
[2021-09-05] MEDS ORDERED: Al Hydrox/Mg Hydrox/Simet LIQ 30 ML UDC PO PRN (15:26)
[2021-09-05] MEDS ORDERED: Magnesium Hydroxide LIQ 30 ML UDC PO PRN (15:26)
[2021-09-05] MEDS ORDERED: PAIN RELIEVING RUB (MENTHOL/SALICYLATE) 1 APPLIC TUBE TOPICAL PRN (15:39)
[2021-09-05] MEDS ORDERED: Enoxaparin 40 MG/0.4 ML SYR SUBCUT SCH (16:00)
[2021-09-05] MEDS: Morphine ER 15 mg TAB ** extended release PO SCH (16:52)
[2021-09-05] MEDS: Nystatin TOP POWDER 15 GM BTL TOPICAL SCH (23:17)
[2021-09-06 06:44] LABS: Calcium 8.7 mg/dL (8.6-10.3); Potassium 3.9 mmol/L (3.5-5.0); eGFR CKD-EPI 89.7 (>60)
[2021-09-06 07:07] LABS: ABS Eosinophils 0.4 10^3/ul (0-0.6); ABS Lymphocytes 1.7 10^3/ul (1.0-4.8); ABS Monocytes 0.6 10^3/ul (0-0.8); ABS Neutrophils 4.8 10^3/ul (1.5-7.7); Eosinophil % 4.9 %; Hematocrit 33 % (35-47); Hemoglobin 10.7 g/dL (12.0-16.0); Lymphocyte % 22.8 %; Mean Corpuscular HGB Conc 33 g/dL (31-36); Mean Corpuscular Hemoglobin 29 pg (27-31); Mean Corpuscular Volume 88 fL (80-97); Mean Platelet Volume 8.8 fL (7.4-10.4); Nucleated Red Blood Cells % 0.3; Platelet Count 209 10^3/uL (150-450); Red Blood Count 3.71 10^6 /uL (3.70-4.87); Red Cell Distribution Width 16 % (10-15); White Blood Count 7.4 10^3/uL (3.5-10.8)
[2021-09-06] MEDS: Morphine ER 15 mg TAB ** extended release PO SCH (08:28)
[2021-09-06] MEDS ORDERED: Cholecalciferol (VIT D3) 1,000 unit TAB PO SCH (09:00)
[2021-09-06] MEDS: Nystatin TOP POWDER 15 GM BTL TOPICAL SCH (10:07)
[2021-09-06] MEDS ORDERED: Benzocaine/Menthol LOZ PO PRN (10:12)
[2021-09-06 11:32] VITALS: BP 122/84
[2021-09-06] MEDS ORDERED: Morphine ER 15 mg TAB ** extended release PO PRN (20:00)
== END 2021-09-06 13:35 | DRG 690 ==
LOC: MED 15:11 → SUATTDRO 15:11
PROVIDERS: ADMIT Hospitalist; ATTEND Student in an Organized Health Care Education/Training Program

== ENCOUNTER 2022-09-05 12:28 | Observation (INO) ==
[2022-09-05 14:21] LABS: ABS Eosinophils 0.1 10^3/uL (0.0-0.5); ABS Lymphocytes 1.6 10^3/uL (1.0-4.8); ABS Monocytes 0.5 10^3/uL (0.0-0.9); ABS Neutrophils 5.4 10^3/uL (1.5-7.6); ABS Nucleated RBC 0.01 10^3/ul; Eosinophil % 1.8 %; Hematocrit 39.4 % (35-45); Hemoglobin 13.7 g/dL (11.5-14.3); Lymphocyte % 20.9 %; Mean Corpuscular Hemoglobin 30.4 pg (27-33); Mean Corpuscular Hgb Conc 34.7 g/dL (31-36); Mean Corpuscular Volume 87.7 fL (80-97); Mean Platelet Volume 8.2 fL (7.5-11.2); Nucleated Red Blood Cells % 0.1 /100 WBC (0.0-0.4); Platelet Count 289 10^3/uL (150-450); Red Blood Count 4.49 10^6/uL (3.63-4.92); Red Cell Distribution Width 13.3 % (12-17); White Blood Count 7.7 10^3/uL (3.8-11.8)
[2022-09-05 14:37] LABS: Albumin 4.2 g/dL (3.2-5.2); Albumin/Globulin Ratio 1.2 (1-3); Calcium 9.9 mg/dL (8.6-10.3); Creatinine, Serum 0.73 mg/dL (0.51-0.95); Globulin 3.5 g/dL (2-4); Magnesium 1.6 mg/dL (1.9-2.7); Total Bilirubin 0.8 mg/dL (0.2-1.0); Total Protein 7.7 g/dL (6.4-8.9); eGFR CKD-EPI 83.6 (>60)
[2022-09-05 14:50] LABS: Potassium 2.7 mmol/L (3.5-5.0)
[2022-09-05] MEDS ORDERED: Potassium EFFERVES 25 meq TAB PO ONE (14:51)
[2022-09-05 15:13] LABS: TSH Ultra Thyroid Stim Horm 0.93 mcIU/mL (0.34-5.60)
[2022-09-05] MEDS ORDERED: Lactated Ringers 1000 ml BAG 1,000 ML IV ONE (15:37)
[2022-09-05] MEDS: KCL 10 MEQ/50 ML IVPREMIX 10 MEQ/50 ML BAG IV SCH ×2 (15:37→17:53)
[2022-09-05] MEDS ORDERED: NS 0.9% 1000 ml BAG 1,000 ML IV ONE (16:11)
[2022-09-05 16:22] LABS: High Sensitivity Troponin 1 Hr 10 pg/mL (<15)
[2022-09-05 17:19] LABS: Urine Appearance Turbid; Urine Bilirubin Negative (Negative); Urine Blood 1+ (Negative); Urine Color Amber; Urine Glucose Negative (Negative); Urine Ketones Negative (Negative); Urine Nitrite Negative (Negative); Urine Protein 2+(100 mg/dL) (Negative); Urine Specific Gravity 1.009 (1.002-1.030); Urine Urobilinogen Negative (Negative)
[2022-09-05 17:26] LABS: Urine Bacteria 2+ (Absent); Urine Red Blood Cell 3+(>10/hpf) (Absent); Urine White Blood Cell 3+(>20/hpf) (Absent)
[2022-09-05] MEDS: Enoxaparin 40 MG/0.4 ML SYR SUBCUT SCH (18:11)
[2022-09-05] MEDS: Morphine ER 15 mg TAB ** extended release PO PRN (18:52)
[2022-09-05 21:19] LABS: Calcium 8.9 mg/dL (8.6-10.3); Creatinine, Serum 0.89 mg/dL (0.51-0.95); Magnesium 1.6 mg/dL (1.9-2.7); Potassium 3.5 mmol/L (3.5-5.0); eGFR CKD-EPI 65.9 (>60)
[2022-09-06 05:51] LABS: ABS Basophils 0.1 10^3/uL (0.0-0.1); ABS Eosinophils 0.2 10^3/uL (0.0-0.5); ABS Lymphocytes 2.1 10^3/uL (1.0-4.8); ABS Monocytes 0.7 10^3/uL (0.0-0.9); ABS Neutrophils 4.3 10^3/uL (1.5-7.6); ABS Nucleated RBC 0.01 10^3/ul; Eosinophil % 3.2 %; Hemoglobin 11.4 g/dL (11.5-14.3); Lymphocyte % 28.1 %; Mean Corpuscular Hemoglobin 30.4 pg (27-33); Mean Corpuscular Hgb Conc 34.6 g/dL (31-36); Mean Corpuscular Volume 87.7 fL (80-97); Mean Platelet Volume 7.6 fL (7.5-11.2); Nucleated Red Blood Cells % 0.1 /100 WBC (0.0-0.4); Platelet Count 242 10^3/uL (150-450); Red Blood Count 3.76 10^6/uL (3.63-4.92); Red Cell Distribution Width 13.1 % (12-17); White Blood Count 7.3 10^3/uL (3.8-11.8)
[2022-09-06 06:10] LABS: Calcium 8.4 mg/dL (8.6-10.3); Creatinine, Serum 0.98 mg/dL (0.51-0.95); Magnesium 1.6 mg/dL (1.9-2.7); Potassium 3.2 mmol/L (3.5-5.0); eGFR CKD-EPI 58.7 (>60)
[2022-09-06] MEDS ORDERED: Magnesium Sulf 4 GM/100 ML IV 4,000 MG/100 ML BAG IVPB ONE ×3 (06:45→08:56)
[2022-09-06] MEDS ORDERED: Potassium Chlor 20 meq TAB.ER PO ONE (06:57)
[2022-09-06] MEDS: Cholecalciferol (VIT D3) 1,000 unit TAB PO SCH (08:20)
[2022-09-06] MEDS: Morphine ER 15 mg TAB ** extended release PO PRN ×2 (08:37→22:57)
[2022-09-06] MEDS ORDERED: KCL 10 MEQ/50 ML IVPREMIX 10 MEQ/50 ML BAG IV SCH (09:00)
[2022-09-06] MEDS: KCL premix 10 MEQ/50 ML x 2 BAGS IV SCH ×2 (15:26→16:43)
[2022-09-06] MEDS: Enoxaparin 40 MG/0.4 ML SYR SUBCUT SCH (16:45)
[2022-09-06 18:22] LABS: Creatinine, Serum 0.83 mg/dL (0.51-0.95); Magnesium 2.7 mg/dL (1.9-2.7); eGFR CKD-EPI 71.7 (>60)
[2022-09-07 08:28] LABS: ABS Basophils 0.1 10^3/uL (0.0-0.1); ABS Eosinophils 0.4 10^3/uL (0.0-0.5); ABS Lymphocytes 2.4 10^3/uL (1.0-4.8); ABS Monocytes 0.5 10^3/uL (0.0-0.9); ABS Neutrophils 2.9 10^3/uL (1.5-7.6); Hematocrit 35.2 % (35-45); Lymphocyte % 38.9 %; Mean Corpuscular Hgb Conc 34.1 g/dL (31-36); Mean Platelet Volume 8.1 fL (7.5-11.2); Nucleated Red Blood Cells % 0.1 /100 WBC (0.0-0.4); Platelet Count 237 10^3/uL (150-450); Red Blood Count 3.87 10^6/uL (3.63-4.92); Red Cell Distribution Width 13.8 % (12-17); White Blood Count 6.3 10^3/uL (3.8-11.8)
[2022-09-07 08:48] LABS: Calcium 8.7 mg/dL (8.6-10.3); Creatinine, Serum 0.87 mg/dL (0.51-0.95); Magnesium 2.4 mg/dL (1.9-2.7); Potassium 4.1 mmol/L (3.5-5.0); eGFR CKD-EPI 67.7 (>60)
[2022-09-07] MEDS: Cholecalciferol (VIT D3) 1,000 unit TAB PO SCH (09:31)
[2022-09-07] MEDS: Morphine ER 15 mg TAB ** extended release PO PRN ×2 (09:32→23:24)
[2022-09-07] MEDS: Enoxaparin 40 MG/0.4 ML SYR SUBCUT SCH (16:16)
[2022-09-08] MEDS: Cholecalciferol (VIT D3) 1,000 unit TAB PO SCH (07:42)
[2022-09-08] MEDS: Enoxaparin 40 MG/0.4 ML SYR SUBCUT SCH (15:37)
[2022-09-08] MEDS: Morphine ER 15 mg TAB ** extended release PO PRN (23:25)
[2022-09-09] MEDS: Cholecalciferol (VIT D3) 1,000 unit TAB PO SCH (08:09)
[2022-09-09] MEDS: Morphine ER 15 mg TAB ** extended release PO PRN ×2 (08:09→23:22)
[2022-09-09] MEDS ORDERED: Senna TAB 8.6 mg TAB PO PRN (12:04)
[2022-09-09] MEDS ORDERED: Polyethylene Glycol 3350 17 GM PACKET PO PRN (12:04)
[2022-09-09] MEDS ORDERED: Polyethylene Glycol 3350 17 GM PACKET PO ONE (14:46)
[2022-09-09] MEDS: Enoxaparin 40 MG/0.4 ML SYR SUBCUT SCH (16:51)
[2022-09-09] MEDS: Senna TAB 8.6 mg TAB PO SCH (17:37)
[2022-09-09] MEDS: Docusate LIQ 100 MG/10 ML UDC PO SCH ×2 (18:07→23:26)
[2022-09-10 05:11] VITALS: BP 137/70
[2022-09-10] MEDS ORDERED: Polyethylene Glycol 3350 17 GM PACKET PO SCH (09:00)
[2022-09-10] MEDS: Docusate LIQ 100 MG/10 ML UDC PO SCH (10:07)
[2022-09-10] MEDS: Senna TAB 8.6 mg TAB PO SCH (10:08)
[2022-09-10] MEDS: Cholecalciferol (VIT D3) 1,000 unit TAB PO SCH (11:23)
[2022-09-10] MEDS: Morphine ER 15 mg TAB ** extended release PO PRN (11:25)
[2022-09-10 14:26] LABS: Renin 0.6 ng/mL/h
== END 2022-09-10 13:15 ==
LOC: ED 12:28 → EDHOLD 12:28 → SUATTDRO 16:50 → EDHOLD 18:27 → MED 20:23
PROVIDERS: ADMIT Hospitalist; ATTEND Internal Medicine